=== PATIENT | female | born 1950 | race Caucasian/White ===

== ENCOUNTER → 2016-11-19 | Outpatient (CLI) | payer OTHER ==
--- NOTE | 2016-11-23 12:51 | MM ---
Reason for exam: screening (asymptomatic). Last mammogram was performed 1 year and 1 month ago. History: Patient is postmenopausal and is nulliparous. Family history of breast cancer in mother at age 59 and breast cancer in 3 maternal aunts. Reductions of both breasts, 2001. Took estrogen for 16 years. Took progesterone for 16 years. Physical Findings: A clinical breast exam by your physician is recommended on an annual basis and results should be correlated with mammographic findings. MG Screening Mammo w CAD Bilateral CC and MLO view(s) were taken. Prior study comparison: October 11, 2015, bilateral MG screening mammo w CAD. January 01, 2014, bilateral MG screening mammo w CAD. There are scattered fibroglandular densities. No significant changes when compared with prior studies. ASSESSMENT: Benign, BI-RAD 2 RECOMMENDATION: Routine screening mammogram of both breasts in 1 year.
== END | disposition home or self-care (01) ==
LOC: RADMAMWWP 15:49
PROVIDERS: ATTEND Family Medicine
DX: Z12.31 Encounter for screening mammogram for malignant neoplasm of breast (principal)

== ENCOUNTER 2017-03-08 02:47 | Emergency (ER) | payer OTHER ==
[2017-03-08 02:55] VITALS: TEMP 97.1
[2017-03-08] MEDS ORDERED: RABIES IMMUNE GLOB 150 UNIT/ML 10 ML VIAL IM ONE (03:15)
[2017-03-08] MEDS ORDERED: RABIES VACCINE (PCEC) 2.5 UNIT KIT IM ONE (03:15)
[2017-03-08] MEDS ORDERED: AMOXIC-POT CLAV 875-125MG 1 EACH TAB PO STA (03:15)
[2017-03-08] MEDS ORDERED: DIPH,PERTUS(ACELL)TETVAC-LF 0.5 ML VIAL IM ONE (03:15)
[2017-03-08] MEDS ORDERED: IBUPROFEN 600 MG TAB PO STA (03:19)
--- NOTE | 2017-03-08 03:20 | ED ---
Animal Bite HPI - General Chief Complaint: Animal Bite Stated Complaint: Cat bites-right hand Time Seen by Provider: 03/08/17 02:57 Source: patient, RN notes reviewed Mode of arrival: ambulatory Limitations: no limitations - History of Present Illness Initial Comments: 66-year-old female presents emergency Department chief complaint Bite right arm. Patient states her cat was fighting with another stray cat and states that she was bit multiple times by her cat in the femoral. Patient states that her tetanus is not up-to-date. Patient states that she has multiple puncture wounds to her right forearm right hand. Patient states there is one larger puncture wound to the dorsal aspect of her right hand. Patient denies any paresthesias denies any decreased range of motion. Patient offers no other complaints. She states she was unable to capture the cat this time. - Related Data Home Medications Medication Instructions Recorded Confirmed Atenolol [Tenormin] 25 mg PO BID 01/29/14 01/15/16 Gabapentin [Neurontin] 300 mg PO BID 01/29/14 01/15/16 Methocarbamol [Robaxin-750] 750 mg PO Q6H PRN 01/29/14 01/15/16 Omeprazole [PriLOSEC] 40 mg PO DAILY 01/29/14 01/15/16 Oxybutynin Chloride [Ditropan] 5 mg PO BID 01/29/14 01/15/16 amLODIPine BESYLATE [Norvasc] 5 mg PO DAILY 01/29/14 01/15/16 buPROPion SR [Wellbutrin SR] 150 mg PO BID 01/29/14 01/15/16 clonazePAM [KlonoPIN] 2 mg PO HS 01/29/14 01/15/16 metFORMIN HCL [Glucophage] 500 mg PO W/BRKFST 11/20/14 01/15/16 Multivitamins, Thera [Multivitamin 1 tab PO DAILY 01/17/15 01/15/16 (formulary)] Thiamine [Vitamin B-1] 100 mg PO DAILY 01/17/15 01/15/16 Cyanocobalamin [Vitamin B-12] 500 mcg PO DAILY 03/01/15 01/15/16 HYDROcodone/APAP 7.5-325MG [[place] 1 tab PO Q4H PRN 03/01/15 01/15/16 7.5-325] Albuterol Sulfate [Proair Hfa] 1 - 2 puff INHALATION RT-Q6H PRN 01/15/16 Aspirin EC [Ecotrin Low Dose] 81 mg PO HS 01/15/16 01/15/16 Atorvastatin [Lipitor] 10 mg PO HS 01/15/16 01/15/16 Calcium Polycarbophil [Fibercon] 625 mg PO DAILY 01/15/16 01/15/16 Cholecalciferol [Vitamin D3] 2,000 unit PO DAILY 01/15/16 01/15/16 Ferrous Sulfate [Iron (65 MG 325 mg PO DAILY 01/15/16 01/15/16 Elemental)] Folic Acid 0.8 mg PO DAILY 01/15/16 01/15/16 Pramipexole [Mirapex] 0.25 mg PO HS 01/15/16 01/15/16 valACYclovir HCL [Valtrex] 1,000 mg PO TID PRN 01/15/16 01/15/16 Previous Rx's Medication Instructions Recorded Amoxicillin/Potassium Clav 1 tab PO Q12HR #20 tab 03/08/17 [Augmentin 875-125 Tablet] Allergies Allergy/AdvReac Type Severity Reaction Status Date / Time No Known Allergies Allergy Verified 03/08/17 02:55 Review of Systems ROS Statement: Those systems with pertinent positive or pertinent negative responses have been documented in the HPI. ROS Other: All systems not noted in ROS Statement are negative. Past Medical History Past Medical History: COPD, Diabetes Mellitus, Fibromyalgia, GERD/Reflux, Hypertension, Musculoskeletal Disorder, Pulmonary Embolus (PE) Additional Past Medical History / Comment(s): UTI(E COLI FACEALIS WITH SEPSIS, FALLS, DJD, CHRONIC PRURITIC , PT STATED SHE TAKES SINEMET FOR restless legs History of Any Multi-Drug Resistant Organisms: None Reported Past Surgical History: Appendectomy, Back Surgery, Cholecystectomy, Joint Replacement, Orthopedic Surgery Additional Past Surgical History / Comment(s): brain surgery clipped aneurysm 4 clips, breast surgery reduction, cervical polyp,D&C, Gastroscopy, removal of cyst in mouth, hysterscopy, Left knee manipulation, cervical biopsy, Brain Arteriogram,LT KNEE REPLACEMENT, Past Anesthesia/Blood Transfusion Reactions: No Reported Reaction Past Psychological History: Anxiety Smoking Status: Current every day smoker Past Alcohol Use History: None Reported Past Drug Use History: None Reported - Past Family History Mother Family Medical History: Cancer Father Family Medical History: Cancer General Exam Limitations: no limitations General appearance: alert, in no apparent distress Head exam: Present: atraumatic, normocephalic, normal inspection Neck exam: Present: normal inspection. Absent: tenderness, meningismus, lymphadenopathy Respiratory exam: Present: normal lung sounds bilaterally. Absent: respiratory distress, wheezes, rales, rhonchi, stridor Cardiovascular Exam: Present: regular rate, normal rhythm, normal heart sounds. Absent: systolic murmur, diastolic murmur, rubs, gallop, clicks Extremities exam: Present: other (Right hand and forearm there are multiple puncture wounds noted there is some ecchymosis surrounding the wound on her right hand dorsal aspect. Radial pulses equal bilaterally Refill less than 2 seconds of all digits full range of motion) Course Vital Signs 03/08/17 02:51 Temperature 97.1 F L Pulse Rate 63 Respiratory 18 Rate Blood Pressure 144/70 O2 Sat by Pulse 95 Oximetry Medical Decision Making - Medical Decision Making 66-year-old female presented for Right. I did inform the patient that her tetanus needs to be updated and will be updated at this time. She was also recommended to have rabies vaccine and immunoglobulin. Patient agrees to this. Patient was advised that she should have the wounds injected with the immunoglobulin though she refuses. Patient will be given this IM at this time. Patient be given prescription for rabies series. Patient also be discharged on Augmentin. Wounds were cleaned Disposition Clinical Impression: Cat bite Disposition: HOME SELF-CARE Condition: Stable Instructions: Animal Bite (ED) Additional Instructions: Please return to the Emergency Department if symptoms worsen or any other concerns. Prescriptions: Amoxicillin/Potassium Clav [Augmentin 875-125 Tablet] 1 tab PO Q12HR #20 tab Referrals: Mir Nuñez DO [Primary Care Provider] - 1-2 days Time of Disposition: 03:20
[2017-03-08 04:29] VITALS: BP 133/74; PULSE 69; RESP 16
== END 2017-03-08 04:30 | disposition home or self-care (01) ==
LOC: EC 02:47
DX: S51.831A Puncture wound without foreign body of right forearm, initial encounter (principal); S61.431A Puncture wound without foreign body of right hand, initial encounter; E11.9 Type 2 diabetes mellitus without complications; M79.7 Fibromyalgia; K21.9 Gastro-esophageal reflux disease without esophagitis; I10 Essential (primary) hypertension; F41.9 Anxiety disorder, unspecified; F17.200 Nicotine dependence, unspecified, uncomplicated; Z23 Encounter for immunization; Z86.711 Personal history of pulmonary embolism; Z79.82 Long term (current) use of aspirin; Z79.84 Long term (current) use of oral hypoglycemic drugs; Z79.899 Other long term (current) drug therapy; W55.01XA Bitten by cat, initial encounter
CPT/HCPCS: 90375; 90471; 90472; 90675; 90715; 96372; 99282

== ENCOUNTER → 2017-03-09 | Outpatient (CLI) | payer OTHER ==
--- NOTE | 2017-03-09 21:17 | XR ---
EXAMINATION TYPE: XR chest 2V DATE OF EXAM: 03/09/2017 COMPARISON: Chest x-ray January 14, 2016. HISTORY: Cough for 2 months. TECHNIQUE: Frontal and lateral views of the chest are obtained. FINDINGS: Chronic parenchymal change is present. There is no suspicious new focal air space opacity, pleural effusion, or pneumothorax seen. The cardiac silhouette size is within normal limits with ath erosclerotic change in thoracic aorta. The osseous structures are intact. IMPRESSION: Chronic changes without suspicious acute infiltrate.
== END | disposition home or self-care (01) ==
LOC: RADXRMAIN 16:07
PROVIDERS: ATTEND Family Medicine
DX: R91.8 Other nonspecific abnormal finding of lung field (principal); R05 Cough
CPT/HCPCS: 71020

== ENCOUNTER → 2017-10-06 | Outpatient (CLI) | payer OTHER ==
--- NOTE | 2017-10-06 15:21 | XR ---
EXAMINATION TYPE: XR thoracic spine complete DATE OF EXAM: 10/06/2017 COMPARISON: NONE HISTORY: Pain Alignment is anatomic. There is no compression deformities. Atherosclerotic change aorta noted. Ther e is a curvature of the spine. Multilevel hypertrophic and degenerative changes are seen. IMPRESSION: 1. Multilevel degenerative disc disease.
== END | disposition home or self-care (01) ==
LOC: RADXRMAIN 14:53
PROVIDERS: ATTEND Family Medicine
DX: M51.34 Other intervertebral disc degeneration, thoracic region (principal)
CPT/HCPCS: 72072

== ENCOUNTER → 2017-11-04 | Outpatient (CLI) | payer OTHER ==
--- NOTE | 2017-11-04 17:26 | CT ---
EXAMINATION TYPE: CT brain wo con DATE OF EXAM: 11/04/2017 COMPARISON: 01/14/2016 HISTORY: Patient complains of repeated falls. Occassional headaches and dizziness. CT DLP: 782.6 mGycm Automated exposure control for dose reduction was used. FINDINGS: There is cerebral cortical atrophy. There is mild hypodensity in the periventricular white matter. Ca lvarium is intact. Old left temporal craniotomy defect is noted. There is minimal mucosal thickening in the sphenoid sinus and right ethmoid sinus. IMPRESSION: CEREBRAL ATROPHY. MINIMAL CHRONIC SMALL VESSEL ISCHEMIA. MINIMAL SINUSITIS. THERE IS NOT A SIGNIFICAN T CHANGE COMPARED TO OLD EXAM.
== END | disposition home or self-care (01) ==
LOC: RADCTMAIN 16:42
PROVIDERS: ATTEND Family Medicine
DX: G31.9 Degenerative disease of nervous system, unspecified (principal)
CPT/HCPCS: 70450

== ENCOUNTER → 2017-11-25 | Outpatient (CLI) | payer OTHER ==
--- NOTE | 2017-11-26 11:37 | MM ---
Reason for exam: screening (asymptomatic). Last mammogram was performed 1 year ago. History: Patient is postmenopausal and is nulliparous. Family history of breast cancer in mother at age 59, breast cancer in maternal aunt at age 55, and breast cancer in 2 other maternal aunts. Reductions of both breasts, 2001. Took estrogen for 16 years. Took progesterone for 16 years. Physical Findings: A clinical breast exam by your physician is recommended on an annual basis and results should be correlated with mammographic findings. MG Screening Mammo w CAD Bilateral CC and MLO view(s) were taken. Prior study comparison: November 19, 2016, bilateral MG screening mammo w CAD. October 11, 2015, bilateral MG screening mammo w CAD. Finding: There are typically benign dystrophic calcifications in the left breast. No significant changes in finding since November 19, 2016 and October 11, 2015. ASSESSMENT: Benign, BI-RAD 2 RECOMMENDATION: Routine screening mammogram of both breasts in 1 year.
== END | disposition home or self-care (01) ==
LOC: RADMAMWWP 14:54
PROVIDERS: ATTEND Family Medicine
DX: Z12.31 Encounter for screening mammogram for malignant neoplasm of breast (principal)
CPT/HCPCS: 77067

== ENCOUNTER → 2017-12-07 | Outpatient (CLI) | payer OTHER ==
--- NOTE | 2017-12-07 13:28 | BD ---
EXAMINATION TYPE: MG DEXA axial skeleton. DATE OF EXAM: 12/07/2017 COMPARISON: NONE CLINICAL HISTORY: screening Height: 4'11 Weight: 110 FRAX RISK QUESTIONS: Alcohol (3 or more units per day): no Family History (Parent hip fracture): no Glucocorticoids (More than 3mos): no (Ex: prednisone, prednisolone, methylprednisolone, dexamethasone, and hydrocortisone). History of Fracture in Adulthood: yes Secondary Osteoporosis: 1. Type 1 Diabetes: no 2. Hyperthyroidism: no 3. Menopause before 45: yes 4. Malnutrition: no 5. Chronic liver disease: no Rheumatoid Arthritis: no Current Tobacco Use: yes RISK FACTORS HISTORY OF: Surgery to Spine: L3 When: 10 years ago Diet low in dairy products/other sources of calcium: y Postmenopausal woman: y MEDICATIONS: Additional Medications: fibromyalgia, blood pressure, cholesterol, acid reflux, anxiety Additional History: EXAM MEASUREMENTS: Bone mineral densitometry was performed using the [employer] System. Bone mineral density about the R hip (g/cm2): 0.741 Bone mineral density about the L hip (g/cm2): 0.722 T Score values are as follows: -----R Neck: -2.1 -----L Neck: -2.3 -----R Total: -1.9 -----L Total: -2.6 IMPRESSION: Osteoporosis (T Score less than -2.5) is identified overall in the left hip. There is increased fracture risk and therapy is usually indicated based on age. Re-Screen 1-2 years. NOTE: T-SCORE=SD OF THE YOUNG ADULT MEAN.
== END | disposition home or self-care (01) ==
LOC: RADBDWWP 12:57
PROVIDERS: ATTEND Family Medicine
DX: M81.0 Age-related osteoporosis without current pathological fracture (principal)
CPT/HCPCS: 77080

== ENCOUNTER → 2018-08-18 | Outpatient (CLI) | payer OTHER ==
--- NOTE | 2018-08-18 13:31 | FL ---
MODIFIED SWALLOW / DEGLUTITION STUDY DATE OF EXAM: 08/18/2018 CLINICAL HISTORY: 68-year-old female patient with sensation of pharyngeal residuals. TECHNIQUE: Deglutition study is performed utilizing thin liquid barium, honey and nectar thick liqui d barium, barium thick applesauce, and barium coated cracker. Total fluoroscopy time: 1 minute 43 seconds. Total images: None. Real-time fluoroscopy support was provided to speech pathology. COMPARISON: None. FINDINGS: There is moderate hypertrophy of the cricopharyngeus. Prominent residuals are seen throughout the tho racic esophagus which is briefly imaged after the patient completed swallowing of solid consistencies . The oral and pharyngeal phases show satisfactory initiation and propagation with all modalities teste d. Normal mastication is seen with solid modalities tested. There is no evidence of penetration or aspiration with any modality tested. No significant pharyngeal residue was appreciated. IMPRESSION: 1. Moderate CP hypertrophy. 2. No evidence for penetration or aspiration. 3. Severe residuals are noted within the thoracic esophagus which is briefly imaged after the patient completes swallowing of solids. This could be secondary to severe reflux, distal obstruction, or eso phageal dysmotility. Esophagram can further evaluate. Please refer to speech therapist notes for further details if necessary.
== END | disposition home or self-care (01) ==
LOC: RADFLMAIN 11:52
PROVIDERS: ATTEND Otolaryngology
DX: J39.2 Other diseases of pharynx (principal); R93.3 Abnormal findings on diagnostic imaging of other parts of digestive tract; R13.10 Dysphagia, unspecified
CPT/HCPCS: 74230

== ENCOUNTER → 2018-09-16 | Outpatient (CLI) | payer OTHER ==
--- NOTE | 2018-09-18 12:43 | XR ---
EXAMINATION TYPE: XR chest 2V DATE OF EXAM: 09/16/2018 COMPARISON: None HISTORY: 68-year-old female COPD and difficulty breathing TECHNIQUE: Frontal and lateral views FINDINGS: The heart is normal size. Mild atherosclerotic arch calcifications. Strandy atelectasis in lower lung s. Mild hyperinflation. No consolidation or pleural effusion. IMPRESSION: COPD. No acute cardiopulmonary process.
== END | disposition home or self-care (01) ==
LOC: RADXRMAIN 15:56
PROVIDERS: ATTEND Family Medicine
DX: J44.9 Chronic obstructive pulmonary disease, unspecified (principal)
CPT/HCPCS: 71046

== ENCOUNTER → 2019-02-16 | Outpatient (CLI) | payer OTHER ==
[2019-02-16 23:50] LABS: ALT 15 U/L (8-44); AST 27 U/L (13-35); Alkaline Phosphatase 116 U/L (41-126); Bilirubin, Conjugated <0.20 mg/dL (0.20-0.40); Cholesterol 156 mg/dL (0-200); Total Bilirubin 0.3 mg/dL (0.2-1.2); Total Protein 6.2 g/dL (6.2-8.2)
== END | disposition home or self-care (01) ==
LOC: LABWHC1 16:53
PROVIDERS: ATTEND Internal Medicine Cardiovascular Disease
DX: E78.5 Hyperlipidemia, unspecified (principal)
CPT/HCPCS: 36415; 80061; 80076

== ENCOUNTER → 2019-05-09 | Outpatient (CLI) | payer OTHER ==
--- NOTE | 2019-05-10 05:09 | CT ---
EXAMINATION TYPE: CT chest w con DATE OF EXAM: 05/09/2019 COMPARISON: 03/01/2015 HISTORY: 69-year-old female SOB TECHNIQUE: Contiguous axial scanning of the chest after the administration of 100 mL of Isovue 300. Coronal/sagittal reconstructions performed. CT DLP: 442.1mGycm. Automatic exposure control utilized for a dose reduction. FINDINGS: Heart normal size without pericardial effusion. LAD calcifications. Ectatic ascending aorta 3.8 cm with mild atherosclerotic arch and descending thoracic aortic calcific ations. Bovine configuration to the aortic arch. No thoracic lymphadenopathy. Advanced centrilobular emphysema. Previous right hilar lymphadenopathy and endobronchial opacificatio n right lower lobe has resolved. No consolidation or pleural effusion. Visualized upper abdomen shows stable prominence of the biliary tree status post cholecystectomy. Bones: No osseous destructive process. IMPRESSION: 1. COPD with advanced emphysema. 2. Pulmonary arterial hypertension. 3. CAD. 4. Ectatic ascending aorta 3.8 cm.
--- NOTE | 2019-05-10 12:14 | MM ---
Reason for exam: screening (asymptomatic). Last mammogram was performed 1 year and 5 months ago. History: Patient is postmenopausal and is nulliparous. Family history of breast cancer in mother at age 59, breast cancer in maternal aunt at age 55, breast cancer in maternal aunt at age 68, and breast cancer in maternal aunt. Reductions of both breasts, 2001. Took estrogen for 16 years. Took progesterone for 16 years. Physical Findings: A clinical breast exam by your physician is recommended on an annual basis and results should be correlated with mammographic findings. MG Screening Mammo w CAD Bilateral CC, MLO, and XCCL view(s) were taken. Prior study comparison: November 25, 2017, bilateral MG screening mammo w CAD. November 19, 2016, bilateral MG screening mammo w CAD. The breast tissue is almost entirely fat. No significant changes when compared with prior studies. ASSESSMENT: Benign, BI-RAD 2 RECOMMENDATION: Routine screening mammogram of both breasts in 1 year.
== END | disposition home or self-care (01) ==
LOC: RADCTMAIN 14:44
PROVIDERS: ATTEND Family Medicine
DX: Z12.31 Encounter for screening mammogram for malignant neoplasm of breast (principal); J43.9 Emphysema, unspecified; I25.10 Atherosclerotic heart disease of native coronary artery without angina pectoris; I77.819 Aortic ectasia, unspecified site; I27.21 Secondary pulmonary arterial hypertension
CPT/HCPCS: 82565; 84520; 77067; 71260; 36415; Q9967

== ENCOUNTER 2019-09-19 19:48 | Emergency (ER) | payer OTHER ==
[2019-09-19] MEDS ORDERED: SODIUM CHLORIDE 0.9% 1,000 ML IV ONE (19:56)
[2019-09-19] MEDS ORDERED: MIDAZOLAM 1 MG/ML 5 ML VIAL IV STA (20:02)
[2019-09-19] MEDS ORDERED: ALBUTEROL NEBULIZED 2.5 MG/3 ML INHALATION STA (20:08)
[2019-09-19] MEDS ORDERED: IPRATROPIUM-ALBUTEROL 3 ML NEB INHALATION STA (20:08)
[2019-09-19] MEDS ORDERED: DEXAMETHASONE SOD PHOSPHATE 10 MG/ML 1 ML VIAL IV STA (20:08)
[2019-09-19 20:18] VITALS: BP 147/125; RESP 20
--- NOTE | 2019-09-19 20:27 | XR ---
EXAMINATION TYPE: XR chest 1V portable DATE OF EXAM: 09/19/2019 COMPARISON: 09/16/2018 HISTORY: Difficulty breathing TECHNIQUE: FINDINGS: Heart is normal. Lungs are clear of consolidation. There is no heart failure. Endotracheal tube is 2 cm from the cristine. There is no pleural effusion. There are chest leads. IMPRESSION: No active cardiopulmonary disease. Atheromatous aorta. No change.
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
[2019-09-19] MEDS ORDERED: PROPOFOL 1,000 MG in EMPTY BAG 1 BAG IV ONE (20:34)
[2019-09-19] MEDS ORDERED: ROCURONIUM BROMIDE 10 MG/ML 10 ML VIAL IV STA (20:34)
[2019-09-19] MEDS ORDERED: DIPH,PERTUS(ACELL)TETVAC-LF 0.5 ML VIAL IM ONE (20:40)
[2019-09-19 20:45] LABS: ALT 15 U/L (4-34); AST 26 U/L (14-36); African American GFR (CKD) >90 (>60 ml/min/1.73 sqM); Alcohol <10 mg/dL; Alkaline Phosphatase 96 U/L (38-126); Amylase 43 U/L (30-110); Anion Gap 9 mmol/L; Basophils # (A) 0.1 k/uL (0-0.2); Basophils % (A) 1 %; Blood Urea Nitrogen 20 mg/dL (7-17); Calcium 9.3 mg/dL (8.4-10.2); Carbon Dioxide 28 mmol/L (22-30); Chloride 103 mmol/L (98-107); Eosinophils # (A) 0.2 k/uL (0-0.7); Eosinophils % (A) 2 %; Glucose 113 mg/dL (74-99); HCT 40.9 % (34.0-46.0); HGB 13.2 gm/dL (11.4-16.0); Lymphocytes # (A) 2.1 k/uL (1.0-4.8); Lymphocytes % (A) 18 %; MCH 29.4 pg (25.0-35.0); MCHC 32.1 g/dL (31.0-37.0); MCV 91.4 fL (80.0-100.0); Mean Platelet Volume 6.8; Monocytes # (A) 0.5 k/uL (0-1.0); Monocytes % (A) 4 %; Neutrophils # (A) 8.4 k/uL (1.3-7.7); Neutrophils % (A) 74 %; Non-African American GFR(CKD) 85 (>60 ml/min/1.73 sqM); Platelet Count 341 k/uL (150-450); Potassium 4.4 mmol/L (3.5-5.1); RBC 4.48 m/uL (3.80-5.40); RDW 13.8 % (11.5-15.5); Sodium 140 mmol/L (137-145); Total Bilirubin 0.5 mg/dL (0.2-1.3); WBC 11.4 k/uL (3.8-10.6)
[2019-09-19] MEDS ORDERED: PROPOFOL 1,000 MG in EMPTY BAG 1 BAG IV SCH (20:45)
[2019-09-19 20:47] LABS: Appearance,Urine Clear (Clear); Bilirubin,Urine Negative (Negative); Blood,Urine Negative (Negative); Color,Urine Light Yellow; Glucose,Urine (UA) Trace (Negative); Ketones,Urine Negative (Negative); Leukocyte Esterase,Urine Negative (Negative); Nitrite,Urine Negative (Negative); Protein,Urine Negative (Negative); Urobilinogen,Urine <2.0 mg/dL (<2.0)
[2019-09-19 21:01] LABS: Amphetamine Screen,Urine Not Detected (NotDetected); Barbiturate Screen,Urine Not Detected (NotDetected); Benzodiazepines Screen,Urine Not Detected (NotDetected); Cocaine Screen,Urine Not Detected (NotDetected); Methadone Screen, Urine Not Detected (NotDetected); Opiate Screen,Urine Detected (NotDetected); Oxycodone Screen, Urine Not Detected (NotDetected); Phencyclidine Screen,Urine Not Detected (NotDetected); Tricyclic Antidepressant,Urine Not Detected (NotDetected); Urn Cannabinoid Scrn Not Detected (NotDetected)
[2019-09-19] MEDS ORDERED: LACTATED RINGERS 1,000 ML IV ONE (21:09)
[2019-09-19 21:24] VITALS: PULSE 77
== END 2019-09-19 22:00 | disposition other institution (70) ==
LOC: EC 19:48
DX: T28.0XXA Burn of mouth and pharynx, initial encounter (principal); T26.40XA Burn of unspecified eye and adnexa, part unspecified, initial encounter; T23.252A Burn of second degree of left palm, initial encounter; T23.251A Burn of second degree of right palm, initial encounter; T20.24XA Burn of second degree of nose (septum), initial encounter; T88.4XXA Failed or difficult intubation, initial encounter; T31.10 Burns involving 10-19% of body surface with 0% to 9% third degree burns; R06.03 Acute respiratory distress; F41.9 Anxiety disorder, unspecified; E11.9 Type 2 diabetes mellitus without complications; I10 Essential (primary) hypertension; J44.9 Chronic obstructive pulmonary disease, unspecified; M79.7 Fibromyalgia; K21.9 Gastro-esophageal reflux disease without esophagitis; G25.81 Restless legs syndrome; F17.210 Nicotine dependence, cigarettes, uncomplicated; Z79.82 Long term (current) use of aspirin; Z79.899 Other long term (current) drug therapy; Z79.891 Long term (current) use of opiate analgesic; Z79.51 Long term (current) use of inhaled steroids; Z88.2 Allergy status to sulfonamides; Z88.1 Allergy status to other antibiotic agents; Z86.711 Personal history of pulmonary embolism; Z99.11 Dependence on respirator [ventilator] status; Z99.81 Dependence on supplemental oxygen; Z23 Encounter for immunization; Z96.652 Presence of left artificial knee joint; X08.8XXA Exposure to other specified smoke, fire and flames, initial encounter; Y93.89 Activity, other specified; Y92.009 Unspecified place in unspecified non-institutional (private) residence as the place of occurrence of the external cause
CPT/HCPCS: 99291; 31500; 96374; 90471; 96361; 36415; 94640; 80053; 82150; 83690; 85025; 81003; 80306; 80320; 71045; 90715; J1100; J2250; J2704; 94002

== ENCOUNTER 2021-04-02 19:18 | Emergency (ER) | payer OTHER ==
[2021-04-02 19:57] LABS: Glucose,Whole Blood 205 mg/dL (75-99)
[2021-04-02 20:10] LABS: Basophils # (A) 0.1 k/uL (0-0.2); Basophils % (A) 1 %; Eosinophils # (A) 0.6 k/uL (0-0.7); Eosinophils % (A) 6 %; HCT 38.4 % (34.0-46.0); HGB 12.5 gm/dL (11.4-16.0); Lymphocytes # (A) 2.4 k/uL (1.0-4.8); Lymphocytes % (A) 24 %; MCH 30.2 pg (25.0-35.0); MCHC 32.4 g/dL (31.0-37.0); MCV 93.1 fL (80.0-100.0); Mean Platelet Volume 6.9; Monocytes # (A) 0.5 k/uL (0-1.0); Monocytes % (A) 4 %; Neutrophils # (A) 6.4 k/uL (1.3-7.7); Neutrophils % (A) 64 %; Platelet Count 380 k/uL (150-450); RBC 4.13 m/uL (3.80-5.40); RDW 13.8 % (11.5-15.5)
[2021-04-02 20:23] LABS: INR 0.9 (<1.2); Partial Thromboplastin Time 23.5 sec (22.0-30.0); Prothrombin Time 9.7 sec (9.0-12.0)
[2021-04-02 20:25] LABS: ALT 14 U/L (4-34); AST 30 U/L (14-36); African American GFR (CKD) >90 (>60 ml/min/1.73 sqM); Albumin 4.2 g/dL (3.5-5.0); Alkaline Phosphatase 74 U/L (38-126); Anion Gap 10 mmol/L; Blood Urea Nitrogen 13 mg/dL (7-17); Calcium 9.4 mg/dL (8.4-10.2); Carbon Dioxide 28 mmol/L (22-30); Chloride 99 mmol/L (98-107); Glucose 190 mg/dL (74-99); Non-African American GFR(CKD) >90 (>60 ml/min/1.73 sqM); Potassium 4.7 mmol/L (3.5-5.1); Sodium 137 mmol/L (137-145); Total Bilirubin 0.2 mg/dL (0.2-1.3); Total Protein 6.7 g/dL (6.3-8.2)
--- NOTE | 2021-04-02 20:43 | XR ---
EXAMINATION TYPE: XR chest 2V DATE OF EXAM: 04/02/2021 COMPARISON: 09/19/2019. HISTORY: Altered mental status. TECHNIQUE: Frontal and lateral views of the chest are obtained. FINDINGS: There is mild left basilar opacity compatible with atelectasis. No pleural effusion, or pn eumothorax seen. The cardiac silhouette size is enlarged. The osseous structures are intact. IMPRESSION: No acute cardiopulmonary process.
--- NOTE | 2021-04-02 20:46 | CT ---
EXAM: CT brain wo con CLINICAL HISTORY: Neuro deficit, stroke suspected. Patient stated right eye was dilating. COMPARISON: None TECHNIQUE: Contiguous axial noncontrast images of the brain were obtained. Coronal and sagittal refor mats were generated and reviewed. Automated dose control was used for this exam. FINDINGS: There is no evidence for intracranial hemorrhage, mass effect or midline shift. White matter is gross ly preserved. Ventricular size and configuration is within normal limits for degree of parenchymal volume. The paranasal sinuses are clear. The mastoid air cells are clear. No evidence for calvarial fracture. Left frontal craniotomy with surgical device about the insula. IMPRESSION: No acute intracranial abnormality. Postsurgical changes.
[2021-04-02 21:16] VITALS: RESP 18; TEMP 97.6
--- NOTE | 2021-04-02 21:18 | CT ---
EXAMINATION TYPE: CT angio head neck DATE OF EXAM: 04/02/2021 HISTORY: Neuro deficits, stroke suspected. RT eye dilation COMPARISON: None available. CT DLP: 448.1 mGycm. Automated Exposure Control for Dose Reduction was Utilized. TECHNIQUE: CTA scan of the head and neck is performed with IV Contrast, patient injected with 65 mL of Isovue 370, axial images are obtained, coronal and sagittal reformatted images are reviewed. Three -D reconstructed images are created on an independent workstation and reviewed. FINDINGS: There is mild atherosclerosis of the aortic arch. Otherwise normal three-vessel branching of the aort a. There is no evidence of high-grade stenosis, dissection or aneurysm seen in the bilateral common c arotid, cervical internal carotid and vertebral arteries. There is no evidence of high-grade stenosis, dissection or aneurysm in the intracranial internal coronado tid arteries, anterior, middle and posterior cerebral arteries as well as in the imaged vertebral and basilar arteries. The communicating arteries are unremarkable. Presumed aneurysmal clip involving th e left MCA branch about the insula. IMPRESSION: No acute abnormality of the CTA head/neck. NASCET criteria was used in interpretation of this exam?
--- NOTE | 2021-04-02 21:26 | ED ---
General Adult HPI - General Chief complaint: Eye Problems Stated complaint: eye problem Time Seen by Provider: 04/02/21 19:41 Source: patient, family, RN notes reviewed, old records reviewed Mode of arrival: ambulatory Limitations: no limitations - History of Present Illness Initial comments: Patient is a 70-year-old female with past medical history remarkable for chronic COPD on home oxygen, diabetes, fibromyalgia, GERD, hypertension, prior brain ane urysm status post clipping who presents emergency Department complaining of isolated right eye dilation. She states that she awoke this morning with a dilated right eye. She states she is having some mild blurry vision but is still able to see. She denies any pain in the right eye. She states that she has noticed that over the last few days right eye seems a little irritated, but denies injuring it. Denies any fevers, chills, sick contacts. Denies any neck pain. Denies any chest pain, abdominal pain, nausea, vomiting. She denies any shortness of breath. She denies any new onset numbness or weakness. She has no other sensory or neurological deficits at this time. Patient presents over concern for acutely dilated right pupil. She denies any headache. - Related Data Home Medications Medication Instructions Recorded Confirmed Gabapentin [Neurontin] 300 mg PO BID 01/29/14 09/19/19 Methocarbamol [Robaxin-750] 750 mg PO Q6H PRN 01/29/14 09/19/19 Omeprazole [PriLOSEC] 20 mg PO DAILY 01/29/14 09/19/19 amLODIPine BESYLATE [Norvasc] 5 mg PO DAILY 01/29/14 09/19/19 atenoloL [Tenormin] 25 mg PO BID 01/29/14 09/19/19 Cyanocobalamin [Vitamin B-12] 500 mcg PO DAILY 03/01/15 09/19/19 HYDROcodone/APAP 7.5-325MG [[place] 1 tab PO BID PRN 03/01/15 09/19/19 7.5-325] Aspirin EC [Ecotrin Low Dose] 81 mg PO DAILY 01/15/16 09/19/19 Atorvastatin [Lipitor] 10 mg PO DAILY 01/15/16 09/19/19 Pramipexole [Mirapex] 0.25 mg PO BID 01/15/16 09/19/19 calcium polycarbophiL [Fibercon] 625 mg PO MOFR 01/15/16 09/19/19 Albuterol Sulfate [Ventolin HFA] 2 puff INHALATION RT-QID PRN 09/19/19 09/19/19 Bronkaid 1 tab PO Q6H PRN 09/19/19 09/19/19 Budesonide/Formoterol Fumarate 2 puff INHALATION RT-BID 09/19/19 09/19/19 [Symbicort 160-4.5 Mcg Inhaler] Calcium(Unknown Dose) 1 tab PO DAILY 09/19/19 09/19/19 Folic Acid(Unknown Dose) 1 tab PO DAILY 09/19/19 09/19/19 Ipratropium [place] [Atrovent Hfa] 2 puff INHALATION RT-QID 09/19/19 09/19/19 Iron(Unknown Dose) 1 tab PO DAILY 09/19/19 09/19/19 Magnesium Oxide [Mag-Ox] 250 mg PO DAILY 09/19/19 09/19/19 [place]-3 Fatty Acids/Fish Oil [Fish 1 cap PO DAILY 09/19/19 09/19/19 Oil 1,000 mg Softgel] Sertraline [Zoloft] 50 mg PO HS 09/19/19 09/19/19 Teriparatide [Forteo] 20 mcg SQ DAILY 09/19/19 09/19/19 Vitamin D3(Unknown Dose) 1 tab PO DAILY 09/19/19 09/19/19 Zolpidem Tartrate [Ambien] 5 mg PO HS 09/19/19 09/19/19 hydrOXYzine HCL [Atarax] 10 mg PO BID PRN 09/19/19 09/19/19 Allergies Allergy/AdvReac Type Severity Reaction Status Date / Time sulfamethoxazole Allergy Unknown Verified 04/02/21 19:26 [From Bactrim] trimethoprim [From Bactrim] Allergy Unknown Verified 04/02/21 19:26 Review of Systems ROS Statement: Those systems with pertinent positive or pertinent negative responses have been documented in the HPI. Review of Systems: CONST: Denies fever EYES: Endorses right eye blurry vision, right eye pupillary dilation ENT: Denies nasal congestion C/V: Denies Chest pain RESP: Denies shortness of breath GI: Denies abdominal pain : Denies dysuria SKIN: Denies rash. MSK: Denies joint pain. NEURO: Denies headache ROS Other: All systems not noted in ROS Statement are negative. Past Medical History Past Medical History: COPD, Diabetes Mellitus, Fibromyalgia, GERD/Reflux, Hyper tension, Musculoskeletal Disorder, Pulmonary Embolus (PE) Additional Past Medical History / Comment(s): UTI(E COLI FACEALIS WITH SEPSIS, FALLS, DJD, CHRONIC PRURITIC , PT STATED SHE TAKES SINEMET FOR restless legs History of Any Multi-Drug Resistant Organisms: None Reported Past Surgical History: Appendectomy, Back Surgery, Cholecystectomy, Joint Replacement, Orthopedic Surgery Additional Past Surgical History / Comment(s): brain surgery clipped aneurysm 4 clips, breast surgery reduction, cervical polyp,D&C, Gastroscopy, removal of cyst in mouth, hysterscopy, Left knee manipulation, cervical biopsy, Brain Arteriogram,LT KNEE REPLACEMENT, Past Anesthesia/Blood Transfusion Reactions: No Reported Reaction Past Psychological History: Anxiety Smoking Status: Former smoker Past Alcohol Use History: None Reported Past Drug Use History: None Reported - Past Family History Mother Family Medical History: Cancer Father Family Medical History: Cancer General Exam - General Exam Comments Initial Comments: General: Appears in no acute distress. HEAD: Normal with no signs of head trauma. EYES: EOMI and conjunctiva normal. No discharge. Patient's right pupil is approximately 5 mm and minimally reactive. Patient's left pupil is approximately 2 mm and normally reactive. These are acute findings. Visual acuity appears relatively unchanged, with glasses it is normal in the left eye and slightly decreased in the right eye. Patient is actively reading a book in the room. Accommodation is intact. Pupillary pressure in the right eye is within normal limits at 16. Tetracaine staining and evaluation revealed no signs of corneal abrasion. ENT: Hearing grossly intact, normal oropharynx. RESPIRATORY: Clear breath sounds bilaterally. No wheezes, rales, or rhonchi. C/V: Regular rate and rhythm. S1 and S2 auscultated, no edema, peripheral pulses 2+ and intact throughout ABD: Abd is soft, nontender, nondistended EXT: Normal range of motion, no obvious deformity SKIN: No rashes or lesions observed on exposed skin. NEURO: Alert and oriented 4. Cranial nerves II through XII are intact. No focal sensory strength deficits. Patient has a dilated right pupil and normal reactive left pupil. NIH stroke scale is 0. Last known well was last night, as these were awakened neurological findings. Limitations: no limitations Course Vital Signs 04/02/21 04/02/21 04/02/21 19:18 19:30 20:30 Temperature 97.5 F L 97.6 F Pulse Rate 75 63 65 Respiratory 22 18 18 Rate Blood Pressure 127/74 107/91 108/90 O2 Sat by Pulse 99 99 99 Oximetry 04/02/21 21:00 Temperature Pulse Rate 64 Respiratory 18 Rate Blood Pressure 107/72 O2 Sat by Pulse 99 Oximetry Medical Decision Making - Medical Decision Making Based on the patient's presentation and physical exam, patient is having isolated anisocoria of the right eye. With slightly reduced visual acuity in the right eye. She has no other neurological complaints. NIH stroke scale is 0. However with her history of brain aneurysm status post clipping, I'm concerned for possible stroke. She is outside the TPA or interventional window, as last known well was last night, and she woke up with the symptoms. Therefore we will obtain basic laboratory studies including troponin, EKG, laboratory studies, CT head and CTA brain and neck. She was in agreement this plan. Patient's laboratory studies are unremarkable quitting a negative troponin. She does have mild hyperglycemia of 190. Patient's CXR shows no acute cardiopulmonary process. EKG shows no acute ischemic changes. Brain CT and angiography CT shows no acute intracranial process, but signs of prior clipping. There is no acute bleed. On reevaluation, patient's exam is unchanged. Eye exam was performed and d ocumented above, and was relatively unremarkable except for the dilated right pupil with slightly reduced visual acuity in the right eye. I did speak with the neurologist on-call he stated that as long as the patient can follow-up with an monorail operator within the next 24 hours, she is stable for discharge home. I did convey this to the patient. They're uncertain if they were unable to follow up with ophthalmology therefore we will attempt to contact the monorail operator on-call, Dr. Gonzales. Multiple attempts were made to contact the on-call monorail operator, without success. Therefore patient, after discussion with her and her , would like to go home. I do believe this is appropriate, we will attempt to contact Dr. Gonzales's office tomorrow or contact an opthamologist near them. I believe this is appropriate. I did advise him to return to the emergency department if there are any further complaints. Awaiting opthalmology to call back delayed the patient's discharge home. I instructed the patient to follow up with their PCP in the next 3 days. I inst ructed the patient to follow up with ophthalmology tomorrow. I explained that the patient should return to the emergency department if they experience any worsening symptoms. Strict return precautions were discussed with the patient. The patient expressed understanding of these instructions. I answered all questions that the patient had. The patient was discharged home in stable condition with their prescriptions and follow up information. - Lab Data Result diagrams: 04/02/21 19:59 04/02/21 19:59 Lab Results 04/02/21 04/02/21 04/02/21 Range/Units 19:55 19:59 19:59 WBC 10.0 (3.8-10.6) k/uL RBC 4.13 (3.80-5.40) m/uL Hgb 12.5 (11.4-16.0) gm/dL Hct 38.4 (34.0-46.0) % MCV 93.1 (80.0-100.0) fL MCH 30.2 (25.0-35.0) pg MCHC 32.4 (31.0-37.0) g/dL RDW 13.8 (11.5-15.5) % Plt Count 380 (150-450) k/uL MPV 6.9 Neutrophils % 64 % Lymphocytes % 24 % Monocytes % 4 % Eosinophils % 6 % Basophils % 1 % Neutrophils # 6.4 (1.3-7.7) k/uL Lymphocytes # 2.4 (1.0-4.8) k/uL Monocytes # 0.5 (0-1.0) k/uL Eosinophils # 0.6 (0-0.7) k/uL Basophils # 0.1 (0-0.2) k/uL PT 9.7 (9.0-12.0) sec INR 0.9 (<1.2) APTT 23.5 (22.0-30.0) sec Sodium (137-145) mmol/L Potassium (3.5-5.1) mmol/L Chloride (98-107) mmol/L Carbon Dioxide (22-30) mmol/L Anion Gap mmol/L BUN (7-17) mg/dL Creatinine (0.52-1.04) mg/dL Est GFR (CKD-EPI)AfAm (>60 ml/min/1.73 sqM) Est GFR (CKD-EPI)NonAf (>60 ml/min/1.73 sqM) Glucose (74-99) mg/dL POC Glucose (mg/dL) 205 H (75-99) mg/dL POC Glu Door Liner Sanya Valderrama Calcium (8.4-10.2) mg/dL Total Bilirubin (0.2-1.3) mg/dL AST (14-36) U/L ALT (4-34) U/L Alkaline Phosphatase (38-126) U/L Troponin I (0.000-0.034) ng/mL Total Protein (6.3-8.2) g/dL Albumin (3.5-5.0) g/dL 04/02/21 04/02/21 Range/Units 19:59 19:59 WBC (3.8-10.6) k/uL RBC (3.80-5.40) m/uL Hgb (11.4-16.0) gm/dL Hct (34.0-46.0) % MCV (80.0-100.0) fL MCH (25.0-35.0) pg MCHC (31.0-37.0) g/dL RDW (11.5-15.5) % Plt Count (150-450) k/uL MPV Neutrophils % % Lymphocytes % % Monocytes % % Eosinophils % % Basophils % % Neutrophils # (1.3-7.7) k/uL Lymphocytes # (1.0-4.8) k/uL Monocytes # (0-1.0) k/uL Eosinophils # (0-0.7) k/uL Basophils # (0-0.2) k/uL PT (9.0-12.0) sec INR (<1.2) APTT (22.0-30.0) sec Sodium 137 (137-145) mmol/L Potassium 4.7 (3.5-5.1) mmol/L Chloride 99 (98-107) mmol/L Carbon Dioxide 28 (22-30) mmol/L Anion Gap 10 mmol/L BUN 13 (7-17) mg/dL Creatinine 0.67 (0.52-1.04) mg/dL Est GFR (CKD-EPI)AfAm >90 (>60 ml/min/1.73 sqM) Est GFR (CKD-EPI)NonAf >90 (>60 ml/min/1.73 sqM) Glucose 190 H (74-99) mg/dL POC Glucose (mg/dL) (75-99) mg/dL POC Glu Door Liner ID Calcium 9.4 (8.4-10.2) mg/dL Total Bilirubin 0.2 (0.2-1.3) mg/dL AST 30 (14-36) U/L ALT 14 (4-34) U/L Alkaline Phosphatase 74 (38-126) U/L Troponin I <0.012 (0.000-0.034) ng/mL Total Protein 6.7 (6.3-8.2) g/dL Albumin 4.2 (3.5-5.0) g/dL - EKG Data -: EKG Interpreted by Me EKG Comments: 12-lead Electrocardiogram Interpretation Note EKG was reviewed and interpreted by myself. 12-lead ECG performed at 1952 is interpreted by me as revealing normal sinus rhythm at a rate of 71 beats per minute. [place] is normal. NE intervals 164 ms, QRS duration is 80 ms, QTc is 460 ms.. There were no ST or T wave abnormalities to suggest myocardial ischemia or injury. R wave progression across the precordium was satisfactory. By my in terpretation this EKG is non-diagnostic for acute ischemia. Disposition Clinical Impression: Anisocoria, Chronic respiratory failure with hypoxia, Hyperglycemia, Blurry vision Disposition: HOME SELF-CARE Condition: Stable Instructions (If sedation given, give patient instructions): Blurred Vision (ED) Is patient prescribed a controlled substance at d/c from ED?: No Referrals: Mir Nuñez DO [Primary Care Provider] - 1-2 days Angel Gonzales MD [STAFF PHYSICIAN] - As Soon As Possible (Follow up tomorrow with Dr. Gonzales)
[2021-04-02] MEDS ORDERED: ASPIRIN 325 MG TAB PO STA (22:02)
[2021-04-02] MEDS ORDERED: TETRACAINE 0.5% OPHTH (PF) DROPS 4 ML BTL RIGHT EYE STA (22:12)
[2021-04-02] MEDS ORDERED: FLUORESCEIN STRIPS 1 MG STRIP RIGHT EYE ONE (22:13)
[2021-04-03 00:10] VITALS: BP 122/76; PULSE 67
== END 2021-04-02 23:40 | disposition home or self-care (01) ==
LOC: EC 19:18
DX: H57.02 Anisocoria (principal); H53.8 Other visual disturbances; E11.65 Type 2 diabetes mellitus with hyperglycemia; J96.11 Chronic respiratory failure with hypoxia; I10 Essential (primary) hypertension; J44.9 Chronic obstructive pulmonary disease, unspecified; K21.9 Gastro-esophageal reflux disease without esophagitis; F41.9 Anxiety disorder, unspecified; Z79.82 Long term (current) use of aspirin; Z99.81 Dependence on supplemental oxygen; Z88.1 Allergy status to other antibiotic agents; Z88.2 Allergy status to sulfonamides; Z90.49 Acquired absence of other specified parts of digestive tract; Z86.711 Personal history of pulmonary embolism; Z87.891 Personal history of nicotine dependence; Z86.79 Personal history of other diseases of the circulatory system
CPT/HCPCS: 99285; 36415; 93005; 80053; 84484; 85025; 85610; 85730; 71046; 70496; 70450; 70498; Q9967

== ENCOUNTER → 2021-09-12 | Outpatient (CLI) | payer BC ==
--- NOTE | 2021-09-12 16:00 | BD ---
EXAMINATION TYPE: Axial Bone Density DATE OF EXAM: 09/12/2021 COMPARISON: Prior Dexa Bone Density at 2018 CLINICAL HISTORY: Height: 5 FT 1 IN Weight: 133 FRAX RISK QUESTIONS: Alcohol (3 or more units per day): NO Family History (Parent hip fracture): NO Glucocorticoids (More than 3mos): NO (Ex: prednisone, prednisolone, methylprednisolone, dexamethasone, and hydrocortisone). History of Fracture in Adulthood: YES Secondary Osteoporosis: 1. Type 1 Diabetes: NO 2. Hyperthyroidism: NO 3. Menopause before 45: YES 4. Malnutrition: NO 5. Chronic liver disease: NO Rheumatoid Arthritis: NO Current Tobacco Use: FORMER RISK FACTORS HISTORY OF: Surgery to Spine/Hip(right/left)/Wrist (right/left): SPINE When: LONG AGO Family History of Osteoporosis: NO Active: ON O2 Diet low in dairy products/other sources of calcium: NO Postmenopausal woman: YES Take estrogen and/or progesterone medications: TOOK HRT FOR YEARS NO LONGER TAKES Lost more than 2 inches in height since high school: NO Frequent falls: NO Poor Health: FAIR Hyperparathyroidism: NO Adrenal Insufficiency: NO MEDICATIONS: Prednisone or other steroids: How Long: Thyroid Medications: Which medication: How Long: Osteoporosis Medications: Which medication: How Long: Additional Medications: FORGOT MED LIST AT HOME Additional History: COPD AND EMPHYSEMA PT ON O2 EXAM MEASUREMENTS: Bone mineral density about the R hip (g/cm2): 0.687 Bone mineral density about the L hip (g/cm2): 0.711 T Score values are as follows: -----R Neck: -2.5 -----L Neck: -2.4 -----R Total: -2.4 -----L Total: -2.6 Bone mineral density has: DECREASED -3.9 % since study of: 2018 Bone mineral density about the L Wrist (g/cm2): 0.403 T Score values are as follows: -----Dist. R+U: -3.8 -----Prox. R+U: -4.3 -----Radius total: -4.5 FIRST TIME WRIST HAS BEEN DONE \ IMPRESSION: Osteoporosis (T Score less than -2.5) is now present. There is increased fracture risk and therapy is usually indicated based on age. Re-Screen 1-2 years. NOTE: T-SCORE=SD OF THE YOUNG ADULT MEAN.
== END | disposition home or self-care (01) ==
LOC: RADBDWWP 15:15
PROVIDERS: ATTEND Family Medicine
DX: M81.0 Age-related osteoporosis without current pathological fracture (principal)
CPT/HCPCS: 77080

== ENCOUNTER → 2021-10-01 | Outpatient (CLI) | payer BC ==
--- NOTE | 2021-10-02 12:36 | MM ---
Reason for exam: screening (asymptomatic). Last mammogram was performed 2 years and 5 months ago. History: Patient is postmenopausal and is nulliparous. Family history of breast cancer in mother at age 59, breast cancer in maternal aunt at age 55, breast cancer in maternal aunt at age 68, and breast cancer in maternal aunt. Reductions of both breasts, 2001. Took estrogen for 16 years. Took progesterone for 16 years. Physical Findings: A clinical breast exam by your physician is recommended on an annual basis and results should be correlated with mammographic findings. MG Screening Mammo w CAD Bilateral CC and MLO view(s) were taken. Prior study comparison: May 09, 2019, bilateral MG screening mammo w CAD. November 25, 2017, bilateral MG screening mammo w CAD. There are scattered fibroglandular densities. There are benign appearing round calcifications bilaterally. There is no discrete abnormality. ASSESSMENT: Benign, BI-RAD 2 RECOMMENDATION: Routine screening mammogram of both breasts in 1 year.
== END | disposition home or self-care (01) ==
LOC: RADMAMWWP 14:07
PROVIDERS: ATTEND Family Medicine
DX: Z12.31 Encounter for screening mammogram for malignant neoplasm of breast (principal); Z78.0 Asymptomatic menopausal state; Z80.3 Family history of malignant neoplasm of breast
CPT/HCPCS: 77067

== ENCOUNTER → 2021-10-30 | Outpatient (CLI) | payer BC ==
--- NOTE | 2021-10-31 07:37 | XR ---
EXAMINATION TYPE: XR shoulder complete RT DATE OF EXAM: 10/30/2021 CLINICAL HISTORY: pain TECHNIQUE: Three views of the right shoulder are obtained. COMPARISON: None FINDINGS: There is no acute fracture/dislocation evident. The acromioclavicular and glenohumeral [place] int spaces appear moderately narrowed. The visualized ribs are intact and unremarkable. IMPRESSION: 1. There is no acute fracture or dislocation. ICD 10 NO FRACTURE, INITIAL EVALUATION
== END | disposition home or self-care (01) ==
LOC: RADXRMAIN 16:03
PROVIDERS: ATTEND Family Medicine
DX: M25.511 Pain in right shoulder (principal)

== ENCOUNTER → 2022-03-27 | Outpatient (CLI) | payer BC ==
--- NOTE | 2022-03-28 04:19 | MR ---
EXAMINATION TYPE: MR shoulder RT wo con DATE OF EXAM: 03/27/2022 COMPARISON: None HISTORY: Right shoulder pain and limited movement for 6 months Multiplanar multiecho imaging of the right shoulder without contrast. The subscapularis tendon is intact. Biceps tendon is intact. Glenoid beth[place] appear intact. There is a very small joint effusion. There is hypertrophic spurring at the AC joint and minimal subacromial impingement. There is thickeni ng and increased signal in the supraspinatus tendon near the attachment on the greater tuberosity of the humerus. The infraspinatus tendon is intact. There are small subdeltoid effusion. Humeral head is intact. Glenoid is intact. IMPRESSION: There is full-thickness tear of the supraspinatus tendon without retraction. There is mild shoulder j oint effusion and subdeltoid effusion. Spurring at the AC joint and mild subacromial impingement.
== END | disposition home or self-care (01) ==
LOC: RADMRIMAIN 21:45
PROVIDERS: ATTEND Nurse Practitioner Family
DX: S46.011A Strain of muscle(s) and tendon(s) of the rotator cuff of right shoulder, initial encounter (principal); M25.411 Effusion, right shoulder; X58.XXXA Exposure to other specified factors, initial encounter

== ENCOUNTER 2022-07-28 12:59 | Inpatient (IN) | payer BC ==
[2022-07-28] MEDS ORDERED: methylPREDNISolone SOD SUCCI 125 MG/2 ML VIAL IV STA (14:06)
[2022-07-28] MEDS ORDERED: IPRATROPIUM-ALBUTEROL 3 ML NEB INHALATION STA (14:06)
[2022-07-28] MEDS ORDERED: MAGNESIUM SULFATE-D5W PMX 1 GM in DEXTROSE/WATER 1 100ML.BAG IVPB STA (14:06)
[2022-07-28] MEDS ORDERED: ALBUTEROL NEBULIZED 2.5 MG/3 ML INHALATION STA (14:07)
--- NOTE | 2022-07-28 14:08 | ED ---
SOB HPI - General Chief Complaint: Shortness of Breath Stated Complaint: SOB Time Seen by Provider: 07/28/22 13:55 Source: patient Mode of arrival: wheelchair Limitations: no limitations - History of Present Illness Initial Comments: 72-year-old female presents to the emergency department with complaint of shortness of breath. She does have a history of COPD and wears 4 L at home. Also has a history of hypertension and diabetes. States that for the past one day she has had increased shortness of breath. Reports that she has been using her nebulizer without improvement in her symptoms. Last treatment was 11 PM last night. She denies chest pain. No previous cardiac history. Denies cough or fevers. No sick contacts. No lower extremity swelling. She denies history of DVT or PE to me and is not on any anticoagulation. Patient's previous record is reviewed and does list PE as a diagnosis. Last steroid use was 2 weeks ago. Follow[address] with Dr. Bojorquez. Denies being on life support for her breathing. No other alleviating, precipitating or modifying factors - Related Data Home Medications Medication Instructions Recorded Confirmed amLODIPine BESYLATE [Norvasc] 5 mg PO DAILY 01/29/14 07/28/22 atenoloL [Tenormin] 25 mg PO BID 01/29/14 07/28/22 methocarbamoL [Robaxin-750] 750 mg PO Q6H PRN 01/29/14 07/28/22 Cyanocobalamin [Vitamin B-12] 500 mcg PO DAILY 03/01/15 07/28/22 HYDROcodone/APAP 7.5-325MG [[place] 1 tab PO TID PRN 03/01/15 07/28/22 7.5-325] Atorvastatin [Lipitor] 10 mg PO DAILY 01/15/16 07/28/22 Pramipexole [Mirapex] 0.25 mg PO BID 01/15/16 07/28/22 Albuterol Sulfate [Ventolin HFA] 2 puff INHALATION RT-QID PRN 09/19/19 07/28/22 Sertraline [Zoloft] 50 mg PO DAILY 09/19/19 07/28/22 hydrOXYzine HCL [Atarax] 10 mg PO BID 09/19/19 07/28/22 Cholecalciferol [Vitamin D3 (125 125 mcg PO DAILY 07/28/22 07/28/22 Mcg = 5000 Iu)] Fluticasone/Umeclidin/Vilanter 1 puff INHALATION RT-DAILY 07/28/22 07/28/22 [Trelegy Ellipta 100-62.5-25] Gabapentin [Neurontin] 400 mg PO TID 07/28/22 07/28/22 Nystatin 100,000 Unit/ml Susp 5 ml PO DAILY 07/28/22 07/28/22 [Mycostatin Oral Susp] Zolpidem [Ambien] 10 mg PO HS 07/28/22 07/28/22 Previous Rx's Medication Instructions Recorded Ipratropium-Albuterol Nebulize 3 ml INHALATION QID #0 07/31/22 [Duoneb 0.5 mg-3 mg/3 ml Soln] predniSONE See Taper PO DIRECTED #30 tab 07/31/22 Allergies Allergy/AdvReac Type Severity Reaction Status Date / Time sulfamethoxazole Allergy Unknown Verified 07/28/22 15:28 [From Bactrim] trimethoprim [From Bactrim] Allergy Unknown Verified 07/28/22 15:28 Review of Systems ROS Statement: Those systems with pertinent positive or pertinent negative responses have been documented in the HPI. ROS Other: All systems not noted in ROS Statement are negative. Past Medical History Past Medical History: COPD, Diabetes Mellitus, Fibromyalgia, GERD/Reflux, Hypertension, Musculoskeletal Disorder, Pulmonary Embolus (PE) Additional Past Medical History / Comment(s): UTI(E COLI FACEALIS WITH SEPSIS, FALLS, DJD, CHRONIC PRURITIC , PT STATED SHE TAKES SINEMET FOR restless legs History of Any Multi-Drug Resistant Organisms: None Reported Past Surgical History: Appendectomy, Back Surgery, Cholecystectomy, Joint Replac ement, Orthopedic Surgery Additional Past Surgical History / Comment(s): brain surgery clipped aneurysm 4 clips, breast surgery reduction, cervical polyp,D&C, Gastroscopy, removal of cyst in mouth, hysterscopy, Left knee manipulation, cervical biopsy, Brain Arteriogram,LT KNEE REPLACEMENT, Past Anesthesia/Blood Transfusion Reactions: No Reported Reaction Past Psychological History: Anxiety Smoking Status: Former smoker Past Alcohol Use History: None Reported Past Drug Use History: None Reported - Past Family History Mother Family Medical History: Cancer Father Family Medical History: Cancer General Exam Limitations: no limitations General appearance: alert, in distress Head exam: Present: atraumatic, normocephalic, normal inspection Eye exam: Present: normal appearance, PERRL, EOMI. Absent: scleral icterus, conjunctival injection, periorbital swelling ENT exam: Present: normal exam, mucous membranes moist Neck exam: Present: normal inspection. Absent: tenderness, meningismus, lymph adenopathy Respiratory exam: Present: respiratory distress, accessory muscle use, decreased breath sounds, other (tachypnia). Absent: wheezes, rales, rhonchi, stridor Cardiovascular Exam: Present: regular rate, normal rhythm, normal heart sounds. Absent: systolic murmur, diastolic murmur, rubs, gallop, clicks GI/Abdominal exam: Present: soft, normal bowel sounds. Absent: distended, tenderness, guarding, rebound, rigid Extremities exam: Present: normal inspection, full ROM, normal capillary refill. Absent: tenderness, pedal edema, joint swelling, calf tenderness Back exam: Present: normal inspection Neurological exam: Present: alert, oriented X3, CN II-XII intact Psychiatric exam: Present: normal affect, normal mood Skin exam: Present: warm, dry, intact, normal color. Absent: rash Course Vital Signs 07/28/22 07/28/22 07/28/22 13:49 14:00 14:03 Temperature 98 F Pulse Rate 82 87 Respiratory 26 H 24 24 Rate Blood Pressure 104/67 114/73 O2 Sat by Pulse 77 L 98 Oximetry Fraction of Inspired Oxygen (FIO2) 07/28/22 07/28/22 07/28/22 14:15 14:33 15:16 Temperature Pulse Rate 88 84 87 Respiratory 22 Rate Blood Pressure 109/65 O2 Sat by Pulse 99 Oximetry Fraction of Inspired Oxygen (FIO2) 07/28/22 07/28/22 07/28/22 17:01 19:29 19:39 Temperature Pulse Rate 90 82 85 Respiratory 18 Rate Blood Pressure 113/65 O2 Sat by Pulse 94 L Oximetry Fraction of Inspired Oxygen (FIO2) 07/28/22 07/28/22 07/28/22 21:34 22:11 22:12 Temperature 98.3 F Pulse Rate 95 93 96 Respiratory 16 28 H 20 Rate Blood Pressure 123/69 114/79 O2 Sat by Pulse 91 L 78 L 97 Oximetry Fraction of Inspired Oxygen (FIO2) 07/28/22 07/28/22 07/28/22 22:20 22:31 23:58 Temperature 98.3 F Pulse Rate 92 90 90 Respiratory 18 Rate Blood Pressure 130/65 O2 Sat by Pulse 95 Oximetry Fraction of Inspired Oxygen (FIO2) 07/29/22 07/29/22 07/29/22 00:48 01:03 01:47 Temperature 98.0 F Pulse Rate 93 92 81 Respiratory 20 16 Rate Blood Pressure 124/85 127/86 132/82 O2 Sat by Pulse 93 L 94 L 96 Oximetry Fraction of Inspired Oxygen (FIO2) 07/29/22 07/29/22 07/29/22 01:49 01:57 03:35 Temperature Pulse Rate 89 84 Respiratory 18 Rate Blood Pressure 122/82 O2 Sat by Pulse 94 L Oximetry Fraction of 60 Inspired Oxygen (FIO2) 07/29/22 07/29/22 07/29/22 03:36 03:43 04:42 Temperature Pulse Rate 80 Respiratory Rate Blood Pressure O2 Sat by Pulse Oximetry Fraction of 50 40 Inspired Oxygen (FIO2) 07/29/22 07/29/22 07/29/22 06:41 07:23 08:03 Temperature Pulse Rate 83 77 78 Respiratory 16 Rate Blood Pressure 140/74 145/88 O2 Sat by Pulse 97 97 Oximetry Fraction of 30 Inspired Oxygen (FIO2) 07/29/22 07/29/22 07/29/22 08:14 09:00 09:55 Temperature 97.8 F Pulse Rate 80 74 80 Respiratory 18 17 Rate Blood Pressure 147/84 151/95 O2 Sat by Pulse 95 92 L Oximetry Fraction of Inspired Oxygen (FIO2) Medical Decision Making - Medical Decision Making Arrival patient was placed into trauma 1. A thorough history and physical exam was performed. She is saturating 77% on her 4 L. We did obtain IV access. Patient was given 125 Solu-Medrol and 1 g of magnesium. She is placed on a nonrebreather and given 2 DuoNeb breathing treatments. Patient does have marked improvement and is able to be titrated down to her 4 L. Laboratory studies are conducted and reviewed. Covid and influenza are not detected. Chest x-ray demonstrates no acute process. Recommended admission for hypoxia and worsening shortness of breath. Patient was agreeable to this. Spoke with Dr. Chavira who agreed to admission. - Lab Data Result diagrams: 07/30/22 07:50 07/31/22 08:58 Lab Results 07/28/22 07/28/2222 Range/Units 14:14 14:14 14:14 WBC 9.0 (3.8-10.6) k/uL RBC 4.24 (3.80-5.40) m/uL Hgb 12.9 (11.4-16.0) gm/dL Hct 40.4 (34.0-46.0) % MCV 95.3 (80.0-100.0) fL MCH 30.4 (25.0-35.0) pg MCHC 31.9 (31.0-37.0) g/dL RDW 13.0 (11.5-15.5) % Plt Count 261 (150-450) k/uL MPV 7.0 Neutrophils % 75 % Lymphocytes % 14 % Monocytes % 5 % Eosinophils % 5 % Basophils % 1 % Neutrophils # 6.7 (1.3-7.7) k/uL Lymphocytes # 1.2 (1.0-4.8) k/uL Monocytes # 0.4 (0-1.0) k/uL Eosinophils # 0.4 (0-0.7) k/uL Basophils # 0.1 (0-0.2) k/uL Hypochromasia Moderate PT 9.8 (9.0-12.0) sec INR 0.9 (<1.2) APTT 24.2 (22.0-30.0) sec Sample Site ABG pH (7.35-7.45) ABG pCO2 (35-45) mmHg ABG pO2 (83-108) mmHg ABG HCO3 (21-25) mmol/L ABG Total CO2 (19-24) mmol/L ABG O2 Saturation (94-97) % ABG Base Excess mmol/L Flavio Test FiO2 % Sodium 139 (137-145) mmol/L Potassium 4.9 (3.5-5.1) mmol/L Chloride 95 L (98-107) mmol/L Carbon Dioxide 38 H (22-30) mmol/L Anion Gap 6 mmol/L BUN 21 H (7-17) mg/dL Creatinine 0.87 (0.52-1.04) mg/dL Est GFR (CKD-EPI)AfAm 78 (>60 ml/min/1.73 sqM) Est GFR (CKD-EPI)NonAf 68 (>60 ml/min/1.73 sqM) Glucose 109 H (74-99) mg/dL Plasma Lactic Acid Jesus (0.7-2.0) mmol/L Calcium 8.4 (8.4-10.2) mg/dL Total Bilirubin 0.5 (0.2-1.3) mg/dL AST 30 (14-36) U/L ALT 15 (4-34) U/L Alkaline Phosphatase 91 (38-126) U/L Troponin I (0.000-0.034) ng/mL NT-Pro-B Natriuret Pep pg/mL Total Protein 6.9 (6.3-8.2) g/dL Albumin 4.3 (3.5-5.0) g/dL Coronavirus (PCR) (Not Detectd) Influenza Type A RNA (Not Detectd) Influenza Type B (PCR) (Not Detectd) 07/28/22 07/28/22 07/28/22 Range/Units 14:14 14:14 14:14 WBC (3.8-10.6) k/uL RBC (3.80-5.40) m/uL Hgb (11.4-16.0) gm/dL Hct (34.0-46.0) % MCV (80.0-100.0) fL MCH (25.0-35.0) pg MCHC (31.0-37.0) g/dL RDW (11.5-15.5) % Plt Count (150-450) k/uL MPV Neutrophils % % Lymphocytes % % Monocytes % % Eosinophils % % Basophils % % Neutrophils # (1.3-7.7) k/uL Lymphocytes # (1.0-4.8) k/uL Monocytes # (0-1.0) k/uL Eosinophils # (0-0.7) k/uL Basophils # (0-0.2) k/uL Hypochromasia PT (9.0-12.0) sec INR (<1.2) APTT (22.0-30.0) sec Sample Site ABG pH (7.35-7.45) ABG pCO2 (35-45) mmHg ABG pO2 (83-108) mmHg ABG HCO3 (21-25) mmol/L ABG Total CO2 (19-24) mmol/L ABG O2 Saturation (94-97) % ABG Base Excess mmol/L Flavio Test FiO2 % Sodium (137-145) mmol/L Potassium (3.5-5.1) mmol/L Chloride (98-107) mmol/L Carbon Dioxide (22-30) mmol/L Anion Gap mmol/L BUN (7-17) mg/dL Creatinine (0.52-1.04) mg/dL Est GFR (CKD-EPI)AfAm (>60 ml/min/1.73 sqM) Est GFR (CKD-EPI)NonAf (>60 ml/min/1.73 sqM) Glucose (74-99) mg/dL Plasma Lactic Acid Jesus 1.4 (0.7-2.0) mmol/L Calcium (8.4-10.2) mg/dL Total Bilirubin (0.2-1.3) mg/dL AST (14-36) U/L ALT (4-34) U/L Alkaline Phosphatase (38-126) U/L Troponin I <0.012 (0.000-0.034) ng/mL NT-Pro-B Natriuret Pep 644 pg/mL Total Protein (6.3-8.2) g/dL Albumin (3.5-5.0) g/dL Coronavirus (PCR) (Not Detectd) Influenza Type A RNA (Not Detectd) Influenza Type B (PCR) (Not Detectd) 07/28/22 07/28/22 07/28/22 Range/Units 14:14 14:14 16:24 WBC (3.8-10.6) k/uL RBC (3.80-5.40) m/uL Hgb (11.4-16.0) gm/dL Hct (34.0-46.0) % MCV (80.0-100.0) fL MCH (25.0-35.0) pg MCHC (31.0-37.0) g/dL RDW (11.5-15.5) % Plt Count (150-450) k/uL MPV Neutrophils % % Lymphocytes % % Monocytes % % Eosinophils % % Basophils % % Neutrophils # (1.3-7.7) k/uL Lymphocytes # (1.0-4.8) k/uL Monocytes # (0-1.0) k/uL Eosinophils # (0-0.7) k/uL Basophils # (0-0.2) k/uL Hypochromasia PT (9.0-12.0) sec INR (<1.2) APTT (22.0-30.0) sec Sample Site Right Radial ABG pH 7.34 L (7.35-7.45) ABG pCO2 69 H (35-45) mmHg ABG pO2 75 L (83-108) mmHg ABG HCO3 38 H (21-25) mmol/L ABG Total CO2 40 H (19-24) mmol/L ABG O2 Saturation 96.0 (94-97) % ABG Base Excess 11.9 mmol/L Flavio Test Yes FiO2 35 % Sodium (137-145) mmol/L Potassium (3.5-5.1) mmol/L Chloride (98-107) mmol/L Carbon Dioxide (22-30) mmol/L Anion Gap mmol/L BUN (7-17) mg/dL Creatinine (0.52-1.04) mg/dL Est GFR (CKD-EPI)AfAm (>60 ml/min/1.73 sqM) Est GFR (CKD-EPI)NonAf (>60 ml/min/1.73 sqM) Glucose (74-99) mg/dL Plasma Lactic Acid Jesus (0.7-2.0) mmol/L Calcium (8.4-10.2) mg/dL Total Bilirubin (0.2-1.3) mg/dL AST (14-36) U/L ALT (4-34) U/L Alkaline Phosphatase (38-126) U/L Troponin I (0.000-0.034) ng/mL NT-Pro-B Natriuret Pep pg/mL Total Protein (6.3-8.2) g/dL Albumin (3.5-5.0) g/dL Coronavirus (PCR) Not Detected (Not Detectd) Influenza Type A RNA Not Detected (Not Detectd) Influenza Type B (PCR) Not Detected (Not Detectd) - EKG Data EKG Comments: EKG demonstrates sinus rhythm with a rate of 84. When necessary: 62. QRS 86. QTC of 417. Significant baseline artifact. No visible ST segment elevations or depressions. EKG is interpreted by myself Disposition Clinical Impression: COPD exacerbation, Hypoxia Disposition: ADMITTED IP TO THIS HOSP Condition: Stable Is patient prescribed a controlled substance at d/c from ED?: No Time of Disposition: 16:37 Decision to Admit Reason: Admit from EC Decision Date: 07/28/22 Decision Time: 16:37
[2022-07-28 14:22] LABS: Basophils # (A) 0.1 k/uL (0-0.2); Basophils % (A) 1 %; Eosinophils # (A) 0.4 k/uL (0-0.7); Eosinophils % (A) 5 %; HCT 40.4 % (34.0-46.0); HGB 12.9 gm/dL (11.4-16.0); Hypochromasia Moderate; Lymphocytes # (A) 1.2 k/uL (1.0-4.8); Lymphocytes % (A) 14 %; MCH 30.4 pg (25.0-35.0); MCHC 31.9 g/dL (31.0-37.0); MCV 95.3 fL (80.0-100.0); Monocytes # (A) 0.4 k/uL (0-1.0); Monocytes % (A) 5 %; Neutrophils # (A) 6.7 k/uL (1.3-7.7); Neutrophils % (A) 75 %; Platelet Count 261 k/uL (150-450); RBC 4.24 m/uL (3.80-5.40)
[2022-07-28 14:33] LABS: Albumin 4.3 g/dL (3.5-5.0); Calcium 8.4 mg/dL (8.4-10.2); Potassium 4.9 mmol/L (3.5-5.1); Total Bilirubin 0.5 mg/dL (0.2-1.3); Total Protein 6.9 g/dL (6.3-8.2)
[2022-07-28 14:42] LABS: INR 0.9 (<1.2); Partial Thromboplastin Time 24.2 sec (22.0-30.0); Prothrombin Time 9.8 sec (9.0-12.0)
--- NOTE | 2022-07-28 14:53 | XR ---
EXAMINATION TYPE: XR chest 2V DATE OF EXAM: 07/28/2022 2:50 PM COMPARISON: Chest radiographs from 04/02/2021. TECHNIQUE: XR chest 2V Frontal and lateral views of the chest. CLINICAL INDICATION:Female, 72 years old with history of difficulty breathing; FINDINGS: Lungs/Pleura: There is flattening of the diaphragm with increased lucency of the lungs. No evidence o f pneumothorax, pleural effusion or focal consolidation. Pulmonary vascularity: Unremarkable. Heart/mediastinum: Cardiomediastinal silhouette is unremarkable. Atherosclerotic calcifications are seen in the aorta. Musculoskeletal: No acute osseous pathology. IMPRESSION: 1. No acute cardiopulmonary disease process. 2. COPD changes.
[2022-07-28 16:29] LABS: ABG Base Excess 11.9 mmol/L; ABG HCO3 38 mmol/L (21-25); ABG PCO2 69 mmHg (35-45); ABG PH 7.34 (7.35-7.45); ABG PO2 75 mmHg (83-108); ABG TCO2 40 mmol/L (19-24); Allen Test Performed? Yes
[2022-07-28] MEDS ORDERED: NALOXONE 0.4 MG/ML 1 ML VIAL IV PRN (16:38)
[2022-07-28] MEDS ORDERED: methocarbamoL 750 MG TAB PO PRN (16:39)
[2022-07-28] MEDS: IPRATROPIUM-ALBUTEROL 3 ML NEB INHALATION SCH ×2 (19:28→22:18)
[2022-07-28] MEDS: atenoloL 25 MG TAB PO SCH (21:27)
[2022-07-28] MEDS: GABAPENTIN 400 MG CAP PO SCH (21:27)
[2022-07-28] MEDS: hydrOXYzine HCL 10 MG TAB PO SCH (22:14)
--- NOTE | 2022-07-28 23:48 | P.HPIM ---
History of Present Illness H&P Date: 07/28/22 Chief Complaint: Difficulty in breathing Patient is a 72-year-old female with a known history of COPD on home oxygen at 4 L, hypertension, diabetes type 2 [id number], fibromyalgia, anxiety and prior history of smoking presents to ER with complaints of shortness of breath. Patient states that she started having shortness of breath since last night and has been getting worse. Patient reviews nebulizers at home without much improvement. Otherwise denies any complaints of cough or sputum production. Denies any recent illnesses. No chest congestion. No fever no chills. Denies any history of leg swelling. No history of DVT or PE. Chest x-ray showed no acute cardiopulmonary process. COPD changes. Laboratory p data showed WBC 9.0 hemoglobin 12.9 and platelets 261 ABG showed pH 7.34 PCO2 69 PO2 75 Sodium 139 potassium 4.9 chloride 95 bicarb is 38 BUN 21 and creatinine 0.87 and blood sugar is 109 proBNP 644 troponin x1 negative and influenza AB and COVID-19 PCR not detected. EKG showed sinus rhythm Patient was hypoxic with pulse ox 77% on 4 L oxygen via nasal cannula on admission. Was placed nonrebreather in the ER. Review of Systems Constitutional: Patient denies any fever or chills . No generalized weakness or weight loss. Abdomen: Patient denied nausea vomiting and diarrhea and abdominal pain. Cardiovascular: Patient denies any chest pain. Patient does have short of breath no palpitations. Respiratory: patient denied any cough or sputum production. Positive for shortness of breath Neurologic: Patient denied any numbness or tingling headache. Musculoskeletal: Patient denies any complaints of joint swelling or deformity. Skin: Negative Psychiatric: Negative Endocrine: No heat or cold intolerance. No recent weight gain. Genitourinary: No dysuria or hematuria. All other 14 point ROS negative except the above Past Medical History Past Medical History: COPD, Diabetes Mellitus, Fibromyalgia, GERD/Reflux, Hypertension, Musculoskeletal Disorder, Pulmonary Embolus (PE) Additional Past Medical History / Comment(s): UTI(E COLI FACEALIS WITH SEPSIS, FALLS, DJD, CHRONIC PRURITIC , PT STATED SHE TAKES SINEMET FOR restless legs History of Any Multi-Drug Resistant Organisms: None Reported Past Surgical History: Appendectomy, Back Surgery, Cholecystectomy, Joint Replacement, Orthopedic Surgery Additional Past Surgical History / Comment(s): brain surgery clipped aneurysm 4 clips, breast surgery reduction, cervical polyp,D&C, Gastroscopy, removal of cyst in mouth, hysterscopy, Left knee manipulation, cervical biopsy, Brain Arteriogram,LT KNEE REPLACEMENT, Past Anesthesia/Blood Transfusion Reactions: No Reported Reaction Past Psychological History: Anxiety Smoking Status: Former smoker Past Alcohol Use History: None Reported Past Drug Use History: None Reported - Past Family History Mother Family Medical History: Cancer Father Family Medical History: Cancer Medications and Allergies Home Medications Medication Instructions Recorded Confirmed Type amLODIPine BESYLATE [Norvasc] 5 mg PO DAILY 01/29/14 07/28/22 History atenoloL [Tenormin] 25 mg PO BID 01/29/14 07/28/22 History methocarbamoL [Robaxin-750] 750 mg PO Q6H PRN 01/29/14 07/28/22 History Cyanocobalamin [Vitamin B-12] 500 mcg PO DAILY 03/01/15 07/28/22 History HYDROcodone/APAP 7.5-325MG [[place] 1 tab PO TID PRN 03/01/15 07/28/22 History 7.5-325] Atorvastatin [Lipitor] 10 mg PO DAILY 01/15/16 07/28/22 History Pramipexole [Mirapex] 0.25 mg PO BID 01/15/16 07/28/22 History Albuterol Sulfate [Ventolin HFA] 2 puff INHALATION RT-QID PRN 09/19/19 07/28/22 History Sertraline [Zoloft] 50 mg PO DAILY 09/19/19 07/28/22 History hydrOXYzine HCL [Atarax] 10 mg PO BID 09/19/19 07/28/22 History Cholecalciferol [Vitamin D3 (125 125 mcg PO DAILY 07/28/22 07/28/22 History Mcg = 5000 Iu)] Fluticasone/Umeclidin/Vilanter 1 puff INHALATION RT-DAILY 07/28/22 07/28/22 History [Trelegy Ellipta 100-62.5-25] Gabapentin [Neurontin] 400 mg PO TID 07/28/22 07/28/22 History Nystatin 100,000 Unit/ml Susp 5 ml PO DAILY 07/28/22 07/28/22 History [Mycostatin Oral Susp] Zolpidem [Ambien] 10 mg PO HS 07/28/22 07/28/22 History Ipratropium-Albuterol Nebulize 3 ml INHALATION QID #0 07/31/22 07/28/22 Rx [Duoneb 0.5 mg-3 mg/3 ml Soln] predniSONE See Taper PO DIRECTED #30 tab 07/31/22 Rx Allergies Allergy/AdvReac Type Severity Reaction Status Date / Time sulfamethoxazole Allergy Unknown Verified 07/28/22 15:28 [From Bactrim] trimethoprim [From Bactrim] Allergy Unknown Verified 07/28/22 15:28 Physical Exam Vitals: Vital Signs Temp Pulse Resp BP Pulse Ox 07/28/22 19:39 85 07/28/22 19:29 82 07/28/22 17:01 90 18 113/65 94 L 07/28/22 15:16 87 22 109/65 99 07/28/22 14:33 84 07/28/22 14:15 88 07/28/22 14:03 87 24 114/73 98 07/28/22 14:00 24 07/28/22 13:49 98 F 82 26 H 104/67 77 L Intake and Output 07/28/22 07/28/22 07/28/22 06:59 14:59 22:59 Other: Weight 59.421 kg PHYSICAL EXAMINATION: Patient is lying in the bed comfortably, no acute distress, awake alert and oriented.. HEENT: Normocephalic. Neck is supple. Pupils reactive. Nostrils clear. Oral cavity is moist. Neck reveals no JVD, carotid bruits, or thyromegaly. CHEST EXAMINATION: Trachea is central. Symmetrical expansion. Bilateral diminished phasicity and wheezing CARDIAC: Normal S1, S2 with no gallops. No murmurs ABDOMEN: Soft. Bowel sounds normal. No organomegaly. No abdominal bruits. Extremities: reveal no edema. No clubbing or cyanosis Neurologically awake, alert, oriented x3 with well-coordinated movements. No focal deficits noted Skin: No rash or skin lesions. Psychiatric: Cooperative. Nonsuicidal, anxious. Musculoskeletal: No joint swelling or deformity. Normal range of motion. Results CBC & Chem 7: 07/30/22 07:50 07/31/22 08:58 Labs: Abnormal Lab Results - Last 24 Hours (Table) 07/28/22 07/28/22 Range/Units 14:14 16:24 ABG pH 7.34 L (7.35-7.45) ABG pCO2 69 H (35-45) mmHg ABG pO2 75 L (83-108) mmHg ABG HCO3 38 H (21-25) mmol/L ABG Total CO2 40 H (19-24) mmol/L Chloride 95 L (98-107) mmol/L Carbon Dioxide 38 H (22-30) mmol/L BUN 21 H (7-17) mg/dL Glucose 109 H (74-99) mg/dL Thrombosis Risk Factor Assmnt - DVT/VTE Prophylaxis DVT/VTE Prophylaxis: Pharmacologic Prophylaxis ordered Assessment and Plan Assessment: Acute on chronic hypoxic respiratory failure secondary COPD exacerbation Acute COPD exacerbation Chronic hypoxic respite failure requiring 4 L oxygen via nasal cannula Diabetes type 2 [id number] Hypertension Fibromyalgia Anxiety Prior history of smoking DVT prophylaxis with heparin subcu Plan: Patient will be oxygen supplementation and currently nonrebreather. IV Solu- Medrol 60 mg every 6 hourly and duo nebcynthia and Abyb Ellipta. Pulmonary will be consulted. Continue with home medications and follow-up closely. Time with Patient: Greater than 30
[2022-07-29] MEDS ORDERED: methylPREDNISolone SOD SUCCI 40 MG/ML 1 ML VIAL IV SCH
[2022-07-29] MEDS: HEPARIN SODIUM,PORCINE/PF 5,000 UNIT/0.5 ML SYRINGE SQ SCH ×4 (00:09→22:37)
[2022-07-29] MEDS: methylPREDNISolone SOD SUCCI 125 MG/2 ML VIAL IV SCH ×3 (00:11→11:51)
[2022-07-29 00:52] LABS: Glucose,Whole Blood 219 mg/dL (70-110)
[2022-07-29 01:33] LABS: ABG Base Excess 11.9 mmol/L; ABG HCO3 37 mmol/L (21-25); ABG PCO2 60 mmHg (35-45); ABG TCO2 39 mmol/L (19-24); Allen Test Performed? Yes
[2022-07-29 01:38] LABS: ABG PO2 53 mmHg (83-108)
--- NOTE | 2022-07-29 01:39 | CT ---
EXAMINATION TYPE: CT brain wo con DATE OF EXAM: 07/29/2022 COMPARISON: 04/02/2021 HISTORY: ams CT DLP: 1098.4 mGycm Automated exposure control for dose reduction was used. Images obtained of the brain without contrast. There is cerebral cortical atrophy. There is no mass effect nor midline shift. No sign of intracrania l hemorrhage. Calvarium is intact. There is normal aeration of the mastoid sinuses. IMPRESSION: Negative unenhanced head CT scan. Cerebral atrophy without change.
[2022-07-29] MEDS: IPRATROPIUM-ALBUTEROL 3 ML NEB INHALATION SCH ×5 (03:32→20:48)
[2022-07-29] MEDS ORDERED: LORazepam 2 MG/ML INJ IV STA (05:26)
[2022-07-29] MEDS ORDERED: SYMBICORT 80-4.5 MCG INHALER INHALATION SCH (08:00)
[2022-07-29] MEDS: atenoloL 25 MG TAB PO SCH ×2 (09:08→20:03)
[2022-07-29] MEDS: amLODIPine 5 MG TAB PO SCH (09:08)
[2022-07-29] MEDS: GABAPENTIN 400 MG CAP PO SCH ×3 (09:09→22:37)
[2022-07-29] MEDS: hydrOXYzine HCL 10 MG TAB PO SCH ×2 (09:09→20:03)
[2022-07-29] MEDS: ATORVASTATIN 10 MG TAB PO SCH (09:09)
[2022-07-29] MEDS: SERTRALINE 50 MG TAB PO SCH (09:12)
[2022-07-29 09:48] LABS: African American GFR (CKD) 66.1 (60.0-200.0); Anion Gap 9.1 mmol/L (10.00-18.00); Calcium 8.9 mg/dL (8.7-10.3); Carbon Dioxide 32.9 mmol/L (20.0-27.5); Potassium 4.7 mmol/L (3.5-5.5)
[2022-07-29 10:18] LABS: Glucose,Whole Blood 180 mg/dL (70-110)
--- NOTE | 2022-07-29 10:41 | P.CNPUL ---
History of Present Illness Consult date: 07/29/22 Requesting physician: Rose Chavira Reason for consult: dyspnea, cough, COPD, hypoxemia Chief complaint: Shortness of breath/COPD exacerbation. History of present illness: Pulmonary consult dated 07/29/2022. 72-year-old female seen in the emergency room, for shortness of breath. The patient apparently sees me in the office, although we've not seen her for quite some time. She has severe COPD, with an FEV1 that's 41% of predicted. Hypoxemic respiratory failure, uses home oxygen at 4 L/m, 24/7. In the emergency room, she is on BiPAP, 10/5 and 30%. She is arousable, and lucid, and able to give some additional history. She is not receiving any IV fluids. CBC from July 28 was normal. Coagulation studies were also normal. There are 2 blood gases. The most recent one shows a pO2 of 53, pCO2 of 60, with a normal pH of 7.4. That apparently was on 36% oxygen. Sodium 138, potassium 4.7, chlorides 96, CO2 33, BUN 24, creatinine 1. The rest of the comprehensive metabolic profile was normal. Chest x-ray showed no acute cardiopulmonary disease, and changes of COPD. Brain CT was negative for anything acute. Review of Systems REVIEW OF SYSTEMS: CONSTITUTIONAL: [Negative.] NEUROLOGIC: [ Negative.] HEENT: [ Negative.] CARDIAC: [Negative.] PULMONARY: Severe shortness of breath. GI: [Negative.] : [Negative.] RHEUMATOLOGIC: [ Negative.] IMMUNOLOGIC: [ Negative.] ENDOCRINE: [Negative. ] DERMATOLOGIC: [Negative.] Past Medical History Past Medical History: COPD, Diabetes Mellitus, Fibromyalgia, GERD/Reflux, Hypertension, Musculoskeletal Disorder, Pulmonary Embolus (PE) Additional Past Medical History / Comment(s): UTI(E COLI FACEALIS WITH SEPSIS, FALLS, DJD, CHRONIC PRURITIC , PT STATED SHE TAKES SINEMET FOR restless legs History of Any Multi-Drug Resistant Organisms: None Reported Past Surgical History: Appendectomy, Back Surgery, Cholecystectomy, Joint Replacement, Orthopedic Surgery Additional Past Surgical History / Comment(s): brain surgery clipped aneurysm 4 clips, breast surgery reduction, cervical polyp,D&C, Gastroscopy, removal of cyst in mouth, hysterscopy, Left knee manipulation, cervical biopsy, Brain Arteriogram,LT KNEE REPLACEMENT, Past Anesthesia/Blood Transfusion Reactions: No Reported Reaction Past Psychological History: Anxiety Smoking Status: Former smoker Past Alcohol Use History: None Reported Past Drug Use History: None Reported - Past Family History Mother Family Medical History: Cancer Father Family Medical History: Cancer Medications and Allergies Home Medications Medication Instructions Recorded Confirmed Type amLODIPine BESYLATE [Norvasc] 5 mg PO DAILY 01/29/14 07/28/22 History atenoloL [Tenormin] 25 mg PO BID 01/29/14 07/28/22 History methocarbamoL [Robaxin-750] 750 mg PO Q6H PRN 01/29/14 07/28/22 History Cyanocobalamin [Vitamin B-12] 500 mcg PO DAILY 03/01/15 07/28/22 History HYDROcodone/APAP 7.5-325MG [[place] 1 tab PO TID PRN 03/01/15 07/28/22 History 7.5-325] Atorvastatin [Lipitor] 10 mg PO DAILY 01/15/16 07/28/22 History Pramipexole [Mirapex] 0.25 mg PO BID 01/15/16 07/28/22 History Albuterol Sulfate [Ventolin HFA] 2 puff INHALATION RT-QID PRN 09/19/19 07/28/22 History Sertraline [Zoloft] 50 mg PO DAILY 09/19/19 07/28/22 History hydrOXYzine HCL [Atarax] 10 mg PO BID 09/19/19 07/28/22 History Cholecalciferol [Vitamin D3 (125 125 mcg PO DAILY 07/28/22 07/28/22 History Mcg = 5000 Iu)] Fluticasone/Umeclidin/Vilanter 1 puff INHALATION RT-DAILY 07/28/22 07/28/22 History [Trelegy Ellipta 100-62.5-25] Gabapentin [Neurontin] 400 mg PO TID 07/28/22 07/28/22 History Ipratropium-Albuterol Nebulize 3 ml INHALATION RT-TID PRN 07/28/22 07/28/22 History [Duoneb 0.5 mg-3 mg/3 ml Soln] Nystatin 100,000 Unit/ml Susp 5 ml PO DAILY 07/28/22 07/28/22 History [Mycostatin Oral Susp] Zolpidem [Ambien] 10 mg PO HS 07/28/22 07/28/22 History Allergies Allergy/AdvReac Type Severity Reaction Status Date / Time sulfamethoxazole Allergy Unknown Verified 07/28/22 15:28 [From Bactrim] trimethoprim [From Bactrim] Allergy Unknown Verified 07/28/22 15:28 Physical Exam Osteopathic Statement: *. No significant issues noted on an osteopathic str uctural exam other than those noted in the History and Physical/Consult. Vitals: Vital Signs Temp Pulse Pulse Resp BP BP Pulse Ox 07/29/22 10:08 97.4 F L 79 19 130/86 96 07/29/22 09:55 97.8 F 80 17 151/95 92 L 07/29/22 09:00 74 18 147/84 95 07/29/22 08:14 80 07/29/22 08:03 78 07/29/22 07:23 77 16 145/88 97 07/29/22 06:41 83 140/74 97 07/29/22 04:42 07/29/22 03:43 80 07/29/22 03:36 07/29/22 03:35 84 07/29/22 01:57 07/29/22 01:49 89 18 122/82 94 L 07/29/22 01:47 81 132/82 96 07/29/22 01:03 92 16 127/86 94 L 07/29/22 00:48 98.0 F 93 20 124/85 93 L 07/28/22 23:58 98.3 F 90 18 130/65 95 07/28/22 22:31 90 07/28/22 22:20 92 07/28/22 22:12 96 20 114/79 97 07/28/22 22:11 93 28 H 78 L 07/28/22 21:34 98.3 F 95 16 123/69 91 L 07/28/22 19:39 85 07/28/22 19:29 82 07/28/22 17:01 90 18 113/65 94 L 07/28/22 15:16 87 22 109/65 99 07/28/22 14:33 84 07/28/22 14:15 88 07/28/22 14:03 87 24 114/73 98 12/06/22 14:00 24 07/28/22 13:49 98 F 82 26 H 104/67 77 L FiO2 07/29/22 10:08 30 07/29/22 09:55 07/29/22 09:00 07/29/22 08:14 07/29/22 08:03 30 07/29/22 07:23 07/29/22 06:41 07/29/22 04:42 40 07/29/22 03:43 07/29/22 03:36 50 07/29/22 03:35 07/29/22 01:57 60 07/29/22 01:49 07/29/22 01:47 07/29/22 01:03 07/29/22 00:48 07/28/22 23:58 07/28/22 22:31 07/28/22 22:20 07/28/22 22:12 07/28/22 22:11 07/28/22 21:34 07/28/22 19:39 07/28/22 19:29 07/28/22 17:01 07/28/22 15:16 07/28/22 14:33 07/28/22 14:15 07/28/22 14:03 07/28/22 14:00 07/28/22 13:49 No acute distress, oriented 3. Currently with the BiPAP mask in place. HEENT examination is grossly unremarkable. Neck supple. Full range of motion. No adenopathy thyromegaly or neck vein distention. Cardiovascular examination reveals regular rhythm rate. S1-S2 normal. No S3 or S4. No discernible murmur noted. Heart sounds are distant. Heart rate 79 bpm. Lungs reveal scattered bilateral rhonchi. Expiratory wheezes are noted. Breath sounds are equal. Saturations are 96%, on 30% FiO2. Abdomen soft bowel sounds are heard. No masses or tenderness. Extremities are intact. No cyanosis clubbing or edema. Skin is without rash or lesion. Neurologic examination is brief but nonfocal. Results - Laboratory Findings CBC and BMP: 07/28/22 14:14 07/29/22 05:45 ABG ABG pH 7.40 (7.35-7.45) 07/29/22 01:30 ABG pCO2 60 mmHg (35-45) H 07/29/22 01:30 ABG pO2 53 mmHg (83-108) L* 07/29/22 01:30 ABG O2 Saturation 89.0 % (94-97) L 07/29/22 01:30 PT/INR, D-dimer PT 9.8 sec (9.0-12.0) 07/28/22 14:14 INR 0.9 (<1.2) 07/28/22 14:14 Abnormal lab findings: Abnormal Labs 07/28/22 07/28/22 07/29/22 14:14 16:24 00:50 ABG pH 7.34 L ABG pCO2 69 H ABG pO2 75 L ABG HCO3 38 H ABG Total CO2 40 H ABG O2 Saturation Chloride 95 L Carbon Dioxide 38 H Anion Gap BUN 21 H Est GFR (CKD-EPI)NonAf BUN/Creatinine Ratio Glucose 109 H POC Glucose (mg/dL) 219 H 07/29/22 07/29/22 07/29/22 01:30 05:45 10:17 ABG pH ABG pCO2 60 H ABG pO2 53 L* ABG HCO3 37 H ABG Total CO2 39 H ABG O2 Saturation 89.0 L Chloride Carbon Dioxide 32.9 H Anion Gap 9.10 L BUN Est GFR (CKD-EPI)NonAf 57.0 L BUN/Creatinine Ratio 24.00 H Glucose 149 H POC Glucose (mg/dL) 180 H - Diagnostic Findings Chest x-ray: image reviewed Assessment and Plan Assessment: Acute hypoxemic respiratory failure, secondary to severe COPD and COPD exacerbation. History of severe COPD, with an FEV1 that's 41% of predicted. Chronic hypoxemic respiratory failure, on home O2 at 4 L. Diabetes mellitus. Fibromyalgia. Gastroesophageal reflux disease. History of hypertension. History of pulmonary embolism. Previous history of urinary tract infection. History of restless leg syndrome. Multiple other medical problems and comorbidities. Plan: Plan dated 07/29/2022. The patient's currently on Solu-Medrol, 60 mg every 6 hours, albuterol sulfate and ipratropium bromide, and Pulmicort 1 mg mixed with formoterol 20 g twice a day. No additional recommendations are made. Prognosis is guarded. She has severe chronic lung disease. FEV1 is 41% of predicted. She does have chronic hypoxemic respiratory failure. We did order a pro-calcitonin level to determine if there is any active infection. Chest x-ray only shows changes of COPD. Time with Patient: Greater than 30
[2022-07-29 10:52] LABS: Basophils # (A) 0.01 X 10*3/uL (0.00-0.10); Basophils % (A) 0.3 %; Eosinophils # (A) 0 X 10*3/uL (0.04-0.35); Eosinophils % (A) 0 %; HCT 34.8 % (37.2-46.3); HGB 11.1 g/dL (12.0-15.0); Lymphocytes # (A) 0.69 X 10*3/uL (0.90-5.00); Lymphocytes % (A) 17.7 %; MCH 30.2 pg (27.0-32.0); MCHC 31.9 g/dL (32.0-37.0); MCV 94.8 fL (80.0-97.0); Mean Platelet Volume 9.9 fL (9.5-12.2); Monocytes # (A) 0.04 X 10*3/uL (0.20-1.00); NRBC Per 100 WBC 0 /100 WBCS (0.0-0.0); Neutrophils # (A) 3.11 X 10*3/uL (1.80-7.70); Platelet Count 210 X 10*3/uL (140-440); RBC 3.67 X 10*6/uL (4.10-5.20); RDW 13.2 % (11.5-14.5); WBC 3.89 X 10*3/uL (4.50-10.00)
[2022-07-29 10:53] LABS: RBC Morphology NORMAL
[2022-07-29 11:48] LABS: Glucose,Whole Blood 181 mg/dL (70-110)
[2022-07-29] MEDS: HYDROcodone/APAP 7.5-325MG 1 EACH TAB PO PRN (20:04)
[2022-07-29] MEDS: FORMOTEROL FUMARATE 20 MCG/2 ML NEBU INHALATION SCH (20:48)
[2022-07-29] MEDS: BUDESONIDE 1 MG/2 ML NEBU INHALATION SCH (20:48)
[2022-07-30] MEDS: IPRATROPIUM-ALBUTEROL 3 ML NEB INHALATION SCH ×6 (00:32→19:45)
[2022-07-30] MEDS: FORMOTEROL FUMARATE 20 MCG/2 ML NEBU INHALATION SCH ×2 (07:42→19:45)
[2022-07-30] MEDS: BUDESONIDE 1 MG/2 ML NEBU INHALATION SCH ×2 (07:42→19:45)
[2022-07-30 08:32] LABS: Basophils % (A) 0 %; Eosinophils % (A) 0 %; HGB 12.3 gm/dL (11.4-16.0); Hypochromasia Slight; Lymphocytes # (A) 2.1 k/uL (1.0-4.8); Lymphocytes % (A) 20 %; MCH 30.4 pg (25.0-35.0); MCHC 32.4 g/dL (31.0-37.0); MCV 93.9 fL (80.0-100.0); Mean Platelet Volume 7.3; Monocytes # (A) 0.8 k/uL (0-1.0); Monocytes % (A) 8 %; Neutrophils # (A) 7.2 k/uL (1.3-7.7); Neutrophils % (A) 69 %; Platelet Count 250 k/uL (150-450); RBC 4.04 m/uL (3.80-5.40); RDW 13.2 % (11.5-15.5); WBC 10.5 k/uL (3.8-10.6)
[2022-07-30] MEDS: atenoloL 25 MG TAB PO SCH ×2 (08:40→19:57)
[2022-07-30] MEDS: hydrOXYzine HCL 10 MG TAB PO SCH ×2 (08:40→19:57)
[2022-07-30] MEDS: HEPARIN SODIUM,PORCINE/PF 5,000 UNIT/0.5 ML SYRINGE SQ SCH ×3 (08:40→23:40)
[2022-07-30] MEDS: ATORVASTATIN 10 MG TAB PO SCH (08:40)
[2022-07-30] MEDS: GABAPENTIN 400 MG CAP PO SCH ×3 (08:40→19:57)
[2022-07-30] MEDS: amLODIPine 5 MG TAB PO SCH (08:40)
[2022-07-30] MEDS: SERTRALINE 50 MG TAB PO SCH (08:40)
[2022-07-30 08:58] LABS: Calcium 8.5 mg/dL (8.4-10.2); Potassium 3.8 mmol/L (3.5-5.1)
--- NOTE | 2022-07-30 12:49 | P.PN ---
Subjective Progress Note Date: 07/30/22 Principal diagnosis: Shortness of breath. Pulmonary consult dated 07/29/2022. 72-year-old female seen in the emergency room, for shortness of breath. The patient apparently sees me in the office, although we've not seen her for quite some time. She has severe COPD, with an FEV1 that's 41% of predicted. Hypoxemic respiratory failure, uses home oxygen at 4 L/m, 24/7. In the emergency room, she is on BiPAP, 10/5 and 30%. She is arousable, and lucid, and able to give some additional history. She is not receiving any IV fluids. CBC from July 28 was normal. Coagulation studies were also normal. There are 2 blood gases. The most recent one shows a pO2 of 53, pCO2 of 60, with a normal pH of 7.4. That apparently was on 36% oxygen. Sodium 138, potassium 4.7, chlo rides 96, CO2 33, BUN 24, creatinine 1. The rest of the comprehensive metabolic profile was normal. Chest x-ray showed no acute cardiopulmonary disease, and changes of COPD. Brain CT was negative for anything acute. Progress note dated 07/30/2022. 72-year-old female seen in the emergency room yesterday. She was on BiPAP yesterday, but doing much better today. She is currently on 4 L of oxygen. No IV fluids. She did not use of BiPAP last night. She states that her breathing is much improved. She has severe COPD, with an FEV1 that is 41% of predicted. She does use home oxygen, at 4 L/m, 24/. CBC today is normal. Sodium 137, potassium 3.8, chlorides 97, CO2 36, BUN 30, creatinine 0.87. Pro-calcitonin level is 0.12. Objective - Vital Signs Vital signs: Vital Signs Temp 98 F 07/29/22 19:54 Pulse 89 07/30/22 12:00 Resp 20 07/30/22 08:00 BP 129/63 07/30/22 08:00 Pulse Ox 93 L 07/30/22 08:00 FiO2 30 07/29/22 16:25 Intake & Output 07/29/22 07/30/22 07/30/22 18:59 06:59 18:59 Intake Total 246 Balance 246 Weight 59.421 kg Intake: IV 10 Invasive Line 1 10 Oral 236 Other: Voiding Method Bedside Commode Bedside Commode Bedside Commode # Voids 1 1 # Bowel Movements 1 - Exam No acute distress, oriented 3. Currently 4 L of nasal oxygen. HEENT examination is grossly unremarkable. Neck supple. Full range of motion. No adenopathy thyromegaly or neck vein di stention. Cardiovascular examination reveals regular rhythm rate. S1-S2 normal. No S3 or S4. No discernible murmur noted. Heart sounds are distant. Heart rate 89 bpm. Lungs reveal scattered bilateral rhonchi. Expiratory wheezes are noted. Breath sounds are equal. Saturations are 94% on 4 L. Abdomen soft bowel sounds are heard. No masses or tenderness. Extremities are intact. No cyanosis clubbing or edema. Skin is without rash or lesion. Neurologic examination is brief but nonfocal. - Labs CBC & Chem 7: 07/30/22 07:50 07/30/22 07:50 Labs: Abnormal Lab Results - Last 24 Hours (Table) 07/30/22 Range/Units 07:50 Chloride 97 L (98-107) mmol/L Carbon Dioxide 36 H (22-30) mmol/L BUN 30 H (7-17) mg/dL Glucose 142 H (74-99) mg/dL Assessment and Plan Assessment: Acute hypoxemic respiratory failure, secondary to severe COPD and COPD exacerbation. History of severe COPD, with an FEV1 that's 41% of predicted. Chronic hypoxemic respiratory failure, on home O2 at 4 L. Diabetes mellitus. Fibromyalgia. Gastroesophageal reflux disease. History of hypertension. History of pulmonary embolism. Previous history of urinary tract infection. History of restless leg syndrome. Multiple other medical problems and comorbidities. Plan: Plan dated 07/29/2022. The patient's currently on Solu-Medrol, 60 mg every 6 hours, albuterol sulfate and ipratropium bromide, and Pulmicort 1 mg mixed with formoterol 20 g twice a day. No additional recommendations are made. Prognosis is guarded. She has se jose cruz chronic lung disease. FEV1 is 41% of predicted. She does have chronic hypoxemic respiratory failure. We did order a pro-calcitonin level to determine if there is any active infection. Chest x-ray only shows changes of COPD. Plan dated 07/30/2022. The patient's on appropriate medications. Yesterday, we saw her in the emergency department, and she was on BiPAP. Today she is on 4 L, which is what she uses at home. We will continue to follow and make recommendations along the way. Prognosis is certainly guarded. Additional recommendations and suggestions are forthcoming. Time with Patient: Less than 30
[2022-07-30] MEDS: methylPREDNISolone SOD SUCCI 40 MG/ML 1 ML VIAL IV SCH ×3 (13:08→23:40)
[2022-07-30] MEDS: DOCUSATE 100 MG CAP PO SCH (19:57)
[2022-07-31] MEDS: IPRATROPIUM-ALBUTEROL 3 ML NEB INHALATION SCH ×5 (00:12→15:27)
[2022-07-31] MEDS: FORMOTEROL FUMARATE 20 MCG/2 ML NEBU INHALATION SCH (07:43)
[2022-07-31] MEDS: BUDESONIDE 1 MG/2 ML NEBU INHALATION SCH (07:43)
[2022-07-31 08:35] VITALS: RESP 18; TEMP 98.1
[2022-07-31] MEDS: HEPARIN SODIUM,PORCINE/PF 5,000 UNIT/0.5 ML SYRINGE SQ SCH (08:40)
[2022-07-31] MEDS: GABAPENTIN 400 MG CAP PO SCH (08:41)
[2022-07-31] MEDS: HYDROcodone/APAP 7.5-325MG 1 EACH TAB PO PRN (08:41)
[2022-07-31] MEDS: hydrOXYzine HCL 10 MG TAB PO SCH (08:41)
[2022-07-31] MEDS: methylPREDNISolone SOD SUCCI 40 MG/ML 1 ML VIAL IV SCH (08:41)
[2022-07-31] MEDS: ATORVASTATIN 10 MG TAB PO SCH (08:41)
[2022-07-31] MEDS: atenoloL 25 MG TAB PO SCH (08:41)
[2022-07-31] MEDS: DOCUSATE 100 MG CAP PO SCH (08:42)
[2022-07-31] MEDS: SERTRALINE 50 MG TAB PO SCH (08:43)
[2022-07-31] MEDS: amLODIPine 5 MG TAB PO SCH (08:43)
[2022-07-31 09:38] LABS: African American GFR (CKD) >90 (>60 ml/min/1.73 sqM); Anion Gap 5 mmol/L; Blood Urea Nitrogen 24 mg/dL (7-17); Calcium 8.4 mg/dL (8.4-10.2); Carbon Dioxide 37 mmol/L (22-30); Chloride 95 mmol/L (98-107); Glucose 199 mg/dL (74-99); Non-African American GFR(CKD) 78 (>60 ml/min/1.73 sqM); Potassium 4.2 mmol/L (3.5-5.1); Sodium 137 mmol/L (137-145)
[2022-07-31] MEDS ORDERED: DEXTROSE 50% SYRINGE 50 ML IVP PRN ×2 (10:47)
[2022-07-31 11:46] VITALS: BP 134/76
[2022-07-31 12:14] LABS: Glucose,Whole Blood 171 mg/dL (70-110)
[2022-07-31] MEDS ORDERED: INSULIN ASPART (NovoLOG) 100 UNIT/ML VIAL SQ SCH (12:30)
--- NOTE | 2022-07-31 15:12 | P.PN ---
Subjective Progress Note Date: 07/31/22 Principal diagnosis: Shortness of breath. Pulmonary consult dated 07/29/2022. 72-year-old female seen in the emergency room, for shortness of breath. The patient apparently sees me in the office, although we've not seen her for quite some time. She has severe COPD, with an FEV1 that's 41% of predicted. Hypoxemic respiratory failure, uses home oxygen at 4 L/m, 15/03. In the emergency room, she is on BiPAP, 10/5 and 30%. She is arousable, and lucid, and able to give some additional history. She is not receiving any IV fluids. CBC from July 28 was normal. Coagulation studies were also normal. There are 2 blood gases. The most recent one shows a pO2 of 53, pCO2 of 60, with a normal pH of 7.4. That apparently was on 36% oxygen. Sodium 138, potassium 4.7, chlo rides 96, CO2 33, BUN 24, creatinine 1. The rest of the comprehensive metabolic profile was normal. Chest x-ray showed no acute cardiopulmonary disease, and changes of COPD. Brain CT was negative for anything acute. Progress note dated 07/30/2022. 72-year-old female seen in the emergency room yesterday. She was on BiPAP yesterday, but doing much better today. She is currently on 4 L of oxygen. No IV fluids. She did not use of BiPAP last night. She states that her breathing is much improved. She has severe COPD, with an FEV1 that is 41% of predicted. She does use home oxygen, at 4 L/m, 15/03/. CBC today is normal. Sodium 137, potassium 3.8, chlorides 97, CO2 36, BUN 30, creatinine 0.87. Pro-calcitonin level is 0.12. Progress note dated 07/31/2022. 72-year-old female with a history of COPD and COPD exacerbation, seen on July 29 in the emergency department, on BiPAP. She has severe COPD, with an FEV1 that is 41% of predicted. Currently, resting comfortably in room 370. She states that she's feeling much better, and would like to be discharged home. Labs today include a sodium 137, potassium 4.2, chlorides 95, CO2 37, BUN 24, creatinine 0.77. Objective - Vital Signs Vital signs: Vital Signs Temp 98.1 F 07/31/22 08:29 Pulse 83 07/31/22 11:46 Resp 18 07/31/22 11:44 BP 134/76 07/31/22 11:44 Pulse Ox 97 07/31/22 11:44 FiO2 30 07/29/22 16:25 Intake & Output 07/30/22 07/31/22 07/31/22 18:59 06:59 18:59 Output Total 600 Balance -600 Output: Urine 600 Other: Voiding Method Bedside Commode Bedside Commode Bedside Commode # Voids 2 - Exam No acute distress, oriented 3. Currently 4 L of nasal oxygen. HEENT examination is grossly unremarkable. Neck supple. Full range of motion. No adenopathy thyromegaly or neck vein distention. Cardiovascular examination reveals regular rhythm rate. S1-S2 normal. No S3 or S4. No discernible murmur noted. Heart sounds are distant. Heart rate 83 bpm. Lungs reveal scattered bilateral rhonchi. Expiratory wheezes are noted. Breath sounds are equal. Saturations are 97 % on 4 L. Abdomen soft bowel sounds are heard. No masses or tenderness. Extremities are intact. No cyanosis clubbing or edema. Skin is without rash or lesion. Neurologic examination is brief but nonfocal. - Labs CBC & Chem 7: 07/30/22 07:50 07/31/22 08:58 Labs: Abnormal Lab Results - Last 24 Hours (Table) 07/31/22 07/31/22 Range/Units 08:58 12:12 Chloride 95 L (98-107) mmol/L Carbon Dioxide 37 H (22-30) mmol/L BUN 24 H (7-17) mg/dL Glucose 199 H (74-99) mg/dL POC Glucose (mg/dL) 171 H (70-110) mg/dL Assessment and Plan Assessment: Acute hypoxemic respiratory failure, secondary to severe COPD and COPD exacerbation. History of severe COPD, with an FEV1 that's 41% of predicted. Chronic hypoxemic respiratory failure, on home O2 at 4 L. Diabetes mellitus. Fibromyalgia. Gastroesophageal reflux disease. History of hypertension. History of pulmonary embolism. Previous history of urinary tract infection. History of restless leg syndrome. Multiple other medical problems and comorbidities. Plan: Plan dated 07/29/2022. The patient's currently on Solu-Medrol, 60 mg every 6 hours, albuterol sulfate and ipratropium bromide, and Pulmicort 1 mg mixed with formoterol 20 g twice a day. No additional recommendations are made. Prognosis is guarded. She has severe chronic lung disease. FEV1 is 41% of predicted. She does have chronic hypoxemic respiratory failure. We did order a pro-calcitonin level to determine if there is any active infection. Chest x-ray only shows changes of COPD. Plan dated 07/30/2022. The patient's on appropriate medications. Yesterday, we saw her in the emergency department, and she was on BiPAP. Today she is on 4 L, which is what she uses at home. We will continue to follow and make recommendations along the way. Prognosis is certainly guarded. Additional recommendations and suggestions are forthcoming. Plan dated 07/31/2022. The patient appears be doing relatively well. The patient could be discharged home if the primary service deems it to be appropriate. From the pulmonary siria dpoint, she is doing well. I believe she's pretty much at baseline no additional recommendations are made. The patient will call my office and make an appointment to see me in follow-up. Prognosis is guarded. If she is not discharged, we will continue to follow make recommendations along the way. Time with Patient: Less than 30
[2022-07-31 15:39] VITALS: PULSE 82
--- NOTE | 2022-08-10 22:08 | DS ---
DISCHARGE SUMMARY MEDICATIONS: 1. Atenolol 25 b.i.d. 2. Robaxin 750 q.6 hours. 3. Amlodipine 5 mg daily. 4. [place] 7.5 t.i.d. p.r.n. 5. Vitamin B12 500 mcg daily. 6. Mirapex 0.25 b.i.d. 7. Lipitor 10 mg daily. 8. Ventolin HFA 2 puffs q.4 hours p.r.n. 9. Atarax 10 mg p.o. b.i.d. 10.Zoloft 50 mg daily. 11.Trelegy Ellipta 1 puff daily. 12.Vitamin D3 125 mcg daily. 13.DuoNeb updraft q.i.d. 14.Ambien 10 mg at night. 15.Nystatin swish and swallow 5 mL q.i.d. for 7 days. 16.Gabapentin 400 t.i.d. 17.Prednisone taper. CONDITION: Stable. PROGNOSIS: Guarded. ACTIVITY: Ambulate as tolerated. HOSPITAL COURSE: The patient came in to the hospital for shortness of breath. She has severe COPD with poor ejection fraction, poor FEV. She takes the BiPAP. She is on lot of oxygen, treated with steroids and updrafts. CT of the brain was negative. Procalcitonin level is 0.12. Temperature 98, pulse 83, respiratory rate 18, blood pressure 134/76. She was given Solu-Medrol at home and Pulmicort, Formoterol 20 mcg b.i.d. She improved at which time she is stable to go home. Continue on oxygen. Follow up as an outpatient. Prognosis guarded. Cleared by pulmonology for discharge. MMODL / IJN: [id number] /
--- NOTE | 2022-08-13 12:30 | P.PN ---
Subjective Progress Note Date: 07/29/22 Patient is a 72-year-old female with a known history of COPD on home oxygen at 4 L, hypertension, diabetes type 2 [id number]-ulribegul, fibromyalgia, anxiety and prior history of smoking presents to ER with complaints of shortness of breath. Patient states that she started having shortness of breath since last night and has been getting worse. Patient reviews nebulizers at home without much improvement. Otherwise denies any complaints of cough or sputum production. Denies any recent illnesses. No chest congestion. No fever no chills. Denies any history of leg swelling. No history of DVT or PE. Chest x-ray showed no acute cardiopulmonary process. COPD changes. Laboratory p data showed WBC 9.0 hemoglobin 12.9 and platelets 261 ABG showed pH 7.34 PCO2 69 PO2 75 Sodium 139 potassium 4.9 chloride 95 bicarb is 38 BUN 21 and creatinine 0.87 and blood sugar is 109 proBNP 644 troponin x1 negative and influenza AB and COVID-19 PCR not detected. EKG showed sinus rhythm Patient was hypoxic with pulse ox 77% on 4 L oxygen via nasal cannula on admission. Was placed nonrebreather in the ER. 07/29/2022 Patient is resting in bed. Awake alert and oriented x3. No complaints of chest pain. Respiratory status is improving. Patient was seen by pulmonary. Continue with Solu-Medrol and duo nebs. Pulmicort and Perforomist was added. Procalcitonin level was ordered. Laboratory pressure WBC 3.8 hemoglobin 11.1 and platelets 210 Sodium 138 potassium 4.7 chloride 96 bicarb is 32.9 BUN 24.0 and creatinine 1.0 and blood sugar is 149 and procalcitonin level was 0.12 Current medications reviewed. Objective - Vital Signs Vital signs: Vital Signs Temp 98 F 07/29/22 19:54 Pulse 79 07/29/22 21:16 Resp 20 07/29/22 19:54 BP 125/78 07/29/22 19:54 Pulse Ox 93 L 07/29/22 19:54 FiO2 30 07/29/22 16:25 Intake & Output 07/29/22 07/29/22 07/30/22 06:59 18:59 06:59 Intake Total 246 Balance 246 Weight 59.421 kg Intake: IV 10 Invasive Line 1 10 Oral 236 Other: Voiding Method Bedside Commode Bedside Commode # Voids 1 1 # Bowel Movements 1 - Exam PHYSICAL EXAMINATION: Patient is lying in the bed comfortably, no acute distress, awake alert and oriented.. HEENT: Normocephalic. Neck is supple. Pupils reactive. Nostrils clear. Oral cavity is moist. Neck reveals no JVD, carotid bruits, or thyromegaly. CHEST EXAMINATION: Trachea is central. Symmetrical expansion. Bilateral air entry improved and exp wheezing CARDIAC: Normal S1, S2 with no gallops. No murmurs ABDOMEN: Soft. Bowel sounds normal. No organomegaly. No abdominal bruits. Extremities: reveal no edema. No clubbing or cyanosis Neurologically awake, alert, oriented x3 with well-coordinated movements. No focal deficits noted Skin: No rash or skin lesions. Psychiatric: Cooperative. Nonsuicidal, anxious. Musculoskeletal: No joint swelling or deformity. Normal range of motion. - Labs CBC & Chem 7: 07/30/22 07:50 07/31/22 08:58 Labs: Abnormal Lab Results - Last 24 Hours (Table) 07/29/22 07/29/22 07/29/22 Range/Units 00:50 01:30 05:45 WBC 3.89 L (4.50-10.00) X 10*3/uL RBC 3.67 L (4.10-5.20) X 10*6/uL Hgb 11.1 L (12.0-15.0) g/dL Hct 34.8 L (37.2-46.3) % MCHC 31.9 L (32.0-37.0) g/dL Lymphocytes # 0.69 L (0.90-5.00) X 10*3/uL Monocytes # 0.04 L (0.20-1.00) X 10*3/uL Eosinophils # 0 L (0.04-0.35) X 10*3/uL ABG pCO2 60 H (35-45) mmHg ABG pO2 53 L* (83-108) mmHg ABG HCO3 37 H (21-25) mmol/L ABG Total CO2 39 H (19-24) mmol/L ABG O2 Saturation 89.0 L (94-97) % Carbon Dioxide (20.0-27.5) mmol/L Anion Gap (10.00-18.00) mmol/L Est GFR (CKD-EPI)NonAf (60.0-200.0) BUN/Creatinine Ratio (12.00-20.00) Ratio Glucose (70-110) mg/dL POC Glucose (mg/dL) 219 H (70-110) mg/dL Procalcitonin (0.02-0.09) ng/mL 07/29/22 07/29/22 07/29/22 Range/Units 05:45 05:45 10:17 WBC (4.50-10.00) X 10*3/uL RBC (4.10-5.20) X 10*6/uL Hgb (12.0-15.0) g/dL Hct (37.2-46.3) % MCHC (32.0-37.0) g/dL Lymphocytes # (0.90-5.00) X 10*3/uL Monocytes # (0.20-1.00) X 10*3/uL Eosinophils # (0.04-0.35) X 10*3/uL ABG pCO2 (35-45) mmHg ABG pO2 (83-108) mmHg ABG HCO3 (21-25) mmol/L ABG Total CO2 (19-24) mmol/L ABG O2 Saturation (94-97) % Carbon Dioxide 32.9 H (20.0-27.5) mmol/L Anion Gap 9.10 L (10.00-18.00) mmol/L Est GFR (CKD-EPI)NonAf 57.0 L (60.0-200.0) BUN/Creatinine Ratio 24.00 H (12.00-20.00) Ratio Glucose 149 H (70-110) mg/dL POC Glucose (mg/dL) 180 H (70-110) mg/dL Procalcitonin 0.12 H (0.02-0.09) ng/mL 07/29/22 Range/Units 11:42 WBC (4.50-10.00) X 10*3/uL RBC (4.10-5.20) X 10*6/uL Hgb (12.0-15.0) g/dL Hct (37.2-46.3) % MCHC (32.0-37.0) g/dL Lymphocytes # (0.90-5.00) X 10*3/uL Monocytes # (0.20-1.00) X 10*3/uL Eosinophils # (0.04-0.35) X 10*3/uL ABG pCO2 (35-45) mmHg ABG pO2 (83-108) mmHg ABG HCO3 (21-25) mmol/L ABG Total CO2 (19-24) mmol/L ABG O2 Saturation (94-97) % Carbon Dioxide (20.0-27.5) mmol/L Anion Gap (10.00-18.00) mmol/L Est GFR (CKD-EPI)NonAf (60.0-200.0) BUN/Creatinine Ratio (12.00-20.00) Ratio Glucose (70-110) mg/dL POC Glucose (mg/dL) 181 H (70-110) mg/dL Procalcitonin (0.02-0.09) ng/mL Assessment and Plan Assessment: Acute on chronic hypoxic respiratory failure secondary COPD exacerbation Acute COPD exacerbation Chronic hypoxic respite failure requiring 4 L oxygen via nasal cannula Diabetes type 2 hlg-veprmis-koxwhiyxo Hypertension Fibromyalgia Anxiety Prior history of smoking DVT prophylaxis with heparin subcu Plan: Patient will be oxygen supplementation and currently nonrebreather. IV Solu- Medrol 60 mg every 6 hourly and duo nebs and Trelegy Ellipta. Patient was seen by pulmonary. Started on Pulmicort and Perforomist. Continue to titrate down oxygen. Procalcitonin level 0.12.. Continue with home medications and follow-up closely. Time with Patient: Greater than 30
--- NOTE | 2022-08-13 12:31 | P.PN ---
Subjective Progress Note Date: 07/30/22 Patient is a 72-year-old female with a known history of COPD on home oxygen at 4 L, hypertension, diabetes type 2 tdr-dpvvhwy-pcdlewpqs, fibromyalgia, anxiety and prior history of smoking presents to ER with complaints of shortness of breath. Patient states that she started having shortness of breath since last night and has been getting worse. Patient reviews nebulizers at home without much improvement. Otherwise denies any complaints of cough or sputum production. Denies any recent illnesses. No chest congestion. No fever no chills. Denies any history of leg swelling. No history of DVT or PE. Chest x-ray showed no acute cardiopulmonary process. COPD changes. Laboratory p data showed WBC 9.0 hemoglobin 12.9 and platelets 261 ABG showed pH 7.34 PCO2 69 PO2 75 Sodium 139 potassium 4.9 chloride 95 bicarb is 38 BUN 21 and creatinine 0.87 and blood sugar is 109 proBNP 644 troponin x1 negative and influenza AB and COVID-19 PCR not detected. EKG showed sinus rhythm Patient was hypoxic with pulse ox 77% on 4 L oxygen via nasal cannula on admission. Was placed nonrebreather in the ER. 07/29/2022 Patient is resting in bed. Awake alert and oriented x3. No complaints of chest pain. Respiratory status is improving. Patient was seen by pulmonary. Continue with Solu-Medrol and duo nebs. Pulmicort and Perforomist was added. Procalcitonin level was ordered. Laboratory pressure WBC 3.8 hemoglobin 11.1 and platelets 210 Sodium 138 potassium 4.7 chloride 96 bicarb is 32.9 BUN 24.0 and creatinine 1.0 and blood sugar is 149 and procalcitonin level was 0.12 07/30/2022 Patient is currently lying in the bed. Awake alert and oriented. Breathing status is improving. Currently titrated down to oxygen at 4 L via nasal cannula. Patient was on BiPAP in the ER. Patient does have underlying severe COPD FEV1 of 41% of predicted. Laboratory data showed WBC 10.4 hemoglobin 12.3 and platelets 250 BUN 30 and creatinine 0.87 and bicarb is 36. Calcium 8.5. Pulmonary is on board. Current medications reviewed. Objective - Vital Signs Vital signs: Vital Signs Temp 97.1 F L 07/30/22 19:55 Pulse 81 07/30/22 20:12 Resp 18 07/30/22 19:55 BP 170/77 07/30/22 19:55 Pulse Ox 99 07/30/22 19:55 FiO2 30 07/29/22 16:25 Intake & Output 07/30/22 07/30/22 07/31/22 06:59 18:59 06:59 Output Total 600 Balance -600 Output: Urine 600 Other: Voiding Method Bedside Commode Bedside Commode Bedside Commode # Voids 1 - Exam PHYSICAL EXAMINATION: Patient is lying in the bed comfortably, no acute distress, awake alert and oriented.. HEENT: Normocephalic. Neck is supple. Pupils reactive. Nostrils clear. Oral cavity is moist. Neck reveals no JVD, carotid bruits, or thyromegaly. CHEST EXAMINATION: Trachea is central. Symmetrical expansion. exp wheezing . Nonlabored breathing. CARDIAC: Normal S1, S2 with no gallops. No murmurs ABDOMEN: Soft. Bowel sounds normal. No organomegaly. No abdominal bruits. Extremities: reveal no edema. No clubbing or cyanosis Neurologically awake, alert, oriented x3 with well-coordinated movements. No focal deficits noted Skin: No rash or skin lesions. Psychiatric: Cooperative. Nonsuicidal, anxious. Musculoskeletal: No joint swelling or deformity. Normal range of motion. - Labs CBC & Chem 7: 07/30/22 07:50 07/31/22 08:58 Labs: Abnormal Lab Results - Last 24 Hours (Table) 07/30/22 Range/Units 07:50 Chloride 97 L (98-107) mmol/L Carbon Dioxide 36 H (22-30) mmol/L BUN 30 H (7-17) mg/dL Glucose 142 H (74-99) mg/dL Assessment and Plan Assessment: Acute on chronic hypoxic respiratory failure secondary COPD exacerbation. Requiring BiPAP on admission. Currently titrated down to 4 L oxygen via nasal cannula. Acute COPD exacerbation Chronic hypoxic respite failure requiring 4 L oxygen via nasal cannula Diabetes type 2 ror-fzndktm-qoinjlxfv Hypertension Fibromyalgia Anxiety Prior history of smoking DVT prophylaxis with heparin subcu Plan: Patient will be oxygen supplementation and currently nonrebreather. IV Solu- Medrol 60 mg every 6 hourly and duo nebs and Trelegy Ellipta. Patient was seen by pulmonary. Started on Pulmicort and Perforomist. Continue to titrate down oxygen. Procalcitonin level 0.12.. Continue with home medications and follow-up closely.
--- NOTE | 2022-08-13 12:33 | P.DS ---
Providers Date of admission: 07/28/22 16:38 Expected date of discharge: 07/31/22 Attending physician: Rose Chavira Consults: 07/28/22 16:38 Consult Physician Urgent Consulting Provider: Brooks Bojorquez Consult Reason/Comments: acyte hypoxic resp failure, acute copd exacerbation Do you want consulting provider notified?: Yes Primary care physician: [facility] Course: Discharge diagnosis Acute on chronic hypoxic respiratory failure secondary COPD exacerbation. Requiring BiPAP on admission. Currently titrated down to 4 L oxygen via nasal cannula. Acute COPD exacerbation Chronic hypoxic respite failure requiring 4 L oxygen via nasal cannula Diabetes type 2 iue-bktlwmp-fjnibooed Hypertension Fibromyalgia Anxiety Prior history of smoking DVT prophylaxis with heparin subcu Hospital course Patient is a 72-year-old female with a known history of COPD on home oxygen at 4 L, hypertension, diabetes type 2 aco-pnxpncp-pkoxtgtmr, fibromyalgia, anxiety and prior history of smoking presents to ER with complaints of shortness of breath. Patient states that she started having shortness of breath since last night and has been getting worse. Patient reviews nebulizers at home without much improvement. Otherwise denies any complaints of cough or sputum production. Denies any recent illnesses. No chest congestion. No fever no chi lls. Denies any history of leg swelling. No history of DVT or PE. Chest x-ray showed no acute cardiopulmonary process. COPD changes. Laboratory p data showed WBC 9.0 hemoglobin 12.9 and platelets 261 ABG showed pH 7.34 PCO2 69 PO2 75 Sodium 139 potassium 4.9 chloride 95 bicarb is 38 BUN 21 and creatinine 0.87 and blood sugar is 109 proBNP 644 troponin x1 negative and influenza AB and COVID-19 PCR not detected. EKG showed sinus rhythm Patient was hypoxic with pulse ox 77% on 4 L oxygen via nasal cannula on admission. Was placed nonrebreather in the ER. 07/29/2022 Patient is resting in bed. Awake alert and oriented x3. No complaints of chest pain. Respiratory status is improving. Patient was seen by pulmonary. Continue with Solu-Medrol and duo nebs. Pulmicort and Perforomist was added. Procalcitonin level was ordered. Laboratory pressure WBC 3.8 hemoglobin 11.1 and platelets 210 Sodium 138 potassium 4.7 chloride 96 bicarb is 32.9 BUN 24.0 and creatinine 1.0 and blood sugar is 149 and procalcitonin level was 0.12 07/30/2022 Patient is currently lying in the bed. Awake alert and oriented. Breathing status is improving. Currently titrated down to oxygen at 4 L via nasal ca nnula. Patient was on BiPAP in the ER. Patient does have underlying severe COPD FEV1 of 41% of predicted. Laboratory data showed WBC 10.4 hemoglobin 12.3 and platelets 250 BUN 30 and creatinine 0.87 and bicarb is 36. Calcium 8.5. Pulmonary is on board. 07/31/2022 Patient is currently resting in the bed. Awake alert and orient x3. Patient states at baseline. Requiring 4 L oxygen via nasal cannula. No complaints of chest pain. No nausea vomiting. Able to see renal state. No acute overnight issues. Laboratory reviewed. Patient is being discharged home with steroid tapering course and follow with pulmonary as an outpatient. Cleared from pulmonary standpoint. - Exam PHYSICAL EXAMINATION: Patient is lying in the bed comfortably, no acute distress, awake alert and oriented.. HEENT: Normocephalic. Neck is supple. Pupils reactive. Nostrils clear. Oral cavity is moist. Neck reveals no JVD, carotid bruits, or thyromegaly. CHEST EXAMINATION: Trachea is central. Symmetrical expansion. No wheezing or rhonchi.. Nonlabored breathing. CARDIAC: Normal S1, S2 with no gallops. No murmurs ABDOMEN: Soft. Bowel sounds normal. No organomegaly. No abdominal bruits. Extremities: reveal no edema. No clubbing or cyanosis Neurologically awake, alert, oriented x3 with well-coordinated movements. No focal deficits noted Skin: No rash or skin lesions. Psychiatric: Cooperative. Nonsuicidal, anxious. Musculoskeletal: No joint swelling or deformity. Normal range of motion. Vital signs: Vital Signs Temp 98.1 F 07/31/22 08:29 Pulse 83 07/31/22 11:46 Resp 18 07/31/22 11:44 BP 134/76 07/31/22 11:44 Pulse Ox 97 07/31/22 11:44 FiO2 30 07/29/22 16:25 Intake & Output 07/30/22 07/31/22 07/31/22 18:59 06:59 18:59 Output Total 600 Balance -600 Output: Urine 600 Other: Voiding Method Bedside Commode Bedside Commode Bedside Commode # Voids 2 Patient Condition at Discharge: Stable Plan - Discharge Summary Discharge Rx Participant: No New Discharge Prescriptions: New RX: predniSONE See Taper PO DIRECTED #30 tab Continue RX: atenoloL [Tenormin] 25 mg PO BID RX: methocarbamoL [Robaxin-750] 750 mg PO Q6H PRN PRN Reason: Spasms RX: amLODIPine BESYLATE [Norvasc] 5 mg PO DAILY RX: HYDROcodone/APAP 7.5-325MG [[place] 7.5-325] 1 tab PO TID PRN PRN Reason: Pain RX: Cyanocobalamin [Vitamin B-12] 500 mcg PO DAILY RX: Pramipexole [Mirapex] 0.25 mg PO BID RX: Atorvastatin [Lipitor] 10 mg PO DAILY RX: Albuterol Sulfate [Ventolin HFA] 2 puff INHALATION RT-QID PRN PRN Reason: Shortness Of Breath RX: hydrOXYzine HCL [Atarax] 10 mg PO BID RX: Sertraline [Zoloft] 50 mg PO DAILY RX: Fluticasone/Umeclidin/Vilanter [Trelegy Ellipta 100-62.5-25] 1 puff INHALATION RT-DAILY RX: Cholecalciferol [Vitamin D3 (125 Mcg = 5000 Iu)] 125 mcg PO DAILY RX: Zolpidem [Ambien] 10 mg PO HS RX: Nystatin 100,000 Unit/ml Susp [Mycostatin Oral Susp] 5 ml PO DAILY RX: Gabapentin [Neurontin] 400 mg PO TID Changed RX: Ipratropium-Albuterol Nebulize [Duoneb 0.5 mg-3 mg/3 ml Soln] 3 ml INHALATION QID #0 Discharge Medication List RX: amLODIPine BESYLATE [Norvasc] 5 mg PO DAILY 01/29/14 [History] RX: atenoloL [Tenormin] 25 mg PO BID 01/29/14 [History] RX: methocarbamoL [Robaxin-750] 750 mg PO Q6H PRN 01/29/14 [History] RX: Cyanocobalamin [Vitamin B-12] 500 mcg PO DAILY 03/01/15 [History] RX: HYDROcodone/APAP 7.5-325MG [[place] 7.5-325] 1 tab PO TID PRN 03/01/15 [History] RX: Atorvastatin [Lipitor] 10 mg PO DAILY 01/15/16 [History] RX: Pramipexole [Mirapex] 0.25 mg PO BID 01/15/16 [History] RX: Albuterol Sulfate [Ventolin HFA] 2 puff INHALATION RT-QID PRN 09/19/19 [History] RX: Sertraline [Zoloft] 50 mg PO DAILY 09/19/19 [History] RX: hydrOXYzine HCL [Atarax] 10 mg PO BID 09/19/19 [History] RX: Cholecalciferol [Vitamin D3 (125 Mcg = 5000 Iu)] 125 mcg PO DAILY 07/28/22 [History] RX: Fluticasone/Umeclidin/Vilanter [Trelegy Ellipta 100-62.5-25] 1 puff INHALATION RT-DAILY 07/28/22 [History] RX: Gabapentin [Neurontin] 400 mg PO TID 07/28/22 [History] RX: Nystatin 100,000 Unit/ml Susp [Mycostatin Oral Susp] 5 ml PO DAILY 07/28/22 [History] RX: Zolpidem [Ambien] 10 mg PO HS 07/28/22 [History] RX: Ipratropium-Albuterol Nebulize [Duoneb 0.5 mg-3 mg/3 ml Soln] 3 ml INHALATION QID #0 07/31/22 [Rx] RX: predniSONE See Taper PO DIRECTED #30 tab 07/31/22 [Rx] Follow up Appointment(s)/Referral(s): Brooks Bojorquez DO [Family Provider] - 08/28/22 2:00 pm Mir Nuñez DO [Primary Care Provider] - 08/07/22 10:15 am (seeing the nurse practioner) Patient Instructions/Handouts: COPD (Chronic Obstructive Pulmonary Disease) (DC) Discharge Disposition: HOME SELF-CARE
== END 2022-07-31 16:26 | disposition home or self-care (01) | DRG 190 ==
LOC: EC 12:59 → 5NMEDONC 16:38 → 3SCARD 07-29 01:55
PROVIDERS: ADMIT Internal Medicine; ATTEND Internal Medicine
PROC: 5A09357 Assistance with Respiratory Ventilation, Less than 24 Consecutive Hours, Continuous Positive Airway Pressure (ICD-10-PCS; principal; 2022-07-28)
DX: J44.1 Chronic obstructive pulmonary disease with (acute) exacerbation (principal); J96.21 Acute and chronic respiratory failure with hypoxia; E11.9 Type 2 diabetes mellitus without complications; I10 Essential (primary) hypertension; G25.81 Restless legs syndrome; Z99.81 Dependence on supplemental oxygen; M79.7 Fibromyalgia; K21.9 Gastro-esophageal reflux disease without esophagitis; F41.9 Anxiety disorder, unspecified; L29.9 Pruritus, unspecified; M19.90 Unspecified osteoarthritis, unspecified site; Z96.652 Presence of left artificial knee joint; Z20.822 Contact with and (suspected) exposure to COVID-19; Z79.899 Other long term (current) drug therapy; Z88.1 Allergy status to other antibiotic agents; Z86.711 Personal history of pulmonary embolism; Z28.310 Unvaccinated for COVID-19; Z91.81 History of falling; Z86.79 Personal history of other diseases of the circulatory system; Z87.891 Personal history of nicotine dependence; Z87.440 Personal history of urinary (tract) infections; Z79.51 Long term (current) use of inhaled steroids
CPT/HCPCS: 36415; 36600; 70450; 71046; 80048; 80053; 82805; 83605; 83880; 84145; 84484; 85025; 85610; 85730; 87502; 87635; 93005; 94640; 94660; 94760; 96365; 96375; 96376; 99285

== ENCOUNTER → 2023-01-22 | Outpatient (CLI) | payer BC ==
--- NOTE | 2023-01-25 08:43 | MM ---
Reason for Exam: Screening (asymptomatic). Last mammogram was performed 1 year(s) and 4 month(s) ago. Patient History: Menarche at age 15. Patient has no children. Left ovary removed at age 62. Right ovary removed at age 62. Hysterectomy at age 62. Postmenopausal. Estrogen for 16 years until age 61. Progesterone for 16 years until age 61. 2002, Bilateral Reduction. Maternal aunt had breast cancer, age 55. Maternal aunt had breast cancer, age 68. Maternal aunt had breast cancer. Mother had breast cancer, age 59. Risk Values: Blank 5 year model risk: 3.4%. NCI Lifetime model risk: 9.7%. Prior Study Comparison: 11/25/2017 Bilateral Screening Mammogram, [facility]. 05/09/2019 Bilateral Screening Mammogram, [facility]. 10/01/2021 Bilateral Screening Mammogram, [facility]. Tissue Density: There are scattered fibroglandular densities. Findings: Analyzed By CAD. There is no suspicious group of microcalcifications or new suspicious mass in either breast. Benign calcifications within both breasts. Overall Assessment: Benign, BI-RAD 2 Management: Screening Mammogram of both breasts in 1 year. A clinical breast exam by your physician is recommended on an annual basis and results should be correlated with mammographic findings. Electronically signed and approved by: Ata Dhillon D.O.
== END | disposition home or self-care (01) ==
LOC: RADMAMWWP 16:24
PROVIDERS: ATTEND Family Medicine
DX: Z12.31 Encounter for screening mammogram for malignant neoplasm of breast (principal); Z78.0 Asymptomatic menopausal state; Z80.3 Family history of malignant neoplasm of breast
CPT/HCPCS: 77063; 77067

== ENCOUNTER 2024-01-05 16:56 | Observation (INO) | payer BC ==
--- NOTE | 2024-01-05 17:44 | ED ---
Recheck HPI - General Chief Complaint: Recheck/Abnormal Lab/Rx Stated Complaint: Failure to thrive Time Seen by Provider: 01/05/24 17:12 Source: patient, family, RN notes reviewed, old records reviewed Mode of arrival: wheelchair Limitations: no limitations - History of Present Illness Initial Comments: This is a 73-year-old female here for altered mental status weakness not feeling well. Patient has failure to thrive symptoms has not been eating or drinking and was sent into the ER by her primary care for significant weakness despite outpatient treatment MD Complaint: other (Decreased activity level weakness) -: days(s) Symptoms Since Prior Visit: no new symptoms Associated Symptoms: none Treatments Prior to Arrival: other (0) - Related Data Home Medications Medication Instructions Recorded Confirmed amLODIPine BESYLATE [Norvasc] 5 mg PO DAILY 01/29/14 07/28/22 atenoloL [Tenormin] 25 mg PO BID 01/29/14 07/28/22 methocarbamoL [Robaxin-750] 750 mg PO Q6H PRN 01/29/14 07/28/22 Cyanocobalamin [Vitamin B-12] 500 mcg PO DAILY 03/01/15 07/28/22 HYDROcodone/APAP 7.5-325MG [[place] 1 tab PO TID PRN 03/01/15 07/28/22 7.5-325] Atorvastatin [Lipitor] 10 mg PO DAILY 01/15/16 07/28/22 Pramipexole [Mirapex] 0.25 mg PO BID 01/15/16 07/28/22 Albuterol Sulfate [Ventolin HFA] 2 puff INHALATION RT-QID PRN 09/19/19 07/28/22 Sertraline [Zoloft] 50 mg PO DAILY 09/19/19 07/28/22 hydrOXYzine HCL [Atarax] 10 mg PO BID 09/19/19 07/28/22 Cholecalciferol [Vitamin D3 (125 125 mcg PO DAILY 07/28/22 07/28/22 Mcg = 5000 Iu)] Fluticasone/Umeclidin/Vilanter 1 puff INHALATION RT-DAILY 07/28/22 07/28/22 [Trelegy Ellipta 100-62.5-25] Gabapentin [Neurontin] 400 mg PO TID 07/28/22 07/28/22 Nystatin 100,000 Unit/ml Susp 5 ml PO DAILY 07/28/22 07/28/22 [Mycostatin Oral Susp] Zolpidem [Ambien] 10 mg PO HS 07/28/22 07/28/22 Previous Rx's Medication Instructions Recorded Ipratropium-Albuterol Nebulize 3 ml INHALATION QID #0 07/31/22 [Duoneb 0.5 mg-3 mg/3 ml Soln] predniSONE See Taper PO DIRECTED #30 tab 07/31/22 Allergies Allergy/AdvReac Type Severity Reaction Status Date / Time sulfamethoxazole Allergy Unknown Verified 01/05/24 17:04 [From Bactrim] trimethoprim [From Bactrim] Allergy Unknown Verified 01/05/24 17:04 Review of Systems ROS Statement: Those systems with pertinent positive or pertinent negative responses have been documented in the HPI. ROS Other: All systems not noted in ROS Statement are negative. Past Medical History Past Medical History: COPD, Diabetes Mellitus, Fibromyalgia, GERD/Reflux, Hypertension, Musculoskeletal Disorder, Pulmonary Embolus (PE) Additional Past Medical History / Comment(s): UTI(E COLI FACEALIS WITH SEPSIS, FALLS, DJD, CHRONIC PRURITIC , PT STATED SHE TAKES SINEMET FOR restless legs History of Any Multi-Drug Resistant Organisms: None Reported Past Surgical History: Appendectomy, Back Surgery, Cholecystectomy, Joint Replacement, Orthopedic Surgery Additional Past Surgical History / Comment(s): brain surgery clipped aneurysm 4 clips, breast surgery reduction, cervical polyp,D&C, Gastroscopy, removal of cys t in mouth, hysterscopy, Left knee manipulation, cervical biopsy, Brain Arteriogram,LT KNEE REPLACEMENT, Past Anesthesia/Blood Transfusion Reactions: No Reported Reaction Past Psychological History: Anxiety Smoking Status: Former smoker Past Alcohol Use History: None Reported Past Drug Use History: None Reported - Past Family History Mother Family Medical History: Cancer Father Family Medical History: Cancer General Exam Limitations: no limitations General appearance: alert, in no apparent distress Head exam: Present: atraumatic, normocephalic, normal inspection Eye exam: Present: normal appearance, PERRL, EOMI. Absent: scleral icterus, conjunctival injection, periorbital swelling ENT exam: Present: normal exam, mucous membranes moist Neck exam: Present: normal inspection. Absent: tenderness, meningismus, lymp hadenopathy Respiratory exam: Present: normal lung sounds bilaterally. Absent: respiratory distress, wheezes, rales, rhonchi, stridor Cardiovascular Exam: Present: regular rate, normal rhythm, normal heart sounds. Absent: systolic murmur, diastolic murmur, rubs, gallop, clicks GI/Abdominal exam: Present: soft, normal bowel sounds. Absent: distended, tenderness, guarding, rebound, rigid Extremities exam: Present: normal inspection, full ROM, normal capillary refill. Absent: tenderness, pedal edema, joint swelling, calf tenderness Back exam: Present: normal inspection Neurological exam: Present: alert, oriented X3, CN II-XII intact Psychiatric exam: Present: normal affect, normal mood Skin exam: Present: warm, dry, intact, normal color. Absent: rash Course Vital Signs 01/05/24 01/05/24 17:00 18:45 Temperature 97.7 F Pulse Rate 70 73 Respiratory 18 20 Rate Blood Pressure 160/77 147/74 O2 Sat by Pulse 99 99 Oximetry - Reevaluation(s) Reevaluation #1: 01/05/24 19:37 Records reviewed Reevaluation #2: 01/05/24 19:37 Patient symptoms unchanged Reevaluation #3: 01/05/24 19:37 Patient informed of results and questions answered Reevaluation #4: Was pt. sent in by a medical professional or institution (DONNA Banuelos, BOND UNDERWRITER, urgent care, hospital, or alf...) When possible be specific @ -no Did you speak to anyone other than the patient for history (EMS, parent, family, police, friend...)? What history was obtained from this source @ -no Did you review nursing and triage notes (agree or disagree)? Why? @ -agree Are old charts reviewed (outside hosp., previous admission, EMS record, old EKG, old radiological studies, urgent care reports/EKG's, alf records)? Report findings @ -yes Differential Diagnosis (chest pain, altered mental status, abdominal pain women, abdominal pain men, vaginal bleeding, weakness, fever, dyspnea, syncope, headache, dizziness, GI bleed, back pain, seizure, CVA, palpatations, mental health, musculoskeletal)? @ -prior EKG interpreted by me (3pts min.). @ -yes X-rays interpreted by me (1pt min.). @ -yes negative for acute disease CT interpreted by me (1pt min.). @ -no U/S interpreted by me (1pt. min.). @ -no What testing was considered but not performed or refused? (CT, X-rays, U/S, labs)? Why? @ -none What meds were considered but not given or refused? Why? @ -none Did you discuss the management of the patient with other professionals (professionals i.e. , PA, BOND UNDERWRITER, lab, RT, psych nurse, group social worker, online advertising analyst, teacher, service officer, manager of case)? Give summary @ -no Was smoking cessation discussed for >3mins.? @ -no Was critical care preformed (if so, how long)? @ -no Were there social determinants of health that impacted care today? How? (Homelessness, low income, unemployed, alcoholism, drug addiction, transportat ion, low edu. Level, literacy, decrease access to med. care, skilled nursing, rehab)? @ -none Was there de-escalation of care discussed even if they declined (Discuss DNR or withdrawal of care, Hospice)? DNR status @ -no What co-morbidities impacted this encounter? (DM, HTN, Smoking, COPD, CAD, Cancer, CVA, ARF, Chemo, Hep., AIDS, mental health diagnosis, sleep apnea, morbid obesity)? @ -none Was patient admitted / discharged? Hospital course, mention meds given and route, prescriptions, significant lab abnormalities, going to OR and other pertinent info. @ - Undiagnosed new problem with uncertain prognosis? @ -no Drug Therapy requiring intensive monitoring for toxicity (Heparin, Nitro, Insulin, Cardizem)? @ -no Were any procedures done? @ -no Diagnosis/symptom? @ - Acute, or Chronic, or Acute on Chronic? @ -Acute Uncomplicated (without systemic symptoms) or Complicated (systemic symptoms)? @ -Complicated Side effects of treatment? @ -no Exacerbation, Progression, or Severe Exacerbation? @ -exacerbation Poses a threat to life or bodily function? How? (Chest pain, [place], [place], pneumonia, PE, COPD, DKA, ARF, appy, cholecystitis, CVA, Diverticulitis, Homicidal, Suicidal, threat to staff... and all critical care pts) @ -yes Reevaluation #5: Differential Altered Mental Status: Hypoglycemia, DKA, hypercapnia, ETOH, overdose, CO poisoning, trauma, myxedema coma, HTN encephalopathy, infection, encephalitis, psychosis, intercranial hemorrhage, hepatic encephalopathy, meningitis, CVA, this is not meant to be an all-inclusive list Medical Decision Making - Medical Decision Making 73-year-old female to the ER for evaluation patient presents for severe altered mental status. Patient has persistent weakness anorexia reportedly with weight loss. Patient will be admitted for failure to thrive - Lab Data Result diagrams: 01/05/24 18:09 01/05/24 18:09 Lab Results 01/05/24 01/05/24 01/05/24 Range/Units 18:09 18:09 18:09 WBC 9.5 (3.8-10.6) k/uL RBC 4.23 (3.80-5.40) m/uL Hgb 12.4 (11.4-16.0) gm/dL Hct 38.3 (34.0-46.0) % MCV 90.6 (80.0-100.0) fL MCH 29.4 (25.0-35.0) pg MCHC 32.5 (31.0-37.0) g/dL RDW 14.7 (11.5-15.5) % Plt Count 277 (150-450) k/uL MPV 8.0 Neutrophils % 74 % Lymphocytes % 18 % Monocytes % 5 % Eosinophils % 1 % Basophils % 1 % Neutrophils # 7.1 (1.3-7.7) k/uL Lymphocytes # 1.7 (1.0-4.8) k/uL Monocytes # 0.5 (0-1.0) k/uL Eosinophils # 0.1 (0-0.7) k/uL Basophils # 0.1 (0-0.2) k/uL Manual Slide Review Performed PT 10.5 (10.0-12.5) sec INR 0.9 (<1.2) APTT 25.8 (22.0-30.0) sec Sodium 137 (137-145) mmol/L Potassium 3.4 L (3.5-5.1) mmol/L Chloride 96 L (98-107) mmol/L Carbon Dioxide 36 H (22-30) mmol/L Anion Gap 5 mmol/L BUN 11 (7-17) mg/dL Creatinine 0.54 (0.52-1.04) mg/dL Est GFR (CKD-EPI)AfAm >90 (>60 ml/min/1.73 sqM) Est GFR (CKD-EPI)NonAf >90 (>60 ml/min/1.73 sqM) Glucose 100 H (74-99) mg/dL Plasma Lactic Acid Jesus (0.7-2.0) mmol/L Calcium 8.8 (8.4-10.2) mg/dL Phosphorus 3.6 (2.5-4.5) mg/dL Magnesium 1.5 L (1.6-2.3) mg/dL Total Bilirubin 0.7 (0.2-1.3) mg/dL AST 32 (14-36) U/L ALT 13 (4-34) U/L Alkaline Phosphatase 89 (38-126) U/L Troponin I (0.000-0.034) ng/mL Total Protein 7.0 (6.3-8.2) g/dL Albumin 3.9 (3.5-5.0) g/dL TSH 0.228 L (0.465-4.680) mIU/L 01/05/24 01/05/24 Range/Units 18:09 18:09 WBC (3.8-10.6) k/uL RBC (3.80-5.40) m/uL Hgb (11.4-16.0) gm/dL Hct (34.0-46.0) % MCV (80.0-100.0) fL MCH (25.0-35.0) pg MCHC (31.0-37.0) g/dL RDW (11.5-15.5) % Plt Count (150-450) k/uL MPV Neutrophils % % Lymphocytes % % Monocytes % % Eosinophils % % Basophils % % Neutrophils # (1.3-7.7) k/uL Lymphocytes # (1.0-4.8) k/uL Monocytes # (0-1.0) k/uL Eosinophils # (0-0.7) k/uL Basophils # (0-0.2) k/uL Manual Slide Review PT (10.0-12.5) sec INR (<1.2) APTT (22.0-30.0) sec Sodium (137-145) mmol/L Potassium (3.5-5.1) mmol/L Chloride (98-107) mmol/L Carbon Dioxide (22-30) mmol/L Anion Gap mmol/L BUN (7-17) mg/dL Creatinine (0.52-1.04) mg/dL Est GFR (CKD-EPI)AfAm (>60 ml/min/1.73 sqM) Est GFR (CKD-EPI)NonAf (>60 ml/min/1.73 sqM) Glucose (74-99) mg/dL Plasma Lactic Acid Jesus 1.1 (0.7-2.0) mmol/L Calcium (8.4-10.2) mg/dL Phosphorus (2.5-4.5) mg/dL Magnesium (1.6-2.3) mg/dL Total Bilirubin (0.2-1.3) mg/dL AST (14-36) U/L ALT (4-34) U/L Alkaline Phosphatase (38-126) U/L Troponin I <0.012 (0.000-0.034) ng/mL Total Protein (6.3-8.2) g/dL Albumin (3.5-5.0) g/dL TSH (0.465-4.680) mIU/L - EKG Data -: EKG Interpreted by Me (EKG is sinus 71 DC 162 QRS 95 QTc 363) Disposition Clinical Impression: Generalized weakness, Confusion state, Anorexia, FTT (failure to thrive) in adult Disposition: ADMITTED IP TO THIS HOSP Condition: Serious Is patient prescribed a controlled substance at d/c from ED?: No Referrals: Angelica Kc MD [STAFF PHYSICIAN] - 1-2 days Time of Disposition: 19:30
[2024-01-05] MEDS: SODIUM CHLORIDE 0.9% 1,000 ML IV STA ×2 (18:07)
[2024-01-05 18:27] LABS: INR 0.9 (<1.2); Partial Thromboplastin Time 25.8 sec (22.0-30.0); Prothrombin Time 10.5 sec (10.0-12.5)
[2024-01-05 18:29] LABS: ALT 13 U/L (4-34); African American GFR (CKD) >90 (>60 ml/min/1.73 sqM); Albumin 3.9 g/dL (3.5-5.0); Anion Gap 5 mmol/L; Blood Urea Nitrogen 11 mg/dL (7-17); Calcium 8.8 mg/dL (8.4-10.2); Carbon Dioxide 36 mmol/L (22-30); Chloride 96 mmol/L (98-107); Glucose 100 mg/dL (74-99); Non-African American GFR(CKD) >90 (>60 ml/min/1.73 sqM); Sodium 137 mmol/L (137-145); Total Bilirubin 0.7 mg/dL (0.2-1.3)
[2024-01-05 18:34] LABS: Basophils # (A) 0.1 k/uL (0-0.2); Basophils % (A) 1 %; Eosinophils # (A) 0.1 k/uL (0-0.7); Eosinophils % (A) 1 %; HCT 38.3 % (34.0-46.0); HGB 12.4 gm/dL (11.4-16.0); Lymphocytes # (A) 1.7 k/uL (1.0-4.8); Lymphocytes % (A) 18 %; MCH 29.4 pg (25.0-35.0); MCHC 32.5 g/dL (31.0-37.0); MCV 90.6 fL (80.0-100.0); Monocytes # (A) 0.5 k/uL (0-1.0); Monocytes % (A) 5 %; Neutrophils # (A) 7.1 k/uL (1.3-7.7); Neutrophils % (A) 74 %; Platelet Count 277 k/uL (150-450); RBC 4.23 m/uL (3.80-5.40); RDW 14.7 % (11.5-15.5); WBC 9.5 k/uL (3.8-10.6)
[2024-01-05 18:45] LABS: AST 32 U/L (14-36); Potassium 3.4 mmol/L (3.5-5.1)
[2024-01-05 18:46] LABS: Alkaline Phosphatase 89 U/L (38-126); Magnesium 1.5 mg/dL (1.6-2.3); Phosphorus 3.6 mg/dL (2.5-4.5)
[2024-01-05] MEDS ORDERED: NALOXONE 0.4 MG/ML 1 ML VIAL IV PRN (19:35)
[2024-01-05] MEDS ORDERED: ONDANSETRON 4 MG/2 ML VIAL IVP PRN (19:35)
[2024-01-05] MEDS ORDERED: MORPHINE SULFATE 4 MG/ML SYRINGE IV PRN (19:35)
[2024-01-05 20:01] LABS: Appearance,Urine Clear (Clear); Bilirubin,Urine Negative (Negative); Blood,Urine Negative (Negative); Color,Urine Colorless; Glucose,Urine (UA) Negative (Negative); Ketones,Urine Negative (Negative); Leukocyte Esterase,Urine Small (Negative); Mucus,Urine Rare /hpf; Nitrite,Urine Negative (Negative); Protein,Urine Negative (Negative); RBC,Urine 8 /hpf (0-5); Specific Gravity,Urine 1.006 (1.001-1.035); Squamous Epithelial Cell,Urine <1 /hpf (0-4); Urobilinogen,Urine <2.0 mg/dL (<2.0); WBC,Urine 1 /hpf (0-5)
--- NOTE | 2024-01-05 20:04 | XR ---
EXAMINATION TYPE: XR chest 2V DATE OF EXAM: 01/05/2024 7:54 PM CLINICAL INDICATION:Female, 73 years old with history of Weakness; [facility] COMPARISON: Chest radiographs from 07/28/2022 TECHNIQUE: XR chest 2V Frontal and lateral views of the chest. FINDINGS: Lungs/Pleura: There is no evidence of pleural effusion, focal consolidation, or pneumothorax. Pulmonary vascularity: Unremarkable. Heart/mediastinum: Cardiomediastinal silhouette is unremarkable. Atherosclerotic calcifications are seen in the aorta. Musculoskeletal: No acute osseous pathology. IMPRESSION: No acute cardiopulmonary disease/process.
[2024-01-05] MEDS: SODIUM CHLORIDE 0.9% 1,000 ML IV SCH (22:44)
[2024-01-06] MEDS: ZOLPIDEM 5 MG TAB PO SCH (00:47)
[2024-01-06] MEDS ORDERED: Magnesium Replacement Protocol 1 EACH MISC MISCELLANE PRN (07:10)
[2024-01-06] MEDS ORDERED: Potassium Replacement Protocol 1 EACH MISC MISCELLANE PRN (07:10)
[2024-01-06] MEDS: POTASSIUM CHLORIDE ER 20 MEQ TAB.ER PO STA (07:55)
[2024-01-06] MEDS: MAGNESIUM SULFATE-D5W PMX 1 GM in DEXTROSE/WATER 1 100ML.BAG IVPB SCH (07:55)
[2024-01-06 09:10] LABS: Basophils # (A) 0.1 k/uL (0-0.2); Basophils % (A) 1 %; Eosinophils # (A) 0.3 k/uL (0-0.7); Eosinophils % (A) 3 %; HCT 36.7 % (34.0-46.0); HGB 11.4 gm/dL (11.4-16.0); Lymphocytes % (A) 34 %; MCH 28.8 pg (25.0-35.0); MCHC 31.1 g/dL (31.0-37.0); MCV 92.8 fL (80.0-100.0); Mean Platelet Volume 7.2; Monocytes # (A) 0.5 k/uL (0-1.0); Monocytes % (A) 6 %; Neutrophils % (A) 55 %; Platelet Count 297 k/uL (150-450); RBC 3.96 m/uL (3.80-5.40); RDW 14.7 % (11.5-15.5)
[2024-01-06 09:15] LABS: ALT 11 U/L (4-34); AST 28 U/L (14-36); African American GFR (CKD) >90 (>60 ml/min/1.73 sqM); Albumin 3.4 g/dL (3.5-5.0); Alkaline Phosphatase 83 U/L (38-126); Anion Gap 2 mmol/L; Blood Urea Nitrogen 8 mg/dL (7-17); Calcium 8.3 mg/dL (8.4-10.2); Carbon Dioxide 37 mmol/L (22-30); Chloride 100 mmol/L (98-107); Glucose 102 mg/dL (74-99); Magnesium 1.6 mg/dL (1.6-2.3); Non-African American GFR(CKD) >90 (>60 ml/min/1.73 sqM); Phosphorus 3.4 mg/dL (2.5-4.5); Potassium 3.6 mmol/L (3.5-5.1); Sodium 139 mmol/L (137-145); Total Bilirubin 0.6 mg/dL (0.2-1.3); Total Protein 6.3 g/dL (6.3-8.2)
[2024-01-06] MEDS: POTASSIUM CHLORIDE ER 20 MEQ TAB.ER PO ONE (09:16)
[2024-01-06] MEDS: IOPAMIDOL CONTRAST (ORAL USE) VIAL PO PRN (14:48)
[2024-01-06] MEDS ORDERED: NITROGLYCERIN SL TABS 0.4 MG TAB SUBLINGUAL PRN (16:00)
[2024-01-06] MEDS ORDERED: HYDROcodone/APAP 7.5-325MG 1 EACH TAB PO PRN (16:00)
[2024-01-06] MEDS ORDERED: LIDOCAINE 4% PATCH TOPICAL PRN (16:00)
[2024-01-06] MEDS ORDERED: ALBUTEROL NEBULIZED 2.5 MG/3 ML INHALATION PRN (16:00)
[2024-01-06 16:03] VITALS: BMI 16.9
[2024-01-06] MEDS: GABAPENTIN 400 MG CAP PO SCH (17:25)
[2024-01-06] MEDS: amLODIPine 5 MG TAB PO SCH (17:26)
[2024-01-06] MEDS: SYMBICORT 80-4.5 MCG INHALER INHALATION SCH (19:44)
[2024-01-06] MEDS: ALBUTEROL NEBULIZED 2.5 MG/3 ML INHALATION SCH (19:44)
--- NOTE | 2024-01-06 20:29 | CT ---
EXAMINATION TYPE: CT ChestAbdPelvis w con 01/06/2024 HISTORY: Weight loss. Inpatient. TECHNIQUE: CT scan of the thorax, abdomen and pelvis is performed with IV Contrast, patient injected with 100 mL of Isovue 300. Total DLP: 602.3 mGycm. Automated Exposure Control for Dose Reduction was Utilized. COMPARISON: CT 05/09/2019 FINDINGS: CHEST: In the LLL superior segment there is an ill-defined bronchogenic mass measuring 3.5 cm AP x 2. 5 cm CC x 1.5 cm TV; this lesion was not present on the CT 05/09/2019. There is nonspecific prominent lymph in the 11L interlobar position, not fulfilling size criteria for adenopathy. There are no > 1 c m short axis hilar or mediastinal lymph nodes. There are severe emphysematous changes, and the central pulmonary arteries and right ventricle are di lated, features of pulmonary hypertension. There is no cardiomegaly, prominent left and right coronary calcifications are present. No aortic román ve calcification but the ascending aorta is mildly dilated, measuring up to 4.0 cm. No skeletal skeletal findings. LIVER/GB-BILIARY: No significant abnormality is appreciated. PANCREAS: No significant abnormality is seen. SPLEEN: No splenomegaly. There is a spherical hypodense smoothly marginated mass in the spleen, consi stent with splenic cyst. ADRENALS: No nodules. KIDNEYS: No significant abnormality is seen. BOWEL: No significant abnormality is seen. PELVIC VISCERA: Unremarkable. LYMPH NODES: No greater than 1 cm abdominal or pelvic lymph nodes are appreciated. OSSEOUS STRUCTURES: No aggressive skeletal findings. VASCULATURE: No acute findings. There are prominent advanced nonaneurysmal atherosclerotic changes se en throughout the visualized arterial anatomy, including the coronary arteries IMPRESSION: Left lower lobe 3.5 x 2.5 x 1.5 cm ill-defined lesion with bronchogenic carcinoma until proven otherw ise.
[2024-01-06] MEDS ORDERED: NON FORMULARY DRUG (Zolpidem 10 MG Tab) PO SCH (21:00)
[2024-01-06] MEDS: atenoloL 25 MG TAB PO SCH (21:05)
[2024-01-06] MEDS: HEPARIN SODIUM,PORCINE 5,000 UNIT/ML 1 ML VIAL SQ SCH (21:05)
--- NOTE | 2024-01-07 00:19 | P.HPIM ---
History of Present Illness H&P Date: 01/07/24 This is a pleasant 73 year old female with medical history of oxygen dependent COPD, diabetes mellitus, fibromyalgia, GERD, hypertension, pulmonary embolus, anxiety, chronic nicotine use. Patient comes to the hospital with complaints of decreased appetite and weight loss of 15-20 lbs over the last 6 to 7 months. Patient denies any recent illness, nausea vomiting or diarrhea. Is not having any chest pain, shortness of breath. Endorses routine screenings including colonoscopy, mammogram and chest CT. Patient continues to smoke reports 1 to 2 cigarettes a few times per week. She is maintained on oxygen 2-3 L on an outpatient basis. Patient had a chest xray which is negative for acute findings. Blood work reveals TSH of 0.228. Urinalysis is negative, potassium is 3.4, magnesium is 1.5. Blood counts are unremarkable. REVIEW OF SYSTEMS: CONSTITUTIONAL: No fever, no malaise, no fatigue. HEENT: No recent visual problems or hearing problems. Denied any sore throat. CARDIOVASCULAR: No chest pain, orthopnea, PND, no palpitations, no syncope. PULMONARY: No shortness of breath, no cough, no hemoptysis. GASTROINTESTINAL: No diarrhea, no nausea, no vomiting, no abdominal pain. NEUROLOGICAL: No headaches, no weakness, no numbness. HEMATOLOGICAL: Denies any bleeding or petechiae. GENITOURINARY: Denies any burning micturition, frequency, or urgency. MUSCULOSKELETAL/RHEUMATOLOGICAL: Denies any joint pain, swelling, or any muscle pain. ENDOCRINE: Denies any polyuria or polydipsia. The rest of the 14-point review of systems is negative. PHYSICAL EXAMINATION: GENERAL: The patient is alert and oriented x3, not in any acute distress. Well developed, well nourished. HEENT: Pupils are round and equally reacting to light. EOMI. No scleral icterus. No conjunctival pallor. Normocephalic, atraumatic. No pharyngeal erythema. No thyromegaly. CARDIOVASCULAR: S1 and S2 present. No murmurs, rubs, or gallops. PULMONARY: Chest is clear to auscultation, no wheezing or crackles. ABDOMEN: Soft, nontender, nondistended, normoactive bowel sounds. No palpable organomegaly. MUSCULOSKELETAL: No joint swelling or deformity. EXTREMITIES: No cyanosis, clubbing, or pedal edema. NEUROLOGICAL: Gross neurological examination did not reveal any focal deficits. SKIN: No rashes. Assessment and Plan Decreased appetite and weightloss under investigation; rule out malignancy, CT chest abdomen and pelvis pending TSH level is low, pending T4 rule out hyperthyroidism Hypokalemia, hypomagnesemia from poor oral intake replace electrolytes and repeat BMP in the AM. Oxygen dependent COPD maintained on trelegy Continued nicotine use Diabetes Mellitus type 2 Fibromyalgia Hyperlipidemia resumed on statin therapy Hypertension continued on amlodipine and tenormin Gastroesophageal Reflux maintained on omeprazole Pulmonary embolism hx not currently on anticoagulation GI prophylaxis DVT prophylaxis Full Code The impression and plan of care has been dictated by Nurse Zaira Elliott as directed. Dr. Natalie MD I have performed a history and physical examination and medical decision making of this patient, discussed the same with the dictator, and agree with the dictat ors assessment and plan as written, documented as a scribe. Based on total visit time, I have performed more than 50% of this visit. Past Medical History Past Medical History: COPD, Diabetes Mellitus, Fibromyalgia, GERD/Reflux, Hypertension, Musculoskeletal Disorder, Pulmonary Embolus (PE) Additional Past Medical History / Comment(s): UTI(E COLI FACEALIS WITH SEPSIS, FALLS, DJD, CHRONIC PRURITIC , PT STATED SHE TAKES SINEMET FOR restless legs History of Any Multi-Drug Resistant Organisms: None Reported Past Surgical History: Appendectomy, Back Surgery, Cholecystectomy, Joint Rep lacement, Orthopedic Surgery Additional Past Surgical History / Comment(s): brain surgery clipped aneurysm 4 clips, breast surgery reduction, cervical polyp,D&C, Gastroscopy, removal of cyst in mouth, hysterscopy, Left knee manipulation, cervical biopsy, Brain Arteriogram,LT KNEE REPLACEMENT, Past Anesthesia/Blood Transfusion Reactions: No Reported Reaction Past Psychological History: Anxiety Smoking Status: Former smoker Past Alcohol Use History: None Reported Past Drug Use History: None Reported - Past Family History Mother Family Medical History: Cancer Father Family Medical History: Cancer Medications and Allergies Home Medications Medication Instructions Recorded Confirmed Type amLODIPine BESYLATE [Norvasc] 5 mg PO DAILY 01/29/14 01/06/24 History atenoloL [Tenormin] 25 mg PO BID 01/29/14 01/06/24 History HYDROcodone/APAP 7.5-325MG [[place] 1 tab PO TID PRN 03/01/15 01/06/24 History 7.5-325] Atorvastatin [Lipitor] 10 mg PO DAILY 01/15/16 01/06/24 History Albuterol Sulfate [Ventolin HFA] 2 puff INHALATION RT-Q4H PRN 09/19/19 01/06/24 History Sertraline [Zoloft] 50 mg PO DAILY 09/19/19 01/06/24 History Fluticasone/Umeclidin/Vilanter 1 puff INHALATION RT-DAILY 07/28/22 01/06/24 History [Trelegy Ellipta 100-62.5-25] Gabapentin [Neurontin] 400 mg PO TID 07/28/22 01/06/24 History Zolpidem [Ambien] 10 mg PO HS 07/28/22 01/06/24 History Albuterol Nebulized [Ventolin 2.5 mg INHALATION RT-TID 01/06/24 01/06/24 History Nebulized] Cetirizine HCl 10 mg PO DAILY 01/06/24 01/06/24 History Cholecalciferol [Vitamin D3 (25 25 mcg PO DAILY 01/06/24 01/06/24 History Mcg = 1000 Iu)] Ipratropium Mcpherson [Atrovent Hfa] 2 puff INHALATION RT-QID 01/06/24 01/06/24 History Ipratropium-Albuterol Nebulize 3 ml INHALATION RT-QID PRN 01/06/24 01/06/24 History [Duoneb 0.5 mg-3 mg/3 ml Soln] Lidocaine 5% Patch [Lidoderm] 1 patch TOPICAL DAILY PRN 01/06/24 01/06/24 History Magnesium Oxide [Saez] 750 mg PO DAILY 01/06/24 01/06/24 History Nitroglycerin Sl Tabs [Nitrostat] 0.4 mg SUBLINGUAL Q5M PRN 01/06/24 01/06/24 History Omeprazole 20 mg PO DAILY 01/06/24 01/06/24 History Allergies Allergy/AdvReac Type Severity Reaction Status Date / Time sulfamethoxazole Allergy Unknown Verified 01/05/24 17:04 [From Bactrim] trimethoprim [From Bactrim] Allergy Unknown Verified 01/05/24 17:04 Physical Exam Vitals: Vital Signs Temp Pulse Pulse Resp BP BP BP 01/06/24 20:00 98.3 F 78 139/81 01/06/24 17:15 97.6 F 85 16 150/55 01/06/24 15:30 97.6 F 90 18 156/88 01/06/24 14:00 18 01/06/24 08:46 01/06/24 02:00 97.9 F 73 15 160/84 Pulse Ox 01/06/24 20:00 100 01/06/24 17:15 98 01/06/24 15:30 97 01/06/24 14:00 01/06/24 08:46 100 01/06/24 02:00 100 Intake and Output 01/06/24 01/06/24 01/07/24 14:59 22:59 06:59 Other: # Voids 2 1 Weight 40.823 kg Results CBC & Chem 7: 01/06/24 08:17 01/06/24 08:17 Labs: Abnormal Lab Results - Last 24 Hours (Table) 01/06/24 Range/Units 08:17 Carbon Dioxide 37 H (22-30) mmol/L Creatinine 0.49 L (0.52-1.04) mg/dL Glucose 102 H (74-99) mg/dL Calcium 8.3 L (8.4-10.2) mg/dL Albumin 3.4 L (3.5-5.0) g/dL Thrombosis Risk Factor Assmnt - Choose All That Apply Any of the Below Risk Factors Present?: No Other Risk Factors: No Each Risk Factor Represents 2 Points: Age 61-74 years Other congenital or acquired thrombophilia - If yes, enter type in comment: No Thrombosis Risk Factor Assessment Total Risk Factor Score: 2 Thrombosis Risk Factor Assessment Level: Very Low Risk Assessment and Plan Time with Patient: Less than 30
[2024-01-07] MEDS: PANTOPRAZOLE 40 MG TABLET PO SCH (05:44)
[2024-01-07] MEDS ORDERED: TIOTROPIUM 2.5 MCG INHALER INHALATION SCH (08:00)
[2024-01-07] MEDS: IPRATROPIUM 0.5 MG/2.5 ML NEBU INHALATION SCH (08:33)
[2024-01-07] MEDS: LORATADINE 10 MG TAB PO SCH (09:20)
[2024-01-07] MEDS: ATORVASTATIN 10 MG TAB PO SCH (09:20)
[2024-01-07] MEDS: SERTRALINE 50 MG TAB PO SCH (09:20)
[2024-01-07] MEDS: CHOLECALCIFEROL 25 MCG (1000 IU) TABLET PO SCH (09:20)
[2024-01-07] MEDS: MAGNESIUM OXIDE 400 MG TAB PO SCH (09:20)
[2024-01-07 09:31] VITALS: BP 159/84; PULSE 80; RESP 18; TEMP 97.6
[2024-01-07 10:39] LABS: BUN/Creat Ratio 12.43 Ratio (12.00-20.00); Blood Urea Nitrogen 8.7 mg/dL (9.0-27.0); Calcium 9.1 mg/dL (8.7-10.3); Carbon Dioxide 34.6 mmol/L (21.6-31.8); Chloride 102 mmol/L (96-109); Glucose 99 mg/dL (70-110); Potassium 5.5 mmol/L (3.5-5.5); Sodium 142 mmol/L (135-145)
[2024-01-07] MEDS ORDERED: droNABinol 2.5 MG CAP PO SCH (17:30)
--- NOTE | 2024-01-09 14:51 | P.DS ---
Providers Date of admission: 01/05/24 19:35 Attending physician: Iris Anthony Primary care physician: Mir Nuñez [facility] Course: Final Diagnosis Decreased appetite and weightloss under investigation; likely due to suspected malignancy the left lower lobe pulmonary nodule Left lower lobe 3.5 x 2.5 x 1.5 cm ill-defined lesion suspect did bronchogenic carcinoma patient will need further workup from pulmonary in the office. Subclinical hyperthyroidism recommend to repeat a TSH and T4 outpatient Hypokalemia, hypomagnesemia from poor oral intake replace electrolytes and repeat BMP in the AM. Oxygen dependent COPD maintained on trelegy Continued nicotine use Diabetes Mellitus type 2 Fibromyalgia Hyperlipidemia resumed on statin therapy Hypertension continued on amlodipine and tenormin Gastroesophageal Reflux maintained on omeprazole Pulmonary embolism hx not currently on anticoagulation Discharge Disposition Patient is stable for discharge home. Recommend to follow-up with Dr. Bojorquez and appointment has been made for January 17 at 9:30 AM. Patient to also follow-up with her PCP Dr. Raven Nuñez in 3 days. Patient to repeat her blood work in 2 to 3 days. Patient is aware of the pulmonary nodule and the need for total smoking cessation at this time. Patient to continue on her same home oxygen on discharge. Hospital Course This is a pleasant 73 year old female with medical history of oxygen dependent COPD, diabetes mellitus, fibromyalgia, GERD, hypertension, pulmonary embolus, anxiety, chronic nicotine use. Patient comes to the hospital with complaints of decreased appetite and weight loss of 15-20 lbs over the last 6 to 7 months. Patient denies any recent illness, nausea vomiting or diarrhea. Is not having any chest pain, shortness of breath. Endorses routine screenings including colonoscopy, mammogram and chest CT. Patient continues to smoke reports 1 to 2 cigarettes a few times per week. She is maintained on oxygen 2-3 L on an outpatient basis. Patient had a chest xray which is negative for acute findings. Urinalysis is negative, potassium is 3.4, magnesium is 1.5. Blood counts are unremarkable. Patient underwent chest abdominal pelvis CT to rule out any malignancy with findings left lower lobe 3.5 x 2.5 x 1.5 cm ill-defined lesion with bronchogenic carcinoma until proven otherwise. This was discussed with the patient and recommending to follow-up with a tanyard worker and oncologist on discharge for further diagnostic and evaluation. Patient verbalizes understanding. She was also started on Marinol for an appetite stimulant although while patient was hospitalized she was eating 75 to 100% of her meals. TSH at 0.228 total 7.1. Please see medication reconciliation for a list of current medications. Thank you for allowing us to participate in the care of this patient. The impression and plan of care has been dictated by Sumi Saez, Nurse Practitioner as directed. Dr. Natalie MD I have performed a history and physical examination and medical decision making of this patient, discussed the same with the dictator, and agree with the dictators assessment and plan as written, documented as a scribe. Based on total visit time, I have performed more than 50% of this visit. Patient Condition at Discharge: Fair Plan - Discharge Summary Discharge Rx Participant: No New Discharge Prescriptions: New droNABinol [Marinol] 2.5 mg PO AC-BID 3 Days #6 cap Continue atenoloL [Tenormin] 25 mg PO BID amLODIPine BESYLATE [Norvasc] 5 mg PO DAILY HYDROcodone/APAP 7.5-325MG [[place] 7.5-325] 1 tab PO TID PRN PRN Reason: Pain Atorvastatin [Lipitor] 10 mg PO DAILY Albuterol Sulfate [Ventolin HFA] 2 puff INHALATION RT-Q4H PRN PRN Reason: Shortness Of Breath Sertraline [Zoloft] 50 mg PO DAILY Fluticasone/Umeclidin/Vilanter [Trelegy Ellipta 100-62.5-25] 1 puff INHALATION RT-DAILY Albuterol Nebulized [Ventolin Nebulized] 2.5 mg INHALATION RT-TID Cholecalciferol [Vitamin D3 (25 Mcg = 1000 Iu)] 25 mcg PO DAILY Lidocaine 5% Patch [Lidoderm 5% Patch] 1 patch TOPICAL DAILY PRN PRN Reason: Pain Zolpidem [Ambien] 10 mg PO HS Gabapentin [Neurontin] 400 mg PO TID Ipratropium-Albuterol Nebulize [Duoneb 0.5 mg-3 mg/3 ml Soln] 3 ml INHALATION RT-QID PRN PRN Reason: Shortness Of Breath Cetirizine HCl 10 mg PO DAILY Ipratropium [place] [Atrovent Hfa] 2 puff INHALATION RT-QID Magnesium Oxide [Saez] 750 mg PO DAILY Nitroglycerin Sl Tabs [Nitrostat] 0.4 mg SUBLINGUAL Q5M PRN PRN Reason: Chest Pain Omeprazole 20 mg PO DAILY Discharge Medication List amLODIPine BESYLATE [Norvasc] 5 mg PO DAILY 01/29/14 [History] atenoloL [Tenormin] 25 mg PO BID 01/29/14 [History] HYDROcodone/APAP 7.5-325MG [[place] 7.5-325] 1 tab PO TID PRN 03/01/15 [History] Atorvastatin [Lipitor] 10 mg PO DAILY 01/15/16 [History] Albuterol Sulfate [Ventolin HFA] 2 puff INHALATION RT-Q4H PRN 09/19/19 [History] Sertraline [Zoloft] 50 mg PO DAILY 09/19/19 [History] Fluticasone/Umeclidin/Vilanter [Trelegy Ellipta 100-62.5-25] 1 puff INHALATION RT-DAILY 07/28/22 [History] Gabapentin [Neurontin] 400 mg PO TID 07/28/22 [History] Zolpidem [Ambien] 10 mg PO HS 07/28/22 [History] Albuterol Nebulized [Ventolin Nebulized] 2.5 mg INHALATION RT-TID 01/06/24 [History] Cetirizine HCl 10 mg PO DAILY 01/06/24 [History] Cholecalciferol [Vitamin D3 (25 Mcg = 1000 Iu)] 25 mcg PO DAILY 01/06/24 [History] Ipratropium [place] [Atrovent Hfa] 2 puff INHALATION RT-QID 01/06/24 [History] Ipratropium-Albuterol Nebulize [Duoneb 0.5 mg-3 mg/3 ml Soln] 3 ml INHALATION RT-QID PRN 01/06/24 [History] Lidocaine 5% Patch [Lidoderm 5% Patch] 1 patch TOPICAL DAILY PRN 01/06/24 [History] Magnesium Oxide [Saez] 750 mg PO DAILY 01/06/24 [History] Nitroglycerin Sl Tabs [Nitrostat] 0.4 mg SUBLINGUAL Q5M PRN 01/06/24 [History] Omeprazole 20 mg PO DAILY 01/06/24 [History] droNABinol [Marinol] 2.5 mg PO AC-BID 3 Days #6 cap 01/07/24 [Rx] Follow up Appointment(s)/Referral(s): Luis Angel Payan MD [STAFF PHYSICIAN] - 2 Weeks (Oncology follow up regarding the lung lesion left lower lobe.) Brooks Bojorquez DO [Doctor of Osteopathic Medicine] - 01/18/24 9:30 am (Follow up in the office next work regarding the lung lesion in the left lower lobe.) Mir Nuñez DO [Primary Care Provider] - 3 Days [facility] [NON-STAFF] - As Needed Ambulatory/Diagnostic Orders: Basic Metabolic Panel [LAB.AMB] Time Frame: 3 Days, Location: None Selected Magnesium [LAB.AMB] Location: None Selected Activity/Diet/Wound Care/Special Instructions: Please make an appt at Dr. Thakkar office for next week Please call to determine available resources: [facility]: #[phone] and [employer]: #[phone] Follow up with pulmonary in the office next week Dronabinol has been prescribed as an appetite stimulant. [facility] plans to start on Wednesday. Discharge Disposition: HOME WITH HOME HEALTH SERVICES
== END 2024-01-07 16:02 | disposition home health service (06) ==
LOC: EC 16:56 → 1SOBS 19:35 → 6NMEDSUR 01-06 17:57
PROVIDERS: ADMIT Hospitalist; ATTEND Hospitalist
DX: R62.7 Adult failure to thrive (principal); R63.8 Other symptoms and signs concerning food and fluid intake; R63.4 Abnormal weight loss; E05.90 Thyrotoxicosis, unspecified without thyrotoxic crisis or storm; J44.9 Chronic obstructive pulmonary disease, unspecified; E11.9 Type 2 diabetes mellitus without complications; K21.9 Gastro-esophageal reflux disease without esophagitis; I10 Essential (primary) hypertension; F41.9 Anxiety disorder, unspecified; E87.6 Hypokalemia; E83.42 Hypomagnesemia; M79.7 Fibromyalgia; E78.5 Hyperlipidemia, unspecified; F17.210 Nicotine dependence, cigarettes, uncomplicated; Z68.1 Body mass index [BMI] 19.9 or less, adult; Z86.711 Personal history of pulmonary embolism; Z99.81 Dependence on supplemental oxygen; Z79.51 Long term (current) use of inhaled steroids; Z79.899 Other long term (current) drug therapy; Z88.2 Allergy status to sulfonamides
CPT/HCPCS: 96361 ×3; 96365; 96366; 96372 ×2; 99285; 36415; 94640 ×2; 94760; 93005; 97161; 97166; 80053 ×2; 80048; 83605; 83735 ×3; 84100 ×2; 84436; 84443; 84484; 85025 ×2; 85610; 85730; 81001; 71046; 71260; 74177; G0378 ×4; J1644 ×2; J3475; Q9967

== ENCOUNTER → 2024-02-04 | Outpatient (CLI) | payer BC ==
--- NOTE | 2024-02-13 10:49 | PE ---
EXAMINATION TYPE: PET CT fusion skull to thigh DATE OF EXAM: 02/04/2024 COMPARISON: CT chest abdomen pelvis 01/06/2024 Prior PET/CT: No prior PET CTs at this location HISTORY: Solitary pulmonary nodule TECHNIQUE: Following the intravenous administration of 10.55 mCi of F-18 FDG, whole body images are performed from the skull base to the midthigh. Images are reviewed on the computer in the coronal, a xial, and sagittal planes. Reconstructed rotating images are created on independent workstation and reviewed on the computer. A localization and attenuation correction CT is performed in conjunction with the PET scan. DLP: 152.15 mGycm SCAN: Initial Blood glucose: 123 mg/dL Average Mediastinum SUV: 1.82 Average Liver SUV: 2.15 FINDINGS: NECK: There is a focus of radiotracer along the lateral right oral pharynx at the tonsillar pillar w ith an SUV of 4.14. Direct visualization is recommended. Some additional cysts posterior tongue uptak e may be present at the vallecula. THORAX: There are some very faint uptake in the posterior right upper lung field. Image 73, SUV 0.82. This is nonspecific and could be inflammatory. Early metastasis should be considered. There is intense uptake within the streak opacity posterior left lung, example image 87, 74.41. Findi ngs are suspicious for neoplasm. There may be some mild uptake within the anterior right mid lung, image 89, SUV 2.07. Inflammatory ch bar metastasis should be considered. There is mild uptake within a density in the posterior medial r ight lung. Image 116, SUV 1.97. Inflammatory change or early metastasis could be considered. At the s sabino level more lateral there is more uptake in the density, SUV 2.34. Small metastasis should be cons idered. There is a density with mild uptake with SUV of 1.24 medial anterior left lung, image 84. Inflammator y change or early metastasis could be considered. ABDOMEN: No abnormal uptake PELVIS: No abnormal uptake OSSEOUS STRUCTURES: No abnormal uptake LOCALIZATION CT: Note is made of opacification of the left sphenoid sinus. Coronary artery calcificat ions present. COMPARISON: Densities within the lung correlate with the areas of uptake. IMPRESSION: 1. Intense uptake within the left lung density can be compatible with neoplasm. 2. There are multiple additional areas of uptake which are intermediate to elevated. Early metastases are not excluded. Some of these can be related to inflammatory change. 3. An additional focus of radiotracer is in the region of the right tonsillar pillar and possibly lulu ng the posterior tongue at the level of the vallecula. Direct visualization is recommended.
== END | disposition home or self-care (01) ==
LOC: RADPETMAIN 13:18
PROVIDERS: ATTEND Internal Medicine Hematology & Oncology
DX: J98.4 Other disorders of lung (principal); R91.1 Solitary pulmonary nodule
CPT/HCPCS: 78815; A9552

== ENCOUNTER → 2024-04-14 | Outpatient (CLI) | payer BC ==
--- NOTE | 2024-05-02 12:58 | CT ---
Report Patient: Sarika Locke Ordering Physician: Unknown, Unknown ID: [id number] Phone, Pager: Phone: N/A Pager: N/A : [phone] Age/Gender: 74Y, F Primary Location: N/A Procedure: CT Chest w Contrast Study Date: 04/14/2024 5:56:00 PM EXAMINATION TYPE: CT chest w con DATE OF EXAM: 04/14/2024 COMPARISON: 02/04/2024, 05/09/2019 HISTORY: 74-year-old female follow-up lung nodule TECHNIQUE: Contiguous axial scanning of the chest after the administration of 100 mL of Isovue 300. Coronal/sagittal reconstructions performed. CT DLP: 125.9 mGycm. Automatic exposure control utilized for a dose reduction. FINDINGS: The heart is normal size without pericardial effusion. LAD coronary artery calcifications are present . Ectatic ascending aorta 3.9 cm. Oval in configuration to the aortic arch. Mild atherosclerotic arch c alcifications. Possible moderate stenosis brachycephalic artery and proximal right common carotid art karine. Large caliber to the main right and left pulmonary arteries measuring up to 2.9 cm suggesting underly ing pulmonary hypertension. Right hilar soft tissue measures 1.8 cm and appears to have increased though direct comparison is infante ited due to lack of contrast from patient's prior PET/CT. Otherwise, no thoracic lymphadenopathy. There is moderately advanced emphysema redemonstrated. The previously irregular opacities of the right base have largely cleared. Some residual strandy atel ectasis or scar remains near. Minimal tree-in-bud opacity lateral right middle lobe and also anterior right lower lung. The irregular elongated opacity at the posterior left mid lung is similar to 2.8 cm. A 9 mm pulmonary nodule anteromedial left mid lung remains unchanged as well. Possible early developing nodules posterior right midlung measuring 6 and 8 mm, axial image 30 and 31 . Visualized upper abdomen shows a 1.8 cm hypodensity posterior spleen which remains unchanged. Biliary ductal prominence redemonstrated. Suspect underlying chronic medical renal disease. Bones: No osseous destructive process. IMPRESSION: 1. COPD with moderate to advanced edema. Pulmonary arterial hypertension. 2. Irregular elongated opacity posterior left mid lung is similar at 2.8 cm but still remain suspicio us. A 9 mm anteromedial left mid lung nodule is stable as well and is also suspicious. (Stable from ) 3. Irregular opacities at the right base have resolved suggesting inflammatory foci. However, there m ay be a couple new developing pulmonary nodules in the right lower lobe measuring 6 mm and 8 mm. 4. Possible enlarging 1.8 cm right hilar lymph node. 5. Tree-in-bud infiltrate at the anterior right lower lung. Correlate for bronchiolitis.
== END | disposition home or self-care (01) ==
LOC: RADCTMAIN 16:09
PROVIDERS: ATTEND Internal Medicine Hematology & Oncology
DX: J44.9 Chronic obstructive pulmonary disease, unspecified (principal); E78.5 Hyperlipidemia, unspecified; I27.21 Secondary pulmonary arterial hypertension; M10.9 Gout, unspecified; R91.8 Other nonspecific abnormal finding of lung field
CPT/HCPCS: 71260; 36415; Q9967

== ENCOUNTER 2024-04-21 18:37 | Emergency (ER) | payer BC ==
[2024-04-21 19:02] VITALS: TEMP 98.5
--- NOTE | 2024-04-21 19:43 | ED ---
Fall HPI - General Chief Complaint: Fall Stated Complaint: Fall Time Seen by Provider: 04/21/24 19:06 Source: patient, RN notes reviewed Mode of arrival: wheelchair Limitations: no limitations - History of Present Illness Initial Comments: This is a 74-year-old female who presents to the emergency department for a fall. States that last night she was getting up and tripped over her oxygen tubing. She fell and landed on her right side. Her bottom tooth went partly through her upper lip, causing a wound, however she did not otherwise hit her head. Denies any loss of consciousness. Not taking any blood thinners. She is having pain over her right chest wall region, making it difficult to take a deep breath due to the pain. She does have a prescription for [place] which is temporarily effective for this pain, but seems to wear off quickly. MD Complaint: fall - Related Data Home Medications Medication Instructions Recorded Confirmed amLODIPine BESYLATE [Norvasc] 5 mg PO DAILY 01/29/14 01/06/24 atenoloL [Tenormin] 25 mg PO BID 01/29/14 01/06/24 HYDROcodone/APAP 7.5-325MG [[place] 1 tab PO TID PRN 03/01/15 01/06/24 7.5-325] Atorvastatin [Lipitor] 10 mg PO DAILY 01/15/16 01/06/24 Albuterol Sulfate [Ventolin HFA] 2 puff INHALATION RT-Q4H PRN 09/19/19 01/06/24 Sertraline [Zoloft] 50 mg PO DAILY 09/19/19 01/06/24 Fluticasone/Umeclidin/Vilanter 1 puff INHALATION RT-DAILY 07/28/22 01/06/24 [Trelegy Ellipta 100-62.5-25] Gabapentin [Neurontin] 400 mg PO TID 07/28/22 01/06/24 Zolpidem [Ambien] 10 mg PO HS 07/28/22 01/06/24 Albuterol Nebulized [Ventolin 2.5 mg INHALATION RT-TID 01/06/24 01/06/24 Nebulized] Cetirizine HCl 10 mg PO DAILY 01/06/24 01/06/24 Cholecalciferol [Vitamin D3 (25 25 mcg PO DAILY 01/06/24 01/06/24 Mcg = 1000 Iu)] Ipratropium [place] [Atrovent Hfa] 2 puff INHALATION RT-QID 01/06/24 01/06/24 Ipratropium-Albuterol Nebulize 3 ml INHALATION RT-QID PRN 01/06/24 01/06/24 [Duoneb 0.5 mg-3 mg/3 ml Soln] Lidocaine 5% Patch [Lidoderm 5% 1 patch TOPICAL DAILY PRN 01/06/24 01/06/24 Patch] Magnesium Oxide [Saez] 750 mg PO DAILY 01/06/24 01/06/24 Nitroglycerin Sl Tabs [Nitrostat] 0.4 mg SUBLINGUAL Q5M PRN 01/06/24 01/06/24 Omeprazole 20 mg PO DAILY 01/06/24 01/06/24 Previous Rx's Medication Instructions Recorded droNABinol [Marinol] 2.5 mg PO AC-BID 3 Days #6 cap 01/07/24 Diclofenac Sodium [Voltaren] 75 mg PO BID PRN #30 tab 04/21/24 Allergies Allergy/AdvReac Type Severity Reaction Status Date / Time sulfamethoxazole Allergy Unknown Verified 01/05/24 17:04 [From Bactrim] trimethoprim [From Bactrim] Allergy Unknown Verified 01/05/24 17:04 Review of Systems ROS Statement: Those systems with pertinent positive or pertinent negative responses have been documented in the HPI. ROS Other: All systems not noted in ROS Statement are negative. Past Medical History Past Medical History: COPD, Diabetes Mellitus, Fibromyalgia, GERD/Reflux, Hypertension, Musculoskeletal Disorder, Pulmonary Embolus (PE) Additional Past Medical History / Comment(s): UTI(E COLI FACEALIS WITH SEPSIS, FALLS, DJD, CHRONIC PRURITIC , PT STATED SHE TAKES SINEMET FOR restless legs History of Any Multi-Drug Resistant Organisms: None Reported Past Surgical History: Appendectomy, Back Surgery, Cholecystectomy, Joint Replacement, Orthopedic Surgery Additional Past Surgical History / Comment(s): brain surgery clipped aneurysm 4 clips, breast surgery reduction, cervical polyp,D&C, Gastroscopy, removal of cyst in mouth, hysterscopy, Left knee manipulation, cervical biopsy, Brain Arteriogram,LT KNEE REPLACEMENT, Past Anesthesia/Blood Transfusion Reactions: No Reported Reaction Past Psychological History: Anxiety Smoking Status: Former smoker Past Alcohol Use History: None Reported Past Drug Use History: None Reported - Past Family History Mother Family Medical History: Cancer Father Family Medical History: Cancer General Exam Limitations: no limitations General appearance: alert, in no apparent distress Head exam: Present: atraumatic, normocephalic, normal inspection ENT exam: Present: other (There is a laceration underneath the top lip. This does not go through to the other side. This appears to be an the stages of healing. No active bleeding.) Respiratory exam: Present: chest wall tenderness (Right), decreased breath sounds, prolonged expiratory Cardiovascular Exam: Present: regular rate, normal rhythm, normal heart sounds. Absent: systolic murmur, diastolic murmur, rubs, gallop, clicks Neurological exam: Present: alert, oriented X3, CN II-XII intact Psychiatric exam: Present: normal affect, normal mood Course Vital Signs 04/21/24 04/21/24 04/21/24 18:59 19:02 20:02 Temperature 98.5 F Pulse Rate 65 70 76 Respiratory 18 20 16 Rate Blood Pressure 128/66 146/84 112/64 O2 Sat by Pulse 92 L 95 96 Oximetry 04/21/24 21:02 Temperature Pulse Rate Respiratory Rate Blood Pressure O2 Sat by Pulse 97 Oximetry Medical Decision Making - Medical Decision Making This is a 74-year-old female who presents to the emergency department for right chest wall pain after a fall. Was pt. sent in by a medical professional or institution? @ -No Did you speak to anyone other than the patient for history? @ -No Did you review nursing and triage notes? @ -Yes, and I agree, it is accurate with regards to the patient's symptoms. Were old charts reviewed? @ -No Differential Diagnosis? @ -Differential Chest Wall Pain: Rib fracture, rib contusion, pneumothorax, this is not meant to be an all- inclusive list. EKG interpreted by me (3pts min.)? @ -Not obtained X-rays interpreted by me (1pt min.)? @ -Not obtained CT interpreted by me (1pt min.)? @ -CT scan of the chest obtained. My interpretation identifies fractures to ribs 3 and 4 on the right. U/S interpreted by me (1pt. min.)? @ -Not obtained What testing was considered but not performed? (CT, X-rays, U/S, labs)? Why? @ -None What meds were considered but not given? Why? @ -None Did you discuss the management of the patient with other professionals? @ -No Did you reconcile home meds? @ -No Was smoking cessation discussed for >3mins.? @ -I discussed smoking cessation for greater than 3 minutes. The risk of smoking were discussed with the patient including but not limited to risks of cancer, stroke, coronary artery disease and COPD. Also discussed with patient were multiple methods of quitting smoking. Lastly we discussed the financial cost of smoking. Was critical care preformed (if so, how long)? @ -No Were there social determinants of health that impacted care today? How? (Homelessness, low income, unemployed, alcoholism, drug addiction, transportation, low edu. Level, literacy, decrease access to med. care, halfway, rehab)? @ -No Was there de-escalation of care discussed even if they declined? (Discuss DNR or withdrawal of care, Hospice)? @ -No What co-morbidities impacted this encounter? (DM, HTN, Smoking, COPD, CAD, Cancer, CVA, Hep., AIDS, mental health diagnosis, sleep apnea, morbid obesity)? @ -COPD, fibromyalgia, osteoarthritis, smoking Was patient admitted / discharged? @ -Discharged. Patient did not hit her head, she only had a small laceration to the inside of her upper lip from her tooth. This was already healing well, it was not through and through, and no repair was indicated. Tetanus vaccine is up-to-date. CT scan of the chest obtained demonstrating an acute fracture of ribs 3 and 4 on the right anterior and medially with minimal displacement. Findings reviewed with the patient. Pain was managed in the emergency department. Patient already takes [place] 7.5 mg every 4-6 hours. States that she has lidocaine patches at home and she also has a prescription for Robaxin, but often forgets to take it. She is able to take NSAIDs, but does not remember to take them either. Pain was managed in the emergency department. She was educated on using an incentive spirometer to help her take several deep breaths an hour and was sent home with one. Prescription for diclofenac provided. Advised she can try taking her Robaxin and use her lidocaine patches that she has at home to further help with her pain. Patient discharged home in stable condition and advised to follow up with her PCP. Case discussed with ED attending, Dr. Lindsey. Return precautions reviewed in depth, the patient is instructed to return to the emergency department with any new, worsening, or concerning symptoms. Patient verbalized understanding. Undiagnosed new problem with uncertain prognosis? @ -None Drug Therapy requiring intensive monitoring for toxicity (Heparin, Nitro, Insulin, Cardizem)? @ -None Were any procedures done? @ -None Diagnosis/symptom? @ -Fall, right rib fractures, lip laceration Acute, or Chronic, or Acute on Chronic? @ -Acute Uncomplicated (without systemic symptoms) or Complicated (systemic symptoms)? @ -Uncomplicated Side effects of treatment? @ -None Exacerbation, Progression, or Severe Exacerbation] @ -Not applicable Poses a threat to life or bodily function? @ -Unlikely - Radiology Data Radiology results: report reviewed, image reviewed Disposition Clinical Impression: Nicotine dependence, Multiple fractures of ribs, right side, initial encounter for closed fracture, Lip laceration, Fall Disposition: HOME SELF-CARE Instructions (If sedation given, give patient instructions): How to Use an Incentive Spirometer (ED), Rib Fracture (ED), Fall Prevention for Older Adults (ED) Additional Instructions: Return to the emergency department with any new, worsening, or concerning symptoms. Take the diclofenac twice daily for pain relief. You may take this with Tylenol as well as your hydrocodone. Try taking your Robaxin a few times each day as well. Use the incentive spirometer to help you take several deep breaths an hour despite the pain to reduce your risk of developing a secondary pneumonia. You can also apply your lidocaine patches daily. Follow up with your primary care provider in 1-2 days. Prescriptions: Diclofenac Sodium [Voltaren] 75 mg PO BID PRN #30 tab PRN Reason: Pain Is patient prescribed a controlled substance at d/c from ED?: No Referrals: Mir Nuñez DO [Primary Care Provider] - 1-2 days Time of Disposition: 21:06
--- NOTE | 2024-04-21 19:51 | CT ---
EXAMINATION TYPE: CT chest wo con CT DLP: 187.9 mGycm, Automated exposure control for dose reduction was used. DATE OF EXAM: 04/21/2024 7:33 PM COMPARISON: Pet/CT 02/04/2024. CLINICAL INDICATION: Female, 74 years old with history of Right sided chest pain from fall; PHH, Righ t sided chest pain after fall TECHNIQUE: Multiple axial images were obtained through the chest. Sagittal and coronal reformats were created for review. Contrast used: mL of (None if empty) Oral contrast used: (None if empty) FINDINGS: LUNGS/ PLEURA: Centrilobular emphysema changes with paraseptal emphysema changes. Left lower lobe sup erior segment nodule measuring 13 x 10 mm remains present. Consolidation changes in the right lung ba se on prior PET/CT is improved. Atelectasis in the medial aspect of the right middle lobe is also imp roved. AIRWAY: Patent and unremarkable. HEART: Size within normal limits. MEDIASTINUM: No gross evidence of adenopathy. VASCULATURE: No aortic aneurysm. MUSCULOSKELETAL: Acute fractures of right ribs 3 and 4 anteriorly near the costochondral junction. SOFT TISSUES/LYMPH NODES: Unremarkable. LOWER NECK: No significant findings. UPPER ABDOMEN: Right upper quadrant cholecystectomy clips. IMPRESSION: 1. Acute fracture of right rib 3 and 4 anteriorly and medially. With minimal displacement 2. Left lower lobe superior segment FDG avid nodule similar to 02/04/2024.
[2024-04-21] MEDS: methocarbamoL 750 MG TAB PO STA (20:33)
[2024-04-21] MEDS: KETOROLAC 15 MG/ML 1 ML VIAL IM STA (20:34)
[2024-04-21] MEDS: MORPHINE SULFATE 4 MG/ML SYRINGE IM STA (20:34)
[2024-04-21] MEDS: KETOROLAC 15 MG/ML 1 ML VIAL IVP STA (20:43)
[2024-04-21] MEDS: MORPHINE SULFATE 4 MG/ML SYRINGE IVP STA (20:43)
[2024-04-21 21:58] VITALS: BP 112/64; PULSE 76; RESP 16
== END 2024-04-21 21:50 | disposition home or self-care (01) ==
LOC: EC 18:37
DX: W19.XXXA Unspecified fall, initial encounter
CPT/HCPCS: 71250; 96372; 99284; 99406

== ENCOUNTER 2024-09-10 18:21 | Inpatient (IN) | payer MEDICARE, OTHER ==
--- NOTE | 2024-09-10 18:53 | ED ---
General Adult HPI - General Chief complaint: Shortness of Breath Stated complaint: jeremy Time Seen by Provider: 09/10/24 18:25 Source: patient Mode of arrival: EMS Limitations: no limitations - History of Present Illness Initial comments: Dictation was produced using [employer] dictation software. please excuse any grammatical, word or spelling errors. Chief Complaint: 74-year-old female presents emergency department for altered mental status History of Present Illness: Patient 74-year-old female she normally gets taken care of by her however is admitted to the hospital. Patient called EMS today for some shortness of breath. Apparently there was an issue with her oxygen tubing she wears home O2. EMS was going to sign off however t tequila noted that she seemed a little altered. It is unclear what patient's baseline mental status is. It is unclear when patient was last normal. Patient Nuys any complaints at this time. Patient states she was course to come here by EMS The ROS documented in this emergency department record has been reviewed and confirmed by me. Those systems with pertinent positive or negative responses have been documented in the HPI. All other systems are other negative and/or noncontributory. - Related Data Home Medications Medication Instructions Recorded Confirmed amLODIPine BESYLATE [Norvasc] 5 mg PO DAILY 01/29/14 01/06/24 atenoloL [Tenormin] 25 mg PO BID 01/29/14 01/06/24 HYDROcodone/APAP 7.5-325MG [[place] 1 tab PO TID PRN 03/01/15 01/06/24 7.5-325] Atorvastatin [Lipitor] 10 mg PO DAILY 01/15/16 01/06/24 Albuterol Sulfate [Ventolin HFA] 2 puff INHALATION RT-Q4H PRN 09/19/19 01/06/24 Sertraline [Zoloft] 50 mg PO DAILY 09/19/19 01/06/24 Fluticasone/Umeclidin/Vilanter 1 puff INHALATION RT-DAILY 07/28/22 01/06/24 [Trelegy Ellipta 100-62.5-25] Gabapentin [Neurontin] 400 mg PO TID 07/28/22 01/06/24 Zolpidem [Ambien] 10 mg PO HS 07/28/22 01/06/24 Albuterol Nebulized [Ventolin 2.5 mg INHALATION RT-TID 01/06/24 01/06/24 Nebulized] Cetirizine HCl 10 mg PO DAILY 01/06/24 01/06/24 Cholecalciferol [Vitamin D3 (25 25 mcg PO DAILY 01/06/24 01/06/24 Mcg = 1000 Iu)] Ipratropium [place] [Atrovent Hfa] 2 puff INHALATION RT-QID 01/06/24 01/06/24 Ipratropium-Albuterol Nebulize 3 ml INHALATION RT-QID PRN 01/06/24 01/06/24 [Duoneb 0.5 mg-3 mg/3 ml Soln] Lidocaine 5% Patch [Lidoderm 5% 1 patch TOPICAL DAILY PRN 01/06/24 01/06/24 Patch] Magnesium Oxide [Saez] 750 mg PO DAILY 01/06/24 01/06/24 Nitroglycerin Sl Tabs [Nitrostat] 0.4 mg SUBLINGUAL Q5M PRN 01/06/24 01/06/24 Omeprazole 20 mg PO DAILY 01/06/24 01/06/24 Previous Rx's Medication Instructions Recorded droNABinol [Marinol] 2.5 mg PO AC-BID 3 Days #6 cap 01/07/24 Diclofenac Sodium [Voltaren] 75 mg PO BID PRN #30 tab 04/21/24 Allergies Allergy/AdvReac Type Severity Reaction Status Date / Time sulfamethoxazole Allergy Unknown Verified 09/10/24 18:35 [From Bactrim] trimethoprim [From Bactrim] Allergy Unknown Verified 09/10/24 18:35 Review of Systems ROS Statement: Those systems with pertinent positive or pertinent negative responses have been documented in the HPI. ROS Other: All systems not noted in ROS Statement are negative. Past Medical History Past Medical History: COPD, Diabetes Mellitus, Fibromyalgia, GERD/Reflux, Hy pertension, Musculoskeletal Disorder, Pulmonary Embolus (PE) Additional Past Medical History / Comment(s): UTI(E COLI FACEALIS WITH SEPSIS, FALLS, DJD, CHRONIC PRURITIC , PT STATED SHE TAKES SINEMET FOR restless legs History of Any Multi-Drug Resistant Organisms: None Reported Past Surgical History: Appendectomy, Back Surgery, Cholecystectomy, Joint Replacement, Orthopedic Surgery Additional Past Surgical History / Comment(s): brain surgery clipped aneurysm 4 clips, breast surgery reduction, cervical polyp,D&C, Gastroscopy, removal of cyst in mouth, hysterscopy, Left knee manipulation, cervical biopsy, Brain Arteriogram,LT KNEE REPLACEMENT, Past Anesthesia/Blood Transfusion Reactions: No Reported Reaction Past Psychological History: Anxiety Smoking Status: Current some day smoker Past Alcohol Use History: None Reported Past Drug Use History: None Reported - Past Family History Mother Family Medical History: Cancer Father Family Medical History: Cancer General Exam - General Exam Comments Initial Comments: PHYSICAL EXAM: General Impression: Alert and oriented x3, not in acute distress HEENT: Normocephalic atraumatic, extra-ocular movements intact, pupils equal and reactive to light bilaterally, mucous membranes moist. Cardiovascular: Heart regular rate and rhythm Chest: Able to complete full sentences, no retractions, no tachypnea Abdomen: abdomen soft, non-tender, non-distended, no organomegaly Musculoskeletal: Pulses present and equal in all extremities, no peripheral edema Motor: no focal deficits noted Neurological: CN II-XII grossly intact, no focal motor or sensory deficits noted Skin: Intact with no visualized rashes Psych: Normal affect and mood Limitations: no limitations Course Vital Signs 09/10/24 09/10/24 18:24 18:36 Temperature 98.1 F Pulse Rate 62 Respiratory 18 20 Rate Blood Pressure 192/102 O2 Sat by Pulse 94 L Oximetry EKG Findings - EKG Comments: EKG Findings:: My EKG interpretation: Ventricular rate 86, difficult to interpret due to significant artifact.. No QTC prolongation, no ST or T-wave changes noted. Overall this EKG is difficult to interpret due to artifact. Medical Decision Making - Medical Decision Making Was pt. sent in by a medical professional or institution (, PA, OPTICIAN APPRENTICE, urgent care, hospital, or retirement...) When possible be specific @ -No Did you speak to anyone other than the patient for history (EMS, parent, family, police, friend...)? What history was obtained from this source @ -EMS as described above Did you review nursing and triage notes (agree or disagree)? Why? @ -I reviewed and agree with nursing and triage notes Were old charts reviewed (outside hosp., previous admission, EMS record, old EKG, old radiological studies, urgent care reports/EKG's, retirement records)? Report findings @ -No old charts were reviewed Differential Diagnosis (chest pain, altered mental status, abdominal pain women, abdominal pain men, vaginal bleeding, musculoskeletal, weakness, fever, dyspnea, syncope, headache, dizziness, GI bleed, back pain, seizure, CVA, palpatations, mental health)? @ -Differential Altered Mental Status: Hypoglycemia, DKA, hypercapnia, ETOH, overdose, CO poisoning, trauma, myxedema coma, HTN encephalopathy, infection, encephalitis, psychosis, intercranial hemorrhage, hepatic encephalopathy, meningitis, CVA, this is not meant to be an all-inclusive list EKG interpreted by me (3pts min.). @ -See above X-rays interpreted by me (1pt min.). @ -Chest x-ray shows no acute processes. CT interpreted by me (1pt min.). @ -CT brain shows no acute processes. U/S interpreted by me (1pt. min.). @ -None done What testing was considered but not performed or refused? (CT, X-rays, U/S, lab s)? Why? @ -None What meds were considered but not given or refused? Why? @ -None Was smoking cessation discussed for >3mins.? @ -No Were there social determinants of health that impacted care today? How? (Homelessness, low income, unemployed, alcoholism, drug addiction, transportation, low edu. Level, literacy, decrease access to med. care, assisted, rehab)? @ -Debility. who is patient's primary credentialer is currently hospitalized. She does not have any assistance at home. Was there de-escalation of care discussed even if they declined (Discuss DNR or withdrawal of care, Hospice)? DNR status @ -No What co-morbidities impacted this encounter? (DM, HTN, Smoking, COPD, CAD, Cancer, CVA, ARF, Chemo, Hep., AIDS, mental health diagnosis, sleep apnea, morbid obesity)? @ -COPD, reliance on home O2 Was patient admitted / discharged? Hospital course, mention meds given and route, prescriptions, significant lab abnormalities, going to OR and other pertinent info. @ -74-year-old female presents to the emergency department for altered mental status. She was initially evaluated by EMS at home after she had cough or shortness of breath. Apparently she has remained home O2 and there was some issues with her home O2. EMS was evaluated patient noticed that she seemed a little altered. She did not have any assistance. Vital signs stable. Laboratory evaluation is obtained. Patient has no focal deficits. Given social situation patient will be admitted. Imaging studies are negative. Case discussed with hospitalist for admission. Social work consulted. Did you discuss the management of the patient with other professionals (professionals i.e. , PA, OPTICIAN APPRENTICE, lab, RT, psych nurse, social services technician, computer technology instructor, teacher, property utilization officer, case management director)? Give summary @ -See above Was critical care preformed (if so, how long)? @ -No Undiagnosed new problem with uncertain prognosis? @ -No Drug Therapy requiring intensive monitoring for toxicity (Heparin, Nitro, Insulin, Cardizem)? @ -No Were any procedures done? @ -No Diagnosis/symptom? Acute, or Chronic, or Acute on Chronic? Uncomplicated (without systemic symptoms) or Complicated (systemic symptoms)? @ -Gravely disabled Side effects of treatment? @ -No Exacerbation, Progression, or Severe Exacerbation? @ -No Poses a threat to life or bodily function? How? (Chest pain, [place], [place], pneumonia, PE, COPD, DKA, ARF, appy, cholecystitis, CVA, Diverticulitis, Homicidal, Suicidal, threat to staff... and all critical care pts) @ -yes - Lab Data Result diagrams: 09/10/24 19:02 Lab Results 09/10/24 Range/Units 19:02 WBC 9.2 (3.8-10.6) k/uL RBC 4.16 (3.80-5.40) m/uL Hgb 12.2 (11.4-16.0) gm/dL Hct 37.4 (34.0-46.0) % MCV 89.8 (80.0-100.0) fL MCH 29.3 (25.0-35.0) pg MCHC 32.6 (31.0-37.0) g/dL RDW 15.0 (11.5-15.5) % Plt Count 377 (150-450) k/uL MPV 6.6 Neutrophils % 80 % Lymphocytes % 11 % Monocytes % 6 % Eosinophils % 1 % Basophils % 0 % Neutrophils # 7.4 (1.3-7.7) k/uL Lymphocytes # 1.0 (1.0-4.8) k/uL Monocytes # 0.6 (0-1.0) k/uL Eosinophils # 0.1 (0-0.7) k/uL Basophils # 0.0 (0-0.2) k/uL Disposition Clinical Impression: Gravely disabled Disposition: ADMITTED IP TO THIS HOSP Condition: Fair Referrals: Mir Nuñez DO [Primary Care Provider] - 1-2 days Decision Time: 20:09
--- NOTE | 2024-09-10 19:17 | XR ---
EXAMINATION TYPE: XR chest 2V DATE OF EXAM: 09/10/2024 7:05 PM COMPARISON: Chest radiographs from 01/05/2024 CLINICAL INDICATION: Female, 74 years old with history of dyspnea; TECHNIQUE: XR chest 2V Frontal and lateral views of the chest. FINDINGS: Lungs/Pleura: There is flattening of the diaphragm with increased lucency of the lungs. No evidence o f pneumothorax, pleural effusion or focal consolidation. Pulmonary vascularity: Unremarkable. Heart/mediastinum: Cardiomediastinal silhouette is unremarkable. Atherosclerotic calcifications are seen in the aorta. Musculoskeletal: No acute osseous pathology. IMPRESSION: 1. No acute cardiopulmonary disease process. 2. COPD changes. [facility], , 09/10/2024 7:15 PM
[2024-09-10 19:26] LABS: Basophils % (A) 0 %; Eosinophils # (A) 0.1 k/uL (0-0.7); Eosinophils % (A) 1 %; HCT 37.4 % (34.0-46.0); HGB 12.2 gm/dL (11.4-16.0); Lymphocytes % (A) 11 %; MCH 29.3 pg (25.0-35.0); MCHC 32.6 g/dL (31.0-37.0); MCV 89.8 fL (80.0-100.0); Mean Platelet Volume 6.6; Monocytes # (A) 0.6 k/uL (0-1.0); Monocytes % (A) 6 %; Neutrophils # (A) 7.4 k/uL (1.3-7.7); Neutrophils % (A) 80 %; Platelet Count 377 k/uL (150-450); RBC 4.16 m/uL (3.80-5.40); WBC 9.2 k/uL (3.8-10.6)
--- NOTE | 2024-09-10 19:57 | CT ---
EXAMINATION TYPE: CT brain wo con DATE OF EXAM: 09/10/2024 7:38 PM COMPARISON: 07/29/2022. CLINICAL INDICATION: Female, 74 years old with history of dyspnea, Pt arrives to ED today by [facility] for complaint of shortness of breath and slight confusion. TECHNIQUE: Brain: Axial CT images of the brain were obtained with coronal and sagittal reformats created and rev iewed. Contrast used: None. Oral contrast used: None. CT DLP: 1138.4 mGycm, Automated exposure control for dose reduction was used. FINDINGS: Brain: Extra-axial spaces: No abnormal extra-axial fluid collections. Ventricular system: Dilatation in proportion to cerebral atrophy. Cerebral parenchyma: No acute intraparenchymal hemorrhage or mass effect. The rasmussen-white junction is well differentiated. Scattered hypoattenuating areas are seen within the white matter. Left middle cranial fossa aneurysm clip. Cerebellum: Unremarkable. Mass effect: No evidence of midline shift. Intracranial vasculature: unremarkable Soft tissues: Normal. Calvarium/osseous structures: No depressed skull fracture. Surgical changes the left skull. Paranasal sinuses and mastoid air cells: Mild scattered paranasal sinus disease. Visualized orbits: Orbital contents are intact. IMPRESSION: 1. No acute intracranial process. 2. Nonspecific white matter changes, likely secondary to chronic small vessel ischemic disease. [facility], , 09/10/2024 7:55 PM
[2024-09-10] MEDS ORDERED: NALOXONE 0.4 MG/ML 1 ML VIAL IV PRN (20:05)
[2024-09-10 21:11] LABS: ALT 12 U/L (4-34); AST 28 U/L (14-36); African American GFR (CKD) >90 (>60 ml/min/1.73 sqM); Alkaline Phosphatase 94 U/L (38-126); Blood Urea Nitrogen 21 mg/dL (7-17); Chloride 85 mmol/L (98-107); Glucose 94 mg/dL (74-99); Non-African American GFR(CKD) 88 (>60 ml/min/1.73 sqM); Potassium 3.5 mmol/L (3.5-5.1); Sodium 135 mmol/L (137-145); Total Bilirubin 0.3 mg/dL (0.2-1.3); Total Protein 7.4 g/dL (6.3-8.2)
[2024-09-10 21:17] LABS: Anion Gap 9 mmol/L
[2024-09-10 21:18] LABS: Carbon Dioxide 41 mmol/L (22-30)
[2024-09-11] MEDS: hydrALAZINE HCL 20 MG/ML 1 ML VIAL IVP STA (06:38)
[2024-09-11] MEDS: amLODIPine 5 MG TAB PO SCH ×2 (09:13→11:45)
[2024-09-11] MEDS: atenoloL 25 MG TAB PO SCH (09:13)
[2024-09-11] MEDS ORDERED: ZOLPIDEM 5 MG TAB PO PRN (11:29)
[2024-09-11] MEDS: SERTRALINE 50 MG TAB PO SCH (11:59)
[2024-09-11] MEDS: GABAPENTIN 400 MG CAP PO SCH (11:59)
[2024-09-11] MEDS: LORATADINE 10 MG TAB PO SCH (11:59)
[2024-09-11] MEDS: ALBUTEROL NEBULIZED 2.5 MG/3 ML INHALATION PRN (12:21)
[2024-09-11] MEDS: FLUTICASONE NASAL 50MCG/SPRAY 16GM BTL EA NOSTRIL SCH (12:43)
[2024-09-11] MEDS ORDERED: IPRATROPIUM-ALBUTEROL 3 ML NEB INHALATION PRN (14:25)
[2024-09-11] MEDS ORDERED: DEXTROSE 50% SYRINGE 50 ML IVP PRN ×2 (14:26)
[2024-09-11] MEDS: PANTOPRAZOLE 40 MG TABLET PO SCH (16:33)
[2024-09-11 17:04] LABS: Glucose,Whole Blood 102 mg/dL (70-110)
[2024-09-11] MEDS: INSULIN ASPART (NovoLOG) 100 UNIT/ML VIAL SQ SCH (17:04)
[2024-09-11] MEDS: IPRATROPIUM-ALBUTEROL 3 ML NEB INHALATION SCH (17:07)
[2024-09-11] MEDS: BUDESONIDE 1 MG/2 ML NEBU INHALATION SCH (17:07)
[2024-09-11] MEDS: methylPREDNISolone SOD SUCCI 125 MG/2 ML VIAL IV SCH (17:32)
[2024-09-11] MEDS ORDERED: atenoloL 25 MG TAB PO SCH (21:00)
[2024-09-11 21:53] LABS: Glucose,Whole Blood 309 mg/dL (70-110)
[2024-09-12 00:53] LABS: Influenza A Not Detected (Not Detectd); Influenza B Not Detected (Not Detectd); RSV Not Detected (Not Detectd)
--- NOTE | 2024-09-12 01:14 | HP ---
HISTORY AND PHYSICAL CHIEF COMPLAINT: Shortness of breath and as well as change in mental status. HISTORY OF PRESENT ILLNESS: This is a 74-year-old woman with a past medical history of multiple medical problems, admitted with change in mental status and confusion and some shortness of breath. Apparently, the patient was taken care of by . was admitted in the hospital and the patient apparently is unsure if the patient has taken some of the medications and the patient was admitted for further evaluation and treatment. The patient is confused and unable to give a coherent history. Most of the history was taken from discussion with staff and review of the chart. CO2 was 41. The patient has history of COPD. The chest x-ray which I reviewed shows no evidence of pneumonia. CT brain showed nonspecific white matter changes. PAST MEDICAL HISTORY: Includes COPD. Rest of the history and rest of the chart is also reviewed. HOME MEDICATIONS: Reviewed include Tenormin, dose and rest of medications reviewed. ALLERGIES: Bactrim. FAMILY HISTORY: Could not be taken. SOCIAL HISTORY: Could not be taken. REVIEW OF SYSTEMS: Could not be taken. PHYSICAL EXAMINATION: GENERAL: The patient is barely arousable and confused. VITAL SIGNS: Pulse is 70, blood pressure 116/83, respirations 18. HEENT: Conjunctivae normal. NECK: No JVD. CARDIOVASCULAR: S1, S2. RESPIRATIONS: Breath sounds diminished at the bases. Scattered rhonchi and rales. ABDOMEN: Soft. NERVOUS SYSTEM: Could not be examined completely. LABORATORY DATA: Noted. ASSESSMENT: 1. Chronic obstructive pulmonary disease acute exacerbation. 2. Change in mental status, acute metabolic encephalopathy. 3. Hypercarbia. 4. Diabetes mellitus, type 2. 5. Gastroesophageal reflux disease. 6. Hypertension. 7. History of pulmonary embolism. 8. History of urinary tract infection. RECOMMENDATIONS AND DISCUSSION: This is a 74-year-old woman, who presented with multiple complex medical issues, we will monitor the patient closely. Continue the current management and continue symptomatic treatment. Optimize bronchodilator treatment, pulmonary consultation. Resume the home medications. Otherwise, guarded prognosis because of multiple complex medical issues. Further recommendations to follow. P.r.n. hydralazine has been given for blood pressure elevations. Possibility of noncompliance to be considered. Social Work consulted. PT, OT also will be consulted. MMODL / IJN: [id number] /
--- NOTE | 2024-09-12 04:14 | P.CNPUL ---
History of Present Illness Consult date: 09/12/24 Requesting physician: Iris Anthony Reason for consult: COPD Chief complaint: Shortness of breath, altered mental status History of present illness: Is a 74-year-old female with past medical history significant for very severe COPD, chronic oxygen dependence on 4 L/min nasal cannula, lung nodule, chronic ongoing tobacco dependence, remote history of PE, hypertension, fibromyalgia, among other things. She does follow in the pulmonary office with Dr. Gamez for management of his very severe COPD. She has an FEV1 22% of predicted. She is chronically dependent on 4 L/min nasal cannula at home. Uses a combination of Trelegy inhaler, albuterol nebs [id number], and as needed Ventolin HFA inhaler. Lately, her COPD has been fairly well-controlled. No recent COPD exacerbations. Of note, she does have a left lower lobe 1.3 x 1 cm lung nodule. Did have a PET scan done 02/04/2024 showing intense uptake within the streak opacity posterior left lung. Suspicious for neoplasm. Multiple areas of additional intermediate uptake, early metastasis was not excluded. Additional focus of radiotracer uptake in the region of the right tonsillar pillar and possibly along the posterior tongue. I did review office records, patient was felt to be a poor candidate for tissue biopsy or surgery, due to her poor lung function. She was referred to radiation oncology for SBRT. Patient states that she has followed up with radiation oncologist, but has not started any radiation treatments yet. Patient presented emergency department yesterday evening. Apparently, had some issues with her supplemental oxygen. She does normally wear 4 L/min nasal cannula, 15/03. Per the patient there may have been a kink or disconnection of her oxygen tubing. She became confused. EMS was called and brought her into the emergency department for evaluation. Her COPD was felt to be active and she was started on a combination of DuoNebs [id number], budesonide inhalation, and IV Solu-Medrol. Chest x-ray did not show any acute cardiopulmonary process. Flattening of the diaphragm consistent with COPD. Viral screen was negative for influenza, RSV, COVID. Patient is currently being evaluated on the general medical floor. She just has ambulated back to the from the bathroom. She is alert and fully oriented. No signs of CO2 narcosis. Her mental status is back to baseline. Denies any falls. Brain CT without contrast on arrival does not show any any acute intracranial process. Patient is currently on 4 L/min nasal cannula. SpO2 is reading 100%. No respiratory distress noted. She is chronically short of breath, mostly with activity. Denies any change in her chronic cough or purulent sputum production. Denies fevers. She denies any infectious symptoms or sick contacts. Does continue to smoke "a few cigarettes" per day. Denies any chest pain, heart palpitations, lightheadedness or syncopal events, lower extremity swelling. CBC unremarkable, no leukocytosis. CMP: Sodium 135, potassium 3.5, chloride 85, serum bicarb 41, BUN 21, creatinine 0.68, glucose 94. LFTs unremarkable. Admission EKG showing atrial fibrillation with controlled ventricular response. Cardiology was consulted for management. Vital signs have remained stable. Review of Systems Constitutional: Reports fatigue, Reports weight loss, Denies chills, Denies fever, Denies night sweats, Denies weight gain Ears, nose, mouth and throat: Denies headache, Denies nasal congestion, Denies nasal discharge, Denies post-nasal drip, Denies sinus pain, Denies sinus pressure, Denies sore throat Cardiovascular: Reports dyspnea on exertion, Denies chest pain, Denies irregular heart beat, Denies leg edema, Denies lightheadedness, Denies orthopnea, Denies palpitations, Denies paroxysmal nocturnal dyspnea, Denies syncope Respiratory: Reports as per HPI Gastrointestinal: Denies abdominal pain, Denies diarrhea, Denies nausea, Denies vomiting Genitourinary: Denies dysuria Musculoskeletal: Denies limitation of motion Integumentary: Denies rash Neurological: Denies seizures, Denies syncope Psychiatric: Denies anxiety, Denies depression Past Medical History Past Medical History: COPD, Diabetes Mellitus, Fibromyalgia, GERD/Reflux, Hypertension, Musculoskeletal Disorder, Pulmonary Embolus (PE) Additional Past Medical History / Comment(s): UTI(E COLI FACEALIS WITH SEPSIS, FALLS, DJD, CHRONIC PRURITIC , PT STATED SHE TAKES SINEMET FOR restless legs, Lung nodule History of Any Multi-Drug Resistant Organisms: None Reported Past Surgical History: Appendectomy, Back Surgery, Cholecystectomy, Joint Replacement, Orthopedic Surgery Additional Past Surgical History / Comment(s): brain surgery clipped aneurysm 4 clips, breast surgery reduction, cervical polyp,D&C, Gastroscopy, removal of cyst in mouth, hysterscopy, Left knee manipulation, cervical biopsy, Brain Arteriogram,LT KNEE REPLACEMENT, Past Anesthesia/Blood Transfusion Reactions: No Reported Reaction Past Psychological History: Anxiety Smoking Status: Current some day smoker Past Alcohol Use History: None Reported Past Drug Use History: None Reported Additional Drug Use History / Comment(s): pt reports to smoke 1/2 pack a week. - Past Family History Mother Family Medical History: Cancer Additional Family Medical History / Comment(s): breast/to brain CA Father Family Medical History: Cancer Additional Family Medical History / Comment(s): Skin cancer Medications and Allergies Home Medications Medication Instructions Recorded Confirmed Type amLODIPine BESYLATE [Norvasc] 5 mg PO DAILY 01/29/14 09/11/24 History atenoloL [Tenormin] 25 mg PO BID 01/29/14 09/11/24 History HYDROcodone/APAP 7.5-325MG [[place] 1 tab PO TID 03/01/15 09/11/24 History 7.5-325] Albuterol Sulfate [Ventolin HFA] 2 puff INHALATION RT-QID PRN 09/19/19 09/11/24 History Sertraline [Zoloft] 50 mg PO DAILY 09/19/19 09/11/24 History Gabapentin [Neurontin] 400 mg PO TID 07/28/22 09/11/24 History Zolpidem [Ambien] 10 mg PO HS 07/28/22 09/11/24 History Fluticasone Nasal [place] [Flonase 2 spray EA NOSTRIL DAILY 09/11/24 09/11/24 History Nasal [place]] Loratadine [Claritin] 10 mg PO DAILY 09/11/24 09/11/24 History Allergies Allergy/AdvReac Type Severity Reaction Status Date / Time sulfamethoxazole Allergy Rash/Hives Verified 09/11/24 09:44 [From Bactrim] trimethoprim [From Bactrim] Allergy Rash/Hives Verified 09/11/24 09:44 Physical Exam Vitals: Vital Signs Temp Pulse Pulse Resp BP BP Pulse Ox 09/11/24 20:00 74 18 09/11/24 19:53 74 18 09/11/24 18:45 97.6 F 78 17 135/74 95 09/11/24 18:19 83 20 133/80 97 01/20/25 17:40 97.3 F L 75 22 148/97 99 09/11/24 17:23 71 09/11/24 17:07 67 09/11/24 16:00 64 22 139/82 99 09/11/24 12:45 70 18 160/93 100 09/11/24 12:32 68 09/11/24 12:23 67 20 09/11/24 11:56 67 20 192/97 100 09/11/24 08:39 91 22 172/95 98 09/11/24 07:55 97.3 F L 98 22 179/102 100 09/11/24 07:00 91 24 171/105 99 09/11/24 06:33 97.3 F L 72 18 196/108 100 09/11/24 05:07 82 18 177/110 09/11/24 04:25 85 20 179/117 99 09/11/24 02:31 85 20 180/90 99 Intake and Output 09/11/24 09/11/24 09/12/24 14:59 22:59 06:59 Other: Weight 43.998 kg GENERAL EXAM: Alert, 74-year-old white female, frail appearance, has just ambulated back from the bathroom, nondistressed. HEAD: Normocephalic and atraumatic EYES: Normal reaction of pupils, equal size. NOSE: Clear with pink turbinates. THROAT: No erythema or exudates. NECK: No masses, no JVD. CHEST: No chest wall deformity. LUNGS: Equal air entry with markedly diminished lung sounds bilaterally throughout. No crackles, wheeze, rhonchi or dullness. On 4 L/min nasal cannula. No conversational dyspnea or accessory muscle use.. CVS: S1 and S2 normal with no audible murmur, regular rhythm. No extra heart sounds ABDOMEN: No hepatosplenomegaly, active bowel sounds, no guarding or rigidity. SPINE: No scoliosis or deformity SKIN: No rashes CENTRAL NERVOUS SYSTEM: No focal deficits, tone is normal in all 4 extremities. EXTREMITIES: There is no peripheral edema, clubbing, or cyanosis. Peripheral pulses are intact. Results - Laboratory Findings CBC and BMP: 09/10/24 19:02 09/10/24 19:02 Abnormal lab findings: Abnormal Labs 09/10/24 09/11/24 19:02 21:52 Sodium 135 L Chloride 85 L Carbon Dioxide 41 H* BUN 21 H POC Glucose (mg/dL) 309 H - Diagnostic Findings Chest x-ray: image reviewed Assessment and Plan Assessment: Possible acute COPD exacerbation, chest x-ray does not show any focal infiltrates or evidence of pneumonia. Viral screen negative for influenza, RSV, COVID. Acute on chronic dyspnea, likely secondary to above Chronic hypoxemic respiratory failure, normally maintained on 4 L/min nasal can nula 15/03. Patient reports issues with her supplemental oxygen while at home, she feels that the tubing may have become kinked or disconnected. Altered mental status, improved and back to baseline, possibly secondary to hypoxia History of left lower lung nodule, FDG avid, and suspicious for bronchogenic carcinoma. Follows up outpatient. Very severe COPD, with an FEV1 22% of predicted, maintain normally on Trelegy inhaler, albuterol nebs [id number], and as needed Ventolin HFA inhaler. Chronic ongoing tobacco dependence Possible new onset atrial fibrillation with ventricular response Remote history of pulmonary embolism Hypertension Fibromyalgia Plan: Patient's medications, labs, chest x-ray reviewed No acute cardiopulmonary process noted on chest x-ray Continue supplemental oxygen, currently on 4 L/min nasal cannula, which she wears at home 15/03 Viral screen negative for influenza, RSV, COVID Continue combination of DuoNebs [id number], Symbicort inhaler, and Solu- Medrol; will likely taper steroids in the morning In regards to her lung nodule. I believe she was referred to radiation oncology for SBRT. Unclear if she has followed up. I reinforced the importance of outpatient follow-up. Smoking cessation counseling performed Cardiology was consulted for management of patient's possible new onset atrial fibrillation. Heart rhythm appears regular on clinical examation. Repeat EKG. Place the patient on cardiac telemetry. We will continue to follow I have personally seen and examined the patient, performed the documentation and the assessment and plan as written. Number of minutes spent on the visit:20 This dictation was produced using [employer] dictation software please excuse grammatical errors Time with Patient: Greater than 30
[2024-09-12 07:16] LABS: Glucose,Whole Blood 130 mg/dL (70-110)
[2024-09-12 08:43] LABS: BUN/Creat Ratio 29.88 Ratio (12.00-20.00); Blood Urea Nitrogen 23.9 mg/dL (9.0-27.0); Calcium 9.2 mg/dL (8.7-10.3); Carbon Dioxide 37.9 mmol/L (21.6-31.8); Chloride 92 mmol/L (96-109); Glucose 105 mg/dL (70-110); Magnesium 1.7 mg/dL (1.5-2.4); Potassium 4.3 mmol/L (3.5-5.5); Sodium 139 mmol/L (135-145)
[2024-09-12 09:04] LABS: Basophils # (A) 0.01 X 10*3/uL (0.00-0.10); Basophils % (A) 0.2 %; Eosinophils # (A) 0 X 10*3/uL (0.04-0.35); Eosinophils % (A) 0 %; HCT 37.2 % (37.2-46.3); HGB 11.9 g/dL (12.0-15.0); Lymphocytes # (A) 0.57 X 10*3/uL (0.90-5.00); Lymphocytes % (A) 11.8 %; MCH 28.9 pg (27.0-32.0); MCV 90.3 FL (80.0-97.0); Mean Platelet Volume 9.4 FL (9.5-12.2); Monocytes # (A) 0.04 X 10*3/uL (0.20-1.00); Monocytes % (A) 0.8 %; NRBC Per 100 WBC 0 X 10*3/uL (0.00-0.01); Neutrophils # (A) 4.21 X 10*3/uL (1.80-7.70); Platelet Count 392 X 10*3/uL (140-440); RBC 4.12 X 10*6/uL (4.10-5.20); RDW 14.7 % (11.5-14.5); WBC 4.84 X 10*3/uL (4.50-10.00)
[2024-09-12] MEDS: SYMBICORT 160-4.5 MCG INHALER INHALATION SCH (09:12)
[2024-09-12 11:51] LABS: Glucose,Whole Blood 276 mg/dL (70-110)
--- NOTE | 2024-09-12 13:33 | P.CRDCN ---
History of Present Illness Consult date: 09/12/24 Consult reason: atrial fibrillation History of present illness: This is a 74-year-old female patient of Dr. Essie Lorenzana with past medical history of hypertension, dyslipidemia, COPD, chronic hypoxic respiratory failure on home O2, tobacco use and dependence. We have been asked to evaluate the patient for atrial fibrillation. Patient states that she is in the hospital because her oxygen came off while she was sleeping and her was not at home as he is hospitalized and was not able to put it back on her. Apparently this has happened before and he usually puts the oxygen back on and there is no problems however, because patient's oxygen was off she became confused and ended up coming into the hospital. She states this has happened in the past. She denies any palpitations. No chest pain. No recent TIA or CVA. We have been asked to evaluate the patient for atrial fibrillation and upon review of the echocardiogram, there is no clear indication of atrial fibrillation. EKG is of poor quality. Blood pressure 160/88, heart rate 78, pulse ox 96% on 3 L nasal cannula. -Chest x-ray: No acute process. COPD -CT brain: No acute process -Laboratory studies: WBC 4.8, hemoglobin 9.9. Sodium 139, potassium 4.3, CO2 37, BUN 23 creatinine 0.8. Influenza, RSV, COVID-19 not detected. -Home cardiac medications: Amlodipine 5 mg daily, atenolol 25 mg twice daily. - Review Of Systems: At the time of my exam: CONSTITUTIONAL: Denies fever or chills. HEENT: Denies blurred vision, vision changes, or eye pain. Denies hemoptysis CARDIOVASCULAR: Denies chest pain. Denies orthopnea. Denies PND. Denies palpitations RESPIRATORY: Denies shortness of breath. GASTROINTESTINAL: Denies abdominal pain. Denies nausea or vomiting. HEMATOLOGIC: Denies bleeding disorders. GENITOURINARY: Denies any blood in urine. SKIN: Denies puritis. Denies rash. Physical examination: Gen: This is a 74-year-old female in no acute distress VS: reviewed HEENT: Head is atraumatic, normocephalic. Pupils equal, round. Sclerae is anicteric. NECK: Supple. No JVD. LUNGS: Clear to auscultation. No wheezes or rhonchi. No intercostal retractions. HEART: Regular rate and rhythm. No murmur. ABDOMEN: Soft No tenderness. EXTREMITIES: No pedal edema. No calf tenderness. NEUROLOGICAL: Patient is awake, alert and oriented x3. Assessment: Abnormal EKG with concern for atrial fibrillation. No clear-cut atrial fibrillation identified on EKG nor on telemetry. Patient may have had MAT. Anoxic encephalopathy, resolved Chronic hypoxic respiratory failure on home O2 Severe COPD Hypertension Hyperlipidemia Tobacco use and dependence Plan: Resume patient's home cardiac medications Obtain 14-day event monitor prior to discharge No further cardiac workup at this time. Patient is cleared for discharge and may follow-up in the office in [address] Lorenzana. Thank you kindly for this consultation. Nurse practitioner note has been reviewed, I agree with documented findings and plan of care. Patient was seen and examined. Past Medical History Past Medical History: COPD, Diabetes Mellitus, Fibromyalgia, GERD/Reflux, Hypertension, Musculoskeletal Disorder, Pulmonary Embolus (PE) Additional Past Medical History / Comment(s): UTI(E COLI FACEALIS WITH SEPSIS, FALLS, DJD, CHRONIC PRURITIC , PT STATED SHE TAKES SINEMET FOR restless legs, Lung nodule History of Any Multi-Drug Resistant Organisms: None Reported Past Surgical History: Appendectomy, Back Surgery, Cholecystectomy, Joint Replacement, Orthopedic Surgery Additional Past Surgical History / Comment(s): brain surgery clipped aneurysm 4 clips, breast surgery reduction, cervical polyp,D&C, Gastroscopy, removal of cyst in mouth, hysterscopy, Left knee manipulation, cervical biopsy, Brain Arteriogram,LT KNEE REPLACEMENT, Past Anesthesia/Blood Transfusion Reactions: No Reported Reaction Past Psychological History: Anxiety Smoking Status: Current some day smoker Past Alcohol Use History: None Reported Past Drug Use History: None Reported Additional Drug Use History / Comment(s): pt reports to smoke 1/2 pack a week. - Past Family History Mother Family Medical History: Cancer Additional Family Medical History / Comment(s): breast/to brain CA Father Family Medical History: Cancer Additional Family Medical History / Comment(s): Skin cancer Medications and Allergies Home Medications Medication Instructions Recorded Confirmed Type amLODIPine BESYLATE [Norvasc] 5 mg PO DAILY 01/29/14 09/11/24 History atenoloL [Tenormin] 25 mg PO BID 01/29/14 09/11/24 History HYDROcodone/APAP 7.5-325MG [[place] 1 tab PO TID 03/01/15 09/11/24 History 7.5-325] Albuterol Sulfate [Ventolin HFA] 2 puff INHALATION RT-QID PRN 09/19/19 09/11/24 History Sertraline [Zoloft] 50 mg PO DAILY 09/19/19 09/11/24 History Gabapentin [Neurontin] 400 mg PO TID 07/28/22 09/11/24 History Zolpidem [Ambien] 10 mg PO HS 07/28/22 09/11/24 History Fluticasone Nasal [place] [Flonase 2 spray EA NOSTRIL DAILY 09/11/24 09/11/24 History Nasal [place]] Loratadine [Claritin] 10 mg PO DAILY 09/11/24 09/11/24 History Allergies Allergy/AdvReac Type Severity Reaction Status Date / Time sulfamethoxazole Allergy Rash/Hives Verified 09/11/24 09:44 [From Bactrim] trimethoprim [From Bactrim] Allergy Rash/Hives Verified 09/11/24 09:44 Physical Exam Vitals: Vital Signs Temp Pulse Pulse Resp BP BP Pulse Ox 09/12/24 09:29 72 09/12/24 09:13 72 09/12/24 07:05 98.4 F 73 16 149/71 96 09/12/24 02:00 98.4 F 76 15 146/74 99 09/11/24 20:00 74 18 09/11/24 19:53 74 18 09/11/24 18:45 97.6 F 78 17 135/74 95 09/11/24 18:19 83 20 133/80 97 09/11/24 17:40 97.3 F L 75 22 148/97 99 09/11/24 17:23 71 09/11/24 17:07 67 09/11/24 16:00 64 22 139/82 99 09/11/24 12:45 70 18 160/93 100 09/11/24 12:32 68 09/11/24 12:23 67 20 Intake and Output 09/11/24 09/12/24 09/12/24 22:59 06:59 14:59 Intake Total 780 360 Balance 780 360 Intake: Oral 780 360 Other: Voiding Method Toilet # Voids 2 1 Weight 43.998 kg Results 09/12/24 05:33 09/12/24 05:33 CBC 09/12/24 Range/Units 05:33 WBC 4.84 (4.50-10.00) X 10*3/uL RBC 4.12 (4.10-5.20) X 10*6/uL Hgb 11.9 L (12.0-15.0) g/dL Hct 37.2 (37.2-46.3) % Plt Count 392 (140-440) X 10*3/uL Comprehensive Metabolic Panel 09/12/24 Range/Units 05:33 Sodium 139 (135-145) mmol/L Potassium 4.3 (3.5-5.5) mmol/L Chloride 92 L (96-109) mmol/L Carbon Dioxide 37.9 H (21.6-31.8) mmol/L BUN 23.9 (9.0-27.0) mg/dL Creatinine 0.8 (0.6-1.5) mg/dL Glucose 105 (70-110) mg/dL Calcium 9.2 (8.7-10.3) mg/dL Current Medications Generic Name Dose Route Start Last Admin Trade Name Freq PRN Reason Stop Dose Admin Hydrocodone Bitart/Acetaminophen 1 each 09/11/24 11:29 Hydrocodone/Apap 7.5-325mg 1 Each Tab PO TID PRN Pain Albuterol/Ipratropium 3 ml 09/11/24 16:00 09/12/24 09:12 Ipratropium-Albuterol 3 Ml Neb INHALATION 3 ml RT-QID DELVIN Administration Albuterol/Ipratropium 3 ml 09/11/24 14:25 Ipratropium-Albuterol 3 Ml Neb INHALATION RT-QID PRN Shortness Of Breath Or Wheezing Amlodipine Besylate 5 mg 09/11/24 09:00 09/12/24 08:48 Amlodipine 5 Mg Tab PO 5 mg DAILY DELVIN Administration Atenolol 25 mg 09/11/24 09:00 09/12/24 08:48 Atenolol 25 Mg Tab PO 25 mg BID DELVIN Administration Budesonide/Formoterol Fumarate 2 puff 09/12/24 08:00 09/12/24 09:12 Symbicort 160-4.5 Mcg Inhaler INHALATION 2 puff RT-BID DELVIN Administration Dextrose/Water 25 ml 09/11/24 14:26 Dextrose 50% Syringe 50 Ml IVP PER PROTOCOL PRN Hypoglycemia Protocol Dextrose/Water 50 ml 09/11/24 14:26 Dextrose 50% Syringe 50 Ml IVP PER PROTOCOL PRN Hypoglycemia Protocol Fluticasone Propionate 2 spray 09/11/24 11:30 09/12/24 09:14 Fluticasone Nasal 50mcg/[place] 16gm Btl EA NOSTRIL 2 spray DAILY DELVIN Administration Gabapentin 400 mg 09/11/24 11:30 09/12/24 08:48 Gabapentin 400 Mg Cap PO 400 mg TID DELVIN Administration Insulin Aspart 0 unit 09/11/24 17:30 09/12/24 07:33 Insulin Aspart (Novolog) 100 Unit/Ml Vial SQ Not Given ACHS DELVIN Protocol Loratadine 10 mg 09/11/24 11:30 09/12/24 08:49 Loratadine 10 Mg Tab PO 10 mg DAILY DELVIN Administration Naloxone HCl 0.2 mg 09/10/24 20:05 Naloxone 0.4 Mg/Ml 1 Ml Vial IV Q2M PRN Opioid Reversal Pantoprazole Sodium 40 mg 09/11/24 14:30 09/12/24 08:49 Pantoprazole 40 Mg Tablet PO 40 mg [id number] DELVIN Administration Sertraline HCl 50 mg 09/11/24 11:30 09/12/24 08:49 Sertraline 50 Mg Tab PO 50 mg DAILY DELVIN Administration Zolpidem Tartrate 10 mg 09/11/24 11:29 Zolpidem 5 Mg Tab PO HS PRN Insomnia Intake and Output 09/11/24 09/12/24 09/12/24 22:59 06:59 14:59 Intake Total 780 360 Balance 780 360 Intake: Oral 780 360 Other: Voiding Method Toilet # Voids 2 1 Weight 43.998 kg 09/12/24 05:33 09/12/24 05:33
[2024-09-12 17:24] LABS: Glucose,Whole Blood 172 mg/dL (70-110)
[2024-09-12 20:29] LABS: Glucose,Whole Blood 241 mg/dL (70-110)
[2024-09-12] MEDS: HYDROcodone/APAP 7.5-325MG 1 EACH TAB PO PRN (21:39)
[2024-09-13 00:59] LABS: Amorphous Sediment,Urine Few /hpf; Appearance,Urine Cloudy (Clear); Bilirubin,Urine Negative (Negative); Blood,Urine Negative (Negative); Color,Urine Light Yellow; Glucose,Urine (UA) Negative (Negative); Hyaline Casts,Urine 1 /lpf (0-2); Ketones,Urine Negative (Negative); Leukocyte Esterase,Urine Large (Negative); Mucus,Urine Occasional /hpf; Nitrite,Urine Negative (Negative); PH, Urine 5.5 (5.0-8.0); Protein,Urine 1+ (Negative); RBC,Urine 19 /hpf (0-5); Specific Gravity,Urine 1.025 (1.001-1.035); Squamous Epithelial Cell,Urine 37 /hpf (0-4); Urobilinogen,Urine <2.0 mg/dL (<2.0); WBC,Urine 6 /hpf (0-5)
[2024-09-13] MEDS: ZOLPIDEM 5 MG TAB PO PRN (01:27)
--- NOTE | 2024-09-13 06:14 | P.PN ---
Subjective Progress Note Date: 09/12/24 This is a pleasant 74-year-old female who was recently admitted with change in mental status and confusion with some shortness of breath. Patient being followed by cardiology along with pulmonary maintained on breathing treatments with history of COPD. Patient's mentation is improved and patient has been cleared by cardiology recommending an event monitor on discharge. Patient to be evaluated by PT/OT therapy recommending rehab and although patient would like to go home with her , he is currently hospitalized as well. Patient is agreeable to ECF. Case management/social work following and will require insurance authorization. Review of systems: Constitutional: No reports of fatigue, fever, or chills Cardiovascular: No reports of chest pain or palpitations Respiratory: No reports of shortness of breath or cough GI: No reports of nausea, no reports of vomiting, no diarrhea : No reports of dysuria or retention Neurovascular: reports of generalized weakness All medications have been reviewed PHYSICAL EXAMINATION: GENERAL: The patient is alert and oriented x to, baseline, Well developed, thin built, elderly appearing HEENT: Pupils are round and equally reacting to light. EOMI. no scleral icterus. No conjunctival pallor. Normocephalic, atraumatic. No pharyngeal erythema. No thyromegaly. CARDIOVASCULAR: S1 and S2 muffled PULMONARY: diminished breath sounds bilaterally with no wheezing or rhonchi noted. ABDOMEN: soft. Nontender on exam. Thin non-distended, normoactive bowel sounds. No palpable organomegaly. MUSCULOSKELETAL: No joint swelling or deformity. EXTREMITIES: No cyanosis, clubbing, or pedal edema. NEUROLOGICAL: Gross neurological examination did not reveal any focal deficits. Diffuse weakness SKIN: No rashes. Assessment: Chronic obstructive pulmonary disease, acute exacerbation Change in mental status, acute metabolic encephalopathy, improved Hypercarbia Diabetes mellitus, type II GERD history Hypertension history History of PE Moderate protein calorie malnutrition with a BMI of 18.9 GI prophylaxis DVT prophylaxis Full code Plan: Recommend to continue with current medications and management with cardiology and pulmonary following. Continue with current regimen and has been cleared by cardiology recommending an event monitor on discharge Social work following and planning on ECF this patient was evaluated by physical therapy recommending rehab. Patient would like to go home although her main caregiver is her and he is currently hospitalized. Due to multiple complex medical issues, overall prognosis is guarded Possible discharge planning in the next 24 to 48 hours to ECF The impression and plan of care has been dictated by Celine Gomez, nurse practitioner as directed. Dr. Raj MD I have performed a history and examination and MDM of this patient, discussed the same with the dictator, and agree with the dictator's assessment and plan as written ,documented as a scribe. Based on total visit time, I have performed more than 50% of the visit. Any additional findings or plans will be noted. Objective - Vital Signs Vital signs: Vital Signs Temp 98.3 F 09/12/24 13:20 Pulse 78 09/12/24 13:20 Resp 18 09/12/24 13:20 BP 160/88 09/12/24 13:20 Pulse Ox 96 09/12/24 13:20 FiO2 Intake & Output 09/11/24 09/12/24 09/12/24 18:59 06:59 18:59 Intake Total 780 360 Balance 780 360 Weight 43.998 kg Intake: Oral 780 360 Other: Voiding Method Toilet # Voids 2 1 - Labs CBC & Chem 7: 09/12/24 05:33 09/12/24 05:33 Labs: Abnormal Lab Results - Last 24 Hours (Table) 09/11/24 09/12/24 09/12/24 Range/Units 21:52 05:33 05:33 Hgb 11.9 L (12.0-15.0) g/dL RDW 14.7 H (11.5-14.5) % MPV 9.4 L (9.5-12.2) [place] Lymphocytes # 0.57 L (0.90-5.00) X 10*3/uL Monocytes # 0.04 L (0.20-1.00) X 10*3/uL Eosinophils # 0 L (0.04-0.35) X 10*3/uL Chloride 92 L (96-109) mmol/L Carbon Dioxide 37.9 H (21.6-31.8) mmol/L BUN/Creatinine Ratio 29.88 H (12.00-20.00) Ratio POC Glucose (mg/dL) 309 H (70-110) mg/dL 09/12/24 09/12/24 Range/Units 06:59 11:45 Hgb (12.0-15.0) g/dL RDW (11.5-14.5) % MPV (9.5-12.2) [place] Lymphocytes # (0.90-5.00) X 10*3/uL Monocytes # (0.20-1.00) X 10*3/uL Eosinophils # (0.04-0.35) X 10*3/uL Chloride (96-109) mmol/L Carbon Dioxide (21.6-31.8) mmol/L BUN/Creatinine Ratio (12.00-20.00) Ratio POC Glucose (mg/dL) 130 H 276 H (70-110) mg/dL
[2024-09-13 07:32] LABS: Glucose,Whole Blood 130 mg/dL (70-110)
[2024-09-13 12:13] LABS: Glucose,Whole Blood 158 mg/dL (70-110)
--- NOTE | 2024-09-13 13:31 | P.PN ---
Subjective Progress Note Date: 09/13/24 Is a 74-year-old female with past medical history significant for very severe COPD, chronic oxygen dependence on 4 L/min nasal cannula, lung nodule, chronic ongoing tobacco dependence, remote history of PE, hypertension, fibromyalgia, among other things. She does follow in the pulmonary office with Dr. Gamez for management of his very severe COPD. She has an FEV1 22% of predicted. She is chronically dependent on 4 L/min nasal cannula at home. Uses a combination of Trelegy inhaler, albuterol nebs [id number], and as needed Ventolin HFA inhaler. Lately, her COPD has been fairly well-controlled. No recent COPD exacerbations. Of note, she does have a left lower lobe 1.3 x 1 cm lung nodule. Did have a PET scan done 02/04/2024 showing intense uptake within the streak opacity posterior left lung. Suspicious for neoplasm. Multiple areas of additional intermediate uptake, early metastasis was not excluded. Additional focus of radiotracer uptake in the region of the right tonsillar pillar and possibly along the posterior tongue. I did review office records, patient was felt to be a poor candidate for tissue biopsy or surgery, due to her poor lung function. She was referred to radiation oncology for SBRT. Patient states that she has followed up with radiation oncologist, but has not started any radiation treatments yet. Patient presented emergency department yesterday evening. Apparently, had some issues with her supplemental oxygen. She does normally wear 4 L/min nasal c annula, 15/03. Per the patient there may have been a kink or disconnection of her oxygen tubing. She became confused. EMS was called and brought her into the emergency department for evaluation. Her COPD was felt to be active and she was started on a combination of DuoNebs [id number], budesonide inhalation, and IV Solu-Medrol. Chest x-ray did not show any acute cardiopulmonary process. Flattening of the diaphragm consistent with COPD. Viral screen was negative for influenza, RSV, COVID. Patient is currently being evaluated on the general medical floor. She just has ambulated back to the from the bathroom. She is alert and fully oriented. No signs of CO2 narcosis. Her mental status is back to baseline. Denies any falls. Brain CT without contrast on arrival does not show any any acute intracranial process. Patient is currently on 4 L/min nasal cannula. SpO2 is reading 100%. No respiratory distress noted. She is chronically short of breath, mostly with activity. Denies any change in her chronic cough or purulent sputum production. Denies fevers. She denies any infec tious symptoms or sick contacts. Does continue to smoke "a few cigarettes" per day. Denies any chest pain, heart palpitations, lightheadedness or syncopal events, lower extremity swelling. CBC unremarkable, no leukocytosis. CMP: Sodium 135, potassium 3.5, chloride 85, serum bicarb 41, BUN 21, creatinine 0.68, glucose 94. LFTs unremarkable. Admission EKG showing atrial fibrillation with controlled ventricular response. Cardiology was consulted for management. Vital signs have remained stable The patient is seen today September 13, 2024 in follow-up on the regular medical floor. She is currently sitting up in the chair. Awake and alert in no acute distress. Maintaining good O2 saturations in the 90s on 3 L/min per nasal cannula. She does have home oxygen. She is afebrile. Hemodynamically stable. Glucose 158. She is continued on DuoNeb and elations, Symbicort. Objective - Vital Signs Vital signs: Vital Signs Temp 98.2 F 09/13/24 12:00 Pulse 70 09/13/24 12:51 Resp 16 09/13/24 12:00 BP 114/64 09/13/24 12:00 Pulse Ox 96 09/13/24 12:00 FiO2 Intake & Output 09/12/24 09/13/24 09/13/24 18:59 06:59 18:59 Intake Total 1680 540 Balance 1680 540 Intake: Oral 1680 540 Other: Voiding Method Toilet # Voids 3 2 - Exam GENERAL EXAM: Alert, 74-year-old female, frail appearance, sitting up at the bedside, on 3 L nasal cannula, nondistressed. HEAD: Normocephalic and atraumatic EYES: Normal reaction of pupils, equal size. NOSE: Clear with pink turbinates. THROAT: No erythema or exudates. NECK: No masses, no JVD. CHEST: No chest wall deformity. LUNGS: Equal air entry with markedly diminished lung sounds bilaterally throughout. No crackles, wheeze, rhonchi or dullness. CVS: S1 and S2 normal with no audible murmur, regular rhythm. No extra heart sounds ABDOMEN: No hepatosplenomegaly, active bowel sounds, no guarding or rigidity. SPINE: No scoliosis or deformity SKIN: No rashes CENTRAL NERVOUS SYSTEM: No focal deficits, tone is normal in all 4 extremities. EXTREMITIES: There is no peripheral edema, clubbing, or cyanosis. Peripheral pulses are intact. - Labs CBC & Chem 7: 09/12/24 05:33 09/12/24 05:33 Labs: Abnormal Lab Results - Last 24 Hours (Table) 09/12/24 09/12/24 09/12/24 Range/Units 17:11 20:27 23:45 POC Glucose (mg/dL) 172 H 241 H (70-110) mg/dL Urine Appearance Cloudy H (Clear) Urine Protein 1+ H (Negative) Ur Leukocyte Esterase Large H (Negative) Urine RBC 19 H (0-5) /hpf Urine WBC 6 H (0-5) /hpf Ur Squamous Epith Cells 37 H (0-4) /hpf Amorphous Sediment Few H (None) /hpf Urine Mucus Occasional H (None) /hpf 09/13/24 09/13/24 Range/Units 07:29 12:02 POC Glucose (mg/dL) 130 H 158 H (70-110) mg/dL Urine Appearance (Clear) Urine Protein (Negative) Ur Leukocyte Esterase (Negative) Urine RBC (0-5) /hpf Urine WBC (0-5) /hpf Ur Squamous Epith Cells (0-4) /hpf Amorphous Sediment (None) /hpf Urine Mucus (None) /hpf Assessment and Plan Assessment: Possible acute COPD exacerbation, chest x-ray does not show any focal infiltra emilia or evidence of pneumonia. Viral screen negative for influenza, RSV, COVID. Acute on chronic dyspnea, likely secondary to above Chronic hypoxemic respiratory failure, normally maintained on 4 L/min nasal cannula 15/03. Patient reports issues with her supplemental oxygen while at home, she feels that the tubing may have become kinked or disconnected. Altered mental status, improved and back to baseline, possibly secondary to hypoxia History of left lower lung nodule, FDG avid, and suspicious for bronchogenic carcinoma. Follows up outpatient. Very severe COPD, with an FEV1 22% of predicted, maintain normally on Trelegy inhaler, albuterol nebs [id number], and as needed Ventolin HFA inhaler. Chronic ongoing tobacco dependence Possible new onset atrial fibrillation with ventricular response Remote history of pulmonary embolism Hypertension Fibromyalgia Plan: The patient was seen and evaluated Labs and medications reviewed Stable on 3 L nasal cannula Continued on bronchodilators Plan is for ECF post discharge I have personally seen and examined the patient, performed the documentation and the assessment and plan as written. Number of minutes spent on the visit: 10. Dictation was produced using [employer] dictation software. Please excuse any grammatical, word or spelling errors.
[2024-09-13 16:40] VITALS: BMI 18.9
[2024-09-13 17:12] LABS: Glucose,Whole Blood 186 mg/dL (70-110)
[2024-09-13 20:33] LABS: Glucose,Whole Blood 241 mg/dL (70-110)
[2024-09-14 07:49] LABS: Glucose,Whole Blood 109 mg/dL (70-110)
--- NOTE | 2024-09-14 11:38 | P.PN ---
Subjective Progress Note Date: 09/13/24 This is a pleasant 74-year-old female who was recently admitted with change in mental status and confusion with some shortness of breath. Patient being followed by cardiology along with pulmonary maintained on breathing treatments with history of COPD. Patient's mentation is improved and patient has been cleared by cardiology recommending an event monitor on discharge. Patient to be evaluated by PT/OT therapy recommending rehab and although patient would like to go home with her , he is currently hospitalized as well. Patient is agreeable to ECF. Case management/social work following and will require insurance authorization. 09/14/2024 Patient is seen and evaluated in follow-up today with no acute overnight issues noted. Patient being followed by pulmonary for COPD exacerbation and will continue current regimen including breathing treatments. Patient evaluated by physical therapy and will be going to [facility]. Patient is afebrile with no reports of chest pain or shortness of breath. Patient chronically wears O2 and will continue. Plan is for ECF on 09/14/2024 with her who will also be going. Review of systems: Constitutional: No reports of fatigue, fever, or chills Cardiovascular: No reports of chest pain or palpitations Respiratory: No reports of shortness of breath or cough GI: No reports of nausea, no reports of vomiting, no diarrhea : No reports of dysuria or retention Neurovascular: reports of generalized weakness All medications have been reviewed PHYSICAL EXAMINATION: GENERAL: The patient is alert and oriented x to, baseline, Well developed, thin built, elderly appearing HEENT: Pupils are round and equally reacting to light. EOMI. no scleral icterus. No conjunctival pallor. Normocephalic, atraumatic. No pharyngeal erythema. No thyromegaly. CARDIOVASCULAR: S1 and S2 muffled PULMONARY: diminished breath sounds bilaterally with no wheezing or rhonchi noted. ABDOMEN: soft. Nontender on exam. Thin non-distended, normoactive bowel sounds. No palpable organomegaly. MUSCULOSKELETAL: No joint swelling or deformity. EXTREMITIES: No cyanosis, clubbing, or pedal edema. NEUROLOGICAL: Gross neurological examination did not reveal any focal deficits. Diffuse weakness SKIN: No rashes. Assessment: Chronic obstructive pulmonary disease, acute exacerbation Change in mental status, acute metabolic encephalopathy, improved Hypercarbia Diabetes mellitus, type II GERD history Hypertension history History of PE Moderate protein calorie malnutrition with a BMI of 18.9 GI prophylaxis DVT prophylaxis Full code Plan: Recommend to continue with current medications and management with cardiology and pulmonary following. Continue with current regimen and has been cleared by cardiology recommending an event monitor on discharge Social work following and planning on ECF this patient was evaluated by physical therapy recommending rehab. Currently awaiting [facility] for ECF patient did require 3 night hospitalization according to Medicare guidelines. Due to multiple complex medical issues, overall prognosis is guarded Possible discharge planning in the next 24 hours The impression and plan of care has been dictated by Celine Gomez, nurse practitioner as directed. Dr. Raj MD I have performed a history and examination and MDM of this patient, discussed the same with the dictator, and agree with the dictator's assessment and plan as written ,documented as a scribe. Based on total visit time, I have performed more than 50% of the visit. Any additional findings or plans will be noted. Objective - Vital Signs Vital signs: Vital Signs Temp 98.6 F 09/13/24 07:03 Pulse 68 09/13/24 07:03 Resp 16 09/13/24 07:03 BP 151/73 09/13/24 07:03 Pulse Ox 96 09/13/24 07:03 FiO2 Intake & Output 09/12/24 09/13/24 09/13/24 18:59 06:59 18:59 Intake Total 1680 540 Balance 1680 540 Intake: Oral 1680 540 Other: Voiding Method Toilet # Voids 3 2 - Labs CBC & Chem 7: 09/12/24 05:33 09/12/24 05:33 Labs: Abnormal Lab Results - Last 24 Hours (Table) 09/12/24 09/12/24 09/12/24 Range/Units 05:33 11:45 17:11 Hgb 11.9 L (12.0-15.0) g/dL RDW 14.7 H (11.5-14.5) % MPV 9.4 L (9.5-12.2) FL Lymphocytes # 0.57 L (0.90-5.00) X 10*3/uL Monocytes # 0.04 L (0.20-1.00) X 10*3/uL Eosinophils # 0 L (0.04-0.35) X 10*3/uL POC Glucose (mg/dL) 276 H 172 H (70-110) mg/dL Urine Appearance (Clear) Urine Protein (Negative) Ur Leukocyte Esterase (Negative) Urine RBC (0-5) /hpf Urine WBC (0-5) /hpf Ur Squamous Epith Cells (0-4) /hpf Amorphous Sediment (None) /hpf Urine Mucus (None) /hpf 09/12/24 09/12/24 09/13/24 Range/Units 20:27 23:45 07:29 Hgb (12.0-15.0) g/dL RDW (11.5-14.5) % MPV (9.5-12.2) FL Lymphocytes # (0.90-5.00) X 10*3/uL Monocytes # (0.20-1.00) X 10*3/uL Eosinophils # (0.04-0.35) X 10*3/uL POC Glucose (mg/dL) 241 H 130 H (70-110) mg/dL Urine Appearance Cloudy H (Clear) Urine Protein 1+ H (Negative) Ur Leukocyte Esterase Large H (Negative) Urine RBC 19 H (0-5) /hpf Urine WBC 6 H (0-5) /hpf Ur Squamous Epith Cells 37 H (0-4) /hpf Amorphous Sediment Few H (None) /hpf Urine Mucus Occasional H (None) /hpf
[2024-09-14 11:56] LABS: Glucose,Whole Blood 95 mg/dL (70-110)
[2024-09-14 12:15] VITALS: BP 110/76; RESP 16; TEMP 98.4
--- NOTE | 2024-09-14 13:00 | P.PN ---
Subjective Progress Note Date: 09/14/24 Is a 74-year-old female with past medical history significant for very severe COPD, chronic oxygen dependence on 4 L/min nasal cannula, lung nodule, chronic ongoing tobacco dependence, remote history of PE, hypertension, fibromyalgia, among other things. She does follow in the pulmonary office with Dr. Gamez for management of his very severe COPD. She has an FEV1 22% of predicted. She is chronically dependent on 4 L/min nasal cannula at home. Uses a combination of Trelegy inhaler, albuterol nebs [id number]-[id number], and as needed Ventolin HFA inhaler. Lately, her COPD has been fairly well-controlled. No recent COPD exacerbations. Of note, she does have a left lower lobe 1.3 x 1 cm lung nodule. Did have a PET scan done 02/04/2024 showing intense uptake within the streak opacity posterior left lung. Suspicious for neoplasm. Multiple areas of additional intermediate uptake, early metastasis was not excluded. Additional focus of radiotracer uptake in the region of the right tonsillar pillar and possibly along the posterior tongue. I did review office records, patient was felt to be a poor candidate for tissue biopsy or surgery, due to her poor lung function. She was referred to radiation oncology for SBRT. Patient states that she has followed up with radiation oncologist, but has not started any radiation treatments yet. Patient presented emergency department yesterday evening. Apparently, had some issues with her supplemental oxygen. She does normally wear 4 L/min nasal c annula, 15/03. Per the patient there may have been a kink or disconnection of her oxygen tubing. She became confused. EMS was called and brought her into the emergency department for evaluation. Her COPD was felt to be active and she was started on a combination of DuoNebs [id number], budesonide inhalation, and IV Solu-Medrol. Chest x-ray did not show any acute cardiopulmonary process. Flattening of the diaphragm consistent with COPD. Viral screen was negative for influenza, RSV, COVID. Patient is currently being evaluated on the general medical floor. She just has ambulated back to the from the bathroom. She is alert and fully oriented. No signs of CO2 narcosis. Her mental status is back to baseline. Denies any falls. Brain CT without contrast on arrival does not show any any acute intracranial process. Patient is currently on 4 L/min nasal cannula. SpO2 is reading 100%. No respiratory distress noted. She is chronically short of breath, mostly with activity. Denies any change in her chronic cough or purulent sputum production. Denies fevers. She denies any infec tious symptoms or sick contacts. Does continue to smoke "a few cigarettes" per day. Denies any chest pain, heart palpitations, lightheadedness or syncopal events, lower extremity swelling. CBC unremarkable, no leukocytosis. CMP: Sodium 135, potassium 3.5, chloride 85, serum bicarb 41, BUN 21, creatinine 0.68, glucose 94. LFTs unremarkable. Admission EKG showing atrial fibrillation with controlled ventricular response. Cardiology was consulted for management. Vital signs have remained stable The patient is seen today September 13, 2024 in follow-up on the regular medical floor. She is currently sitting up in the chair. Awake and alert in no acute distress. Maintaining good O2 saturations in the 90s on 3 L/min per nasal cannula. She does have home oxygen. She is afebrile. Hemodynamically stable. Glucose 158. She is continued on DuoNeb and elations, Symbicort. The patient is seen today September 14, 2024 in follow-up on the regular medical floor. She is sitting up in bed. Awake and alert in no acute distress. Maintaining O2 saturations in the 90s on 3 L/min per nasal cannula. She is continued on DuoNeb inhalations, Symbicort. She denies any worsening shortness of breath, cough or congestion. Glucose 95. Objective - Vital Signs Vital signs: Vital Signs Temp 98.4 F 09/14/24 11:25 Pulse 80 09/14/24 12:07 Resp 16 09/14/24 11:25 BP 110/76 09/14/24 11:25 Pulse Ox 97 09/14/24 11:25 FiO2 Intake & Output 09/13/24 09/14/24 09/14/24 18:59 06:59 18:59 Intake Total 780 Balance 780 Weight 43.998 kg Intake: Oral 780 Other: # Voids 1 2 - Exam GENERAL EXAM: Alert, pleasant 74-year-old female, sitting up at the bedside, on 3 L nasal cannula, nondistressed. HEAD: Normocephalic and atraumatic EYES: Normal reaction of pupils, equal size. NOSE: Clear with pink turbinates. THROAT: No erythema or exudates. NECK: No masses, no JVD. CHEST: No chest wall deformity. LUNGS: Equal air entry with markedly diminished lung sounds bilaterally throughout. No crackles, wheeze, rhonchi or dullness. CVS: S1 and S2 normal with no audible murmur, regular rhythm. No extra heart sounds ABDOMEN: No hepatosplenomegaly, active bowel sounds, no guarding or rigidity. SPINE: No scoliosis or deformity SKIN: No rashes CENTRAL NERVOUS SYSTEM: No focal deficits, tone is normal in all 4 extremities. EXTREMITIES: There is no peripheral edema, clubbing, or cyanosis. Peripheral pulses are intact. - Labs CBC & Chem 7: 09/12/24 05:33 09/12/24 05:33 Labs: Abnormal Lab Results - Last 24 Hours (Table) 09/13/24 09/13/24 Range/Units 17:10 20:31 POC Glucose (mg/dL) 186 H 241 H (70-110) mg/dL Assessment and Plan Assessment: Possible acute COPD exacerbation, chest x-ray does not show any focal infiltrates or evidence of pneumonia. Viral screen negative for influenza, RSV, COVID Acute on chronic dyspnea, likely secondary to above Chronic hypoxemic respiratory failure, normally maintained on 4 L/min nasal cannula 15/03. Patient reports issues with her supplemental oxygen while at home, she feels that the tubing may have become kinked or disconnected Altered mental status, improved and back to baseline, possibly secondary to hypoxia History of left lower lung nodule, FDG avid, and suspicious for bronchogenic carcinoma. Follows up outpatient. Very severe COPD, with an FEV1 22% of predicted, maintain normally on Trelegy inhaler, albuterol nebs [id number], and as needed Ventolin HFA inhaler. Chronic ongoing tobacco dependence Possible new onset atrial fibrillation with ventricular response Remote history of pulmonary embolism Hypertension Fibromyalgia Plan: The patient was seen and evaluated Labs and medications reviewed Stable on 3 L nasal cannula Continued on bronchodilators Cleared for discharge Plan is for [facility] I have personally seen and examined the patient, performed the documentation and the assessment and plan as written. Number of minutes spent on the visit: 10. Dictation was produced using [employer] dictation software. Please excuse any grammatical, word or spelling errors.
--- NOTE | 2024-09-14 14:54 | P.DS ---
Providers Date of admission: 09/11/24 14:24 Expected date of discharge: 09/14/24 Attending physician: Iris Anthony Consults: 09/11/24 14:24 Consult Physician Routine Consulting Provider: Brooks Bojorquez Consult Reason/Comments: copd Do you want consulting provider notified?: Yes 09/11/24 23:39 Consult Physician Routine Consulting Provider: [facility] Consult Reason/Comments: afib Do you want consulting provider notified?: Yes, Notify in am Primary care physician: Mir Nuñez [facility] Course: Final diagnosis Chronic obstructive pulmonary disease, acute exacerbation Change in mental status, acute metabolic encephalopathy, improved Hypercarbia Diabetes mellitus, type II GERD history Hypertension history History of PE Moderate protein calorie malnutrition with a BMI of 18.9 GI prophylaxis DVT prophylaxis Full code Discharge disposition Patient is being discharged in a stable condition with guarded prognosis to [facility]. Patient will follow-up with Dr. Nuñez in the outpatient setting upon discharge. Patient is to continue with current medications and outpatient follow-up with pulmonary as scheduled. Total time taken is greater than 35 minutes. Hospital course This is a 74-year-old female who was recently admitted with COPD acute exacerbation along with acute metabolic encephalopathy with change in mental status. Patient lives with her who is her caregiver although is undergoing metastatic cancer and progressively becoming worse taking a fall and patient was hospitalized. Patient with probable memory impairment is not able to take care of herself and is significantly weak and has been approved to go to [facility]. Patient evaluated by physical therapy recommending rehab. Patient was evaluated by pulmonary and instructed to continue with DuoNeb treatments along with as needed albuterol and supplemental oxygen. Patient to follow-up with pulmonary outpatient. Currently no reports of chest pain, shortness of breath, or palpitations. Patient is afebrile. No reports of nausea or vomiting and patient is tolerating diet. Patient will be going to [facility] today. Guarded prognosis and high risk for readmissions given patient's significant comorbidities. Physical exam: Gen: This is a 74-year-old female who is awake, alert and oriented x 1-2 baselin e, well-developed, thin build, elderly appearing, cachectic HEENT: Head is atraumatic, normocephalic. Pupils equal, round. Sclerae is anicteric. NECK: Supple. No JVD. No lymphadenopathy. No thyromegaly. LUNGS: Diminished breath sounds bilaterally with a few coarse scattered rhonchi noted. No intercostal retractions. HEART: S1, S2 are muffled ABDOMEN: Soft. Thin bowel sounds are present. No masses. No tenderness. EXTREMITIES: No pedal edema. No calf tenderness. NEUROLOGICAL: Patient is awake, alert and oriented x 12. Cranial nerves 2 through 12 are grossly intact. Diffusely weak Please refer to medication reconciliation sheet for a list of medications. The impression and plan of care has been dictated by Celine Gomez, Nurse Practitioner as directed. Dr. Raj MD I have performed a history and examination and MDM of this patient, discussed the same with the dictator, and agree with the dictator's assessment and plan as written ,documented as a scribe. Based on total visit time, I have performed more than 50% of the visit. Patient Condition at Discharge: Fair Plan - Discharge Summary Discharge Rx Participant: No New Discharge Prescriptions: New Ipratropium-Albuterol Nebulize [Duoneb 0.5 mg-3 mg/3 ml Soln] 3 ml INHALATION RT-QID PRN each PRN Reason: Shortness Of Breath Or Wheezing Budesonide-Formot 160-4.5 Mcg [Symbicort 160-4.5 Mcg Inhaler] 2 puff INHALATION RT-BID each atenoloL [Tenormin] 25 mg PO BID tab Ipratropium-Albuterol Nebulize [Duoneb 0.5 mg-3 mg/3 ml Soln] 3 ml INHALATION RT-QID each INSULIN ASPART (NovoLOG) [NovoLOG (formulary)] 0 unit SQ ACHS each Pantoprazole [Protonix] 40 mg PO AC-BRKFST tab Continue amLODIPine BESYLATE [Norvasc] 5 mg PO DAILY Albuterol Sulfate [Ventolin HFA] 2 puff INHALATION RT-QID PRN PRN Reason: Shortness Of Breath Sertraline [Zoloft] 50 mg PO DAILY HYDROcodone/APAP 7.5-325MG [[place] 7.5-325] 1 tab PO TID #6 tab Zolpidem [Ambien] 10 mg PO HS Gabapentin [Neurontin] 400 mg PO TID Fluticasone Nasal [place] [Flonase Nasal [place]] 2 spray EA NOSTRIL DAILY Loratadine [Claritin] 10 mg PO DAILY Discontinued atenoloL [Tenormin] 25 mg PO BID Discharge Medication List amLODIPine BESYLATE [Norvasc] 5 mg PO DAILY 01/29/14 [History] Albuterol Sulfate [Ventolin HFA] 2 puff INHALATION RT-QID PRN 09/19/19 [History] Sertraline [Zoloft] 50 mg PO DAILY 09/19/19 [History] Gabapentin [Neurontin] 400 mg PO TID 07/28/22 [History] Zolpidem [Ambien] 10 mg PO HS 07/28/22 [History] Fluticasone Nasal [place] [Flonase Nasal [place]] 2 spray EA NOSTRIL DAILY 09/11/24 [History] Loratadine [Claritin] 10 mg PO DAILY 09/11/24 [History] Budesonide-Formot 160-4.5 Mcg [Symbicort 160-4.5 Mcg Inhaler] 2 puff INHALATION RT-BID each 09/14/24 [Rx] HYDROcodone/APAP 7.5-325MG [[place] 7.5-325] 1 tab PO TID #6 tab 09/14/24 [Rx] INSULIN ASPART (NovoLOG) [NovoLOG (formulary)] 0 unit SQ ACHS each 09/14/24 [Rx] Ipratropium-Albuterol Nebulize [Duoneb 0.5 mg-3 mg/3 ml Soln] 3 ml INHALATION RT-QID each 09/14/24 [Rx] Ipratropium-Albuterol Nebulize [Duoneb 0.5 mg-3 mg/3 ml Soln] 3 ml INHALATION RT-QID PRN each 09/14/24 [Rx] Pantoprazole [Protonix] 40 mg PO AC-BRKFST tab 09/14/24 [Rx] atenoloL [Tenormin] 25 mg PO BID tab 09/14/24 [Rx] Follow up Appointment(s)/Referral(s): Mir Nuñez DO [Primary Care Provider] - 1-2 days Artemio Lorenzana MD [STAFF PHYSICIAN] - 3 Weeks Activity/Diet/Wound Care/Special Instructions: Patient is going to [employer] [facility] as tolerated Continue DuoNeb treatments Follow-up primary care provider on discharge Discharge Disposition: TRANSFER TO SNF/ECF
[2024-09-14 15:47] VITALS: PULSE 80
== END 2024-09-14 16:55 | DRG 190 ==
LOC: EC 18:21 → 5NMEDONC 20:06 → OBSVTOIN 09-11 14:24 → 5NMEDONC 09-11 18:03
PROVIDERS: ADMIT Hospitalist; ATTEND Hospitalist
DX: J44.1 Chronic obstructive pulmonary disease with (acute) exacerbation (principal); G93.41 Metabolic encephalopathy; E44.0 Moderate protein-calorie malnutrition; Z99.81 Dependence on supplemental oxygen; I48.91 Unspecified atrial fibrillation; E11.9 Type 2 diabetes mellitus without complications; G25.81 Restless legs syndrome; I10 Essential (primary) hypertension; I35.1 Nonrheumatic aortic (valve) insufficiency; J96.11 Chronic respiratory failure with hypoxia; Z68.1 Body mass index [BMI] 19.9 or less, adult; E78.5 Hyperlipidemia, unspecified; F17.210 Nicotine dependence, cigarettes, uncomplicated; K21.9 Gastro-esophageal reflux disease without esophagitis; M79.7 Fibromyalgia; Z96.652 Presence of left artificial knee joint; Z11.52 Encounter for screening for COVID-19; Z79.899 Other long term (current) drug therapy; Z71.6 Tobacco abuse counseling; Z86.711 Personal history of pulmonary embolism; Z87.440 Personal history of urinary (tract) infections
CPT/HCPCS: 36415; 70450; 71046; 80048; 80053; 81001; 83036; 83735; 85025; 87636; 93005; 93270; 94640; 94760; 96374; 96375; 99285

== ENCOUNTER 2024-10-01 12:04 | Inpatient (IN) | payer MEDICARE ==
--- NOTE | 2024-10-01 12:37 | ED ---
General Adult HPI - General Chief complaint: Shortness of Breath Stated complaint: GUERO Time Seen by Provider: 10/01/24 12:07 Source: patient, RN/MD, EMS Mode of arrival: EMS Limitations: no limitations - History of Present Illness Initial comments: Dictation was produced using [employer] dictation software. please excuse any grammatical, word or spelling errors. Chief Complaint: 74-year-old female presents emergency department from [facility] for respiratory failure History of Present Illness: Patient 74-year-old female wears 3 L nasal cannula. She initially presented to [facility] for respiratory distress. She is currently at the care home. Patient is allegedly DNR. She is found to be hypoxic into the 40%'s at the care home since this morning. Family she was fine yesterday. She was evaluated there and was positive for influenza with venous blood gas with a pH of 7.1 and pCO2 in the 90s. She was placed on BiPAP given breathing treatment and steroids with improvement. She apparently had stable oxygen levels. Patient had lactic acidosis 3.2. Patient states she feels better since being at the other emergency department. The ROS documented in this emergency department record has been reviewed and confirmed by me. Those systems with pertinent positive or negative responses have been documented in the HPI. All other systems are other negative and/or noncontributory. - Related Data Home Medications Medication Instructions Recorded Confirmed amLODIPine BESYLATE [Norvasc] 5 mg PO DAILY 01/29/14 09/11/24 Albuterol Sulfate [Ventolin HFA] 2 puff INHALATION RT-QID PRN 09/19/19 09/11/24 Sertraline [Zoloft] 50 mg PO DAILY 09/19/19 09/11/24 Gabapentin [Neurontin] 400 mg PO TID 07/28/22 09/11/24 Fluticasone Nasal [place] [Flonase 2 spray EA NOSTRIL DAILY 09/11/24 09/11/24 Nasal [place]] Loratadine [Claritin] 10 mg PO DAILY 09/11/24 09/11/24 Previous Rx's Medication Instructions Recorded Budesonide-Formot 160-4.5 Mcg 2 puff INHALATION RT-BID each 09/14/24 [Symbicort 160-4.5 Mcg Inhaler] HYDROcodone/APAP 7.5-325MG [[place]at[place] 1 tab PO TID #6 tab 09/14/24 7.5-325] INSULIN ASPART (NovoLOG) [NovoLOG 0 unit SQ ACHS each 09/14/24 (formulary)] Ipratropium-Albuterol Nebulize 3 ml INHALATION RT-QID each 09/14/24 [Duoneb 0.5 mg-3 mg/3 ml Soln] Ipratropium-Albuterol Nebulize 3 ml INHALATION RT-QID PRN each 09/14/24 [Duoneb 0.5 mg-3 mg/3 ml Soln] Melatonin 5 mg PO HS PRN #30 tab 09/14/24 Pantoprazole [Protonix] 40 mg PO AC-BRKFST tab 09/14/24 atenoloL [Tenormin] 25 mg PO BID tab 09/14/24 Allergies Allergy/AdvReac Type Severity Reaction Status Date / Time sulfamethoxazole Allergy Rash/Hives Verified 10/01/24 12:27 [From Bactrim] trimethoprim [From Bactrim] Allergy Rash/Hives Verified 10/01/24 12:27 Review of Systems ROS Statement: Those systems with pertinent positive or pertinent negative responses have been documented in the HPI. ROS Other: All systems not noted in ROS Statement are negative. Past Medical History Past Medical History: COPD, Diabetes Mellitus, Fibromyalgia, GERD/Reflux, Hypertension, Musculoskeletal Disorder, Pulmonary Embolus (PE) Additional Past Medical History / Comment(s): UTI(E COLI FACEALIS WITH SEPSIS, FALLS, DJD, CHRONIC PRURITIC , PT STATED SHE TAKES SINEMET FOR restless legs, Lung nodule History of Any Multi-Drug Resistant Organisms: None Reported Past Surgical History: Appendectomy, Back Surgery, Cholecystectomy, Joint Replacement, Orthopedic Surgery Additional Past Surgical History / Comment(s): brain surgery clipped aneurysm 4 clips, breast surgery reduction, cervical polyp,D&C, Gastroscopy, removal of cyst in mouth, hysterscopy, Left knee manipulation, cervical biopsy, Brain Arteriogram,LT KNEE REPLACEMENT, Past Anesthesia/Blood Transfusion Reactions: No Reported Reaction Past Psychological History: Anxiety Smoking Status: Former smoker Past Alcohol Use History: None Reported Past Drug Use History: None Reported - Past Family History Mother Family Medical History: Cancer Additional Family Medical History / Comment(s): breast/to brain CA Father Family Medical History: Cancer Additional Family Medical History / Comment(s): Skin cancer General Exam - General Exam Comments Initial Comments: PHYSICAL EXAM: General Impression: Alert and oriented x3, mildly dyspneic, cachectic HEENT: Normocephalic atraumatic, extra-ocular movements intact, pupils equal and reactive to light bilaterally, mucous membranes moist. Cardiovascular: Heart regular rate and rhythm Chest: Mildly dyspneic, diminished lung sounds bilaterally Abdomen: abdomen soft, non-tender, non-distended, no organomegaly Musculoskeletal: Pulses present and equal in all extremities, no peripheral edema Motor: no focal deficits noted Neurological: CN II-XII grossly intact, no focal motor or sensory deficits noted Skin: Intact with no visualized rashes Psych: Normal affect and mood Limitations: no limitations Course Vital Signs 10/01/24 10/01/24 10/01/24 12:08 12:21 12:22 Temperature 98.6 F Pulse Rate 72 Respiratory 17 Rate Blood Pressure 136/74 O2 Sat by Pulse 100 Oximetry Fraction of 50 50 Inspired Oxygen (FIO2) 10/01/24 10/01/24 12:31 12:48 Temperature Pulse Rate Respiratory 17 Rate Blood Pressure O2 Sat by Pulse Oximetry Fraction of 40 Inspired Oxygen (FIO2) EKG Findings - EKG Comments: EKG Findings:: My EKG interpretation: Ventricular rate 74, sinus rhythm,. 146, QRS 91, QTc 4 9. No NM prolongation, no QTC prolongation, no ST or T-wave changes noted. Overall, this EKG is unremarkable Medical Decision Making - Medical Decision Making Was pt. sent in by a medical professional or institution (, PA, MANAGER OF SUPPLY CHAIN, urgent care, hospital, or care home...) When possible be specific @ -Transfer from outside emergency department Did you speak to anyone other than the patient for history (EMS, parent, family, police, friend...)? What history was obtained from this source @ -Spoke with transferring physician as described above Did you review nursing and triage notes (agree or disagree)? Why? @ -I reviewed and agree with nursing and triage notes Were old charts reviewed (outside hosp., previous admission, EMS record, old EKG, old radiological studies, urgent care reports/EKG's, care home records)? Report findings @ -Transfer documentation reviewed Differential Diagnosis (chest pain, altered mental status, abdominal pain women, abdominal pain men, vaginal bleeding, musculoskeletal, weakness, fever, dyspnea, syncope, headache, dizziness, GI bleed, back pain, seizure, CVA, palpatations, mental health)? @ -Differential Dyspnea: Coronary syndrome, arrhythmia, tamponade, asthma, COPD, pulmonary embolism, pneumonia, pneumothorax, pulmonary effusion, anaphylaxis, diabetic ketoacidosis, flailed chest, pulmonary contusion, diaphragmatic rupture, anemia, neuromuscular, this is not meant to be an all-inclusive list. EKG interpreted by me (3pts min.). @ -See above X-rays interpreted by me (1pt min.). @ -Chest x-ray shows possible interstitial pneumonia CT interpreted by me (1pt min.). @ -None done U/S interpreted by me (1pt. min.). @ -None done What testing was considered but not performed or refused? (CT, X-rays, U/S, labs)? Why? @ -None What meds were considered but not given or refused? Why? @ -None Was smoking cessation discussed for >3mins.? @ -No Were there social determinants of health that impacted care today? How? (Homelessness, low income, unemployed, alcoholism, drug addiction, transportation, low edu. Level, literacy, decrease access to med. care, snf, rehab)? @ -No Was there de-escalation of care discussed even if they declined (Discuss DNR or withdrawal of care, Hospice)? DNR status @ -No What co-morbidities impacted this encounter? (DM, HTN, Smoking, COPD, CAD, Cancer, CVA, ARF, Chemo, Hep., AIDS, mental health diagnosis, sleep apnea, morbid obesity)? @ -COPD Was patient admitted / discharged? Hospital course, mention meds given and route, prescriptions, significant lab abnormalities, going to OR and other pertinent info. @ -75-year-old DNR female transferred from [place] emergency department for higher level of care. She was transferred for respiratory failure secondary to hypercarbia and COPD. Vital signs upon arrival are within acceptable limits she does appear to be slightly dyspneic at the bedside but tolerating BiPAP well. Labs imaging were reviewed. There is questionable pneumonia she received ceftriaxone breathing treatment Solu-Medrol there. Blood gases from previous hospital shows pH of 7.1, lactic acidosis of 3.2. Patient given azithromycin. Repeat blood gas shows improved gases. Lactic acidosis improved at 1.0. Patient will be admitted with consultation to pulmonology and infectious disease. Case discussed with hospitalist for admission Did you discuss the management of the patient with other professionals (professionals i.e. , PA, MANAGER OF SUPPLY CHAIN, lab, RT, psych nurse, social media job titles, client development manager, teacher, security flex utility officer, employment case manager)? Give summary @ -See above Was critical care preformed (if so, how long)? @ -Yes, for management of respiratory failure Undiagnosed new problem with uncertain prognosis? @ -No Drug Therapy requiring intensive monitoring for toxicity (Heparin, Nitro, Insulin, Cardizem)? @ -No Were any procedures done? @ -No Diagnosis/symptom? Acute, or Chronic, or Acute on Chronic? Uncomplicated (without systemic symptoms) or Complicated (systemic symptoms)? @ -Hypercarbic respiratory failure Side effects of treatment? @ -No Exacerbation, Progression, or Severe Exacerbation? @ -No Poses a threat to life or bodily function? How? (Chest pain, USA, VT, pneumonia, PE, COPD, DKA, ARF, appy, cholecystitis, CVA, Diverticulitis, Homicidal, Suicidal, threat to staff... and all critical care pts) @ -Yes - Lab Data Lab Results 10/01/24 10/01/24 Range/Units 12:27 12:38 Sample Site rbrac ABG pH 7.27 L (7.35-7.45) ABG pCO2 82 H* (35-45) mmHg ABG pO2 84 (83-108) mmHg ABG HCO3 38 H (21-25) mmol/L ABG Total CO2 40 H (19-24) mmol/L ABG O2 Saturation 95.6 (94-97) % ABG Base Excess 8.9 mmol/L Flavio Test Yes Hemoglobin 9.6 L (11.4-16.0) gm/dL FiO2 50 % Plasma Lactic Acid Jesus 1.0 (0.7-2.0) mmol/L Disposition Clinical Impression: Respiratory failure Disposition: ADMITTED IP TO THIS [facility] Condition: Fair Referrals: Mir Nuñez DO [STAFF PHYSICIAN] - 1-2 days Decision Time: 13:48
[2024-10-01 12:43] LABS: ABG Base Excess 8.9 mmol/L; ABG HCO3 38 mmol/L (21-25); ABG Oxygen Saturation 95.6 % (94-97); ABG PH 7.27 (7.35-7.45); ABG PO2 84 mmHg (83-108); ABG TCO2 40 mmol/L (19-24); Allen Test Performed? Yes
[2024-10-01 12:50] LABS: ABG PCO2 82 mmHg (35-45)
--- NOTE | 2024-10-01 13:30 | XR ---
EXAMINATION TYPE: XR chest 1V portable DATE OF EXAM: 10/01/2024 COMPARISON: 08/30/2019 CLINICAL INDICATION: Female, 74 years old with history of dyspnea; TECHNIQUE: Single frontal view of the chest is obtained. FINDINGS: There is moderate scattered interstitial opacity which could be chronic in nature or reflect intersti tial pneumonia. There is lucency in the upper lobes suggestive of COPD. There is a small left pleural effusion. There is no pneumothorax. The heart and pulmonary vasculature are normal for technique. The osseous structures are intact. IMPRESSION: 1.Findings suggest COPD and mild chronic interstitial changes. 2. Small left pleural effusion. 3. Cannot exclude development of mild interstitial pneumonia superimposed on COPD. [facility], , 10/01/2024 1:28 PM
[2024-10-01] MEDS ORDERED: ONDANSETRON 4 MG/2 ML VIAL IVP PRN (13:44)
[2024-10-01] MEDS ORDERED: NALOXONE 0.4 MG/ML 1 ML VIAL IV PRN (13:44)
[2024-10-01] MEDS: AZITHROMYCIN 500 MG in SODIUM CHLORIDE 0.9% 250 ML IVPB STA (13:52)
[2024-10-01] MEDS: SODIUM CHLORIDE 0.9% 1,000 ML IV SCH (14:02)
[2024-10-01] MEDS: LORazepam 2 MG/ML INJ IV STA (14:37)
--- NOTE | 2024-10-01 15:39 | P.CNPUL ---
History of Present Illness Consult date: 10/01/24 Requesting physician: Iris Anthony Reason for consult: dyspnea, hypoxemia Chief complaint: Hypoxemia, shortness of breath History of present illness: This is a 74-year-old female patient who was recently discharged from here to [facility] on September 14, 2024. She has a past medical history significant for very severe COPD, chronic oxygen dependence on 4 L/min nasal cannula, lung nodule, chronic ongoing tobacco dependence, remote history of PE, hypertension, fibromyalgia. She has an FEV1 22% of predicted. Uses a combination of Trelegy inhaler, albuterol nebs [id number], and as needed Ventolin HFA inhaler. She was brought back from [facility] to here today after being found to be hypoxemic at the retirement. Chest x-ray reveals findings of COPD and mild chronic interstitial changes. Small left pleural effusion. ABGs here on 50% FiO2 revealed a PaO2 of 84, pCO2 of 82 and a pH of 7.27. She is seen today in consultation in the emergency department. She is currently on BiPAP 14/5 and 40% FiO2. She is arousable but drifts off easily. Labs from [place] reviewed. Review of Systems ROS unobtainable: due to mental status Past Medical History Past Medical History: COPD, Diabetes Mellitus, Fibromyalgia, GERD/Reflux, Hypertension, Musculoskeletal Disorder, Pulmonary Embolus (PE) Additional Past Medical History / Comment(s): UTI(E COLI FACEALIS WITH SEPSIS, FALLS, DJD, CHRONIC PRURITIC , PT STATED SHE TAKES SINEMET FOR restless legs, L tiesha nodule History of Any Multi-Drug Resistant Organisms: None Reported Past Surgical History: Appendectomy, Back Surgery, Cholecystectomy, Joint Repl acement, Orthopedic Surgery Additional Past Surgical History / Comment(s): brain surgery clipped aneurysm 4 clips, breast surgery reduction, cervical polyp,D&C, Gastroscopy, removal of cyst in mouth, hysterscopy, Left knee manipulation, cervical biopsy, Brain Arteriogram,LT KNEE REPLACEMENT, Past Anesthesia/Blood Transfusion Reactions: No Reported Reaction Past Psychological History: Anxiety Smoking Status: Former smoker Past Alcohol Use History: None Reported Past Drug Use History: None Reported - Past Family History Mother Family Medical History: Cancer Additional Family Medical History / Comment(s): breast/to brain CA Father Family Medical History: Cancer Additional Family Medical History / Comment(s): Skin cancer Medications and Allergies Home Medications Medication Instructions Recorded Confirmed Type amLODIPine BESYLATE [Norvasc] 5 mg PO DAILY 01/29/14 09/11/24 History Albuterol Sulfate [Ventolin HFA] 2 puff INHALATION RT-QID PRN 09/19/19 09/11/24 History Sertraline [Zoloft] 50 mg PO DAILY 09/19/19 09/11/24 History Gabapentin [Neurontin] 400 mg PO TID 07/28/22 09/11/24 History Fluticasone Nasal [place] [Flonase 2 spray EA NOSTRIL DAILY 09/11/24 09/11/24 History Nasal [place]] Loratadine [Claritin] 10 mg PO DAILY 09/11/24 09/11/24 History Budesonide-Formot 160-4.5 Mcg 2 puff INHALATION RT-BID each 09/14/24 Rx [Symbicort 160-4.5 Mcg Inhaler] HYDROcodone/APAP 7.5-325MG [[place] 1 tab PO TID #6 tab 09/14/24 Rx 7.5-325] INSULIN ASPART (NovoLOG) [NovoLOG 0 unit SQ ACHS each 09/14/24 Rx (formulary)] Ipratropium-Albuterol Nebulize 3 ml INHALATION RT-QID each 09/14/24 Rx [Duoneb 0.5 mg-3 mg/3 ml Soln] Ipratropium-Albuterol Nebulize 3 ml INHALATION RT-QID PRN each 09/14/24 Rx [Duoneb 0.5 mg-3 mg/3 ml Soln] Melatonin 5 mg PO HS PRN #30 tab 09/14/24 Rx Pantoprazole [Protonix] 40 mg PO AC-BRKFST tab 09/14/24 Rx atenoloL [Tenormin] 25 mg PO BID tab 09/14/24 Rx Allergies Allergy/AdvReac Type Severity Reaction Status Date / Time sulfamethoxazole Allergy Rash/Hives Verified 10/01/24 12:27 [From Bactrim] trimethoprim [From Bactrim] Allergy Rash/Hives Verified 10/01/24 12:27 Physical Exam Vitals: Vital Signs Temp Pulse Resp BP Pulse Ox FiO2 10/01/24 15:01 76 18 123/88 99 10/01/24 14:23 84 17 157/89 91 L 10/01/24 12:48 40 10/01/24 12:31 17 10/01/24 12:22 50 10/01/24 12:21 50 10/01/24 12:08 98.6 F 72 17 136/74 100 Intake and Output 10/01/24 10/01/24 10/01/24 06:59 14:59 22:59 Other: Weight 56.699 kg GENERAL EXAM: Arousable, very frail, cachectic 74-year-old female on BiPAP 14/6 and 40% FiO2. HEAD: Normocephalic. EYES: Normal reaction of pupils, equal size. NOSE: Clear with pink turbinates. THROAT: No erythema or exudates. NECK: No masses, no JVD. CHEST: No chest wall deformity. LUNGS: Equal air entry with severely diminished breath sounds. CVS: S1 and S2 normal with no audible murmur, regular rhythm. ABDOMEN: No hepatosplenomegaly, normal bowel sounds, no guarding or rigidity. SPINE: No scoliosis or deformity SKIN: No rashes CENTRAL NERVOUS SYSTEM: No focal deficits, tone is normal in all 4 extremities. EXTREMITIES: There is no peripheral edema. No clubbing, no cyanosis. Peripheral pulses are intact. Results - Laboratory Findings ABG ABG pH 7.27 (7.35-7.45) L 10/01/24 12:38 ABG pCO2 82 mmHg (35-45) H* 10/01/24 12:38 ABG pO2 84 mmHg (83-108) 10/01/24 12:38 ABG O2 Saturation 95.6 % (94-97) 10/01/24 12:38 Abnormal lab findings: Abnormal Labs 10/01/24 12:38 ABG pH 7.27 L ABG pCO2 82 H* ABG HCO3 38 H ABG Total CO2 40 H Hemoglobin 9.6 L - Diagnostic Findings Chest x-ray: image reviewed Assessment and Plan Assessment: Acute hypoxemic and hypercapnic respiratory failure secondary to an acute exacerbation of chronic obstructive pulmonary disease located by influenza A infection tested at outside facility Positive influenza A at outside facility Altered mental status secondary to hypercapnia and hypoxemia Chronic hypoxemic respiratory failure, normally maintained on 4 L/min nasal cannula 15/03 History of left lower lung nodule, FDG avid, and suspicious for bronchogenic carcinoma. Follows up outpatient. Very severe COPD, with an FEV1 22% of predicted, maintain normally on Trelegy inhaler, albuterol nebs [id number], and as needed Ventolin HFA inhaler. Chronic ongoing tobacco dependence Possible new onset atrial fibrillation with ventricular response Remote history of pulmonary embolism Hypertension Fibromyalgia Plan: The patient was seen and evaluated Chest x-ray and labs reviewed Currently on BiPAP 14/6 and 40% FiO2 Transition to nasal cannula as tolerated Add DuoNeb and elations, Symbicort Add Solu-Medrol 60 mg every 6 hours Initiate Tamiflu Will be educated regarding smoking cessation NicoDerm patch will be offered Continue azithromycin for now Check a procalcitonin Normal saline at 75 mL/h Prognosis is guarded DNR CODE STATUS We will continue to follow and make further recommendations based on her clinical status I have personally seen and examined the patient, performed the documentation and the assessment and plan as written. Number of minutes spent on the visit: 20 Dictation was produced using [employer] dictation software. Please excuse any grammatical, word or spelling errors.
[2024-10-01] MEDS: IPRATROPIUM-ALBUTEROL 3 ML NEB INHALATION STA (15:45)
[2024-10-01] MEDS: IPRATROPIUM-ALBUTEROL 3 ML NEB INHALATION SCH (15:50)
[2024-10-01] MEDS ORDERED: DEXTROSE 50% SYRINGE 50 ML IVP PRN ×2 (17:24)
[2024-10-01 18:13] LABS: Glucose,Whole Blood 194 mg/dL (70-110)
[2024-10-01] MEDS: methylPREDNISolone SOD SUCCI 125 MG/2 ML VIAL IV SCH (18:25)
[2024-10-01] MEDS: INSULIN ASPART (NovoLOG) 100 UNIT/ML VIAL SQ SCH (18:26)
[2024-10-01] MEDS: SYMBICORT 160-4.5 MCG INHALER INHALATION SCH (19:50)
[2024-10-01 21:37] LABS: Glucose,Whole Blood 195 mg/dL (70-110)
[2024-10-01] MEDS: HEPARIN SODIUM,PORCINE 5,000 UNIT/ML 1 ML VIAL SQ SCH (21:46)
[2024-10-01] MEDS: OSELTAMIVIR 75 MG CAP PO SCH (21:47)
--- NOTE | 2024-10-01 23:04 | P.CONS ---
History of Present Illness - Reason for Consult Consult date: 10/01/24 Influenza Requesting physician: Jose Mayfield - Chief Complaint Increasing shortness of breath and hypoxemia x 1 day - History of Present Illness Patient is a 74-year-old female with a past medical history significant for COPD diabetes mellitus fibromyalgia hypertension reflux PE patient is a resident of the [facility] and was sent to the [facility] initially for evaluation of respiratory distress patient was noticed to be hypoxic at the skilled nursing with o2 sats down to the 40% patient was resuscitated and taken to the [facility] the patient was tested positive for influenza a and also noticed to be in hypercarbic outpatient respiratory failure with a pco2 of 90s patient was started on bipap and subsequently has been transferred to [facility] for further evaluation on presentation to this facility patient was afebrile patient was nontachycardic or hypotensive she is hypoxic currently on the bipap with 40% fio2 she was noticed to have elevated lactic acid at that facility patient chest x-ray at [facility] was reported as bilateral effusion and cardiomegaly did not mention any consolidation chest x-ray obtained here is going copd mild interstitial changes cannot exclude development of mild interstitial pneumonia patient has been started on tamiflu patient steroids elevated the hospital infectious he was consulted for further management Review of Systems Positive points has been mentioned in HPI complete review could not be obtained because of his underlying mental status Past Medical History Past Medical History: COPD, Diabetes Mellitus, Fibromyalgia, GERD/Reflux, Hypertension, Musculoskeletal Disorder, Pulmonary Embolus (PE) Additional Past Medical History / Comment(s): UTI(E COLI FACEALIS WITH SEPSIS, FALLS, DJD, CHRONIC PRURITIC , PT STATED SHE TAKES SINEMET FOR restless legs, Lung nodule History of Any Multi-Drug Resistant Organisms: None Reported Past Surgical History: Appendectomy, Back Surgery, Cholecystectomy, Joint Replacement, Orthopedic Surgery Additional Past Surgical History / Comment(s): brain surgery clipped aneurysm 4 clips, breast surgery reduction, cervical polyp,D&C, Gastroscopy, removal of cyst in mouth, hysterscopy, Left knee manipulation, cervical biopsy, Brain Arteriogram,LT KNEE REPLACEMENT, Past Anesthesia/Blood Transfusion Reactions: No Reported Reaction Past Psychological History: Anxiety Smoking Status: Former smoker Past Alcohol Use History: None Reported Past Drug Use History: None Reported - Past Family History Mother Family Medical History: Cancer Additional Family Medical History / Comment(s): breast/to brain CA Father Family Medical History: Cancer Additional Family Medical History / Comment(s): Skin cancer Medications and Allergies Home Medications Medication Instructions Recorded Confirmed Type amLODIPine BESYLATE [Norvasc] 5 mg PO DAILY 01/29/14 10/02/24 History Albuterol Sulfate [Ventolin HFA] 2 puff INHALATION RT-QID PRN 09/19/19 10/02/24 History Sertraline [Zoloft] 50 mg PO DAILY 09/19/19 10/02/24 History Gabapentin [Neurontin] 400 mg PO TID 07/28/22 10/02/24 History Fluticasone Nasal [place] [Flonase 2 spray EA NOSTRIL DAILY 09/11/24 10/02/24 History Nasal [place]] Loratadine [Claritin] 10 mg PO DAILY 09/11/24 10/02/24 History Budesonide-Formot 160-4.5 Mcg 2 puff INHALATION RT-BID each 09/14/24 10/02/24 Rx [Symbicort 160-4.5 Mcg Inhaler] HYDROcodone/APAP 7.5-325MG [[place] 1 tab PO TID #6 tab 09/14/24 10/02/24 Rx 7.5-325] Ipratropium-Albuterol Nebulize 3 ml INHALATION RT-QID PRN each 09/14/24 10/02/24 Rx [Duoneb 0.5 mg-3 mg/3 ml Soln] atenoloL [Tenormin] 25 mg PO BID tab 09/14/24 10/02/24 Rx Calcium Carbonate [Tums] 1,000 mg PO Q4H PRN 10/02/24 10/02/24 History Glucose Oral Gel 15gm/32ml 15 gm PO Q2H PRN 10/02/24 10/02/24 History INSULIN ASPART (NovoLOG) [NovoLOG See Protocol SQ ACHS 10/02/24 10/02/24 History (formulary)] Ipratropium-Albuterol Nebulize 3 ml INHALATION RT-TID 10/02/24 10/02/24 History [Duoneb 0.5 mg-3 mg/3 ml Soln] Magnesium Hydroxide [Milk of 2,400 mg PO DAILY PRN 10/02/24 10/02/24 History Magnesia] Nicotine [Nicoderm Cq 21 mg] 1 patch TRANSDERM DAILY 10/02/24 10/02/24 History Pantoprazole [Protonix] 40 mg PO DAILY 10/02/24 10/02/24 History Tussin Cough Syrup 10 ml PO Q4H PRN 10/02/24 10/02/24 History Zolpidem [Ambien] 5 mg PO HS PRN 10/02/24 10/02/24 History Allergies Allergy/AdvReac Type Severity Reaction Status Date / Time sulfamethoxazole Allergy Rash/Hives Verified 10/02/24 14:11 [From Bactrim] trimethoprim [From Bactrim] Allergy Rash/Hives Verified 10/02/24 14:11 Physical Exam Vitals: Vital Signs Temp Pulse Resp BP Pulse Ox FiO2 10/01/24 15:01 76 18 123/88 99 10/01/24 14:23 84 17 157/89 91 L 10/01/24 12:48 40 10/01/24 12:31 17 10/01/24 12:22 50 10/01/24 12:21 50 10/01/24 12:08 98.6 F 72 17 136/74 100 Intake and Output 10/01/24 10/01/24 10/01/24 06:59 14:59 22:59 Other: Weight 56.699 kg GENERAL DESCRIPTION: Elderly female on BiPAP, mild respiratory distress HEENT: Shows Pallor , no scleral icterus. Oral mucous membrane is dry. NECK: Trachea central, no thyromegaly. LUNGS: Unlabored breathing. Coarse breath sounds bilaterally HEART: S1, S2, regular rate and rhythm. No loud murmur ABDOMEN: Soft, no tenderness , guarding or rigidity, no organomegaly EXTREMITIES: No edema of feet. SKIN: No rash, no masses palpable. NEUROLOGICAL: The patient is arousable orientation could not determine Results CBC & Chem 7: 10/02/24 06:11 10/02/24 06:11 Labs: Abnormal Lab Results - Last 24 Hours (Table) 10/01/24 Range/Units 12:38 ABG pH 7.27 L (7.35-7.45) ABG pCO2 82 H* (35-45) mmHg ABG HCO3 38 H (21-25) mmol/L ABG Total CO2 40 H (19-24) mmol/L Hemoglobin 9.6 L (11.4-16.0) gm/dL Assessment and Plan (1) Influenza A Current Visit: Yes Status: Acute Code(s): J10.1 - FLU DUE TO OTH IDENT INFLUENZA VIRUS W OTH RESP MANIFEST SNOMED Code(s): 746532132 Plan: 1patient presented to hospital with acute respiratory failure with aspiration noted to be significantly hypoxic requiring BiPAP. Tested positive for influenza A and a question of possible secondary to pneumonia not entirely excluded. 2try to obtain sputum for Gram stain culture check a CRP and procalcitonin. 3patient was started on Tamiflu dose adjusted the kidney function of antibiotic course of therapy 4-droplet isolation We will follow on clinical condition and cultures to further adjust medication if needed Thank you for this consultation we will follow the patient along with you Dictation was produced using [employer] dictation software. please excuse any grammatical, word or spelling errors. Time with Patient: Greater than 30
[2024-10-02] MEDS: IPRATROPIUM-ALBUTEROL 3 ML NEB INHALATION PRN (02:27)
--- NOTE | 2024-10-02 05:22 | HP ---
HISTORY AND PHYSICAL CHIEF COMPLAINT: Shortness of breath. HISTORY OF PRESENT ILLNESS: This is a 74-year-old woman with a past medical history of multiple recurrent diabetes mellitus, COPD, pulmonary embolism, who is a resident of [facility]. The patient is complaining of some cough and shortness of breath. The patient presented to [facility] with respiratory distress. In the halfway, the pulse oximetry was apparently 40%. The patient was also confused and was currently sedated at this time. The influenza was positive. The patient apparently has not taken the influenza vaccine. The patient is currently on BiPAP. PAST MEDICAL HISTORY: Reviewed included COPD, diabetes mellitus type 2. Rest of the history and rest of the chart was also reviewed. HOME MEDICATIONS: Reviewed include atenolol, dose and other medications reviewed, not confirmed yet. ALLERGIES: Bactrim. FAMILY HISTORY: Could not be taken because of the change in mental status. SOCIAL HISTORY: Could not be taken because of the change in mental status previous history of smoking per chart review. REVIEW OF SYSTEMS: Could not be taken because of the change in mental status. PHYSICAL EXAMINATION: VITAL SIGNS: Pulse is 73, blood pressure n respirations 19, pulse oximetry 94% on BiPAP. HEENT: Conjunctivae normal. CARDIOVASCULAR: S1, S2. RESPIRATIONS: Breath sounds diminished at the bases. A few scattered rhonchi. ABDOMEN: Soft. NERVOUS SYSTEM: Diffusely weak. LABORATORY DATA: ABGs, pCO2 of 82. IMAGING: The chest x-ray which I reviewed personally showed possible bilateral pneumonia. ASSESSMENT: 1. Chronic obstructive pulmonary disease, acute exacerbation with acute flu and possible bilateral pneumonia with acute hypoxic hypercarbic respiratory failure, on BiPAP. 2. Change in mental status, metabolic encephalopathy. 3. Diabetes mellitus, type 2. 4. Hypertension. 5. History of pulmonary embolism. 6. History of urinary tract infection. RECOMMENDATIONS AND DISCUSSION: This is a 74-year-old woman presented with multiple complex medical issues, we will monitor the patient closely. Continue the current management and treatment. Recommend bronchodilators, empiric antibiotics, and Tamiflu. Closely follow with serum procalcitonin. IV steroids. Closely follow with Pulmonary and Infectious Disease. Guarded prognosis because of multiple complex medical issues. Further recommendations to follow. See orders for details. We will initiate Tamiflu also. MMODL / IJN: [id number] / MTDD
[2024-10-02 07:16] LABS: Basophils % (A) 0 %; Eosinophils % (A) 0 %; HCT 31.3 % (34.0-46.0); Hypochromasia Moderate; Lymphocytes # (A) 0.5 k/uL (1.0-4.8); Lymphocytes % (A) 4 %; MCH 28.9 pg (25.0-35.0); MCHC 31.2 g/dL (31.0-37.0); MCV 92.6 fL (80.0-100.0); Mean Platelet Volume 6.4; Monocytes # (A) 0.3 k/uL (0-1.0); Monocytes % (A) 3 %; Neutrophils # (A) 9.7 k/uL (1.3-7.7); Neutrophils % (A) 92 %; Platelet Count 365 k/uL (150-450); RBC 3.38 m/uL (3.80-5.40); WBC 10.5 k/uL (3.8-10.6)
[2024-10-02 07:36] LABS: HGB 9.8 gm/dL (11.4-16.0)
[2024-10-02 08:17] LABS: ALT 16 U/L (4-34); AST 29 U/L (14-36); African American GFR (CKD) >90 (>60 ml/min/1.73 sqM); Albumin 3.4 g/dL (3.5-5.0); Alkaline Phosphatase 73 U/L (38-126); Anion Gap 6 mmol/L; Blood Urea Nitrogen 35 mg/dL (7-17); Calcium 8.4 mg/dL (8.4-10.2); Carbon Dioxide 35 mmol/L (22-30); Chloride 97 mmol/L (98-107); Glucose 186 mg/dL (74-99); Non-African American GFR(CKD) 86 (>60 ml/min/1.73 sqM); Potassium 4.8 mmol/L (3.5-5.1); Sodium 138 mmol/L (137-145); Total Bilirubin 0.3 mg/dL (0.2-1.3); Total Protein 6.4 g/dL (6.3-8.2)
--- NOTE | 2024-10-02 08:19 | XR ---
EXAMINATION TYPE: XR chest 1V portable DATE OF EXAM: 10/02/2024 4:45 AM COMPARISON: 10/01/2024 CLINICAL INDICATION: Female, 74 years old with history of CHF, , FINDINGS: Heart remains upper limits of normal in size. Some interstitial densities remain without significant change. Some patchy left basilar opacity remains but aeration is improving. Prominent skinfold projec ting at the right upper lung. Linear band of probable scarring at the right midlung is unchanged. IMPRESSION: Similar residual mild pulmonary vascular congestion. Aeration is improving at the left base. [facility], Workstation: [id number], 10/02/2024 8:17 AM
[2024-10-02 08:25] LABS: Glucose,Whole Blood 210 mg/dL (70-110)
[2024-10-02 08:32] LABS: C Reactive Protein 16.1 mg/dL (<1.0)
[2024-10-02 12:10] LABS: Glucose,Whole Blood 214 mg/dL (70-110)
--- NOTE | 2024-10-02 15:21 | P.PN ---
Subjective Progress Note Date: 10/02/24 This is a 74-year-old female patient who was recently discharged from here to [facility] on September 14, 2024. She has a past medical history significant for very severe COPD, chronic oxygen dependence on 4 L/min nasal cannula, lung nodule, chronic ongoing tobacco dependence, remote history of PE, hypertension, fibromyalgia. She has an FEV1 22% of predicted. Uses a combination of Trelegy inhaler, albuterol nebs [id number], and as needed Ventolin HFA inhaler. She was brought back from [facility] to here today after being found to be hypoxemic at the shelter. Chest x-ray reveals findings of COPD and mild chronic interstitial changes. Small left pleural effusion. ABGs here on 50% FiO2 revealed a PaO2 of 84, pCO2 of 82 and a pH of 7.27. She is seen today in consultation in the emergency department. She is currently on BiPAP 14/5 and 40% FiO2. She is arousable but drifts off easily. Labs from [place] reviewed. The patient is seen today October 02, 2024 in follow-up in the emergency department room #3. She is awake and alert in no acute distress. Doing better today compared to yesterday. Continued on BiPAP 14/5 and 40% FiO2. She remains quite weak and debilitated. White count 10.5. Hemoglobin 9.8. Platelets 365. Sodium 138. Potassium 4.8. Bicarb 35. BUN 35. Creatinine 0.71. Glucose 186. She is continued on DuoNeb inhalations, Symbicort, Solu-Medrol. She is continued on Tamiflu. Heparin for DVT prophylaxis. Protonix for GI prophylaxis. Antibiotics in the form of ceftriaxone. Procalcitonin was 0.41. Objective - Vital Signs Vital signs: Vital Signs Temp 98.2 F 10/02/24 12:32 Pulse 74 10/02/24 15:07 Resp 18 10/02/24 15:07 BP 158/85 10/02/24 15:07 Pulse Ox 93 L 10/02/24 15:07 FiO2 40 10/02/24 11:40 Intake & Output 10/01/24 10/02/24 10/02/24 18:59 06:59 18:59 Weight 56.699 kg - Exam GENERAL EXAM: Awake, very frail, cachectic 74-year-old female, resting on the stretcher on BiPAP 14/6 and 40% FiO2. HEAD: Normocephalic. EYES: Normal reaction of pupils, equal size. NOSE: Clear with pink turbinates. THROAT: No erythema or exudates. NECK: No masses, no JVD. CHEST: No chest wall deformity. LUNGS: Equal air entry with severely diminished breath sounds. CVS: S1 and S2 normal with no audible murmur, regular rhythm. ABDOMEN: No hepatosplenomegaly, normal bowel sounds, no guarding or rigidity. SPINE: No scoliosis or deformity SKIN: No rashes CENTRAL NERVOUS SYSTEM: No focal deficits, tone is normal in all 4 extremities. EXTREMITIES: There is no peripheral edema. No clubbing, no cyanosis. Peripheral pulses are intact. - Labs CBC & Chem 7: 10/02/24 06:11 10/02/24 06:11 Labs: Abnormal Lab Results - Last 24 Hours (Table) 10/01/24 10/01/24 10/02/24 Range/Units 18:11 21:35 06:11 RBC (3.80-5.40) m/uL Hgb (11.4-16.0) gm/dL Hct (34.0-46.0) % Neutrophils # (1.3-7.7) k/uL Lymphocytes # (1.0-4.8) k/uL Chloride (98-107) mmol/L Carbon Dioxide (22-30) mmol/L BUN (7-17) mg/dL Glucose (74-99) mg/dL POC Glucose (mg/dL) 194 H 195 H (70-110) mg/dL Hemoglobin A1c 6.2 H (<=6.0) % C-Reactive Protein (<1.0) mg/dL Albumin (3.5-5.0) g/dL 10/02/24 10/02/24 10/02/24 Range/Units 06:11 06:11 08:19 RBC 3.38 L (3.80-5.40) m/uL Hgb 9.8 L D (11.4-16.0) gm/dL Hct 31.3 L (34.0-46.0) % Neutrophils # 9.7 H (1.3-7.7) k/uL Lymphocytes # 0.5 L (1.0-4.8) k/uL Chloride 97 L (98-107) mmol/L Carbon Dioxide 35 H (22-30) mmol/L BUN 35 H (7-17) mg/dL Glucose 186 H (74-99) mg/dL POC Glucose (mg/dL) 210 H (70-110) mg/dL Hemoglobin A1c (<=6.0) % C-Reactive Protein 16.1 H (<1.0) mg/dL Albumin 3.4 L (3.5-5.0) g/dL 10/02/24 Range/Units 12:07 RBC (3.80-5.40) m/uL Hgb (11.4-16.0) gm/dL Hct (34.0-46.0) % Neutrophils # (1.3-7.7) k/uL Lymphocytes # (1.0-4.8) k/uL Chloride (98-107) mmol/L Carbon Dioxide (22-30) mmol/L BUN (7-17) mg/dL Glucose (74-99) mg/dL POC Glucose (mg/dL) 214 H (70-110) mg/dL Hemoglobin A1c (<=6.0) % C-Reactive Protein (<1.0) mg/dL Albumin (3.5-5.0) g/dL Assessment and Plan Assessment: Acute hypoxemic and hypercapnic respiratory failure secondary to an acute exacerbation of chronic obstructive pulmonary disease complicated by influenza A infection Positive influenza A at outside facility Altered mental status secondary to hypercapnia and hypoxemia Chronic hypoxemic respiratory failure, normally maintained on 4 L/min nasal cannula 24/ History of left lower lung nodule, FDG avid, and suspicious for bronchogenic carcinoma. Follows up outpatient. Very severe COPD, with an FEV1 22% of predicted, maintain normally on Trelegy inhaler, albuterol nebs [id number], and as needed Ventolin HFA inhaler. Chronic ongoing tobacco dependence Possible new onset atrial fibrillation with ventricular response Remote history of pulmonary embolism Hypertension Fibromyalgia Poor overall functional performance based on the above-mentioned multiple comorbidities Plan: The patient was seen and evaluated Chest x-ray, medications and labs reviewed Currently on BiPAP 14/6 and 40% FiO2 Transition to nasal cannula as tolerated Continue DuoNeb inhalations, Symbicort Continue Solu-Medrol Continue Tamiflu Procalcitonin negative Antibiotics discontinued Prognosis is guarded DNR CODE STATUS May need to consider hospice I have personally seen and examined the patient, performed the documentation and the assessment and plan as written. Number of minutes spent on the visit: 20 Dictation was produced using [employer] dictation software. Please excuse any grammatical, word or spelling errors.
[2024-10-02] MEDS: atenoloL 25 MG TAB PO SCH (16:07)
[2024-10-02] MEDS: amLODIPine 5 MG TAB PO SCH (16:08)
[2024-10-02 17:47] LABS: Glucose,Whole Blood 258 mg/dL (70-110)
[2024-10-02 20:12] LABS: Glucose,Whole Blood 174 mg/dL (70-110)
--- NOTE | 2024-10-02 20:32 | PN ---
PROGRESS NOTE DATE OF SERVICE: 10/02/2024 SUBJECTIVE: This is a 74-year-old woman, who was admitted with COPD acute exacerbation as well as acute influenza, is closely monitored. The patient also had pneumonia. The patient is on BiPAP and having acute respiratory failure. The patient is confused. PAST MEDICAL HISTORY: Reviewed. REVIEW OF SYSTEMS: Could not be taken. CURRENT MEDICATIONS: Reviewed. PHYSICAL EXAMINATION: VITAL SIGNS: Pulse is 81, blood pressure 166/90, respirations 20. CHEST: Bilateral scattered rhonchi and crackles. ABDOMEN: Soft. NERVOUS SYSTEM: Nonfocal. LABORATORY DATA: Hemoglobin 9.8. Rest of the labs are reviewed. Chest x-ray reviewed. ASSESSMENT: 1. Chronic obstructive pulmonary disease acute exacerbation with acute influenza and as well as possible bilateral pneumonia with acute hypoxic respiratory failure, on BiPAP. 2. Change in mental status, acute metabolic encephalopathy. 3. Diabetes mellitus, type 2. 4. Hypertension. 5. History of pulmonary embolus. 6. History of urinary tract infection. RECOMMENDATIONS: Recommend to continue current management and continue symptomatic treatment. Otherwise, continue with empiric antibiotics, bronchodilators, and IV steroids. Continue with Tamiflu. Guarded prognosis because of multiple complex medical issues. Further recommendations to follow. See orders for further details. MMODL / IJN: [id number] /
[2024-10-02] MEDS: ACETAMINOPHEN TAB 325 MG TAB PO PRN (20:54)
--- NOTE | 2024-10-02 21:07 | P.PN ---
Subjective Progress Note Date: 10/02/24 Principal diagnosis: Reason for follow-up is acute influenza Patient is a 74-year-old female with a past medical history significant for COPD diabetes mellitus fibromyalgia hypertension reflux PE patient is a resident of the [facility] and was sent to the [facility] initially for evaluation of respiratory distress for which the patient has been transferred to [facility] for further evaluation. On today's evaluation that is 10/02/2024, patient has been afebrile, patient remains to be BiPAP dependent no breathing slightly comfortably seen tomorrow week denies any chest pain no worsening cough no vomiting or diarrhea has been reported. Patient white count is 10.5, creatinine 0.71 Objective - Vital Signs Vital signs: Vital Signs Temp 97.1 F L 10/02/24 02: Pulse 72 10/02/24 10:53 Resp 18 10/02/24 10:53 BP 148/68 10/02/24 10:53 Pulse Ox 94 L 10/02/24 10:53 FiO2 40 10/02/24 07:48 Intake & Output 10/01/24 10/02/24 10/02/24 18:59 06:59 18:59 Weight 56.699 kg - Exam GENERAL DESCRIPTION: An elderly female lying in bed in no distress RESPIRATORY SYSTEM: Unlabored breathing , decreased breath sounds at bases HEART: S1 S2 regular rate and rhythm , ABDOMEN: Soft , no tenderness EXTREMITIES: No edema feet - Labs CBC & Chem 7: 10/02/24 06:11 10/02/24 06:11 Labs: Abnormal Lab Results - Last 24 Hours (Table) 10/01/24 10/01/24 10/01/24 Range/Units 12:38 18:11 21:35 RBC (3.80-5.40) m/uL Hgb (11.4-16.0) gm/dL Hct (34.0-46.0) % Neutrophils # (1.3-7.7) k/uL Lymphocytes # (1.0-4.8) k/uL ABG pH 7.27 L (7.35-7.45) ABG pCO2 82 H* (35-45) mmHg ABG HCO3 38 H (21-25) mmol/L ABG Total CO2 40 H (19-24) mmol/L Hemoglobin 9.6 L (11.4-16.0) gm/dL Chloride (98-107) mmol/L Carbon Dioxide (22-30) mmol/L BUN (7-17) mg/dL Glucose (74-99) mg/dL POC Glucose (mg/dL) 194 H 195 H (70-110) mg/dL Hemoglobin A1c (<=6.0) % C-Reactive Protein (<1.0) mg/dL Albumin (3.5-5.0) g/dL 10/02/24 10/02/24 10/02/24 Range/Units 06:11 06:11 06:11 RBC 3.38 L (3.80-5.40) m/uL Hgb 9.8 L D (11.4-16.0) gm/dL Hct 31.3 L (34.0-46.0) % Neutrophils # 9.7 H (1.3-7.7) k/uL Lymphocytes # 0.5 L (1.0-4.8) k/uL ABG pH (7.35-7.45) ABG pCO2 (35-45) mmHg ABG HCO3 (21-25) mmol/L ABG Total CO2 (19-24) mmol/L Hemoglobin (11.4-16.0) gm/dL Chloride 97 L (98-107) mmol/L Carbon Dioxide 35 H (22-30) mmol/L BUN 35 H (7-17) mg/dL Glucose 186 H (74-99) mg/dL POC Glucose (mg/dL) (70-110) mg/dL Hemoglobin A1c 6.2 H (<=6.0) % C-Reactive Protein 16.1 H (<1.0) mg/dL Albumin 3.4 L (3.5-5.0) g/dL 10/02/24 Range/Units 08:19 RBC (3.80-5.40) m/uL Hgb (11.4-16.0) gm/dL Hct (34.0-46.0) % Neutrophils # (1.3-7.7) k/uL Lymphocytes # (1.0-4.8) k/uL ABG pH (7.35-7.45) ABG pCO2 (35-45) mmHg ABG HCO3 (21-25) mmol/L ABG Total CO2 (19-24) mmol/L Hemoglobin (11.4-16.0) gm/dL Chloride (98-107) mmol/L Carbon Dioxide (22-30) mmol/L BUN (7-17) mg/dL Glucose (74-99) mg/dL POC Glucose (mg/dL) 210 H (70-110) mg/dL Hemoglobin A1c (<=6.0) % C-Reactive Protein (<1.0) mg/dL Albumin (3.5-5.0) g/dL Assessment and Plan (1) Influenza A Current Visit: Yes Status: Acute Code(s): J10.1 - FLU DUE TO OTH IDENT INFLUENZA VIRUS W OTH RESP MANIFEST SNOMED Code(s): 600280288 Plan: 1patient presented to hospital with acute respiratory failure with aspiration noted to be significantly hypoxic requiring BiPAP. Tested positive for influenza A and a question of possible secondary to pneumonia not entirely excluded. 2try to obtain sputum for Gram stain culture patient did have elevated CRP but normal procalcitonin 3patient to continue with Tamiflu to finish a 5-day course of therapy Dictation was produced using [employer] dictation software. please excuse any grammatical, word or spelling errors. Time with Patient: Less than 30
[2024-10-03] MEDS: LORazepam 2 MG/ML INJ IV PRN (02:05)
[2024-10-03 06:11] LABS: Glucose,Whole Blood 134 mg/dL (70-110)
[2024-10-03] MEDS: PANTOPRAZOLE 40 MG TABLET PO SCH (06:17)
[2024-10-03 07:41] LABS: Basophils % (A) 0 %; Eosinophils % (A) 0 %; HCT 32.6 % (34.0-46.0); HGB 9.9 gm/dL (11.4-16.0); Hypochromasia Slight; Lymphocytes # (A) 0.4 k/uL (1.0-4.8); Lymphocytes % (A) 4 %; MCH 27.8 pg (25.0-35.0); MCHC 30.3 g/dL (31.0-37.0); MCV 91.9 fL (80.0-100.0); Monocytes # (A) 0.4 k/uL (0-1.0); Monocytes % (A) 4 %; Neutrophils % (A) 91 %; Platelet Count 434 k/uL (150-450); RBC 3.55 m/uL (3.80-5.40); RDW 15.4 % (11.5-15.5); WBC 9.9 k/uL (3.8-10.6)
[2024-10-03 08:03] LABS: African American GFR (CKD) >90 (>60 ml/min/1.73 sqM); Anion Gap 7 mmol/L; Blood Urea Nitrogen 21 mg/dL (7-17); Calcium 8.4 mg/dL (8.4-10.2); Carbon Dioxide 40 mmol/L (22-30); Chloride 93 mmol/L (98-107); Glucose 177 mg/dL (74-99); Non-African American GFR(CKD) >90 (>60 ml/min/1.73 sqM); Potassium 4.1 mmol/L (3.5-5.1); Sodium 140 mmol/L (137-145)
[2024-10-03] MEDS: FLUTICASONE NASAL 50MCG/SPRAY 16GM BTL EA NOSTRIL SCH (08:12)
[2024-10-03 11:53] LABS: Glucose,Whole Blood 150 mg/dL (70-110)
[2024-10-03] MEDS: HYDROcodone/APAP 5-325MG 1 EACH TAB PO PRN (12:54)
[2024-10-03] MEDS: amLODIPine 5 MG TAB PO ONE (12:54)
[2024-10-03] MEDS: atenoloL 25 MG TAB PO ONE (12:55)
--- NOTE | 2024-10-03 13:23 | P.PN ---
Subjective Progress Note Date: 10/03/24 Principal diagnosis: Reason for follow-up is acute influenza Patient is a 74-year-old female with a past medical history significant for COPD diabetes mellitus fibromyalgia hypertension reflux PE patient is a resident of the [facility] and was sent to the [facility] initially for evaluation of respiratory distress for which the patient has been transferred to [facility] for further evaluation. On today's evaluation that is 10/03/2024, Patient is afebrile this morning patient is more awake and alert today mention breathing comfortably she is curr ently on 5 L nasal oxygen P denies any chest pain cough decreased intensity no vomiting or diarrhea. Patient white count is 9.8, creatinine 0.60 Objective - Vital Signs Vital signs: Vital Signs Temp 97.5 F L 10/03/24 11:33 Pulse 80 10/03/24 12:49 Resp 21 10/03/24 11:33 BP 164/90 10/03/24 11:33 Pulse Ox 96 10/03/24 11:33 FiO2 40 10/03/24 03:11 Intake & Output 10/02/24 10/03/24 10/03/24 18:59 06:59 18:59 Intake Total 260 Output Total 400 Balance -140 Weight 56.699 kg 46.5 kg Intake: IV 20 Invasive Line 3 20 Oral 240 Output: Urine 400 Other: Voiding Method External Catheter # Voids 500 # Bowel Movements 2 - Exam GENERAL DESCRIPTION: An elderly female lying in bed in no distress RESPIRATORY SYSTEM: Unlabored breathing , decreased breath sounds at bases HEART: S1 S2 regular rate and rhythm , ABDOMEN: Soft , no tenderness EXTREMITIES: No edema feet - Labs CBC & Chem 7: 10/03/24 06:49 10/03/24 06:49 Labs: Abnormal Lab Results - Last 24 Hours (Table) 10/02/24 10/02/24 10/03/24 Range/Units 17:45 20:11 06:10 RBC (3.80-5.40) m/uL Hgb (11.4-16.0) gm/dL Hct (34.0-46.0) % MCHC (31.0-37.0) g/dL Neutrophils # (1.3-7.7) k/uL Lymphocytes # (1.0-4.8) k/uL Chloride (98-107) mmol/L Carbon Dioxide (22-30) mmol/L BUN (7-17) mg/dL Glucose (74-99) mg/dL POC Glucose (mg/dL) 258 H 174 H 134 H (70-110) mg/dL 10/03/24 10/03/24 10/03/24 Range/Units 06:49 06:49 11:51 RBC 3.55 L (3.80-5.40) m/uL Hgb 9.9 L (11.4-16.0) gm/dL Hct 32.6 L (34.0-46.0) % MCHC 30.3 L (31.0-37.0) g/dL Neutrophils # 9.0 H (1.3-7.7) k/uL Lymphocytes # 0.4 L (1.0-4.8) k/uL Chloride 93 L (98-107) mmol/L Carbon Dioxide 40 H (22-30) mmol/L BUN 21 H (7-17) mg/dL Glucose 177 H (74-99) mg/dL POC Glucose (mg/dL) 150 H (70-110) mg/dL Assessment and Plan (1) Influenza A Current Visit: Yes Status: Acute Code(s): J10.1 - FLU DUE TO OTH IDENT INFLUENZA VIRUS W OTH RESP MANIFEST SNOMED Code(s): 074577781 Plan: 1patient presented to hospital with acute respiratory failure with aspiration noted to be significantly hypoxic requiring BiPAP on admission, Tested positive for influenza A and a question of possible secondary bacterial pneumonia not entirely excluded, however the patient did have a normal procalcitonin. 2patient did have subclinical improvement, to continue with Tamiflu to finish a 5-day course of therapy and monitor clinical course closely Dictation was produced using [employer] dictation software. please excuse any grammatical, word or spelling errors. Time with Patient: Less than 30
--- NOTE | 2024-10-03 14:11 | P.PN ---
Subjective Progress Note Date: 10/03/24 Principal diagnosis: Shortness of breath. This is a 74-year-old female patient who was recently discharged from here to [facility] on September 14, 2024. She has a past medical history significant for very severe COPD, chronic oxygen dependence on 4 L/min nasal can nula, lung nodule, chronic ongoing tobacco dependence, remote history of PE, hypertension, fibromyalgia. She has an FEV1 22% of predicted. Uses a combination of Trelegy inhaler, albuterol nebs [id number], and as needed Ventolin HFA inhaler. She was brought back from [facility] to here today after being found to be hypoxemic at the alf. Chest x-ray reveals findings of COPD and mild chronic interstitial changes. Small left pleural effusion. ABGs here on 50% FiO2 revealed a PaO2 of 84, pCO2 of 82 and a pH of 7.27. She is seen today in consultation in the emergency department. She is currently on BiPAP 14/5 and 40% FiO2. She is arousable but drifts off easily. Labs from [place] reviewed. The patient is seen today October 02, 2024 in follow-up in the emergency department room #3. She is awake and alert in no acute distress. Doing better today compared to yesterday. Continued on BiPAP 14/5 and 40% FiO2. She remains quite weak and debilitated. White count 10.5. Hemoglobin 9.8. Platelets 365. Sodium 138. Potassium 4.8. Bicarb 35. BUN 35. Creatinine 0.71. Glucose 186. She is continued on DuoNeb inhalations, Symbicort, Solu-Medrol. She is continued on Tamiflu. Heparin for DVT prophylaxis. Protonix for GI prophylaxis. Antibiotics in the form of ceftriaxone. Procalcitonin was 0.41. Progress note dated October 03, 2024. 74-year-old female seen today in room 365. The patient was admitted with a diagnosis of hyper No respiratory failure, and influenza A infection. She is currently on 4 L nasal cannula. She is receiving Tamiflu, at usual doses, and also receiving saline at 75 cc an hour. Current laboratory data includes a white count 9.9, hemoglobin 9.9, hematocrit 32.6, and a platelet count of 40- 34,000. Sodium 140, potassium 4.1, chloride 93, CO2 40, BUN 21, and creatinine 0.6. Glucose was 150. Calcium 8.4. Chest x-ray from yesterday, shows some mild fluid overload. Objective - Vital Signs Vital signs: Vital Signs Temp 97.5 F L 10/03/24 11:33 Pulse 80 10/03/24 12:49 Resp 21 10/03/24 11:33 BP 164/90 10/03/24 11:33 Pulse Ox 96 10/03/24 11:33 FiO2 40 10/03/24 03:11 Intake & Output 10/02/24 10/03/24 10/03/24 18:59 06:59 18:59 Intake Total 260 Output Total 400 Balance -140 Weight 56.699 kg 46.5 kg Intake: IV 20 Invasive Line 3 20 Oral 240 Output: Urine 400 Other: Voiding Method External Catheter # Voids 500 # Bowel Movements 2 - Exam No acute distress, oriented 3. The patient is currently on 4 L nasal cannula. HEENT examination is grossly unremarkable. Mucous membranes are moist. No oral lesions. Neck supple. Full range of motion. No adenopathy thyromegaly or neck vein d istention. Cardiovascular examination reveals regular rhythm rate. S1-S2 normal. No S3 or S4. No discernible murmur noted. Lungs reveal scattered bilateral rhonchi. No wheezes or crackles. Breath sounds equal bilaterally. Abdomen soft bowel sounds are heard. No masses or tenderness. Extremities are intact. No cyanosis clubbing or edema. Skin is without rash or lesion. Neurologic examination is brief but nonfocal. - Labs CBC & Chem 7: 10/03/24 06:49 10/03/24 06:49 Labs: Abnormal Lab Results - Last 24 Hours (Table) 10/02/24 10/02/24 10/03/24 Range/Units 17:45 20:11 06:10 RBC (3.80-5.40) m/uL Hgb (11.4-16.0) gm/dL Hct (34.0-46.0) % MCHC (31.0-37.0) g/dL Neutrophils # (1.3-7.7) k/uL Lymphocytes # (1.0-4.8) k/uL Chloride (98-107) mmol/L Carbon Dioxide (22-30) mmol/L BUN (7-17) mg/dL Glucose (74-99) mg/dL POC Glucose (mg/dL) 258 H 174 H 134 H (70-110) mg/dL 10/03/24 10/03/24 10/03/24 Range/Units 06:49 06:49 11:51 RBC 3.55 L (3.80-5.40) m/uL Hgb 9.9 L (11.4-16.0) gm/dL Hct 32.6 L (34.0-46.0) % MCHC 30.3 L (31.0-37.0) g/dL Neutrophils # 9.0 H (1.3-7.7) k/uL Lymphocytes # 0.4 L (1.0-4.8) k/uL Chloride 93 L (98-107) mmol/L Carbon Dioxide 40 H (22-30) mmol/L BUN 21 H (7-17) mg/dL Glucose 177 H (74-99) mg/dL POC Glucose (mg/dL) 150 H (70-110) mg/dL Assessment and Plan Assessment: Acute hypoxemic and hypercapnic respiratory failure secondary to an acute exacerbation of chronic obstructive pulmonary disease complicated by influenza A infection. Positive influenza A at outside facility. Altered mental status secondary to hypercapnia and hypoxemia. Chronic hypoxemic respiratory failure, normally maintained on 4 L/min nasal cannula 15/03. History of left lower lung nodule, FDG avid, and suspicious for bronchogenic carcinoma. Very severe COPD, with an FEV1 22% of predicted. Chronic ongoing tobacco dependence. Possible new onset atrial fibrillation with ventricular response. Remote history of pulmonary embolism. Hypertension. Fibromyalgia. Poor overall functional performance based on the above-mentioned multiple comorbidities. Plan: Plan dated October 03, 2024. The patient is seen today in room 365. She appears to be a bit better today than yesterday. She continues on nasal O2 at 4 L by cannula. The patient is on Tamiflu at usual doses, and getting saline at 75 cc an hour. All labs, x-rays, and medications are reviewed. The patient also continues on updrafts, Symbicort, and Solu-Medrol. The patient is a DO NOT RESUSCITATE patient. We will continue to follow the patient, make recommendations along the way. 50 min utes was spent with this patient, including the interview process, examination, reviewing of pertinent laboratory data, x-rays, and medications, as well as discussing the diagnosis, treatment, and prognosis, with the patient, and the patient's bedside nurse. Time with Patient: Greater than 30
[2024-10-03 16:56] LABS: Glucose,Whole Blood 218 mg/dL (70-110)
[2024-10-03 20:08] LABS: Glucose,Whole Blood 146 mg/dL (70-110)
[2024-10-03] MEDS: atenoloL 50 MG TAB PO SCH (21:01)
--- NOTE | 2024-10-03 22:43 | PN ---
PROGRESS NOTE DATE OF SERVICE: 10/03/2024 SUBJECTIVE: This is a 74-year-old woman, who was admitted with COPD acute exacerbation as well as acute influenza as well as significant shortness of breath. The patient is being closely monitored at this time. The most recent chest x-ray was reviewed, showed bilateral lesions. PAST MEDICAL HISTORY: Reviewed. REVIEW OF SYSTEMS: A 14-point review of systems is negative except as mentioned earlier. CURRENT MEDICATIONS: Reviewed. PHYSICAL EXAMINATION: VITAL SIGNS: Pulse 72, blood pressure 161/90, respirations 21. HEENT: Conjunctivae normal. NECK: No JVD. CARDIOVASCULAR: S1, S2. RESPIRATIONS: Breath sounds diminished at the bases. A few scattered rhonchi and crackles. ABDOMEN: Soft. NERVOUS SYSTEM: Nonfocal. LABORATORY DATA: Reviewed. Hemoglobin 9.9. ASSESSMENT: 1. Chronic obstructive pulmonary disease acute exacerbation with acute events as well as possible bilateral pneumonia with acute hypoxic respiratory failure, status post BiPAP. 2. Change in mental status, acute metabolic encephalopathy. 3. Hypertension. 4. Diabetes mellitus, type 2. 5. History of pulmonary embolism. 6. History of urinary tract infection. RECOMMENDATIONS: Recommend to continue current management and continue symptomatic treatment. Continue with bronchodilators, empiric antibiotics, steroids. I would increase the dose of Norvasc to 10 daily and continue to monitor. Further recommendations to follow. MMODL / IJN: [id number] /
[2024-10-04 06:03] LABS: Glucose,Whole Blood 134 mg/dL (70-110)
[2024-10-04] MEDS: amLODIPine 10 MG TAB PO SCH (08:08)
[2024-10-04 11:31] LABS: Glucose,Whole Blood 259 mg/dL (70-110)
--- NOTE | 2024-10-04 11:39 | P.PN ---
Subjective Progress Note Date: 10/04/24 Principal diagnosis: Reason for follow-up is acute influenza Patient is a 74-year-old female with a past medical history significant for COPD diabetes mellitus fibromyalgia hypertension reflux PE patient is a resident of the [facility] and was sent to the [facility] initially for evaluation of respiratory distress for which the patient has been transferred to [facility] for further evaluation. On today's evaluation that is 10/04/2024,the patient has been afebrile patient is currently on the BiPAP lethargic and did not answer any question no vomiting diarrhea and the changes reported by the nursing staff. Patient did not have lab draw today, Objective - Vital Signs Vital signs: Vital Signs Temp 97.9 F 10/04/24 08:06 Pulse 69 10/04/24 08:06 Resp 21 10/04/24 08:06 BP 162/76 10/04/24 08:06 Pulse Ox 96 10/04/24 08:06 FiO2 40 10/04/24 08:22 Intake & Output 10/03/24 10/04/24 10/04/24 18:59 06:59 18:59 Output Total 300 Balance -300 Weight 46.5 kg 45 kg Output: Urine 300 Other: Voiding Method External Catheter External Catheter External Catheter # Voids 2 # Bowel Movements 1 - Exam GENERAL DESCRIPTION: An elderly female lying in bed in no distress RESPIRATORY SYSTEM: Unlabored breathing , decreased breath sounds at bases HEART: S1 S2 regular rate and rhythm , ABDOMEN: Soft , no tenderness EXTREMITIES: No edema feet - Labs CBC & Chem 7: 10/03/24 06:49 10/03/24 06:49 Labs: Abnormal Lab Results - Last 24 Hours (Table) 10/03/24 10/03/24 10/03/24 Range/Units 11:51 16:55 20:07 POC Glucose (mg/dL) 150 H 218 H 146 H (70-110) mg/dL 10/04/24 10/04/24 Range/Units 06:01 11:30 POC Glucose (mg/dL) 134 H 259 H (70-110) mg/dL Assessment and Plan (1) Influenza A Current Visit: Yes Status: Acute Code(s): J10.1 - FLU DUE TO OTH IDENT INFLUENZA VIRUS W OTH RESP MANIFEST SNOMED Code(s): 377674107 Plan: 1patient presented to hospital with acute respiratory failure with aspiration noted to be significantly hypoxic requiring BiPAP on admission, Tested positive for influenza A and a question of possible secondary bacterial pneumonia not entirely excluded, however the patient did have a normal procalcitonin. 2patient has been afebrile still have some respiratory distress requiring BiPAP, to continue with Tamiflu to finish a 5-day course of therapy and monitor clinical course closely Dictation was produced using [employer] dictation software. please excuse any grammatical, word or spelling errors. Time with Patient: Less than 30
--- NOTE | 2024-10-04 14:13 | P.PN ---
Subjective Progress Note Date: 10/04/24 Principal diagnosis: Shortness of breath. This is a 74-year-old female patient who was recently discharged from here to [facility] on September 14, 2024. She has a past medical history significant for very severe COPD, chronic oxygen dependence on 4 L/min nasal can nula, lung nodule, chronic ongoing tobacco dependence, remote history of PE, hypertension, fibromyalgia. She has an FEV1 22% of predicted. Uses a combination of Trelegy inhaler, albuterol nebs [id number], and as needed Ventolin HFA inhaler. She was brought back from [facility] to here today after being found to be hypoxemic at the half-way. Chest x-ray reveals findings of COPD and mild chronic interstitial changes. Small left pleural effusion. ABGs here on 50% FiO2 revealed a PaO2 of 84, pCO2 of 82 and a pH of 7.27. She is seen today in consultation in the emergency department. She is currently on BiPAP 14/5 and 40% FiO2. She is arousable but drifts off easily. Labs from [place] reviewed. The patient is seen today October 02, 2024 in follow-up in the emergency department room #3. She is awake and alert in no acute distress. Doing better today compared to yesterday. Continued on BiPAP 14/5 and 40% FiO2. She remains quite weak and debilitated. White count 10.5. Hemoglobin 9.8. Platelets 365. Sodium 138. Potassium 4.8. Bicarb 35. BUN 35. Creatinine 0.71. Glucose 186. She is continued on DuoNeb inhalations, Symbicort, Solu-Medrol. She is continued on Tamiflu. Heparin for DVT prophylaxis. Protonix for GI prophylaxis. Antibiotics in the form of ceftriaxone. Procalcitonin was 0.41. Progress note dated October 03, 2024. 74-year-old female seen today in room 365. The patient was admitted with a diagnosis of hyper No respiratory failure, and influenza A infection. She is currently on 4 L nasal cannula. She is receiving Tamiflu, at usual doses, and also receiving saline at 75 cc an hour. Current laboratory data includes a white count 9.9, hemoglobin 9.9, hematocrit 32.6, and a platelet count of 40- 34,000. Sodium 140, potassium 4.1, chloride 93, CO2 40, BUN 21, and creatinine 0.6. Glucose was 150. Calcium 8.4. Chest x-ray from yesterday, shows some mild fluid overload. Progress note dated October 04, 2024. 74-year-old female seen today in room 365. The patient was seen, and is currently on BiPAP, with settings of 14/5, and 40%. The patient was sleeping, and I did not wake her. The patient was admitted with a diagnosis of respiratory failure, and influenza A. She is not receiving any IV fluids. She continues on Tamiflu. Her procalcitonin level was 0.41, which is in the normal range. Blood analysis today revealed a glucose of 259. Objective - Vital Signs Vital signs: Vital Signs Temp 96.8 F L 10/04/24 11:47 Pulse 67 10/04/24 11:57 Resp 20 10/04/24 11:47 BP 179/73 10/04/24 11:47 Pulse Ox 96 10/04/24 08:06 FiO2 40 10/04/24 11:47 Intake & Output 10/03/24 10/04/24 10/04/24 18:59 06:59 18:59 Output Total 300 Balance -300 Weight 46.5 kg 45 kg Output: Urine 300 Other: Voiding Method External Catheter External Catheter External Catheter # Voids 2 # Bowel Movements 1 - Exam No acute distress, oriented 3. The patient is currently on BiPAP. HEENT examination is grossly unremarkable. Mucous membranes are moist. No oral lesions. Neck supple. Full range of motion. No adenopathy thyromegaly or neck vein distention. Cardiovascular examination reveals regular rhythm rate. S1-S2 normal. No S3 or S4. No discernible murmur noted. Lungs reveal scattered bilateral rhonchi. No wheezes or crackles. Breath sounds equal bilaterally. Abdomen soft bowel sounds are heard. No masses or tenderness. Extremities are intact. No cyanosis clubbing or edema. Skin is without rash or lesion. Neurologic examination is brief but nonfocal. - Labs CBC & Chem 7: 10/03/24 06:49 10/03/24 06:49 Labs: Abnormal Lab Results - Last 24 Hours (Table) 10/03/24 10/03/24 10/04/24 Range/Units 16:55 20:07 06:01 POC Glucose (mg/dL) 218 H 146 H 134 H (70-110) mg/dL 10/04/24 Range/Units 11:30 POC Glucose (mg/dL) 259 H (70-110) mg/dL Assessment and Plan Assessment: Acute hypoxemic and hypercapnic respiratory failure secondary to an acute exacer bation of chronic obstructive pulmonary disease complicated by influenza A infection. Positive influenza A at outside facility. Altered mental status secondary to hypercapnia and hypoxemia. Chronic hypoxemic respiratory failure, normally maintained on 4 L/min nasal cannula 15/03. History of left lower lung nodule, FDG avid, and suspicious for bronchogenic carcinoma. Very severe COPD, with an FEV1 22% of predicted. Chronic ongoing tobacco dependence. Possible new onset atrial fibrillation with ventricular response. Remote history of pulmonary embolism. Hypertension. Fibromyalgia. Poor overall functional performance based on the above-mentioned multiple comorbidities. Plan: Plan dated October 03, 2024. The patient is seen today in room 365. She appears to be a bit better today than yesterday. She continues on nasal O2 at 4 L by cannula. The patient is on Tamiflu at usual doses, and getting saline at 75 cc an hour. All labs, x-rays, and medications are reviewed. The patient also continues on updrafts, Symbicort, and Solu-Medrol. The patient is a DO NOT RESUSCITATE patient. We will continue to follow the patient, make recommendations along the way. 50 minutes was spent with this patient, including the interview process, examination, reviewing of pertinent laboratory data, x-rays, and medications, as well as discussing the diagnosis, treatment, and prognosis, with the patient, and the patient's bedside nurse. Plan dated October 04, 2024. The patient is seen today in room 365. The patient continues on Symbicort 160/4.5, 2 puffs twice a day, as well as DuoNebs, 4 times daily and as needed. In addition, the patient continues on Solu-Medrol 60 mg every 6 hours, and Tamiflu, 75 mg orally, twice a day for 5 days. Labs, x-rays, and all medi cations are reviewed. The patient is a DO NOT RESUSCITATE patient. We will continue to follow the patient, make recommendations along the way. 50 minutes was spent with the patient, including the interview process, examination, reviewing of pertinent laboratory data, x-rays, and medications, as well as discussing the diagnosis, treatment, and prognosis, with the patient, and the patient's bedside nurse. Time with Patient: Greater than 30
[2024-10-04 16:27] LABS: Glucose,Whole Blood 186 mg/dL (70-110)
--- NOTE | 2024-10-04 16:58 | CDI ---
Documentation Clarification Form Date: 10/04/2024 04:42:58 PM From: Tesha Leavitt RN, CCDS Phone: [phone] Admit Date: 10/01/2024 01:46:00 PM Patient Name: Sarika Locke Visit Number: [id number] Discharge Date: ATTENTION: The Clinical Documentation Specialists (CDI) and [facility] Coding Staff appreciate your assistance in clarifying documentation. Please respond to the clarification below the line at the bottom and electronically sign. The CDI & [facility] Coding staff will review the response and follow-up if needed. Please note: Queries are made part of the Legal Health Record. If you have any questions, please contact the author of this message via ITS. Doctor. Iris Anthony The Registered Dietitian assessment on 10/03/24 indicates this patient meets criteria for malnutrition, severe. Based on this information and the findings below, is there an additional diagnosis that is clinically appropriate for this patient? History/Risk Factors: COPD, Diabetes Mellitus, Fibromyalgia, Hypertension Clinical Indicators: 74-year-old female presents to ED for respiratory failure, mental status changes. She has been gradually losing weight about 23# over past 2-3 months. Current BMI: 17 Appetite poor, Difficult chewing/swallowing Dentures not fitting properly Emaciated, underweight, Skin intact, muscle wasting present: temporal, thighs, clavicle RD Consult Assessment: Malnutrition Inadequate protein-energy intake severe Treatment: Goal weight gain Ensure Enlive TID with meal Is there an additional diagnosis that is clinically appropriate for this patient? [ ] Mild Protein-Calorie Malnutrition [ ] Moderate Protein-Calorie Malnutrition [ x ] Severe Protein-Calorie Malnutrition [ ] No additional diagnosis/Not clinically significant [ ] Other condition, please specify [ ] Unable to Determine (Template Last Revised: February 2023) Severe protein calorie malnutrition with a BMI of 16.5 Signed By: <Electronically signed by Celine Gomez> 10/05/24 0408 MTDD
[2024-10-04 19:59] LABS: Glucose,Whole Blood 415 mg/dL (70-110)
--- NOTE | 2024-10-05 04:08 | P.PN ---
Subjective Progress Note Date: 10/04/24 This is a 74-year-old female who was recently admitted with increasing shortness of breath found to have acute influenza A infection at [facility] and has been started on Tamiflu. Patient also with significant COPD being monitored by pulmonary maintained on steroids along with breathing treatments. Patient currently on 5 L via nasal cannula and intermittently using BiPAP. Patient has been on BiPAP throughout most of the day per nursing staff and extremely lethargic today. Patient will need PT/OT therapy updated notes as patient will be returning to [facility] on discharge. Review of systems: Constitutional: reports of fatigue, no fever, or chills Cardiovascular: No reports of chest pain or palpitations Respiratory: reports of continued ongoing shortness of breath with cough GI: No reports of nausea, no reports of vomiting, no diarrhea, not much of an appetite : No reports of dysuria or retention Neurovascular: reports of generalized weakness All medications have been reviewed PHYSICAL EXAMINATION: GENERAL: The patient is lethargic today but arousable, fatigues easily, alert and oriented x 23 well developed, thin built, cachectic, elderly appearing HEENT: Pupils are round and equally reacting to light. EOMI. no scleral icterus. No conjunctival pallor. Normocephalic, atraumatic. No pharyngeal erythema. No thyromegaly. CARDIOVASCULAR: S1 and S2 muffled PULMONARY: diminished breath sounds bilaterally with no wheezing or rhonchi noted. ABDOMEN: soft. Nontender on exam. Thin, scaphoid non-distended, normoactive bowel sounds. No palpable organomegaly. MUSCULOSKELETAL: No joint swelling or deformity. EXTREMITIES: No cyanosis, clubbing, or pedal edema. Cachectic in upper and lower extremities NEUROLOGICAL: Gross neurological examination did not reveal any focal deficits. Diffuse weakness SKIN: No rashes. Assessment: Chronic obstructive pulmonary disease, acute exacerbation with acute events as well as acute hypoxic respiratory failure status post BiPAP Change in mental status, acute metabolic encephalopathy Influenza A infection Hypertension history Diabetes mellitus, type II uncontrolled with hyper and hypoglycemia History of PE History of urinary tract infection Severe protein calorie malnutrition with a BMI of 16.5 GI prophylaxis DVT prophylaxis No code Plan: Recommend to continue with current medications and management with pulmonary and infectious disease following closely. Patient maintained on Tamiflu. Procalcitonin normal with infectious disease following and will continue current regimen Continue steroids and breathing treatments with pulmonary following and patient is maintained on 4 to 5 L via nasal cannula as well as intermittent BiPAP use. Patient is using more BiPAP today's patient is extremely lethargic Repeat labs ordered for a.m. Patient not eating or drinking much encourage supplements as well as small frequent meals CODE STATUS was addressed and patient wishes to be no code Case management following as patient will be returning to ECF on discharge Due to multiple complex medical issues, overall prognosis is guarded The impression and plan of care has been dictated by Celine Gomez, nurse practitioner as directed. Dr. Raj MD I have performed a history and examination and MDM of this patient, discussed the same with the dictator, and agree with the dictator's assessment and plan as written ,documented as a scribe. Based on total visit time, I have performed more than 50% of the visit. Any additional findings or plans will be noted. Objective - Vital Signs Vital signs: Vital Signs Temp 97.7 F 10/04/24 19:43 Pulse 52 L 10/05/24 03:14 Resp 15 10/05/24 03:14 BP 167/80 10/05/24 03:14 Pulse Ox 99 10/05/24 03:14 FiO2 40 10/05/24 03:14 Intake & Output 10/04/24 10/04/24 10/05/24 06:59 18:59 06:59 Intake Total 10 Output Total 300 900 Balance -300 -890 Weight 45 kg Intake: IV 10 Invasive Line 4 10 Output: Urine 300 900 Other: Voiding Method External Catheter External Catheter External Catheter # Voids 2 # Bowel Movements 0 2 - Labs CBC & Chem 7: 10/03/24 06:49 10/03/24 06:49 Labs: Abnormal Lab Results - Last 24 Hours (Table) 10/04/24 10/04/24 10/04/24 Range/Units 06:01 11:30 16:25 POC Glucose (mg/dL) 134 H 259 H 186 H (70-110) mg/dL 10/04/24 Range/Units 19:58 POC Glucose (mg/dL) 415 H (70-110) mg/dL
[2024-10-05 06:00] LABS: Glucose,Whole Blood 188 mg/dL (70-110)
[2024-10-05 08:18] LABS: Basophils % (A) 0 %; Eosinophils # (A) 0.1 k/uL (0-0.7); Eosinophils % (A) 1 %; HCT 32.4 % (34.0-46.0); HGB 10.1 gm/dL (11.4-16.0); Hypochromasia Moderate; Lymphocytes # (A) 0.7 k/uL (1.0-4.8); Lymphocytes % (A) 7 %; MCH 28.7 pg (25.0-35.0); MCHC 31.2 g/dL (31.0-37.0); MCV 92.1 fL (80.0-100.0); Mean Platelet Volume 6.8; Monocytes # (A) 0.4 k/uL (0-1.0); Monocytes % (A) 4 %; Neutrophils # (A) 8.3 k/uL (1.3-7.7); Neutrophils % (A) 87 %; Platelet Count 395 k/uL (150-450); RBC 3.52 m/uL (3.80-5.40); WBC 9.6 k/uL (3.8-10.6)
[2024-10-05 08:27] LABS: African American GFR (CKD) >90 (>60 ml/min/1.73 sqM); Blood Urea Nitrogen 35 mg/dL (7-17); Chloride 90 mmol/L (98-107); Glucose 129 mg/dL (74-99); Magnesium 1.7 mg/dL (1.6-2.3); Non-African American GFR(CKD) >90 (>60 ml/min/1.73 sqM); Potassium 3.6 mmol/L (3.5-5.1); Sodium 138 mmol/L (137-145)
[2024-10-05 08:33] LABS: Anion Gap 7 mmol/L
[2024-10-05 08:56] LABS: Carbon Dioxide 41 mmol/L (22-30)
[2024-10-05 11:27] LABS: Glucose,Whole Blood 177 mg/dL (70-110)
--- NOTE | 2024-10-05 12:05 | P.PN ---
Subjective This is a 74-year-old female who was recently admitted with increasing shortness of breath found to have acute influenza A infection at [facility] and has been started on Tamiflu. Patient also with significant COPD being monitored by pulmonary maintained on steroids along with breathing treatments. Patient currently on 5 L via nasal cannula and intermittently using BiPAP. Patient has been on BiPAP throughout most of the day per nursing staff and extremely lethargic today. Patient will need PT/OT therapy updated notes as patient will be returning to [facility] on discharge. 10/05 Patient is still on BiPAP this morning with a setting of 14/5 and FiO2 of 40% She is less wheezing but still has some limitation in air entry. She has barrel chest No chest pain or significant coughing. Hemoglobin 10.1, WBC 9.6. Carbon dioxide 41. Creatinine normal glucose controlled. She remains on Tamiflu and IV Solu-Medrol and normal saline 40 mL/h Review of systems CONSTITUTIONAL: No fever, no malaise, no fatigue. HEENT: No recent visual problems or hearing problems. Denied any sore throat. CARDIOVASCULAR: No orthopnea, PND, no palpitations, no syncope. PULMONARY: no cough, no hemoptysis. GASTROINTESTINAL: No diarrhea, no nausea, no vomiting, no abdominal pain. Normoactive bowel sounds. NEUROLOGICAL: No headaches, no weakness, no numbness. HEMATOLOGICAL: Denies any bleeding or petechiae. Active Medications Generic Name Dose Route Start Last Admin Trade Name Freq PRN Reason Stop Dose Admin Acetaminophen 650 mg 10/01/24 13:44 10/02/24 20:54 Acetaminophen Tab 325 Mg Tab PO 650 mg Q6HR PRN Administration Mild Pain or Fever > 100.5 Hydrocodone Bitart/Acetaminophen 1 each 10/03/24 12:16 10/03/24 12:54 Hydrocodone/Apap 5-325mg 1 Each Tab PO 1 each Q6HR PRN Administration Pain Albuterol/Ipratropium 3 ml 10/01/24 16:00 10/05/24 11:37 Ipratropium-Albuterol 3 Ml Neb INHALATION 3 ml RT-QID DELVIN Administration Albuterol/Ipratropium 3 ml 10/01/24 15:36 10/02/24 02:27 Ipratropium-Albuterol 3 Ml Neb INHALATION 3 ml RT-Q2H PRN Administration Shortness Of Breath Or Wheezing Amlodipine Besylate 10 mg 10/04/24 09:00 10/05/24 09:21 Amlodipine 10 Mg Tab PO 10 mg DAILY DELVIN Administration Atenolol 50 mg 10/03/24 21:00 10/05/24 09:21 Atenolol 50 Mg Tab PO 50 mg BID DELVIN Administration Budesonide/Formoterol Fumarate 2 puff 10/01/24 20:00 10/05/24 08:36 Symbicort 160-4.5 Mcg Inhaler INHALATION Not Given RT-BID DELVIN Dextrose/Water 25 ml 10/01/24 17:24 Dextrose 50% Syringe 50 Ml IVP PER PROTOCOL PRN Hypoglycemia Protocol Dextrose/Water 50 ml 10/01/24 17:24 Dextrose 50% Syringe 50 Ml IVP PER PROTOCOL PRN Hypoglycemia Protocol Fluticasone Propionate 2 spray 10/03/24 09:00 10/05/24 09:21 Fluticasone Nasal 50mcg/[place] 16gm Btl EA NOSTRIL 2 spray DAILY DELVIN Administration Heparin Sodium (Porcine) 5,000 unit 10/01/24 21:00 10/05/24 09:21 Heparin Sodium,Porcine 5,000 Unit/Ml 1 Ml Vial SQ 5,000 unit Q12HR DELVIN Administration Sodium Chloride 1,000 mls @ 40 mls/hr 10/01/24 13:45 10/05/24 05:05 Saline 0.9% IV Not Given .Q24H DELVIN Insulin Aspart 0 unit 10/01/24 17:30 10/05/24 11:38 Insulin Aspart (Novolog) 100 Unit/Ml Vial SQ 1 unit ACHS DELVIN Administration Protocol Lorazepam 0.5 mg 10/03/24 01:54 10/04/24 19:08 Lorazepam 2 Mg/Ml Inj IV 0.5 mg Q6HR PRN Administration Anxiety Methylprednisolone Sodium Succinate 60 mg 10/01/24 18:00 10/05/24 11:38 Methylprednisolone Sod Succi 125 Mg/2 Ml Vial IV 60 mg Q6HR DELVIN Administration Naloxone HCl 0.2 mg 10/01/24 13:44 Naloxone 0.4 Mg/Ml 1 Ml Vial IV Q2M PRN Opioid Reversal Ondansetron HCl 4 mg 10/01/24 13:44 Ondansetron 4 Mg/2 Ml Vial IVP Q8HR PRN Nausea And Vomiting Oseltamivir Phosphate 75 mg 10/01/24 21:00 10/05/24 09:21 Oseltamivir 75 Mg Cap PO 10/06/24 09:01 75 mg Q12HR DELVIN Administration Protocol Pantoprazole Sodium 40 mg 10/03/24 07:30 10/05/24 06:05 Pantoprazole 40 Mg Tablet PO 40 mg [id number] DELVIN Administration Objective - Vital Signs Vital signs: Vital Signs Temp 97.9 F 10/05/24 09:18 Pulse 56 L 10/05/24 11:48 Resp 20 10/05/24 11:38 BP 170/79 10/05/24 11:38 Pulse Ox 99 10/05/24 11:38 FiO2 40 10/05/24 11:40 Intake & Output 10/04/24 10/05/24 10/05/24 18:59 06:59 18:59 Intake Total 10 Output Total 900 Balance -890 Intake: IV 10 Invasive Line 4 10 Output: Urine 900 Other: Voiding Method External Catheter External Catheter # Voids 2 # Bowel Movements 0 2 - Exam GENERAL: The patient is alert and oriented x3, not in any acute distress. Well developed, well nourished. HEENT: Pupils are round and equally reacting to light. EOMI. No scleral icterus. No conjunctival pallor. Normocephalic, atraumatic. No pharyngeal erythema. No thyromegaly. CARDIOVASCULAR: S1 and S2 present. No murmurs, rubs, or gallops. -PULMONARY: Chest is clear to auscultation, no wheezing , no crackles. On BiPAP with limited air entry bilaterally ABDOMEN: Soft, nontender, nondistended, normoactive bowel sounds. No palpable organomegaly. MUSCULOSKELETAL: No joint swelling or deformity. EXTREMITIES: No cyanosis, clubbing, or pedal edema. NEUROLOGICAL: Gross neurological examination did not reveal any focal deficits. SKIN: No rashes. no petechiae. - Labs CBC & Chem 7: 10/05/24 07:40 10/05/24 07:40 Labs: Abnormal Lab Results - Last 24 Hours (Table) 10/04/24 10/04/24 10/05/24 Range/Units 16:25 19:58 05:58 RBC (3.80-5.40) m/uL Hgb (11.4-16.0) gm/dL Hct (34.0-46.0) % Neutrophils # (1.3-7.7) k/uL Lymphocytes # (1.0-4.8) k/uL Chloride (98-107) mmol/L Carbon Dioxide (22-30) mmol/L BUN (7-17) mg/dL Glucose (74-99) mg/dL POC Glucose (mg/dL) 186 H 415 H 188 H (70-110) mg/dL 10/05/24 10/05/24 10/05/24 Range/Units 07:40 07:40 11:22 RBC 3.52 L (3.80-5.40) m/uL Hgb 10.1 L (11.4-16.0) gm/dL Hct 32.4 L (34.0-46.0) % Neutrophils # 8.3 H (1.3-7.7) k/uL Lymphocytes # 0.7 L (1.0-4.8) k/uL Chloride 90 L (98-107) mmol/L Carbon Dioxide 41 H* (22-30) mmol/L BUN 35 H (7-17) mg/dL Glucose 129 H (74-99) mg/dL POC Glucose (mg/dL) 177 H (70-110) mg/dL Assessment and Plan Assessment: Chronic obstructive pulmonary disease, acute exacerbation with acute events as well as acute hypoxic respiratory failure status post BiPAP Change in mental status, acute metabolic encephalopathy Influenza A infection Hypertension history Diabetes mellitus, type II uncontrolled with hyper and hypoglycemia History of PE History of urinary tract infection Severe protein calorie malnutrition with a BMI of 16.5 Plan: On IV Solu-Medrol Continue with Tamiflu On gentle hydration with normal saline 40 mL/h Pulmonary and ID team on the case On Norvasc and atenolol Labs and medication were reviewed.. Continue same treatment. Continue with symptomatic treatment. Resume home medication. Monitor labs and vitals. DVT and GI prophylaxis. Further recommendations as per clinical course of the patient DVT prophylaxis: Subcutaneous heparin GI Prophylaxis: Protonix PT/OT: Return to ECF upon discharge Prognosis is guarded CODE STATUS: DNR
--- NOTE | 2024-10-05 12:47 | P.PN ---
Subjective Progress Note Date: 10/05/24 Principal diagnosis: Shortness of breath. This is a 74-year-old female patient who was recently discharged from here to [facility] on September 14, 2024. She has a past medical history significant for very severe COPD, chronic oxygen dependence on 4 L/min nasal can nula, lung nodule, chronic ongoing tobacco dependence, remote history of PE, hypertension, fibromyalgia. She has an FEV1 22% of predicted. Uses a combination of Trelegy inhaler, albuterol nebs [id number], and as needed Ventolin HFA inhaler. She was brought back from [facility] to here today after being found to be hypoxemic at the intermediate. Chest x-ray reveals findings of COPD and mild chronic interstitial changes. Small left pleural effusion. ABGs here on 50% FiO2 revealed a PaO2 of 84, pCO2 of 82 and a pH of 7.27. She is seen today in consultation in the emergency department. She is currently on BiPAP 14/5 and 40% FiO2. She is arousable but drifts off easily. Labs from [place] reviewed. The patient is seen today October 02, 2024 in follow-up in the emergency department room #3. She is awake and alert in no acute distress. Doing better today compared to yesterday. Continued on BiPAP 14/5 and 40% FiO2. She remains quite weak and debilitated. White count 10.5. Hemoglobin 9.8. Platelets 365. Sodium 138. Potassium 4.8. Bicarb 35. BUN 35. Creatinine 0.71. Glucose 186. She is continued on DuoNeb inhalations, Symbicort, Solu-Medrol. She is continued on Tamiflu. Heparin for DVT prophylaxis. Protonix for GI prophylaxis. Antibiotics in the form of ceftriaxone. Procalcitonin was 0.41. Progress note dated October 03, 2024. 74-year-old female seen today in room 365. The patient was admitted with a diagnosis of hyper No respiratory failure, and influenza A infection. She is currently on 4 L nasal cannula. She is receiving Tamiflu, at usual doses, and also receiving saline at 75 cc an hour. Current laboratory data includes a white count 9.9, hemoglobin 9.9, hematocrit 32.6, and a platelet count of 40- 34,000. Sodium 140, potassium 4.1, chloride 93, CO2 40, BUN 21, and creatinine 0.6. Glucose was 150. Calcium 8.4. Chest x-ray from yesterday, shows some mild fluid overload. Progress note dated October 04, 2024. 74-year-old female seen today in room 365. The patient was seen, and is currently on BiPAP, with settings of 14/5, and 40%. The patient was sleeping, and I did not wake her. The patient was admitted with a diagnosis of respiratory failure, and influenza A. She is not receiving any IV fluids. She continues on Tamiflu. Her procalcitonin level was 0.41, which is in the normal range. Blood analysis today revealed a glucose of 259. Progress note dated October 05, 2024. 74-year-old female seen today in room 365. The patient continues on BiPAP, with settings of 14/5, and 40%. The patient is not receiving any IV fluids. The patient continues as a DO NOT RESUSCITATE patient. Current laboratory data includes a white count 9.6, hemoglobin 10.1, hematocrit 32.4, and a platelet count of 395,000. Sodium 138, potassium 3.6, chlorides 90, CO2 41, BUN 35, and creatinine 0.58. Glucose was 177. Calcium 9, and magnesium 1.7. Objective - Vital Signs Vital signs: Vital Signs Temp 97.9 F 10/05/24 09:18 Pulse 56 L 10/05/24 11:48 Resp 20 10/05/24 11:38 BP 170/79 10/05/24 11:38 Pulse Ox 99 10/05/24 11:38 FiO2 40 10/05/24 11:40 Intake & Output 10/04/24 10/05/24 10/05/24 18:59 06:59 18:59 Intake Total 10 10 Output Total 900 Balance -890 10 Intake: IV 10 10 Invasive Line 4 10 10 Output: Urine 900 Other: Voiding Method External Catheter External Catheter External Catheter # Voids 2 # Bowel Movements 0 2 - Exam No acute distress, oriented 3. The patient is currently on BiPAP. HEENT examination is grossly unremarkable. Mucous membranes are moist. No oral lesions. Neck supple. Full range of motion. No adenopathy thyromegaly or neck vein distention. Cardiovascular examination reveals regular rhythm rate. S1-S2 normal. No S3 or S4. No discernible murmur noted. Lungs reveal scattered bilateral rhonchi. No wheezes or crackles. Breath sounds equal bilaterally. Abdomen soft bowel sounds are heard. No masses or tenderness. Extremities are intact. No cyanosis clubbing or edema. Skin is without rash or lesion. Neurologic examination is brief but nonfocal. - Labs CBC & Chem 7: 10/05/24 07:40 10/05/24 07:40 Labs: Abnormal Lab Results - Last 24 Hours (Table) 10/04/24 10/04/24 10/05/24 Range/Units 16:25 19:58 05:58 RBC (3.80-5.40) m/uL Hgb (11.4-16.0) gm/dL Hct (34.0-46.0) % Neutrophils # (1.3-7.7) k/uL Lymphocytes # (1.0-4.8) k/uL Chloride (98-107) mmol/L Carbon Dioxide (22-30) mmol/L BUN (7-17) mg/dL Glucose (74-99) mg/dL POC Glucose (mg/dL) 186 H 415 H 188 H (70-110) mg/dL 10/05/24 10/05/24 10/05/24 Range/Units 07:40 07:40 11:22 RBC 3.52 L (3.80-5.40) m/uL Hgb 10.1 L (11.4-16.0) gm/dL Hct 32.4 L (34.0-46.0) % Neutrophils # 8.3 H (1.3-7.7) k/uL Lymphocytes # 0.7 L (1.0-4.8) k/uL Chloride 90 L (98-107) mmol/L Carbon Dioxide 41 H* (22-30) mmol/L BUN 35 H (7-17) mg/dL Glucose 129 H (74-99) mg/dL POC Glucose (mg/dL) 177 H (70-110) mg/dL Assessment and Plan Assessment: Acute hypoxemic and hypercapnic respiratory failure secondary to an acute exacerbation of chronic obstructive pulmonary disease complicated by influenza A infection. Positive influenza A at outside facility. Altered mental status secondary to hypercapnia and hypoxemia. Chronic hypoxemic respiratory failure, normally maintained on 4 L/min nasal cannula 15/03. History of left lower lung nodule, FDG avid, and suspicious for bronchogenic carcinoma. Very severe COPD, with an FEV1 22% of predicted. Chronic ongoing tobacco dependence. Possible new onset atrial fibrillation with ventricular response. Remote history of pulmonary embolism. Hypertension. Fibromyalgia. Poor overall functional performance based on the above-mentioned multiple comorbidities. Plan: Plan dated October 03, 2024. The patient is seen today in room 365. She appears to be a bit better today than yesterday. She continues on nasal O2 at 4 L by cannula. The patient is on Tamiflu at usual doses, and getting saline at 75 cc an hour. All labs, x-rays, and medications are reviewed. The patient also continues on updrafts, Symbicort, and Solu-Medrol. The patient is a DO NOT RESUSCITATE patient. We will continue to follow the patient, make recommendations along the way. 50 minutes was spent with this patient, including the interview process, examination, reviewing of pertinent laboratory data, x-rays, and medications, as well as discussing the diagnosis, treatment, and prognosis, with the patient, and the patient's bedside nurse. Plan dated October 04, 2024. The patient is seen today in room 365. The patient continues on Symbicort 160/4.5, 2 puffs twice a day, as well as DuoNebs, 4 times daily and as needed. In addition, the patient continues on Solu-Medrol 60 mg every 6 hours, and Tamiflu, 75 mg orally, twice a day for 5 days. Labs, x-rays, and all medication s are reviewed. The patient is a DO NOT RESUSCITATE patient. We will continue to follow the patient, make recommendations along the way. 50 minutes was spent with the patient, including the interview process, examination, reviewing of pertinent laboratory data, x-rays, and medications, as well as discussing the diagnosis, treatment, and prognosis, with the patient, and the patient's bedside nurse. Plan dated October 05, 2024. The patient is again seen today in room 365. The patient continues on BiPAP, with settings of 14/5, and 40%. She is not receiving any IV fluids. Labs, x- rays, and medications are reviewed. The patient continues on Symbicort, DuoNebs, Solu-Medrol, and Tamiflu. All labs, x-rays, and medications are reviewed. We will continue to follow the patient, make recommendations along the way. The patient continues as a DO NOT RESUSCITATE patient. The patient's overall prognosis is poor. 50 minutes was spent with this patient, which included taking history, examining the patient, reviewing pertinent laboratory data, x-rays, medications, as well as discussing the diagnosis, treatment, and prognosis, with the patient, and the patient's nursing staff. Dictation was produced using [employer] dictation software. Please excuse any grammatical, word or spelling errors. Time with Patient: Greater than 30
--- NOTE | 2024-10-05 14:23 | P.PN ---
Subjective Progress Note Date: 10/05/24 Principal diagnosis: Reason for follow-up is acute influenza Patient is a 74-year-old female with a past medical history significant for COPD diabetes mellitus fibromyalgia hypertension reflux PE patient is a resident of the [facility] and was sent to the [facility] [place] initially for evaluation of respiratory distress for which the patient has been transferred to [facility] for further evaluation. On today's evaluation that is 10/05/2024,the patient remains to be afebrile, patient is on BiPAP with 40% FiO2, she is awake and answers some simple quest ions and denies any chest pain no worsening of abdominal pain or diarrhea has been reported. Patient white count is 9.6, creatinine 0.58 Objective - Vital Signs Vital signs: Vital Signs Temp 97.9 F 10/05/24 09:18 Pulse 56 L 10/05/24 11:48 Resp 20 10/05/24 11:38 BP 170/79 10/05/24 11:38 Pulse Ox 99 10/05/24 11:38 FiO2 40 10/05/24 11:40 Intake & Output 10/04/24 10/05/24 10/05/24 18:59 06:59 18:59 Intake Total 10 10 Output Total 900 Balance -890 10 Intake: IV 10 10 Invasive Line 4 10 10 Output: Urine 900 Other: Voiding Method External Catheter External Catheter External Catheter # Voids 2 # Bowel Movements 0 2 - Exam GENERAL DESCRIPTION: An elderly female lying in bed in no distress RESPIRATORY SYSTEM: Unlabored breathing , decreased breath sounds at bases HEART: S1 S2 regular rate and rhythm , ABDOMEN: Soft , no tenderness EXTREMITIES: No edema feet - Labs CBC & Chem 7: 10/05/24 07:40 10/05/24 07:40 Labs: Abnormal Lab Results - Last 24 Hours (Table) 10/04/24 10/04/24 10/05/24 Range/Units 16:25 19:58 05:58 RBC (3.80-5.40) m/uL Hgb (11.4-16.0) gm/dL Hct (34.0-46.0) % Neutrophils # (1.3-7.7) k/uL Lymphocytes # (1.0-4.8) k/uL Chloride (98-107) mmol/L Carbon Dioxide (22-30) mmol/L BUN (7-17) mg/dL Glucose (74-99) mg/dL POC Glucose (mg/dL) 186 H 415 H 188 H (70-110) mg/dL 10/05/24 10/05/24 10/05/24 Range/Units 07:40 07:40 11:22 RBC 3.52 L (3.80-5.40) m/uL Hgb 10.1 L (11.4-16.0) gm/dL Hct 32.4 L (34.0-46.0) % Neutrophils # 8.3 H (1.3-7.7) k/uL Lymphocytes # 0.7 L (1.0-4.8) k/uL Chloride 90 L (98-107) mmol/L Carbon Dioxide 41 H* (22-30) mmol/L BUN 35 H (7-17) mg/dL Glucose 129 H (74-99) mg/dL POC Glucose (mg/dL) 177 H (70-110) mg/dL Assessment and Plan (1) Influenza A Current Visit: Yes Status: Acute Code(s): J10.1 - FLU DUE TO OTH IDENT INFL UENZA VIRUS W OT RESP MANIFEST SNOMED Code(s): 243241843 Plan: 1patient presented to hospital with acute respiratory failure with aspiration noted to be significantly hypoxic requiring BiPAP on admission, Tested positive for influenza A and a question of possible secondary bacterial pneumonia not entirely excluded, however the patient did have a normal procalcitonin. 2patient has been afebrile still have some respiratory distress requiring BiPAP, patient to continue with Tamiflu to finish a 5-day course of therapy and continue with supportive care Dictation was produced using [employer] dictation software. please excuse any grammatical, word or spelling errors. Time with Patient: Less than 30
[2024-10-05 16:40] LABS: Glucose,Whole Blood 355 mg/dL (70-110)
[2024-10-05 20:09] LABS: Glucose,Whole Blood 207 mg/dL (70-110)
[2024-10-06 06:21] LABS: Glucose,Whole Blood 254 mg/dL (70-110)
[2024-10-06 11:17] LABS: Glucose,Whole Blood 279 mg/dL (70-110)
[2024-10-06 15:09] LABS: Glucose,Whole Blood 286 mg/dL (70-110)
--- NOTE | 2024-10-06 15:14 | P.PN ---
Subjective Progress Note Date: 10/06/24 Principal diagnosis: Shortness of breath. This is a 74-year-old female patient who was recently discharged from here to [facility] on September 14, 2024. She has a past medical history significant for very severe COPD, chronic oxygen dependence on 4 L/min nasal can nula, lung nodule, chronic ongoing tobacco dependence, remote history of PE, hypertension, fibromyalgia. She has an FEV1 22% of predicted. Uses a combination of Trelegy inhaler, albuterol nebs [id number], and as needed Ventolin HFA inhaler. She was brought back from [facility] to here today after being found to be hypoxemic at the halfway. Chest x-ray reveals findings of COPD and mild chronic interstitial changes. Small left pleural effusion. ABGs here on 50% FiO2 revealed a PaO2 of 84, pCO2 of 82 and a pH of 7.27. She is seen today in consultation in the emergency department. She is currently on BiPAP 14/5 and 40% FiO2. She is arousable but drifts off easily. Labs from [place] reviewed. The patient is seen today October 02, 2024 in follow-up in the emergency department room #3. She is awake and alert in no acute distress. Doing better today compared to yesterday. Continued on BiPAP 14/5 and 40% FiO2. She remains quite weak and debilitated. White count 10.5. Hemoglobin 9.8. Platelets 365. Sodium 138. Potassium 4.8. Bicarb 35. BUN 35. Creatinine 0.71. Glucose 186. She is continued on DuoNeb inhalations, Symbicort, Solu-Medrol. She is continued on Tamiflu. Heparin for DVT prophylaxis. Protonix for GI prophylaxis. Antibiotics in the form of ceftriaxone. Procalcitonin was 0.41. Progress note dated October 03, 2024. 74-year-old female seen today in room 365. The patient was admitted with a diagnosis of hyper No respiratory failure, and influenza A infection. She is currently on 4 L nasal cannula. She is receiving Tamiflu, at usual doses, and also receiving saline at 75 cc an hour. Current laboratory data includes a white count 9.9, hemoglobin 9.9, hematocrit 32.6, and a platelet count of 40- 34,000. Sodium 140, potassium 4.1, chloride 93, CO2 40, BUN 21, and creatinine 0.6. Glucose was 150. Calcium 8.4. Chest x-ray from yesterday, shows some mild fluid overload. Progress note dated October 04, 2024. 74-year-old female seen today in room 365. The patient was seen, and is currently on BiPAP, with settings of 14/5, and 40%. The patient was sleeping, and I did not wake her. The patient was admitted with a diagnosis of respiratory failure, and influenza A. She is not receiving any IV fluids. She continues on Tamiflu. Her procalcitonin level was 0.41, which is in the normal range. Blood analysis today revealed a glucose of 259. Progress note dated October 05, 2024. 74-year-old female seen today in room 365. The patient continues on BiPAP, with settings of 14/5, and 40%. The patient is not receiving any IV fluids. The patient continues as a DO NOT RESUSCITATE patient. Current laboratory data includes a white count 9.6, hemoglobin 10.1, hematocrit 32.4, and a platelet count of 395,000. Sodium 138, potassium 3.6, chlorides 90, CO2 41, BUN 35, and creatinine 0.58. Glucose was 177. Calcium 9, and magnesium 1.7. Progress note dated October 06, 2024. 74-year-old female seen today in room 365. Family members are at the bedside. The patient use the BiPAP, at 14/5, and 40%, all night. Currently she is on 5 L nasal cannula. She is awake and alert. She states that she is feeling better and gives a thumbs up when I ask her how she is feeling. She is not receiving any IV fluids. The patient will have a flutter valve ordered, for her congested wet cough. No new laboratory data today, other than a glucose of 286. Objective - Vital Signs Vital signs: Vital Signs Temp 97.2 F L 10/06/24 08:00 Pulse 67 10/06/24 12:00 Resp 16 10/06/24 12:00 BP 163/65 10/06/24 12:00 Pulse Ox 97 10/06/24 12:00 FiO2 40 10/06/24 04:34 Intake & Output 10/05/24 10/06/24 10/06/24 18:59 06:59 18:59 Intake Total 740 260 380 Output Total 1400 Balance 740 260 -1020 Weight 45 kg Intake: IV 20 20 20 Invasive Line 4 20 20 20 Oral 720 240 360 Output: Urine 1400 Other: Voiding Method External Catheter External Catheter External Catheter # Voids 2 - Exam No acute distress, oriented 3. The patient is currently on nasal cannula at 5 liters. HEENT examination is grossly unremarkable. Mucous membranes are moist. No oral lesions. Neck supple. Full range of motion. No adenopathy thyromegaly or neck vein distention. Cardiovascular examination reveals regular rhythm rate. S1-S2 normal. No S3 or S4. No discernible murmur noted. Lungs reveal scattered bilateral rhonchi. No wheezes or crackles. Breath sounds equal bilaterally. Abdomen soft bowel sounds are heard. No masses or tenderness. Extremities are intact. No cyanosis clubbing or edema. Skin is without rash or lesion. Neurologic examination is brief but nonfocal. - Labs CBC & Chem 7: 10/05/24 07:40 10/05/24 07:40 Labs: Abnormal Lab Results - Last 24 Hours (Table) 10/05/24 10/05/24 10/06/24 Range/Units 16:38 20:08 06:20 POC Glucose (mg/dL) 355 H 207 H 254 H (70-110) mg/dL 10/06/24 10/06/24 Range/Units 11:14 15:08 POC Glucose (mg/dL) 279 H 286 H (70-110) mg/dL Assessment and Plan Assessment: Acute hypoxemic and hypercapnic respiratory failure secondary to an acute exacerbation of chronic obstructive pulmonary disease complicated by influenza A infection. Positive influenza A at outside facility. Altered mental status secondary to hypercapnia and hypoxemia. Chronic hypoxemic respiratory failure, normally maintained on 4 L/min nasal cannula 15/03. History of left lower lung nodule, FDG avid, and suspicious for bronchogenic car cinoma. Very severe COPD, with an FEV1 22% of predicted. Chronic ongoing tobacco dependence. Possible new onset atrial fibrillation with ventricular response. Remote history of pulmonary embolism. Hypertension. Fibromyalgia. Poor overall functional performance based on the above-mentioned multiple comorbidities. Plan: Plan dated October 03, 2024. The patient is seen today in room 365. She appears to be a bit better today than yesterday. She continues on nasal O2 at 4 L by cannula. The patient is on Tamiflu at usual doses, and getting saline at 75 cc an hour. All labs, x-rays, and medications are reviewed. The patient also continues on updrafts, Symbicort, and Solu-Medrol. The patient is a DO NOT RESUSCITATE patient. We will continue to follow the patient, make recommendations along the way. 50 minutes was spent with this patient, including the interview process, examination, reviewing of pertinent laboratory data, x-rays, and medications, as well as discussing the diagnosis, treatment, and prognosis, with the patient, and the patient's bedside nurse. Plan dated October 04, 2024. The patient is seen today in room 365. The patient continues on Symbicort 160/4.5, 2 puffs twice a day, as well as DuoNebs, 4 times daily and as needed. In addition, the patient continues on Solu-Medrol 60 mg every 6 hours, and Tamiflu, 75 mg orally, twice a day for 5 days. Labs, x-rays, and all medications are reviewed. The patient is a DO NOT RESUSCITATE patient. We will continue to follow the patient, make recommendations along the way. 50 minutes was spent with the patient, including the interview process, examination, reviewing of pertinent laboratory data, x-rays, and medications, as well as discussing the diagnosis, treatment, and prognosis, with the patient, and the patient's bedside nurse. Plan dated October 05, 2024. The patient is again seen today in room 365. The patient continues on BiPAP, with settings of 14/5, and 40%. She is not receiving any IV fluids. Labs, x- rays, and medications are reviewed. The patient continues on Symbicort, DuoNebs, Solu-Medrol, and Tamiflu. All labs, x-rays, and medications are reviewed. We will continue to follow the patient, make recommendations along the way. The patient continues as a DO NOT RESUSCITATE patient. The patient's overall prognosis is poor. 50 minutes was spent with this patient, which included taking history, examining the patient, reviewing pertinent laboratory data, x-rays, medications, as well as discussing the diagnosis, treatment, and prognosis, with the patient, and the patient's nursing staff. Dictation was produced using [employer] software. Please excuse any grammatical, word or spelling errors. Plan dated October 06, 2024. The patient is again seen today in room 365. The patient is currently on 5 L nasal cannula. She did use BiPAP, with settings of 14/5 and 40%, throughout the night. We will order a flutter valve for this patient. She is not receiving any IV fluids. All labs, x-rays, medications are reviewed. The patient continues on Symbicort, DuoNebs, Solu-Medrol, and Tamiflu. The patient is a DO NOT RESUSCITATE patient. 50 minutes was spent with this patient, including time obtaining the history, examining the patient, reviewing pertinent laboratory data, x-rays, medications, as well as discussing the diagnosis, treatment, and prognosis, with the patient, and the patient's nursing staff. Time with Patient: Greater than 30
--- NOTE | 2024-10-06 15:20 | P.PN ---
Subjective Progress Note Date: 10/06/24 Principal diagnosis: Reason for follow-up is acute influenza Patient is a 74-year-old female with a past medical history significant for COPD diabetes mellitus fibromyalgia hypertension reflux PE [facility] initially for evaluation of respiratory distress for which the patient has been transferred to [facility] for further evaluation. On today's evaluation that is 10/06/2024, the patient continues to be afebrile, the patient is on 3 L, oxygen and breathing comfortably, the Pt denies having any chest pain or any worsening cough, the patient denies having any abdominal pain no vomiting or any diarrhea, patient mention feeling better wants to go home. No new lab has been obtained today Objective - Vital Signs Vital signs: Vital Signs Temp 97.2 F L 10/06/24 08:00 Pulse 67 10/06/24 12:00 Resp 16 10/06/24 12:00 BP 163/65 10/06/24 12:00 Pulse Ox 97 10/06/24 12:00 FiO2 40 10/06/24 04:34 Intake & Output 10/05/24 10/06/24 10/06/24 18:59 06:59 18:59 Intake Total 740 260 190 Output Total 600 Balance 740 260 -410 Weight 45 kg Intake: IV 20 20 10 Invasive Line 4 20 20 10 Oral 720 240 180 Output: Urine 600 Other: Voiding Method External Catheter External Catheter External Catheter # Voids 2 - Exam GENERAL DESCRIPTION: An elderly female lying in bed in no distress RESPIRATORY SYSTEM: Unlabored breathing , decreased breath sounds at bases HEART: S1 S2 regular rate and rhythm , ABDOMEN: Soft , no tenderness EXTREMITIES: No edema feet - Labs CBC & Chem 7: 10/05/24 07:40 10/05/24 07:40 Labs: Abnormal Lab Results - Last 24 Hours (Table) 10/05/24 10/05/24 10/06/24 Range/Units 16:38 20:08 06:20 POC Glucose (mg/dL) 355 H 207 H 254 H (70-110) mg/dL 10/06/24 Range/Units 11:14 POC Glucose (mg/dL) 279 H (70-110) mg/dL Assessment and Plan (1) Influenza A Current Visit: Yes Status: Acute Code(s): J10.1 - FLU DUE TO OTH IDENT INFLUENZA VIRUS W OTH RESP MANIFEST SNOMED Code(s): 883287286 Plan: 1patient presented to hospital with acute respiratory failure with aspiration noted to be significantly hypoxic requiring BiPAP on admission, Tested positive for influenza A and a question of possible secondary bacterial pneumonia not entirely excluded, however the patient did have a normal procalcitonin. 2patient has been afebrile and has completed her 5-day course of Tamiflu this morning patient monitored closely off antibiotic therapy Dictation was produced using [employer] dictation software. please excuse any grammatical, word or spelling errors. Time with Patient: Less than 30
[2024-10-06 15:49] VITALS: BMI 16.5
[2024-10-06 20:03] LABS: Glucose,Whole Blood 418 mg/dL (70-110)
[2024-10-06] MEDS ORDERED: Magnesium Replacement Protocol 1 EACH MISC MISCELLANE PRN (20:07)
[2024-10-06] MEDS: MAGNESIUM SULFATE-D5W PMX 1 GM in DEXTROSE/WATER 1 100ML.BAG IVPB ONE (20:42)
[2024-10-06] MEDS: hydrALAZINE HCL 10 MG TAB PO ONE (20:42)
[2024-10-06] MEDS: INSULIN DETEMIR (LEVEMIR) 100 UNIT/ML SYR SQ SCH (20:53)
[2024-10-07 02:01] LABS: Glucose,Whole Blood 126 mg/dL (70-110)
[2024-10-07 06:22] LABS: Glucose,Whole Blood 138 mg/dL (70-110)
[2024-10-07 11:16] LABS: Glucose,Whole Blood 341 mg/dL (70-110)
--- NOTE | 2024-10-07 13:25 | P.PN ---
Subjective Progress Note Date: 10/07/24 Principal diagnosis: Shortness of breath. This is a 74-year-old female patient who was recently discharged from here to [facility] on September 14, 2024. She has a past medical history significant for very severe COPD, chronic oxygen dependence on 4 L/min nasal can nula, lung nodule, chronic ongoing tobacco dependence, remote history of PE, hypertension, fibromyalgia. She has an FEV1 22% of predicted. Uses a combination of Trelegy inhaler, albuterol nebs [id number], and as needed Ventolin HFA inhaler. She was brought back from [facility] to here today after being found to be hypoxemic at the longterm. Chest x-ray reveals findings of COPD and mild chronic interstitial changes. Small left pleural effusion. ABGs here on 50% FiO2 revealed a PaO2 of 84, pCO2 of 82 and a pH of 7.27. She is seen today in consultation in the emergency department. She is currently on BiPAP 14/5 and 40% FiO2. She is arousable but drifts off easily. Labs from [place] reviewed. The patient is seen today October 02, 2024 in follow-up in the emergency department room #3. She is awake and alert in no acute distress. Doing better today compared to yesterday. Continued on BiPAP 14/5 and 40% FiO2. She remains quite weak and debilitated. White count 10.5. Hemoglobin 9.8. Platelets 365. Sodium 138. Potassium 4.8. Bicarb 35. BUN 35. Creatinine 0.71. Glucose 186. She is continued on DuoNeb inhalations, Symbicort, Solu-Medrol. She is continued on Tamiflu. Heparin for DVT prophylaxis. Protonix for GI prophylaxis. Antibiotics in the form of ceftriaxone. Procalcitonin was 0.41. Progress note dated October 03, 2024. 74-year-old female seen today in room 365. The patient was admitted with a diagnosis of hyper No respiratory failure, and influenza A infection. She is currently on 4 L nasal cannula. She is receiving Tamiflu, at usual doses, and also receiving saline at 75 cc an hour. Current laboratory data includes a white count 9.9, hemoglobin 9.9, hematocrit 32.6, and a platelet count of 40- 34,000. Sodium 140, potassium 4.1, chloride 93, CO2 40, BUN 21, and creatinine 0.6. Glucose was 150. Calcium 8.4. Chest x-ray from yesterday, shows some mild fluid overload. Progress note dated October 04, 2024. 74-year-old female seen today in room 365. The patient was seen, and is currently on BiPAP, with settings of 14/5, and 40%. The patient was sleeping, and I did not wake her. The patient was admitted with a diagnosis of respiratory failure, and influenza A. She is not receiving any IV fluids. She continues on Tamiflu. Her procalcitonin level was 0.41, which is in the normal range. Blood analysis today revealed a glucose of 259. Progress note dated October 05, 2024. 74-year-old female seen today in room 365. The patient continues on BiPAP, with settings of 14/5, and 40%. The patient is not receiving any IV fluids. The patient continues as a DO NOT RESUSCITATE patient. Current laboratory data includes a white count 9.6, hemoglobin 10.1, hematocrit 32.4, and a platelet count of 395,000. Sodium 138, potassium 3.6, chlorides 90, CO2 41, BUN 35, and creatinine 0.58. Glucose was 177. Calcium 9, and magnesium 1.7. Progress note dated October 06, 2024. 74-year-old female seen today in room 365. Family members are at the bedside. The patient use the BiPAP, at 14/5, and 40%, all night. Currently she is on 5 L nasal cannula. She is awake and alert. She states that she is feeling better and gives a thumbs up when I ask her how she is feeling. She is not receiving any IV fluids. The patient will have a flutter valve ordered, for her congested wet cough. No new laboratory data today, other than a glucose of 286. Progress note dated October 07, 2024. 74-year-old female seen today in room 365. The patient is doing reasonably well. Today, she is on BiPAP, with settings of 14/5, and 40%. When on on BiPAP, the patient is on nasal O2 at 5 L. No new labs today other than a glucose of 341. Magnesium was 2.0. The patient is doing reasonably well, gives a thumbs up, when asked how she is doing. We did order a flutter valve for the patient, she has a very congested and wet cough. Objective - Vital Signs Vital signs: Vital Signs Temp 97.9 F 10/07/24 08:30 Pulse 70 10/07/24 11:50 Resp 19 10/07/24 08:30 BP 154/70 10/07/24 08:30 Pulse Ox 98 10/07/24 08:30 FiO2 40 10/06/24 04:34 Intake & Output 10/06/24 10/07/24 10/07/24 18:59 06:59 18:59 Intake Total 560 490 180 Output Total 1400 250 Balance -840 240 180 Weight 45 kg 40 kg Intake: IV 20 10 Invasive Line 4 20 10 Oral 540 480 180 Output: Urine 1400 250 Other: Voiding Method External Catheter External Catheter # Voids 1 - Exam No acute distress, oriented 3. The patient is currently on nasal cannula at 5 liters. HEENT examination is grossly unremarkable. Mucous membranes are moist. No oral lesions. Neck supple. Full range of motion. No adenopathy thyromegaly or neck vein distention. Cardiovascular examination reveals regular rhythm rate. S1-S2 normal. No S3 or S4. No discernible murmur noted. Lungs reveal scattered bilateral rhonchi. No wheezes or crackles. Breath sounds equal bilaterally. Abdomen soft bowel sounds are heard. No masses or tenderness. Extremities are intact. No cyanosis clubbing or edema. Skin is without rash or lesion. Neurologic examination is brief but nonfocal. - Labs CBC & Chem 7: 10/05/24 07:40 10/05/24 07:40 Labs: Abnormal Lab Results - Last 24 Hours (Table) 10/06/24 10/06/24 10/07/24 Range/Units 15:08 20:01 01:59 POC Glucose (mg/dL) 286 H 418 H 126 H (70-110) mg/dL 10/07/24 10/07/24 Range/Units 06:20 11:14 POC Glucose (mg/dL) 138 H 341 H (70-110) mg/dL Assessment and Plan Assessment: Acute hypoxemic and hypercapnic respiratory failure secondary to an acute exacer bation of chronic obstructive pulmonary disease complicated by influenza A infection. Positive influenza A at outside facility. Altered mental status secondary to hypercapnia and hypoxemia. Chronic hypoxemic respiratory failure, normally maintained on 4 L/min nasal cannula 24/7. History of left lower lung nodule, FDG avid, and suspicious for bronchogenic carcinoma. Very severe COPD, with an FEV1 22% of predicted. Chronic ongoing tobacco dependence. Possible new onset atrial fibrillation with ventricular response. Remote history of pulmonary embolism. Hypertension. Fibromyalgia. Poor overall functional performance based on the above-mentioned multiple comorbidities. Plan: Plan dated October 03, 2024. The patient is seen today in room 365. She appears to be a bit better today than yesterday. She continues on nasal O2 at 4 L by cannula. The patient is on Tamiflu at usual doses, and getting saline at 75 cc an hour. All labs, x-rays, and medications are reviewed. The patient also continues on updrafts, Symbicort, and Solu-Medrol. The patient is a DO NOT RESUSCITATE patient. We will continue to follow the patient, make recommendations along the way. 50 minutes was spent with this patient, including the interview process, examination, reviewing of pertinent laboratory data, x-rays, and medications, as well as discussing the diagnosis, treatment, and prognosis, with the patient, and the patient's bedside nurse. Plan dated October 04, 2024. The patient is seen today in room 365. The patient continues on Symbicort 160/4.5, 2 puffs twice a day, as well as DuoNebs, 4 times daily and as needed. In addition, the patient continues on Solu-Medrol 60 mg every 6 hours, and Tamiflu, 75 mg orally, twice a day for 5 days. Labs, x-rays, and all medi cations are reviewed. The patient is a DO NOT RESUSCITATE patient. We will continue to follow the patient, make recommendations along the way. 50 minutes was spent with the patient, including the interview process, examination, reviewing of pertinent laboratory data, x-rays, and medications, as well as discussing the diagnosis, treatment, and prognosis, with the patient, and the patient's bedside nurse. Plan dated October 05, 2024. The patient is again seen today in room 365. The patient continues on BiPAP, with settings of 14/5, and 40%. She is not receiving any IV fluids. Labs, x-ra ys, and medications are reviewed. The patient continues on Symbicort, DuoNebs, Solu-Medrol, and Tamiflu. All labs, x-rays, and medications are reviewed. We will continue to follow the patient, make recommendations along the way. The patient continues as a DO NOT RESUSCITATE patient. The patient's overall prognosis is poor. 50 minutes was spent with this patient, which included taking history, examining the patient, reviewing pertinent laboratory data, x- rays, medications, as well as discussing the diagnosis, treatment, and prognosis, with the patient, and the patient's nursing staff. Dictation was produced using [employer] software. Please excuse any grammatical, word or spelling errors. Plan dated October 06, 2024. The patient is again seen today in room 365. The patient is currently on 5 L nasal cannula. She did use BiPAP, with settings of 14/5 and 40%, throughout the night. We will order a flutter valve for this patient. She is not receiving any IV fluids. All labs, x-rays, medications are reviewed. The patient continues on Symbicort, DuoNebs, Solu-Medrol, and Tamiflu. The patient is a DO NOT RESUSCITATE patient. 50 minutes was spent with this patient, including time obtaining the history, examining the patient, reviewing pertinent laboratory data, x-rays, medications, as well as discussing the diagnosis, treatment, and prognosis, with the patient, and the patient's nursing staff. Plan dated October 07, 2024. The patient is seen today in room 365. She is currently on BiPAP. She goes between BiPAP, and 5 L nasal cannula. She is not receiving any IV fluids. The patient was given a flutter valve, to use, because her cough is wet and congest ed. She is not receiving any IV fluids. Labs, x-rays, medications are reviewed. She continues on appropriate medications occluding Symbicort, DuoNeb, steroids, and Tamiflu. She is a DO NOT RESUSCITATE patient. 50 minutes was spent in obtaining the history, examining the patient, reviewing pertinent laboratory data, x-rays, medications, as well as discussing the diagnosis, treatment, prognosis, with the patient. We will continue to follow. Dictation was produced using [employer] software. Please excuse any grammatical, word or spelling errors. Time with Patient: Greater than 30
[2024-10-07 16:10] LABS: Glucose,Whole Blood 475 mg/dL (70-110)
--- NOTE | 2024-10-07 18:32 | P.PN ---
Subjective Progress Note Date: 10/06/24 74-year-old female who was recently admitted with increasing shortness of breath found to have acute influenza A infection at [facility] and has been started on Tamiflu. Patient also with significant COPD being monitored by pulmonary maintained on steroids along with breathing treatments. Patient currently on 5 L via nasal cannula and intermittently using BiPAP. Patient has been on BiPAP throughout most of the day per nursing staff and extremely lethargic today. Patient will need PT/OT therapy updated notes as patient will be returning to [facility] on discharge. Objective - Vital Signs Vital signs: Vital Signs Temp 97.2 F L 10/06/24 08:00 Pulse 67 10/06/24 12:00 Resp 16 10/06/24 12:00 BP 163/65 10/06/24 12:00 Pulse Ox 97 10/06/24 12:00 FiO2 40 10/06/24 04:34 Intake & Output 10/05/24 10/06/24 10/06/24 18:59 06:59 18:59 Intake Total 740 260 190 Output Total 600 Balance 740 260 -410 Weight 45 kg Intake: IV 20 20 10 Invasive Line 4 20 20 10 Oral 720 240 180 Output: Urine 600 Other: Voiding Method External Catheter External Catheter External Catheter # Voids 2 - Exam GENERAL: The patient is alert and oriented x3, not in any acute distress. Well developed, well nourished. HEENT: Pupils are round and equally reacting to light. EOMI. No scleral icterus. No conjunctival pallor. Normocephalic, atraumatic. No pharyngeal erythema. No thyromegaly. CARDIOVASCULAR: S1 and S2 present. No murmurs, rubs, or gallops. -PULMONARY: Chest is clear to auscultation, no wheezing , no crackles. On BiPAP with limited air entry bilaterally ABDOMEN: Soft, nontender, nondistended, normoactive bowel sounds. No palpable o rganomegaly. MUSCULOSKELETAL: No joint swelling or deformity. EXTREMITIES: No cyanosis, clubbing, or pedal edema. NEUROLOGICAL: Gross neurological examination did not reveal any focal deficits. SKIN: No rashes. no petechiae. - Labs CBC & Chem 7: 10/05/24 07:40 10/05/24 07:40 Labs: Abnormal Lab Results - Last 24 Hours (Table) 02/10/05/24 10/06/24 Range/Units 16:38 20:08 06:20 POC Glucose (mg/dL) 355 H 207 H 254 H (70-110) mg/dL 10/06/24 Range/Units 11:14 POC Glucose (mg/dL) 279 H (70-110) mg/dL Assessment and Plan Assessment: Chronic obstructive pulmonary disease, acute exacerbation with acute events as well as acute hypoxic respiratory failure status post BiPAP Change in mental status, acute metabolic encephalopathy Influenza A infection Hypertension history Diabetes mellitus, type II uncontrolled with hyper and hypoglycemia History of PE History of urinary tract infection Severe protein calorie malnutrition with a BMI of 16.5 Plan: On IV Solu-Medrol Continue with Tamiflu On gentle hydration with normal saline 40 mL/h Pulmonary and ID team on the case On Norvasc and atenolol Labs and medication were reviewed.. Continue same treatment. Continue with symptomatic treatment. Resume home medication. Monitor labs and vitals. DVT and GI prophylaxis. Further recommendations as per clinical course of the patient DVT prophylaxis: Subcutaneous heparin GI Prophylaxis: Protonix PT/OT: Return to ECF upon discharge Prognosis is guarded CODE STATUS: DNR
--- NOTE | 2024-10-07 18:36 | P.PN ---
Subjective Progress Note Date: 10/07/24 74-year-old female who was recently admitted with increasing shortness of breath found to have acute influenza A infection at [facility] and has been started on Tamiflu. Patient also with significant COPD being monitored by pulmonary maintained on steroids along with breathing treatments. Patient currently on 5 L via nasal cannula and intermittently using BiPAP. Patient has been on BiPAP throughout most of the day per nursing staff and extremely lethargic today. Patient will need PT/OT therapy updated notes as patient will be returning to [facility] on discharge. 10/07/2024 Patient is seen and evaluated in room at bedside; patient is doing reasonably well. Today, she is on BiPAP, with settings of 14/5, and 40%. When on on BiPAP, the patient is on nasal O2 at 5 L. Vital signs are reviewed and remained stable; blood glucose glucose of 341. Magnesium was 2.0. The patient is doing reasonably well, gives a thumbs up, when asked how she is doing. Patient has been evaluated by pulmonary service and did order a flutter valve for the patient, she has a very congested and wet cough. Patient is being followed by pulmonary service and is on appropriate medications occluding Symbicort, DuoNeb, steroids, and Tamiflu. She is a DO NOT RESUSCITATE patient. Objective - Vital Signs Vital signs: Vital Signs Temp 97.9 F 10/07/24 08:30 Pulse 70 10/07/24 11:50 Resp 19 10/07/24 08:30 BP 154/70 10/07/24 08:30 Pulse Ox 98 10/07/24 08:30 FiO2 40 10/06/24 04:34 Intake & Output 10/06/24 10/07/24 10/07/24 18:59 06:59 18:59 Intake Total 560 490 360 Output Total 1400 250 300 Balance -840 240 60 Weight 45 kg 40 kg Intake: IV 20 10 Invasive Line 4 20 10 Oral 540 480 360 Output: Urine 1400 250 300 Other: Voiding Method External Catheter External Catheter # Voids 1 - Exam GENERAL: The patient is alert and oriented x3, not in any acute distress. Well developed, well nourished. HEENT: Pupils are round and equally reacting to light. EOMI. No scleral icterus. No conjunctival pallor. Normocephalic, atraumatic. No pharyngeal erythema. No thyromegaly. CARDIOVASCULAR: S1 and S2 present. No murmurs, rubs, or gallops. -PULMONARY: Chest is clear to auscultation, no wheezing , no crackles. On BiPAP with limited air entry bilaterally ABDOMEN: Soft, nontender, nondistended, normoactive bowel sounds. No palpable organomegaly. MUSCULOSKELETAL: No joint swelling or deformity. EXTREMITIES: No cyanosis, clubbing, or pedal edema. NEUROLOGICAL: Gross neurological examination did not reveal any focal deficits. SKIN: No rashes. no petechiae. - Labs CBC & Chem 7: 10/05/24 07:40 10/05/24 07:40 Labs: Abnormal Lab Results - Last 24 Hours (Table) 10/06/24 10/06/24 10/07/24 Range/Units 15:08 20:01 01:59 POC Glucose (mg/dL) 286 H 418 H 126 H (70-110) mg/dL 10/07/24 10/07/24 Range/Units 06:20 11:14 POC Glucose (mg/dL) 138 H 341 H (70-110) mg/dL Assessment and Plan Assessment: Chronic obstructive pulmonary disease, acute exacerbation with acute events as well as acute hypoxic respiratory failure status post BiPAP Change in mental status, acute metabolic encephalopathy Influenza A infection Hypertension history Diabetes mellitus, type II uncontrolled with hyper and hypoglycemia History of PE History of urinary tract infection Severe protein calorie malnutrition with a BMI of 16.5 Plan: On IV Solu-Medrol Continue with Tamiflu On gentle hydration with normal saline 40 mL/h Pulmonary and ID team on the case On Norvasc and atenolol Labs and medication were reviewed.. Continue same treatment. Continue with symptomatic treatment. Resume home medication. Monitor labs and vitals. DVT and GI prophylaxis. Further recommendations as per clinical course of the patient DVT prophylaxis: Subcutaneous heparin GI Prophylaxis: Protonix PT/OT: Return to ECF upon discharge Prognosis is guarded CODE STATUS: DNR
[2024-10-07 19:58] LABS: Glucose,Whole Blood 487 mg/dL (70-110)
[2024-10-08 06:26] LABS: Glucose,Whole Blood 232 mg/dL (70-110)
[2024-10-08 09:55] LABS: Basophils % (A) 0 %; Eosinophils % (A) 0 %; HCT 36.3 % (34.0-46.0); HGB 11.5 gm/dL (11.4-16.0); Hypochromasia Slight; Lymphocytes # (A) 0.4 k/uL (1.0-4.8); Lymphocytes % (A) 3 %; MCH 28.6 pg (25.0-35.0); MCHC 31.7 g/dL (31.0-37.0); MCV 90.2 fL (80.0-100.0); Mean Platelet Volume 7.3; Monocytes # (A) 0.6 k/uL (0-1.0); Monocytes % (A) 4 %; Neutrophils # (A) 14.2 k/uL (1.3-7.7); Neutrophils % (A) 93 %; Platelet Count 398 k/uL (150-450); RBC 4.02 m/uL (3.80-5.40); RDW 15.2 % (11.5-15.5); WBC 15.3 k/uL (3.8-10.6)
[2024-10-08 10:59] LABS: Glucose,Whole Blood 248 mg/dL (70-110)
[2024-10-08 11:07] LABS: African American GFR (CKD) >90 (>60 ml/min/1.73 sqM); Blood Urea Nitrogen 39 mg/dL (7-17); Calcium 9.4 mg/dL (8.4-10.2); Chloride 84 mmol/L (98-107); Glucose 214 mg/dL (74-99); Non-African American GFR(CKD) >90 (>60 ml/min/1.73 sqM); Potassium 4.3 mmol/L (3.5-5.1); Sodium 135 mmol/L (137-145)
[2024-10-08 11:15] LABS: Anion Gap 15 mmol/L; Carbon Dioxide 36 mmol/L (22-30)
--- NOTE | 2024-10-08 11:48 | P.PN ---
Subjective Progress Note Date: 10/08/24 Principal diagnosis: Shortness of breath. This is a 74-year-old female patient who was recently discharged from here to [facility] on September 14, 2024. She has a past medical history significant for very severe COPD, chronic oxygen dependence on 4 L/min nasal can nula, lung nodule, chronic ongoing tobacco dependence, remote history of PE, hypertension, fibromyalgia. She has an FEV1 22% of predicted. Uses a combination of Trelegy inhaler, albuterol nebs [id number], and as needed Ventolin HFA inhaler. She was brought back from [facility] to here today after being found to be hypoxemic at the [place] [facility]. Chest x-ray reveals findings of COPD and mild chronic interstitial changes. Small left pleural effusion. ABGs here on 50% FiO2 revealed a PaO2 of 84, pCO2 of 82 and a pH of 7.27. She is seen today in consultation in the emergency department. She is currently on BiPAP 14/5 and 40% FiO2. She is arousable but drifts off easily. Labs from [place] reviewed. The patient is seen today October 02, 2024 in follow-up in the emergency department room #3. She is awake and alert in no acute distress. Doing better today compared to yesterday. Continued on BiPAP 14/5 and 40% FiO2. She remains quite weak and debilitated. White count 10.5. Hemoglobin 9.8. Platelets 365. Sodium 138. Potassium 4.8. Bicarb 35. BUN 35. Creatinine 0.71. Glucose 186. She is continued on DuoNeb inhalations, Symbicort, Solu-Medrol. She is continued on Tamiflu. Heparin for DVT prophylaxis. Protonix for GI prophylaxis. Antibiotics in the form of ceftriaxone. Procalcitonin was 0.41. Progress note dated October 03, 2024. 74-year-old female seen today in room 365. The patient was admitted with a diagnosis of hyper No respiratory failure, and influenza A infection. She is currently on 4 L nasal cannula. She is receiving Tamiflu, at usual doses, and also receiving saline at 75 cc an hour. Current laboratory data includes a white count 9.9, hemoglobin 9.9, hematocrit 32.6, and a platelet count of 40- 34,000. Sodium 140, potassium 4.1, chloride 93, CO2 40, BUN 21, and creatinine 0.6. Glucose was 150. Calcium 8.4. Chest x-ray from yesterday, shows some mild fluid overload. Progress note dated October 04, 2024. 74-year-old female seen today in room 365. The patient was seen, and is currently on BiPAP, with settings of 14/5, and 40%. The patient was sleeping, and I did not wake her. The patient was admitted with a diagnosis of respiratory failure, and influenza A. She is not receiving any IV fluids. She continues on Tamiflu. Her procalcitonin level was 0.41, which is in the normal range. Blood analysis today revealed a glucose of 259. Progress note dated October 05, 2024. 74-year-old female seen today in room 365. The patient continues on BiPAP, with settings of 14/5, and 40%. The patient is not receiving any IV fluids. The patient continues as a DO NOT RESUSCITATE patient. Current laboratory data includes a white count 9.6, hemoglobin 10.1, hematocrit 32.4, and a platelet count of 395,000. Sodium 138, potassium 3.6, chlorides 90, CO2 41, BUN 35, and creatinine 0.58. Glucose was 177. Calcium 9, and magnesium 1.7. Progress note dated October 06, 2024. 74-year-old female seen today in room 365. Family members are at the bedside. The patient use the BiPAP, at 14/5, and 40%, all night. Currently she is on 5 L nasal cannula. She is awake and alert. She states that she is feeling better and gives a thumbs up when I ask her how she is feeling. She is not receiving any IV fluids. The patient will have a flutter valve ordered, for her congested wet cough. No new laboratory data today, other than a glucose of 286. Progress note dated October 07, 2024. 74-year-old female seen today in room 365. The patient is doing reasonably well. Today, she is on BiPAP, with settings of 14/5, and 40%. When on on BiPAP, the patient is on nasal O2 at 5 L. No new labs today other than a glucose of 341. Magnesium was 2.0. The patient is doing reasonably well, gives a thumbs up, when asked how she is doing. We did order a flutter valve for the patient, she has a very congested and wet cough. Progress note dated October 08, 2024. 75-year-old female seen today in room 365. Currently, she is on BiPAP, with settings of 14/5 and 40%. She is not receiving any IV fluids. Yesterday, she was on nasal O2 at 5 L. Clinically, she is doing better. Each day seems to be a bit better for her. White count 15.3, hemoglobin 11.5, hematocrit 36.3, and platelet count 398,000. Sodium 135, potassium 4.3, chlorides 84, CO2 36, anion gap 15, BUN 39, creatinine 0.6. Glucose is 248. Calcium is 9.4. Objective - Vital Signs Vital signs: Vital Signs Temp 97.5 F L 10/08/24 03:00 Pulse 70 10/08/24 09:24 Resp 16 10/08/24 03:00 BP 173/81 10/08/24 03:00 Pulse Ox 97 10/08/24 03:00 FiO2 40 10/08/24 09:09 Intake & Output 10/07/24 10/08/24 10/08/24 18:59 06:59 18:59 Intake Total 540 600 180 Output Total 300 450 Balance 240 150 180 Intake: Oral 540 600 180 Output: Urine 300 450 Other: Voiding Method External Catheter External Catheter # Voids 2 # Bowel Movements 1 - Exam No acute distress, oriented 3. The patient is currently on BiPAP. HEENT examination is grossly unremarkable. Mucous membranes are moist. No oral lesions. Neck supple. Full range of motion. No adenopathy thyromegaly or neck vein distention. Cardiovascular examination reveals regular rhythm rate. S1-S2 normal. No S3 or S4. No discernible murmur noted. Lungs reveal scattered bilateral rhonchi. No wheezes or crackles. Breath sounds equal bilaterally. Abdomen soft bowel sounds are heard. No masses or tenderness. Extremities are intact. No cyanosis clubbing or edema. Skin is without rash or lesion. Neurologic examination is brief but nonfocal. - Labs CBC & Chem 7: 10/08/24 09:02 10/08/24 09:02 Labs: Abnormal Lab Results - Last 24 Hours (Table) 10/07/24 10/07/24 10/08/24 Range/Units 16:08 19:56 06:24 WBC (3.8-10.6) k/uL Neutrophils # (1.3-7.7) k/uL Lymphocytes # (1.0-4.8) k/uL Sodium (137-145) mmol/L Chloride (98-107) mmol/L Carbon Dioxide (22-30) mmol/L BUN (7-17) mg/dL Glucose (74-99) mg/dL POC Glucose (mg/dL) 475 H 487 H 232 H (70-110) mg/dL 10/08/24 10/08/24 10/08/24 Range/Units 09:02 09:02 10:58 WBC 15.3 H (3.8-10.6) k/uL Neutrophils # 14.2 H (1.3-7.7) k/uL Lymphocytes # 0.4 L (1.0-4.8) k/uL Sodium 135 L (137-145) mmol/L Chloride 84 L (98-107) mmol/L Carbon Dioxide 36 H (22-30) mmol/L BUN 39 H (7-17) mg/dL Glucose 214 H (74-99) mg/dL POC Glucose (mg/dL) 248 H (70-110) mg/dL Assessment and Plan Assessment: Acute hypoxemic and hypercapnic respiratory failure secondary to an acute exac erbation of chronic obstructive pulmonary disease complicated by influenza A infection. Positive influenza A at outside facility. Altered mental status secondary to hypercapnia and hypoxemia. Chronic hypoxemic respiratory failure, normally maintained on 4 L/min nasal cannula 24/7. History of left lower lung nodule, FDG avid, and suspicious for bronchogenic carcinoma. Very severe COPD, with an FEV1 22% of predicted. Chronic ongoing tobacco dependence. Possible new onset atrial fibrillation with ventricular response. Remote history of pulmonary embolism. Hypertension. Fibromyalgia. Poor overall functional performance based on the above-mentioned multiple comorbidities. Plan: Plan dated October 03, 2024. The patient is seen today in room 365. She appears to be a bit better today than yesterday. She continues on nasal O2 at 4 L by cannula. The patient is on Tamiflu at usual doses, and getting saline at 75 cc an hour. All labs, x-rays, and medications are reviewed. The patient also continues on updrafts, Symbicort, and Solu-Medrol. The patient is a DO NOT RESUSCITATE patient. We will continue to follow the patient, make recommendations along the way. 50 minutes was spent with this patient, including the interview process, examination, reviewing of pertinent laboratory data, x-rays, and medications, as well as discussing the diagnosis, treatment, and prognosis, with the patient, and the patient's bedside nurse. Plan dated October 04, 2024. The patient is seen today in room 365. The patient continues on Symbicort 160/4.5, 2 puffs twice a day, as well as DuoNebs, 4 times daily and as needed. In addition, the patient continues on Solu-Medrol 60 mg every 6 hours, and Tamiflu, 75 mg orally, twice a day for 5 days. Labs, x-rays, and all me dications are reviewed. The patient is a DO NOT RESUSCITATE patient. We will continue to follow the patient, make recommendations along the way. 50 minutes was spent with the patient, including the interview process, examination, reviewing of pertinent laboratory data, x-rays, and medications, as well as discussing the diagnosis, treatment, and prognosis, with the patient, and the patient's bedside nurse. Plan dated October 05, 2024. The patient is again seen today in room 365. The patient continues on BiPAP, with settings of 14/5, and 40%. She is not receiving any IV fluids. Labs, x- rays, and medications are reviewed. The patient continues on Symbicort, DuoNebs, Solu-Medrol, and Tamiflu. All labs, x-rays, and medications are reviewed. We will continue to follow the patient, make recommendations along the way. The patient continues as a DO NOT RESUSCITATE patient. The patient's overall prognosis is poor. 50 minutes was spent with this patient, which included taking history, examining the patient, reviewing pertinent laboratory data, x-rays, medications, as well as discussing the diagnosis, treatment, and prognosis, with the patient, and the patient's nursing staff. Dictation was produced using [employer] dictation software. Please excuse any grammatical, word or spelling errors. Plan dated October 06, 2024. The patient is again seen today in room 365. The patient is currently on 5 L nasal cannula. She did use BiPAP, with settings of 14/5 and 40%, throughout the night. We will order a flutter valve for this patient. She is not receiving any IV fluids. All labs, x-rays, medications are reviewed. The patient continues on Symbicort, DuoNebs, Solu-Medrol, and Tamiflu. The patient is a DO NOT RESUSCITATE patient. 50 minutes was spent with this patient, including time obtaining the history, examining the patient, reviewing pertinent laboratory data, x-rays, medications, as well as discussing the diagnosis, treatment, and prognosis, with the patient, and the patient's nursing staff. Plan dated October 07, 2024. The patient is seen today in room 365. She is currently on BiPAP. She goes between BiPAP, and 5 L nasal cannula. She is not receiving any IV fluids. The patient was given a flutter valve, to use, because her cough is wet and conge sted. She is not receiving any IV fluids. Labs, x-rays, medications are reviewed. She continues on appropriate medications occluding Symbicort, DuoNeb, steroids, and Tamiflu. She is a DO NOT RESUSCITATE patient. 50 minutes was spent in obtaining the history, examining the patient, reviewing pertinent laboratory data, x-rays, medications, as well as discussing the diagnosis, treatment, prognosis, with the patient. We will continue to follow. Dictation was produced using [employer] dictation software. Please excuse any grammatical, word or spelling errors. Plan dated October 08, 2024. The patient is seen today in room 365. The patient is a DO NOT RESUSCITATE patient. The patient was placed back on BiPAP. Her BiPAP settings include 14/5, and 40%. Labs, x-rays, and all medications are reviewed. Yesterday, she was on nasal cannula 5 L. We will continue to follow make recommendations. She continues on appropriate medications including updrafts, Symbicort, steroids, and Tamiflu. 50 minutes was spent with this patient, which included obtaining additional history, examining the patient, reviewing pertinent laboratory data, x-rays, medications, as well as discussing the diagnosis, treatment, and prognosis, with the patient's nursing staff. Dictation was produced using [employer] dictation software. Please excuse any grammatical, word or spelling errors. Time with Patient: Greater than 30
--- NOTE | 2024-10-08 15:24 | P.PN ---
Subjective Progress Note Date: 10/08/24 74-year-old female who was recently admitted with increasing shortness of breath found to have acute influenza A infection at [facility] and has been started on Tamiflu. Patient also with significant COPD being monitored by pulmonary maintained on steroids along with breathing treatments. Patient currently on 5 L via nasal cannula and intermittently using BiPAP. Patient has been on BiPAP throughout most of the day per nursing staff and extremely lethargic today. Patient will need PT/OT therapy updated notes as patient will be returning to [facility] on discharge. 10/07/2024 Patient is seen and evaluated in room at bedside; patient is doing reasonably well. Today, she is on BiPAP, with settings of 14/5, and 40%. When on on BiPAP, the patient is on nasal O2 at 5 L. Vital signs are reviewed and remained stable; blood glucose glucose of 341. Magnesium was 2.0. The patient is doing reasonably well, gives a thumbs up, when asked how she is doing. Patient has been evaluated by pulmonary service and did order a flutter valve for the patient, she has a very congested and wet cough. Patient is being followed by pulmonary service and is on appropriate medications occluding Symbicort, DuoNeb, steroids, and Tamiflu. She is a DO NOT RESUSCITATE patient. 10/08/2024 Seen and evaluated in room at bedside sitter is present in the room; ; patient is on BiPAP but continuing to try to pull the mask away; sitter at bedside; patient complains of pain Vital signs are reviewed stable with temperature 97.5, pulse 70, respirations 16 and blood pressure 173/81 with O2 saturation 97% on an FiO2 of 40% Lab review shows WBC of 15.3, hemoglobin of 11.5, sodium 135, potassium 4.3, BUNs/creatinine of 39/0.6 Concerned about uncontrolled pain, patient is currently on [place] 5 mg every 6 hours as needed; we will plan to continue Objective - Vital Signs Vital signs: Vital Signs Temp 97.5 F L 10/08/24 03:00 Pulse 70 10/08/24 09:24 Resp 16 10/08/24 03:00 BP 173/81 10/08/24 03:00 Pulse Ox 97 10/08/24 03:00 FiO2 40 10/08/24 09:09 Intake & Output 02/10/08/24 10/08/24 18:59 06:59 18:59 Intake Total 540 600 Output Total 300 450 Balance 240 150 Intake: Oral 540 600 Output: Urine 300 450 Other: Voiding Method External Catheter External Catheter # Voids 2 # Bowel Movements 1 - Exam GENERAL: The patient is alert and oriented x3, not in any acute distress. Well developed, well nourished. HEENT: Pupils are round and equally reacting to light. EOMI. No scleral icterus. No conjunctival pallor. Normocephalic, atraumatic. No pharyngeal erythema. No thyromegaly. CARDIOVASCULAR: S1 and S2 present. No murmurs, rubs, or gallops. -PULMONARY: Chest is clear to auscultation, no wheezing , no crackles. On BiPAP with limited air entry bilaterally ABDOMEN: Soft, nontender, nondistended, normoactive bowel sounds. No palpable organomegaly. MUSCULOSKELETAL: No joint swelling or deformity. EXTREMITIES: No cyanosis, clubbing, or pedal edema. NEUROLOGICAL: Gross neurological examination did not reveal any focal deficits. SKIN: No rashes. no petechiae. - Labs CBC & Chem 7: 10/08/24 09:02 10/08/24 09:02 Labs: Abnormal Lab Results - Last 24 Hours (Table) 10/07/24 10/07/24 10/07/24 Range/Units 11:14 16:08 19:56 WBC (3.8-10.6) k/uL Neutrophils # (1.3-7.7) k/uL Lymphocytes # (1.0-4.8) k/uL Sodium (137-145) mmol/L Chloride (98-107) mmol/L Carbon Dioxide (22-30) mmol/L BUN (7-17) mg/dL Glucose (74-99) mg/dL POC Glucose (mg/dL) 341 H 475 H 487 H (70-110) mg/dL 10/08/24 10/08/24 10/08/24 Range/Units 06:24 09:02 09:02 WBC 15.3 H (3.8-10.6) k/uL Neutrophils # 14.2 H (1.3-7.7) k/uL Lymphocytes # 0.4 L (1.0-4.8) k/uL Sodium 135 L (137-145) mmol/L Chloride 84 L (98-107) mmol/L Carbon Dioxide 36 H (22-30) mmol/L BUN 39 H (7-17) mg/dL Glucose 214 H (74-99) mg/dL POC Glucose (mg/dL) 232 H (70-110) mg/dL 10/08/24 Range/Units 10:58 WBC (3.8-10.6) k/uL Neutrophils # (1.3-7.7) k/uL Lymphocytes # (1.0-4.8) k/uL Sodium (137-145) mmol/L Chloride (98-107) mmol/L Carbon Dioxide (22-30) mmol/L BUN (7-17) mg/dL Glucose (74-99) mg/dL POC Glucose (mg/dL) 248 H (70-110) mg/dL Assessment and Plan Assessment: Chronic obstructive pulmonary disease, acute exacerbation with acute events as well as acute hypoxic respiratory failure status post BiPAP Change in mental status, acute metabolic encephalopathy Influenza A infection Hypertension history Diabetes mellitus, type II uncontrolled with hyper and hypoglycemia History of PE History of urinary tract infection Severe protein calorie malnutrition with a BMI of 16.5 Plan: On IV Solu-Medrol Continue with Tamiflu On gentle hydration with normal saline 40 mL/h Pulmonary and ID team on the case On Norvasc and atenolol Labs and medication were reviewed.. Continue same treatment. Continue with symptomatic treatment. Resume home medication. Monitor labs and vitals. DVT and GI prophylaxis. Further recommendations as per clinical course of the patient DVT prophylaxis: Subcutaneous heparin GI Prophylaxis: Protonix PT/OT: Return to [facility] upon discharge Prognosis is guarded CODE STATUS: DNR
[2024-10-08 16:19] LABS: Glucose,Whole Blood 390 mg/dL (70-110)
--- NOTE | 2024-10-08 16:52 | P.PN ---
Subjective Progress Note Date: 10/08/24 Principal diagnosis: Reason for follow-up is acute influenza Patient is a 74-year-old female with a past medical history significant for COPD diabetes mellitus fibromyalgia hypertension reflux PE patient is a resident of the [facility] and was sent to the [facility] initially for evaluation of respiratory distress for which the patient has been transferred to [facility] for further evaluation. On today's evaluation that is 10/08/2024, Patient is afebrile patient is currently on BiPAP 40% FiO2 patient is lethargic with a sitter at the bedside did not answer any questions no vomiting diarrhea or any changes reported. Patient white count is 15.3, creatinine 0.60 Objective - Vital Signs Vital signs: Vital Signs Temp 97.7 F 10/08/24 16:28 Pulse 64 10/08/24 16:28 Resp 18 10/08/24 16:28 BP 164/82 10/08/24 16:28 Pulse Ox 98 10/08/24 16:28 FiO2 40 10/08/24 16:28 Intake & Output 10/07/24 10/08/24 10/08/24 18:59 06:59 18:59 Intake Total 540 600 180 Output Total 300 450 300 Balance 240 150 -120 Intake: Oral 540 600 180 Output: Urine 300 450 300 Other: Voiding Method External Catheter External Catheter External Catheter # Voids 2 # Bowel Movements 1 - Exam GENERAL DESCRIPTION: An elderly female lying in bed in no distress RESPIRATORY SYSTEM: Unlabored breathing , decreased breath sounds at bases HEART: S1 S2 regular rate and rhythm , ABDOMEN: Soft , no tenderness EXTREMITIES: No edema feet - Labs CBC & Chem 7: 10/08/24 09:02 10/08/24 09:02 Labs: Abnormal Lab Results - Last 24 Hours (Table) 10/07/24 10/08/24 10/08/24 Range/Units 19:56 06:24 09:02 WBC 15.3 H (3.8-10.6) k/uL Neutrophils # 14.2 H (1.3-7.7) k/uL Lymphocytes # 0.4 L (1.0-4.8) k/uL Sodium (137-145) mmol/L Chloride (98-107) mmol/L Carbon Dioxide (22-30) mmol/L BUN (7-17) mg/dL Glucose (74-99) mg/dL POC Glucose (mg/dL) 487 H 232 H (70-110) mg/dL 10/08/24 10/08/24 10/08/24 Range/Units 09:02 10:58 16:16 WBC (3.8-10.6) k/uL Neutrophils # (1.3-7.7) k/uL Lymphocytes # (1.0-4.8) k/uL Sodium 135 L (137-145) mmol/L Chloride 84 L (98-107) mmol/L Carbon Dioxide 36 H (22-30) mmol/L BUN 39 H (7-17) mg/dL Glucose 214 H (74-99) mg/dL POC Glucose (mg/dL) 248 H 390 H (70-110) mg/dL Assessment and Plan (1) Influenza A Current Visit: Yes Status: Acute Code(s): J10.1 - FLU DUE TO OTH IDENT INFLUENZA VIRUS W OTH RESP MANIFEST SNOMED Code(s): 882367912 (2) Leukocytosis Current Visit: Yes Status: Acute Code(s): D72.829 - ELEVATED WHITE BLOOD CELL COUNT, UNSPECIFIED SNOMED Code(s): 693148701 Plan: 1patient presented to hospital with acute respiratory failure with aspiration noted to be significantly hypoxic requiring BiPAP on admission, Tested positive for influenza A and a question of possible secondary bacterial pneumonia not entirely excluded, however the patient did have a normal procalcitonin. 2patient has completed her 5-day course of Tamiflu. 3worsening leukocytosis more likely steroid related will be monitored closely Dictation was produced using [employer] dictation software. please excuse any grammatical, word or spelling errors. Time with Patient: Less than 30
[2024-10-08 19:53] LABS: Glucose,Whole Blood 179 mg/dL (70-110)
[2024-10-09 06:17] LABS: Glucose,Whole Blood 258 mg/dL (70-110)
[2024-10-09 08:19] LABS: African American GFR (CKD) >90 (>60 ml/min/1.73 sqM); Blood Urea Nitrogen 41 mg/dL (7-17); Chloride 83 mmol/L (98-107); Glucose 210 mg/dL (74-99); Non-African American GFR(CKD) >90 (>60 ml/min/1.73 sqM); Potassium 4.2 mmol/L (3.5-5.1); Sodium 131 mmol/L (137-145)
[2024-10-09 08:29] LABS: Anion Gap 9 mmol/L
[2024-10-09 08:38] LABS: Carbon Dioxide 39 mmol/L (22-30)
[2024-10-09 09:33] VITALS: BP 159/65; TEMP 97.8
[2024-10-09 11:18] LABS: Glucose,Whole Blood 415 mg/dL (70-110)
[2024-10-09] MEDS: INSULIN ASPART (NovoLOG) 100 UNIT/ML VIAL SQ ONE (12:04)
[2024-10-09 12:45] VITALS: RESP 20
--- NOTE | 2024-10-09 14:45 | P.DS ---
Providers Date of admission: 10/01/24 13:46 Attending physician: Iris Anthony Consults: 10/01/24 13:44 Consult Physician Routine Consulting Provider: Michi Mejia Consult Reason/Comments: copd Do you want consulting provider notified?: Yes Consult Physician Routine Consulting Provider: Steff Capps Consult Reason/Comments: influenza, per dr. cade request Do you want consulting provider notified?: Yes Primary care physician: Jhonatan Obrien Hospital Course: Diagnoses: Chronic obstructive pulmonary disease, acute exacerbation with acute events as well as acute hypoxic respiratory failure status post BiPAP Change in mental status, acute metabolic encephalopathy, improved Left lower lobe nodule suspicious for bronchogenic carcinoma, she needs outpatient follow-up with pulmonary service Influenza A infection Hypertension Diabetes mellitus, type II uncontrolled with hyper and hypoglycemia Fibromyalgia History of PE History of urinary tract infection Severe protein calorie malnutrition with a BMI of 16.5 Leukocytosis secondary to steroid effect Hospital course: 74-year-old female who was recently admitted with increasing shortness of breath found to have acute influenza A infection at [facility] and has been started on Tamiflu. Patient also with significant COPD being monitored by pulmonary maintained on steroids along with breathing treatments. Patient currently on 2- 5 L via nasal cannula and intermittently using BiPAP. Which is her baseline. Patient finished her course of Tamiflu. Patient short interval improvement and her wheezing significantly improved. No other new complaint Patient was cleared for discharge by pulmonary and ID team service She will be discharged on tapered steroids, blood pressure medication increased atenolol 25 mg to 50 mg and Norvasc 5 mg up to 10 mg. Adjust dose accordingly. Steroid use Problems and management plan were discussed with the patient and he verbalized understanding and acceptance Patient was found stable and can be discharged home in guarded prognosis however he needs follow-up as an outpatient. Patient was instructed to follow up with PCP within one week and patient agrees Recommend patient follow-up with pulmonary service as an outpatient in 2 weeks Physical exam Gen: patient is a AAOx3, no distress CVS: S1-S2, RRR, no murmur Lungs: B/L CTA, no wheezing Abdomen: soft, no distention, no tenderness, positive bowel sounds Extremity: no leg edema or induration Time spent more than 35 minutes Patient Condition at Discharge: Fair Plan - Discharge Summary Discharge Rx Participant: Yes New Discharge Prescriptions: New Insulin Detemir (Levemir) [Levemir] 10 unit SQ HS each Acetaminophen Tab [Tylenol] 650 mg PO Q6HR PRN tab PRN Reason: Mild Pain Or Fever > 100.5 Heparin Sodium,Porcine (1 ml) [Heparin Sodium] 5,000 unit SQ Q12HR each HYDROcodone/APAP 5-325MG [[place] 5-325] 1 each PO Q12HR PRN 2 Days #6 tab PRN Reason: Pain amLODIPine [Norvasc] 10 mg PO DAILY tab predniSONE 10 mg PO DIRECTED #40 tab atenoloL [Tenormin] 50 mg PO BID tab Continue Albuterol Sulfate [Ventolin HFA] 2 puff INHALATION RT-QID PRN PRN Reason: Shortness Of Breath Or Wheezing Sertraline [Zoloft] 50 mg PO DAILY Ipratropium-Albuterol Nebulize [Duoneb 0.5 mg-3 mg/3 ml Soln] 3 ml INHALATION RT-QID PRN each PRN Reason: Shortness Of Breath Or Wheezing Budesonide-Formot 160-4.5 Mcg [Symbicort 160-4.5 Mcg Inhaler] 2 puff INHALATION RT-BID each Glucose Oral Gel 15gm/32ml 15 gm PO Q2H PRN PRN Reason: Hypoglycemia Calcium Carbonate [Tums] 1,000 mg PO Q4H PRN PRN Reason: Indigestion Ipratropium-Albuterol Nebulize [Duoneb 0.5 mg-3 mg/3 ml Soln] 3 ml INHALATION RT-TID Nicotine [Nicoderm Cq 21 mg] 1 patch TRANSDERM DAILY Pantoprazole [Protonix] 40 mg PO DAILY Gabapentin [Neurontin] 400 mg PO TID Fluticasone Nasal [place] [Flonase Nasal [place]] 2 spray EA NOSTRIL DAILY Loratadine [Claritin] 10 mg PO DAILY Tussin Cough Syrup 10 ml PO Q4H PRN PRN Reason: Cough INSULIN ASPART (NovoLOG) [NovoLOG (formulary)] See Protocol SQ ACHS Magnesium Hydroxide [Milk of Magnesia] 2,400 mg PO DAILY PRN PRN Reason: Constipation Discontinued amLODIPine BESYLATE [Norvasc] 5 mg PO DAILY atenoloL [Tenormin] 25 mg PO BID tab HYDROcodone/APAP 7.5-325MG [[place] 7.5-325] 1 tab PO TID #6 tab Zolpidem [Ambien] 5 mg PO HS PRN PRN Reason: Insomnia Discharge Medication List Albuterol Sulfate [Ventolin HFA] 2 puff INHALATION RT-QID PRN 09/19/19 [History] Sertraline [Zoloft] 50 mg PO DAILY 09/19/19 [History] Gabapentin [Neurontin] 400 mg PO TID 07/28/22 [History] Fluticasone Nasal [place] [Flonase Nasal [place]] 2 spray EA NOSTRIL DAILY 09/11/24 [History] Loratadine [Claritin] 10 mg PO DAILY 09/11/24 [History] Budesonide-Formot 160-4.5 Mcg [Symbicort 160-4.5 Mcg Inhaler] 2 puff INHALATION RT-BID each 09/14/24 [Rx] Ipratropium-Albuterol Nebulize [Duoneb 0.5 mg-3 mg/3 ml Soln] 3 ml INHALATION RT-QID PRN each 09/14/24 [Rx] Calcium Carbonate [Tums] 1,000 mg PO Q4H PRN 10/02/24 [History] Glucose Oral Gel 15gm/32ml 15 gm PO Q2H PRN 10/02/24 [History] INSULIN ASPART (NovoLOG) [NovoLOG (formulary)] See Protocol SQ ACHS 10/02/24 [History] Ipratropium-Albuterol Nebulize [Duoneb 0.5 mg-3 mg/3 ml Soln] 3 ml INHALATION RT-TID 10/02/24 [History] Magnesium Hydroxide [Milk of Magnesia] 2,400 mg PO DAILY PRN 10/02/24 [History] Nicotine [Nicoderm Cq 21 mg] 1 patch TRANSDERM DAILY 10/02/24 [History] Pantoprazole [Protonix] 40 mg PO DAILY 10/02/24 [History] Tussin Cough Syrup 10 ml PO Q4H PRN 10/02/24 [History] Acetaminophen Tab [Tylenol] 650 mg PO Q6HR PRN tab 10/09/24 [Rx] HYDROcodone/APAP 5-325MG [[place] 5-325] 1 each PO Q12HR PRN 2 Days #6 tab 10/09/24 [Rx] Heparin Sodium,Porcine (1 ml) [Heparin Sodium] 5,000 unit SQ Q12HR each 10/09/24 [Rx] Insulin Detemir (Levemir) [Levemir] 10 unit SQ HS each 10/09/24 [Rx] amLODIPine [Norvasc] 10 mg PO DAILY tab 10/09/24 [Rx] atenoloL [Tenormin] 50 mg PO BID tab 10/09/24 [Rx] predniSONE 10 mg PO DIRECTED #40 tab 10/09/24 [Rx] Follow up Appointment(s)/Referral(s): Bisi Douglas, [NON-STAFF] - 1 Week Mir Nuñez DO [STAFF PHYSICIAN] - 1-2 days Activity/Diet/Wound Care/Special Instructions: Heart healthy low carbohydrate diet Activity as tolerated Discharge Disposition: TRANSFER TO SNF/ECF
[2024-10-09 16:12] VITALS: PULSE 68
--- NOTE | 2024-10-09 19:44 | P.PN ---
Subjective Progress Note Date: 10/09/24 On 10/09/2024, the patient is being seen for a follow-up. This is a 74-year-old female patient with acute hypoxic ivonne failure due to COPD exacerbation complicated by influenza A infection. The patient is known to have chronic hypoxic ivonne failure and she has been maintained on oxygen at 4 L/min nasal cannula. Noted the patient's oxygenation has remained stable and the patient remains oxygen dependent and currently she is on 2 L with a pulse ox of 95%. Overall, she is feeling better. No fever. No chills. No chest pain. No other new complaints otherwise for now. Sodium level is at 131, potassium is at 4.2, BUN is 41 with a creatinine of 0.6. No other significant events overnight. Comorbidities are multiple. The patient is known to have advanced COPD with an FEV1 of 22% predicted. She has remote history of pulmonary embolism and hypertension and fibromyalgia. Overall performance and functional status is extremely poor. She has also diabetes mellitus type 2. She has severe protein calorie malnutrition with a body mass index of 16.5. She also has a left lower lobe pulmonary nodule this is suspicious for malignancy that needs to be followed up at a later stage on outpatient basis. Cardiac rhythm is currently sinus. Objective - Vital Signs Vital signs: Vital Signs Temp 97.8 F 10/09/24 09:32 Pulse 75 10/09/24 12:44 Resp 20 10/09/24 12:44 BP 159/65 10/09/24 09:32 Pulse Ox 95 10/09/24 12:44 FiO2 40 10/08/24 23:32 Intake & Output 10/08/24 10/09/24 10/09/24 18:59 06:59 18:59 Intake Total 180 240 240 Output Total 300 700 Balance -120 -460 240 Weight 44 kg Intake: Oral 180 240 240 Output: Urine 300 700 Other: Voiding Method External Catheter External Catheter External Catheter # Voids 1 2 # Bowel Movements 1 - Exam GENERAL EXAM: Awake, very frail, cachectic 74-year-old female, resting comfortably in bed on 2 L of oxygen by nasal cannula HEAD: Normocephalic. EYES: Normal reaction of pupils, equal size. NOSE: Clear with pink turbinates. THROAT: No erythema or exudates. NECK: No masses, no JVD. CHEST: No chest wall deformity. LUNGS: Equal air entry with severely diminished breath sounds. CVS: S1 and S2 normal with no audible murmur, regular rhythm. ABDOMEN: No hepatosplenomegaly, normal bowel sounds, no guarding or rigidity. SPINE: No scoliosis or deformity SKIN: No rashes CENTRAL NERVOUS SYSTEM: No focal deficits, tone is normal in all 4 extremities. EXTREMITIES: There is no peripheral edema. No clubbing, no cyanosis. Peripheral pulses are intact. - Labs CBC & Chem 7: 10/08/24 09:02 10/09/24 07:00 Labs: Abnormal Lab Results - Last 24 Hours (Table) 10/08/24 10/08/24 10/09/24 Range/Units 16:16 19:46 06:11 Sodium (137-145) mmol/L Chloride (98-107) mmol/L Carbon Dioxide (22-30) mmol/L BUN (7-17) mg/dL Glucose (74-99) mg/dL POC Glucose (mg/dL) 390 H 179 H 258 H (70-110) mg/dL 10/09/24 10/09/24 Range/Units 07:00 11:17 Sodium 131 L (137-145) mmol/L Chloride 83 L (98-107) mmol/L Carbon Dioxide 39 H (22-30) mmol/L BUN 41 H (7-17) mg/dL Glucose 210 H (74-99) mg/dL POC Glucose (mg/dL) 415 H (70-110) mg/dL Assessment and Plan Plan: Acute hypoxemic and hypercapnic respiratory failure secondary to an acute exacerbation of chronic obstructive pulmonary disease complicated by influenza A infection. Clinically stable and the patient is currently on 2 L of O2 nasal cannula and overall respiratory status is back to her baseline. Noted the patient has advanced COPD with an FEV1 of 22% of predicted with chronic hypoxic respiratory failure. Positive influenza A at outside facility Altered mental status secondary to hypercapnia and hypoxemia, improved Chronic hypoxemic respiratory failure, normally maintained on 4 L/min nasal cannula 15/03. History of left lower lung nodule, FDG avid, and suspicious for bronchogenic carcinoma. Advanced COPD, with an FEV1 22% of predicted. Chronic ongoing tobacco dependence. Possible new onset atrial fibrillation with ventricular response. Remote history of pulmonary embolism. Hypertension. Fibromyalgia. Poor overall functional performance based on the above-mentioned multiple comorbidities. Plan: Continue O2 at 2 L and titrate oxygen flow to maintain saturation above 90%. The patient has been as high as on 4 L/min nasal cannula Patient completed a course of Tamiflu Continue Symbicort Prednisone burst taper Outpatient follow-up regarding the PET avid left lower lobe pulmonary nodule with seems to be highly suspicious for malignancy. May be a candidate for an SBRT at a later stage Cardiac rhythm is sinus Based on performance and functional status is extremely poor. The patient is to be discharged to [facility] in [place]. She will be completing a prednisone burst taper. She will continue Levemir insulin for blood sugar control. Rest of the home medications been all resumed. Discharge today. DNR/DNI CODE STATUS.
--- NOTE | 2024-10-12 15:04 | P.PN ---
Subjective Progress Note Date: 10/09/24 Principal diagnosis: Reason for follow-up is acute influenza Patient is a 74-year-old female with a past medical history significant for COPD diabetes mellitus fibromyalgia hypertension reflux PE patient is a resident of the [facility] and was sent to the [facility] initially for evaluation of respiratory distress for which the patient has been transferred to [facility] for further evaluation. On today's evaluation that is 10/09/2024, patient has been afebrile, patient is breathing slightly comfortably and is is down to 2 L current oxygen patient denies having any significant cough no chest pain, patient denies nausea vomiting or diarrhea and no abdominal pain, patient mention feeling better wants to go home. Patient did have creatinine 0.60 no CBC was done today Objective - Vital Signs Vital signs: Vital Signs Temp 97.8 F 10/09/24 09:32 Pulse 75 10/09/24 12:44 Resp 20 10/09/24 12:44 BP 159/65 10/09/24 09:32 Pulse Ox 95 10/09/24 12:44 FiO2 40 10/08/24 23:32 Intake & Output 10/08/24 10/09/24 10/09/24 18:59 06:59 18:59 Intake Total 180 240 240 Output Total 300 700 Balance -120 -460 240 Weight 44 kg Intake: Oral 180 240 240 Output: Urine 300 700 Other: Voiding Method External Catheter External Catheter External Catheter # Voids 1 2 # Bowel Movements 1 - Exam GENERAL DESCRIPTION: An elderly female lying in bed in no distress RESPIRATORY SYSTEM: Unlabored breathing , decreased breath sounds at bases HEART: S1 S2 regular rate and rhythm , ABDOMEN: Soft , no tenderness EXTREMITIES: No edema feet - Labs CBC & Chem 7: 10/08/24 09:02 10/09/24 07:00 Labs: Abnormal Lab Results - Last 24 Hours (Table) 10/08/24 10/08/24 10/09/24 Range/Units 16:16 19:46 06:11 Sodium (137-145) mmol/L Chloride (98-107) mmol/L Carbon Dioxide (22-30) mmol/L BUN (7-17) mg/dL Glucose (74-99) mg/dL POC Glucose (mg/dL) 390 H 179 H 258 H (70-110) mg/dL 10/09/24 10/09/24 Range/Units 07:00 11:17 Sodium 131 L (137-145) mmol/L Chloride 83 L (98-107) mmol/L Carbon Dioxide 39 H (22-30) mmol/L BUN 41 H (7-17) mg/dL Glucose 210 H (74-99) mg/dL POC Glucose (mg/dL) 415 H (70-110) mg/dL Assessment and Plan (1) Influenza A Status: Acute Code(s): J10.1 - FLU DUE TO OTH IDENT INFLUENZA VIRUS W OTH RESP MANIFEST SNOMED Code(s): 457253600 (2) Leukocytosis Status: Acute Code(s): D72.829 - ELEVATED WHITE BLOOD CELL COUNT, UNSPECIFIED SNOMED Code(s): 644452401 Plan: 1pleslye presented to hospital with acute respiratory failure with aspiration noted to be significantly hypoxic requiring BiPAP on admission, Tested positive for influenza A and a question of possible secondary bacterial pneumonia not entirely excluded, however the patient did have a normal procalcitonin. 2pleslye has completed her 5-day course of Tamiflu. There is no need for any antibiotic on discharge this were discussed with admitting physician working on discharge Dictation was produced using [employer] dictation software. please excuse any grammatical, word or spelling errors. Time with Patient: Less than 30
--- NOTE | 2024-10-16 14:03 | CDI ---
Documentation Clarification Form Date: 10/16/2024 01:52:15 PM From: Sydni Tran, [place] [employer] Admit Date: 10/01/2024 01:46:00 PM Patient Name: Sarika Locke Visit Number: [id number] Discharge Date: 10/09/2024 04:13:00 PM ATTENTION: The Clinical Documentation Specialists (CDI) and [facility] Coding Staff appreciate your assistance in clarifying documentation. Please respond to the clarification below the line at the bottom and electronically sign. The CDI & [facility] Coding staff will review the response and follow-up if needed. Please note: Queries are made part of the Legal Health Record. If you have any questions, please contact the author of this message via ITS. Doctor/Provider: Jose Mayfield There is documentation of critical care in ED note under Medical Decision Making. Additional clarification is required related to length of time spent on critical care for this patient. Clinical Indicators: Under Medical Decision Making - Was Critical care performed (if so, how long)? -Yes. for management of respiratory failure. Can you please clarify how long you spent on critical care for respiratory failure on this form or with addendum to original ED Note Length of Time for Critical Care = Unable to determine = MTDD
== END 2024-10-09 16:13 | DRG 193 ==
LOC: EC 12:04 → 3SCARD 13:46
PROVIDERS: ADMIT Hospitalist; ATTEND Hospitalist
PROC: 5A09357 Assistance with Respiratory Ventilation, Less than 24 Consecutive Hours, Continuous Positive Airway Pressure (ICD-10-PCS; principal; 2024-10-01)
DX: J10.00 Influenza due to other identified influenza virus with unspecified type of pneumonia (principal); E43 Unspecified severe protein-calorie malnutrition; J96.22 Acute and chronic respiratory failure with hypercapnia; G93.41 Metabolic encephalopathy; J96.21 Acute and chronic respiratory failure with hypoxia; R64 Cachexia; J44.1 Chronic obstructive pulmonary disease with (acute) exacerbation; E11.65 Type 2 diabetes mellitus with hyperglycemia; I11.9 Hypertensive heart disease without heart failure; J44.0 Chronic obstructive pulmonary disease with (acute) lower respiratory infection; E87.20 Acidosis, unspecified; Z68.1 Body mass index [BMI] 19.9 or less, adult; I48.91 Unspecified atrial fibrillation; Z79.4 Long term (current) use of insulin; E11.649 Type 2 diabetes mellitus with hypoglycemia without coma; J15.9 Unspecified bacterial pneumonia; Z66 Do not resuscitate; R54 Age-related physical debility; R91.1 Solitary pulmonary nodule; M79.7 Fibromyalgia; E87.70 Fluid overload, unspecified; M95.4 Acquired deformity of chest and rib; D72.828 Other elevated white blood cell count; T38.0X5A Adverse effect of glucocorticoids and synthetic analogues, initial encounter; Z96.652 Presence of left artificial knee joint; Z99.81 Dependence on supplemental oxygen; Z79.51 Long term (current) use of inhaled steroids; Z79.899 Other long term (current) drug therapy; Z91.81 History of falling; Z87.891 Personal history of nicotine dependence; Z86.711 Personal history of pulmonary embolism
CPT/HCPCS: 36410; 36415; 36600; 71045; 76937; 80048; 80053; 82805; 83036; 83605; 83735; 84145; 85025; 86140; 93005; 94640; 94660; 94667; 94760; 96361; 96365; 96367; 96372; 96375; 96376; 99291